=== PATIENT | female | born 1950 | race Caucasian/White ===

== ENCOUNTER 2018-04-15 15:10 | Emergency (ER) | payer MEDICARE, OTHER, SELFPAY ==
[2018-04-15 15:12] VITALS: BP 107/62; PULSE 77; RESP 16; TEMP 36.6; O2SAT 95; BMI 33.2
--- NOTE | 2018-04-15 15:24 | EKG12_ITS ---
Test Reason : Blood Pressure : / mmHG Vent. Rate : 079 BPM Atrial Rate : 079 BPM P-R Int : 152 ms QRS Dur : 080 ms QT Int : 414 ms P-R-T Axes : 025 011 036 degrees QTc Int : 474 ms Normal sinus rhythm Low voltage QRS Cannot rule out Anterior infarct , age undetermined Abnormal ECG Confirmed by STEPHANIE VAN, NIA ([id number]), editor in chief BELA KEANE ([id number] on 04/16/2018 11:57:00 AM Referred By: HOANG Confirmed By:NIA BROWN MD
[2018-04-15 15:27] VITALS: O2SAT 96
[2018-04-15] MEDS: 0.9% Normal Saline 1,000 ML 150 ML IV (15:33)
--- NOTE | 2018-04-15 15:36 | ED.DCSUM_ITS ---
- ER Visit Summary Date of Service: 04/15/18 Chief Complaint: [] Chest pain history of same related to esophageal reflux History of Present Illness: The patient is a 68 F [] patient was at her doctor's office for an unrelated visit skin infection, when she began having chest pressure was quite intense typical of her usual esophageal spasm reflux pain, she has had this for quite some time she had an extensive prior evaluation with EGD's manometry studies cardiac echo stress test etc. she has no history of CAD [place] PE rather this is always related to reflux esophageal spasm she has not been sick in any way no fever no cough no exertional symptoms review of systems all negative Physical Examination: [] 110/60-96% General, no distress resting comfortably HEENT is generally unremarkable The neck is supple no adenopathy Cardiovascular, regular rate and rhythm Lungs, clear bilateral Abdomen, soft nontender Extremities, no clubbing cyanosis or edema Neurologic, awake alert answering questions appropriately moving all 4 extremities EKG shows a sinus rhythm nothing acute she is resting comfortably and pain-free 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 says she is very familiar with her health conditions at this time she is agreeable to undergoing a cardiac protocol and will reevaluate but she assures me this is related to her esophageal spasm Test Results: [] Emergency Department Course and Treatment: [] The patient's EKG shows a sinus rhythm all lab tests are generally unremarkable for her as is chest x-ray, see those reports, reevaluation, she is resting comfortably in the bed she has no recurrence of symptoms 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 dictation software. It may contain incorrect words, spelling, and punctuation that were not noted in review of the chart prior to signing ED Disposition - Plan for ED Patient: Chief Complaint: Chest Pain Referrals: Andrew El MD [Primary Care Provider] -
[2018-04-15 15:37] LABS: Absolute Lymphocyte Count 1.31 X10^3/ul (0.83-4.51); Absolute Neutrophil Count 3.2 X10^3/uL (2.0-7.7); Basophil# 0.02 X10^3/uL; Basophil% 0.4 % (0-1); Eosinophils% 3.7 % (0-5); Hematocrit 39.6 % (37-47); Hemoglobin 12.5 g/dl (12.0-15.0); Lymphocyte # 1.31 X10^3/ul (4.0); Mean Corp Hgb Conc 31.6 g/gl (32-36); Mean Corpuscular Hgb 29.2 pg (27.0-32.0); Mean Corpuscular Volume 92.5 fL (81-99); Mean Platelet Vol. 9.5 fl (6.2-12.0); Monocyte# 0.74 X10^3/uL; Monocyte% 13.6 % (0-10); Neutrophil # 3.18 X10^3/uL (2.7-7.7); Neutrophil % 58.3 % (47-70); Platelet Count 287 K/mm3 (150-450); RBC Distribution Width CV 18.9 % (11.6-14.6); RBC Distribution Width SD 63.4 fl (35.1-43.9); Red Blood Count 4.28 M/mm3 (4.2-5.4); White Blood Count 5.5 K/mm3 (4.4-11.0)
[2018-04-15 15:38] LABS: POSITIVE COUNT NO; POSITIVE DIFFERENTIAL NO; POSITIVE MORPHOLOGY NO
--- NOTE | 2018-04-15 15:39 | RAD_ITS ---
STUDY: X-RAY CHEST REASON FOR EXAM: Female, 68 years old. Chest pain. TECHNIQUE: Single AP portable view of the chest. COMPARISON: None. FINDINGS: The lungs are clear and expanded. There is no demonstrated pleural abnormality. Normal size heart. Normal mediastinum and vira. Normal visualized pulmonary arteries. Normal visualized aortic arch and descending thoracic aorta. Normal visualized thoracic spine. Probable previous resection of the tip of the right clavicle. There is no demonstrated abnormality of the visualized soft tissue structures of the upper abdomen. RAD/Chest 1 View (Portable) IMPRESSION: No acute chest disease. Electronically Signed: Kvng Castro MD at 16:12 EST , Service support ,
[2018-04-15 16:03] LABS: Anion Gap 7 (5-15); BUN 24 mg/dL (7-18); BUN/Creat Ratio 35.1 RATIO (10-20); Calcium,Total 8.2 mg/dL (8.5-10.1); Chloride 108 mmol/L (98-107); Creatinine, Serum 0.68 mg/dL (0.55-1.02); EST Glomerular Filtration Rate 91 mL/min (>60); Est Glom Filt Rate - Afr Amer 110 mL/min (>60); Estimated Creatinine Clearance 49.12 ml/min; Glucose 130 mg/dL (74-106); Potassium 3.2 mmol/L (3.5-5.1); Sodium Level 142 mmol/L (136-145)
[2018-04-15 16:06] LABS: BNP,B-Type NATRIURETIC PEPTIDE 19.1 pg/mL (0-100)
--- NOTE | 2018-04-15 16:17 | ED.DEP ---
ED Disposition - Plan for ED Patient: Chief Complaint: Chest Pain Instructions: ED Chest Pain Atypical Unkn Cause Referrals: Andrew El MD [Primary Care Provider] -
--- NOTE | 2018-04-15 16:18 | ED.DEP ---
ED Disposition - Plan for ED Patient: Chief Complaint: Chest Pain Instructions: ED Chest Pain Atypical Unkn Cause Referrals: Andrew El MD [Primary Care Provider] -
[2018-04-15 16:19] VITALS: BP 100/66; PULSE 74; RESP 16; O2SAT 95
--- NOTE | 2018-04-15 16:47 | ED.DEP ---
ED Disposition - Plan for ED Patient: Chief Complaint: Chest Pain Instructions: ED Chest Pain Atypical Unkn Cause Prescriptions: Nitroglycerin 0.4 mg SL PRN PRN #30 tab.subl PRN Reason: Cardiac/Chest Pain Referrals: Andrew El MD [Primary Care Provider] -
[2018-04-15 16:52] VITALS: BP 111/57; PULSE 77; RESP 16; O2SAT 97
--- OUTSIDE RECORDS SUMMARY | 2018-06-01 13:35 | XMS RPT_ITS ---
:1950 Author Organization OHIP Care Team Providers Name Role Phone THIAGO PIPER Admitting Unavailable THIAGO PIPER Attending Unavailable THIAGO PIPER Admitting Unavailable THIAGO PIPER Attending Unavailable ASHLEY SIMPSON (LAND CHECKER) Referring Unavailable GANCHECO, SHANNAN Referring Unavailable KENIA LAKE (LAND CHECKER) Attending Unavailable THIAGO PIPER Attending Unavailable DENISE NAM () Attending Unavailable DENISE NAM () Referring Unavailable DEE VEGA (PA-C) Attending Unavailable RADHA ELIAS (PT) Attending Unavailable DEE VEGA (PA-C) Referring Unavailable FRANCESCO SMITH Attending Unavailable RADHA ELIAS (PT) Attending Unavailable DEE VEGA (PA-C) Referring Unavailable FRANCESCO SMITH S Attending Unavailable ASHLEY SIMPSON (LAND CHECKER) Attending Unavailable GANTA, SHANNAN Referring Unavailable BOWEN ANDRE Referring Unavailable BOWEN ANDRE Attending Unavailable BOWEN ANDRE Referring Unavailable NAFISA RAPP (LAND CHECKER) Attending Unavailable BOWEN ANDRE Referring Unavailable DOMINGUEZ SORIANO Attending Unavailable NAFISA RAPP (LAND CHECKER) Referring Unavailable ASHLEY SIMPSON (LAND CHECKER) Attending Unavailable NAFISA RAPP (LAND CHECKER) Referring Unavailable PILLO GRANGER Referring Unavailable PILLO GRANGER Attending Unavailable GANTA, SHANNAN Attending Unavailable GANTA, SHANNAN Referring Unavailable ASHLEY SIMPSON (LAND CHECKER) Attending Unavailable ANDREW BLANCO Attending Unavailable RUSS VELÁZQUEZ Referring Unavailable Ja KAUFMAN (PA-C) Attending Unavailable Ja KAUFMAN (PAKristelC) Attending Unavailable ANDREW BLANCO Referring Unavailable Eden Gant Attending Unavailable Andrew Blanco Primary Care Unavailable PROBLEMS PROBLEMS DATE TYPE CONDITION / CODE ATTENDING STATUS SOURCE 03/29/2018 Active Encounter for NA Active [place] screening mammogram [facility] Main for malignant [place] neoplasm of breast / Repository Z12.31(ICD-10) 02/18/2018 Active Radiculopathy, lumbar PIPER, THIAGO C Active [place] region / Clinic Other M54.16(ICD-10) [place] Repository 11/27/2017 Active Other fdc [facility] (current) drug Clinic Main therapy / [place] Z79.899(ICD-10) Repository 11/27/2017 Active Raynaud's syndrome NA [facility] without gangrene / Clinic Main I73.00(ICD-10) [place] Repository 11/09/2017 Active Pain in right hand / NA Active [place] M79.641(ICD-10) Clinic Main [place] Repository 11/09/2017 Active Pain in left hand / Active [place] M79.642(ICD-10) Clinic [facility] [place] Repository 10/27/2017 Active Heartburn / DOMINGUEZ SORIANO [facility] R12(ICD-10) [facility] Main [place] Repository 10/27/2017 Active Personal history of DOMINGUEZ SORIANO [facility] other diseases of the [facility] Main digestive system / [place] Z87.19(ICD-10) Repository 10/27/2017 Active Epigastric pain / DOMINGUEZ SORIANO [facility] R10.13(ICD-10) [facility] Main [place] Repository 10/27/2017 Active Nausea / DOMINGUEZ SORIANO [facility] R11.0(ICD-10) [facility] Main [place] Repository 10/27/2017 Active Other chest pain / DOMINGUEZ SORIANO [facility] R07.89(ICD-10) Clinic Main [place] Repository 10/27/2017 Active Dysphagia, DOMINGUEZ SORIANO [facility] unspecified / L Clinic Main R13.10(ICD-10) [place] Repository 10/27/2017 Active Iron deficiency / DOMINGUEZ SORIANO [facility] E61.1(ICD-10) [facility] Main [place] Repository 04/09/2012 Active Hereditary Active [place] hemochromatosis / Clinic Main E83.110(ICD-10) [place] Repository 10/05/2017 Active Type 2 diabetes [facility] mellitus without Clinic Main complications / [place] E11.9(ICD-10) Repository 08/31/2017 Active Unknown / FRANCESCO SMITH Active [place] UNK(Unknown) Clinic Main [place] Repository 05/28/2017 Active Cramp and spasm / NA Active [place] R25.2(ICD-10) Clinic Main [place] Repository 04/01/2017 Active Spinal stenosis, NA Active [place] lumbar region without Clinic Main neurogenic [place] claudication / Repository M48.061(ICD-10) 05/25/2015 Active Other intervertebral NA Active [place] disc degeneration, [facility] Main lumbar region / [place] M51.36(ICD-10) Repository 06/21/2014 Active Other cervical disc NA Active [place] degeneration, Clinic Main unspecified cervical [place] region / Repository M50.30(ICD-10) 05/28/2017 Active Other spondylosis NA Active [place] with myelopathy, Clinic Main cervical region / [place] M47.12(ICD-10) Repository PROCEDURES PROCEDURES No Procedure Records FoundRESULTS RESULTS PROGRESS Observed: 05/13/2018 Status: COMPLETED Source: [place] 1:24 PM [facility] REPOSITORY HNO ID: [id number] Author: Ja Zaidi (Tristian) Mandeep Service: (none) Author Type: Physician Dye Maker Type: Progress Notes Filed: 05/13/2018 2:44 PM Note Text: 68 year old female with c/o 1. Here for follow from ED visit from office last visit. EKG non-acute. Troponin negative. No chest pain or esophageal spasm. No hx reflux. Has hx of esophageal slowing on first EGD. Swallow study was a little abnormal. Denies heart burn, acid reflux. Has Nitro Kimberly fresh rx. at home. Did not have admit or follow up scheduled. Patient does not feel cardiac work up is necessary. 2. DM2: no medication Medical Issues / Complications: hypertension and hyperlipidemia Checking blood sugars at home? Yes. Watching diet? Physical Activity: Modest Hypoglycemic spells? No Any visual disturbance? No Chest pain? No New numbness, tingling or loss of sensation? No Any recent foot problems, sores or rashes? No Any recent or sudden weight loss? No Any recent illness? No Renal protective agent? Yes ASA daily? Yes Statin therapy? Yes Triglyceride therapy? No Last eye exam: 11/19/17. Last foot exam: due. HBA1C: Hemoglobin A1C (%) Date Value 10/08/2017 6.0 04/09/2017 6.2 ) CMP: Glucose 100 10/08/2017 BUN 20 10/08/2017 Creatinine 0.69 10/08/2017 Sodium 140 10/08/2017 Potassium 3.8 10/08/2017 Chloride 101 10/08/2017 CO2 29 10/08/2017 Protein, Total 7.0 10/08/2017 Albumin 4.2 10/08/2017 Calcium 9.2 10/08/2017 Alkaline Phosphatase 77 10/08/2017 Bilirubin, Total 0.2 10/08/2017 AST 24 10/08/2017 ALT 15 10/08/2017 Last 2 Encounter Wt Readings: Date: Wt: 05/13/2018 88.9 kg (196 lb) 04/15/2018 89.1 kg (196 lb 6.4 oz) 3. Hyperlipidemia: Taking medication consistently Yes Observing low cholesterol high fiber diet No Muscle aches Yes Stomach complaints/ diarrhea Yes Last 2 Lipids: Component Latest Ref Rng AND Units 02/19/2015 10/13/2016 04/09/2017 Triglyceride 30 - 149 mg/dL 60 50 45 Cholesterol, Total 100 - 199 mg/dL 210 (H) 215 (H) 222 (H) HDL Cholesterol >55 mg/dL 73 79 90 VLDL Cholesterol 6 - 40 mg/dL 12 10 9 LDL Cholesterol 60 - 129 mg/dL 125 126 123 Fasting Time hrs Unknown 12 14 TC:HDL Ratio 1.00 - 5.00 2.88 2.72 2.47 LDL:HDL Ratio 0.50 - 3.55 1.71 1.59 1.37 Non HDL Cholesterol 90 - 159 mg/dL 137 136 132 4. HTN: Current meds: HCTZ, LAsix Patient is compliant with meds Yes Monitors bp at home: No. If yes, readings: Denies side effects: Yes. Chest pain: No. Dyspnea: No. Edema: No. Palpitations: No. Syncope: No. Headache: No. Dizziness: No. Last 3 Encounter BP Readings: Date: BP: 05/13/2018 144/78 04/15/2018 128/82 02/23/2018 128/76 Last 2 Encounter Wt Readings: Date: Wt: 05/13/2018 88.9 kg (196 lb) 04/15/2018 89.1 kg (196 lb 6.4 oz) Vitals 02/18/2018 02/23/2018 02/23/2018 04/15/2018 05/13/2018 SITTING SYSTOLIC 133 128 128 144 SITTING DIASTOLIC 67 76 82 78 5. Hemochromatosis: stable. Follows with Dr. Andre. Last visit in October. Component Latest Ref Rng AND Units 04/09/2017 10/08/2017 WBC 3.70 - 11.00 k/uL 4.94 RBC 3.90 - 5.20 m/uL 4.87 Hemoglobin 11.5 - 15.5 g/dL 12.0 Hematocrit 36.0 - 46.0 % 39.3 MCV 80.0 - 100.0 fL 80.7 MCH 26.0 - 34.0 pG 24.6 (L) MCHC 30.5 - 36.0 g/dL 30.5 RDW-CV 11.5 - 15.0 % 18.6 (H) Platelet Count 150 - 400 k/uL 451 (H) MPV 9.0 - 12.7 fL 9.9 Neut% % 44.3 Abs Neut (ANC) 1.45 - 7.50 k/uL 2.17 Lymph% % 34.8 Abs Lymph 1.00 - 4.00 k/uL 1.72 Park% % 14.8 Abs Park <0.87 k/uL 0.73 Eosin% % 4.9 Abs Eosin <0.46 k/uL 0.24 Baso% % 1.2 Abs Baso <0.11 k/uL 0.06 Nucleated Reds 0 /100 WBC 0.0 Absolute nRBC <0.01 k/uL <0.01 Diff Type Auto Diff Iron 41 - 186 ug/dL 23 (L) 44 TIBC 232 - 386 ug/dL 472 (H) 404 (H) Transferrin Saturation 15 - 57 % 5 (L) 11 (L) Ferritin 14.7 - 205.1 ng/mL 14.4 (L) 17.0 HISTORIES FAMILY HISTORY Problem Relation Age of Onset - Cancer Mother 64 ovarian - Cancer Father 76 Mantle Cell Lymphoma - Cancer Maternal Grandmother uterine dx 60s - COPD Maternal Grandfather - Heart Maternal Grandfather CHF - Heart Paternal Grandmother CVA - Blood Disease Sister hemochromotosis - Cancer Paternal Aunt lung - Cancer Paternal Uncle brain tumor, myasthenia gravis PAST MEDICAL HISTORY Diagnosis Date - Arthritis - Blood dyscrasia - Dermatitis - Frequent UTI - Hemochromatosis - Hypertension - Lumbar pain - Shingles 1999 - Type II or unspecified type diabetes mellitus without mention of complication, not stated as uncontrolled 04/10/2014 PAST SURGICAL HISTORY Procedure Laterality Date - ARTHRODESIS [facility] JNT THUMB W/WO FIX 1996 bilateral - CERVICAL BIOPSY 05/25/12 Dr. Jordan - COLONOSCOP W/ OR W/O BRSH SPEC 05/16/2015 Colonoscopy - EGD W/O OR W/BRUSH/WASH 05/16/2015 EGD - ENDOMETRIAL BIOPSY 05/07/12 Dr. Jordan - HYSTEROSCOPY 05/25/12 Dr. Jordan - KNEE SCOPE,MENISECTOMY,MED OR LAT 10/07/2013 Left knee arthroscopic medial and lateral meniscectomies - partial - PAST SURGICAL HISTORY OF 1981 septoplasy - PAST SURGICAL HISTORY OF 04/16 bilateral lumbar epidural - PAST SURGICAL HISTORY OF 06/11/2015 lumbar epidural - left - REDUCTION OF LARGE BREAST 1999 bilateral - REMOVAL OF TONSILS,<12 Y/O 1979 Tonsillectomy - ROTATOR CUFF REPAIR 1984 right acromioplasty Social History Marital status: Single Spouse name: Years of education: Number of children: 0 Occupational History Occupation Employer Comment retired Social History Main Topics Smoking status: Never Smoker Smokeless tobacco: Never Used Alcohol use: Yes 0.0 oz/week Comment: 5 drinks per week Drug use: No Sexual activity: Not Currently 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 No children. ACTIVE PROBLEM LIST Essential Hypertension Acne Pain Disorder Menopausal Vaginal Dryness Itchy Eyes Hemochromatosis Body Odor Chronic Dermatitis of Hands Frequent Uti Abdominal Pain Hereditary Hemochromatosis (Hcc) Liver Dysfunction Lumbar Stenosis Lumbar Radiculopathy Chronic Pain Negron's Cyst Tear, Knee, Lateral Meniscus Complex Tear of Medial Meniscus of Left Knee As Current Injury Pain in Joint, Lower Leg Tear of Medial Cartilage Or Meniscus of Knee, Current Diabetes Mellitus Type 2, Controlled, Without Complications (Hcc) Hyperlipidemia Thoracic Back Pain Ddd (Degenerative Disc Disease), Cervical Cervical Spondylosis Chronic Instability of Metacarpophalangeal Joint of Thumb Bilateral Low Back Pain Without Sciatica Thumb Pain Ddd (Degenerative Disc Disease), Lumbar Trochanteric Bursitis of Left Hip Piriformis Syndrome of Left Side Trochanteric Tendinitis of Left Hip Vitiligo Alcohol Abuse, in Remission Spinal Stenosis of Lumbar Region Without Neurogenic Claudication Chronic Rhinitis Osteoarthritis of Cervical Spine With Myelopathy Chronic Superficial Gastritis Without Bleeding Current Outpatient Prescriptions: lancets (FREESTYLE LANCETS) 28 gauge misc Use 3 times daily Disp: 100 Each Rfl: 3 blood sugar diagnostic (FREESTYLE LITE STRIPS) test strip Use as instructed, 3 times daily to check blood sugars, E11.9 Disp: 300 Strip Rfl: 3 furosemide (LASIX) 40 mg tablet Take 0.5 tablets by mouth once daily. Disp: 45 tablet Rfl: 1 hydroCHLOROthiazide (HYDRODIURIL, ESIDRIX) 25 mg tablet Take 1 tablet by mouth once daily. Disp: 90 tablet Rfl: 0 mupirocin (BACTROBAN) 2 % ointment Apply 1 application to affected area three times daily. Location: left hand Disp: 15 g Rfl: 0 nitroglycerin (NITROLINGUAL) 400 mcg/spray spray Dissolve 1 Kimberly under the tongue every 5 minutes as needed. Disp: 1 Bottle Rfl: 2 potassium chloride ER (KLOR-CON M20) 20 mEq tablet Take 9 tablets by mouth once daily. Total of 180mEq daily. Disp: 810 tablet Rfl: 11 tretinoin (RETIN-A) 0.1 % cream Apply 1 Tube to affected area daily at bedtime. Disp: 45 g Rfl: 2 lancets (FREESTYLE LANCETS) 28 gauge misc Use once daily Disp: 300 Each Rfl: 1 meloxicam (MOBIC) 15 mg tablet Take 1 tablet by mouth once daily. Disp: 90 tablet Rfl: 2 traMADol (ULTRAM) 50 mg tablet Take 2 tablets by mouth as needed for up to 30 days. Disp: 60 tablet Rfl: 2 cyclobenzaprine (FLEXERIL) 10 mg tablet Take 1 tablet by mouth twice daily as needed. Disp: 60 tablet Rfl: 1 aspirin, enteric coated (ASPIRIN, ENTERIC COATED) 81 mg EC tablet Take 81 mg by mouth once daily. Disp: Rfl: mupirocin (BACTROBAN) 2 % ointment Apply 1 application to affected area twice daily. Apply twice a day. Disp: 22 g Rfl: 0 [facility] Nasal Ointment Use 1 application in each nostril twice daily as needed. [facility]CF nasal ointment Disp: 1 Tube Rfl: prn Blood-Glucose Meter (FREESTYLE LITE METER) monitoring kit Freestyle LITE Meter Kit -Dx 250.00, no insulin Disp: 1 Each Rfl: 0 olopatadine (PATANOL) 0.1 % ophthalmic solution Use 1 Drop in both eyes twice daily. As needed. Disp: 1 Bottle Rfl: 1 estradiol (ESTRACE) 0.01 % (0.1 mg/gram) vaginal cream Use 1 g vaginally twice a week. Disp: 1 Tube Rfl: 0 Ascorbic Acid (VITAMIN C) 250 mg chew Take 4 tablets by mouth once daily. Disp: 100 tablet Rfl: 0 MULTIVIT ANDMINERALS/FERROUS FUM (MULTI VITAMIN ORAL) Take by mouth once daily. Disp: Rfl: No current facility-administered medications for this visit. BP CONTROLLED (<130/80) due on 1969 DIABETIC FOOT EXAM due on 02/27/2016 LDL CHOLESTEROL due on 04/09/2018 HBA1C due on 04/09/2018 EXAM: BP 144/78 Pulse 88 Resp 20 Wt 88.9 kg (196 lb) BMI 32.62 kg/m? Pleasant adult woman in no acute distress. Alert and oriented all spheres. Normal affect and cognition. Speech normal. No deficits to learning or comprehension. Skin warm, dry, pink to lips and nailbeds. Normal turgor. Respirations regular and unlabored. HEENT WNL. TM's clear. Nose and oropharynx free from injection or lesion. No cervical lymph nodes. Thyroid non-tender, no masses Chest CTA. HRRR without murmur or gallop. Extrem: no clubbing, cyanosis, edema. Extremities are warm and pink with prompt capillary refill. ASSESSMENT/PLAN: 1. Essential hypertension - ICD9: 401.9, ICD10: I10 (primary diagnosis) - good control: Slightly higher today than last several. Recheck next visit. - Continue current medication(s) - Recommended regular aerobic exercise. - Recommend home blood pressure monitoring, to bring results in on next visit - Goal of BP <130/80 2. Controlled type 2 diabetes mellitus without complication, unspecified fdc insulin use status (HCC) - ICD9: 250.00, ICD10: E11.9 Controlled. - Check HgA1C and fasting lipid panel - LANCETS 28 GAUGE 3. Hyperlipidemia, mixed - ICD9: 272.2, ICD10: E78.2 - good control - Continue current medication. 4. Esophageal spasm - ICD9: 530.5, ICD10: K22.4 Resolved. Has rx for NTG. 5. Hereditary hemochromatosis (HCC) - ICD9: 275.01, ICD10: E83.110 Stable: follow in spring. F/u 6 months Ja Kaufman PA-C CNOV Observed: 05/13/2018 Status: COMPLETED Source: [place] 12:20 PM [facility] REPOSITORY Office Visit (FAMPWS) NORBERTOLEILA ([id number]) 1950 F Date Time Provider Department 05/13/18 12:20 PM [facility] During your visit today, we recorded the following information about you: Pulse Respiration Blood pressure Weight 88/minute 20/minute 144/78 88.9 kg Radha Tijerinaandres Reynolds 05/13/2018 1:21 PM Signed Patient would like to review EKG report. Ja Kaufman PA-C 05/13/2018 2:44 PM Signed 68 year old female with c/o 1. Here for follow from ED visit from office last visit. EKG non-acute. Troponin negative. No chest pain or esophageal spasm. No hx reflux. Has hx of esophageal slowing on first EGD. Swallow study was a little abnormal. Denies heart burn, acid reflux. Has Nitro Kimberly fresh rx. at home. Did not have admit or follow up scheduled. Patient does not feel cardiac work up is necessary. 2. DM2: no medication Medical Issues / Complications: hypertension and hyperlipidemia Checking blood sugars at home? Yes. Watching diet? Physical Activity: Modest Hypoglycemic spells? No Any visual disturbance? No Chest pain? No New numbness, tingling or loss of sensation? No Any recent foot problems, sores or rashes? No Any recent or sudden weight loss? No Any recent illness? No Renal protective agent? Yes ASA daily? Yes Statin therapy? Yes Triglyceride therapy? No Last eye exam: 11/19/17. Last foot exam: due. HBA1C: Hemoglobin A1C (%) Date Value 10/08/2017 6.0 04/09/2017 6.2 ) CMP: Glucose 100 10/08/2017 BUN 20 10/08/2017 Creatinine 0.69 10/08/2017 Sodium 140 10/08/2017 Potassium 3.8 10/08/2017 Chloride 101 10/08/2017 CO2 29 10/08/2017 Protein, Total 7.0 10/08/2017 Albumin 4.2 10/08/2017 Calcium 9.2 10/08/2017 Alkaline Phosphatase 77 10/08/2017 Bilirubin, Total 0.2 10/08/2017 AST 24 10/08/2017 ALT 15 10/08/2017 Last 2 Encounter Wt Readings: Date: Wt: 05/13/2018 88.9 kg (196 lb) 04/15/2018 89.1 kg (196 lb 6.4 oz) 3. Hyperlipidemia: Taking medication consistently Yes Observing low cholesterol high fiber diet No Muscle aches Yes Stomach complaints/ diarrhea Yes Last 2 Lipids: Component Latest Ref Rng AND Units 02/19/2015 10/13/2016 04/09/2017 Triglyceride 30 - 149 mg/dL 60 50 45 Cholesterol, Total 100 - 199 mg/dL 210 (H) 215 (H) 222 (H) HDL Cholesterol >55 mg/dL 73 79 90 VLDL Cholesterol 6 - 40 mg/dL 12 10 9 LDL Cholesterol 60 - 129 mg/dL 125 126 123 Fasting Time hrs Unknown 12 14 TC:HDL Ratio 1.00 - 5.00 2.88 2.72 2.47 LDL:HDL Ratio 0.50 - 3.55 1.71 1.59 1.37 Non HDL Cholesterol 90 - 159 mg/dL 137 136 132 4. HTN: Current meds: HCTZ, LAsix Patient is compliant with meds Yes Monitors bp at home: No. If yes, readings: Denies side effects: Yes. Chest pain: No. Dyspnea: No. Edema: No. Palpitations: No. Syncope: No. Headache: No. Dizziness: No. Last 3 Encounter BP Readings: Date: BP: 05/13/2018 144/78 04/15/2018 128/82 02/23/2018 128/76 Last 2 Encounter Wt Readings: Date: Wt: 05/13/2018 88.9 kg (196 lb) 04/15/2018 89.1 kg (196 lb 6.4 oz) Vitals 02/18/2018 02/23/2018 02/23/2018 04/15/2018 05/13/2018 SITTING SYSTOLIC 133 128 128 144 SITTING DIASTOLIC 67 76 82 78 5. Hemochromatosis: stable. Follows with Dr. Andre. Last visit in October. Component Latest Ref Rng AND Units 04/09/2017 10/08/2017 WBC 3.70 - 11.00 k/uL 4.94 RBC 3.90 - 5.20 m/uL 4.87 Hemoglobin 11.5 - 15.5 g/dL 12.0 Hematocrit 36.0 - 46.0 % 39.3 MCV 80.0 - 100.0 fL 80.7 MCH 26.0 - 34.0 pG 24.6 (L) MCHC 30.5 - 36.0 g/dL 30.5 RDW-CV 11.5 - 15.0 % 18.6 (H) Platelet Count 150 - 400 k/uL 451 (H) MPV 9.0 - 12.7 fL 9.9 Neut% % 44.3 Abs Neut (ANC) 1.45 - 7.50 k/uL 2.17 Lymph% % 34.8 Abs Lymph 1.00 - 4.00 k/uL 1.72 Park% % 14.8 Abs Park <0.87 k/uL 0.73 Eosin% % 4.9 Abs Eosin <0.46 k/uL 0.24 Baso% % 1.2 Abs Baso <0.11 k/uL 0.06 Nucleated Reds 0 /100 WBC 0.0 Absolute nRBC <0.01 k/uL <0.01 Diff Type Auto Diff Iron 41 - 186 ug/dL 23 (L) 44 TIBC 232 - 386 ug/dL 472 (H) 404 (H) Transferrin Saturation 15 - 57 % 5 (L) 11 (L) Ferritin 14.7 - 205.1 ng/mL 14.4 (L) 17.0 HISTORIES FAMILY HISTORY Problem Relation Age of Onset - Cancer Mother 64 ovarian - Cancer Father 76 Mantle Cell Lymphoma - Cancer Maternal Grandmother uterine dx 60s - COPD Maternal Grandfather - Heart Maternal Grandfather CHF - Heart Paternal Grandmother CVA - Blood Disease Sister hemochromotosis - Cancer Paternal Aunt lung - Cancer Paternal Uncle brain tumor, myasthenia gravis PAST MEDICAL HISTORY Diagnosis Date - Arthritis - Blood dyscrasia - Dermatitis - Frequent UTI - Hemochromatosis - Hypertension - Lumbar pain - Shingles 1999 - Type II or unspecified type diabetes mellitus without mention of complication, not stated as uncontrolled 04/10/2014 PAST SURGICAL HISTORY Procedure Laterality Date - ARTHRODESIS [facility] JNT THUMB W/WO FIX 1996 bilateral - CERVICAL BIOPSY 05/25/12 Dr. Jordan - COLONOSCOP W/ OR W/O BRSH SPEC 05/16/2015 Colonoscopy - EGD W/O OR W/BRUSH/WASH 05/16/2015 EGD - ENDOMETRIAL BIOPSY 05/07/12 Dr. Jordan - HYSTEROSCOPY 05/25/12 Dr. Jordan - KNEE SCOPE,MENISECTOMY,MED OR LAT 10/07/2013 Left knee arthroscopic medial and lateral meniscectomies - partial - PAST SURGICAL HISTORY OF 1981 septoplasy - PAST SURGICAL HISTORY OF 04/16 bilateral lumbar epidural - PAST SURGICAL HISTORY OF 06/11/2015 lumbar epidural - left - REDUCTION OF LARGE BREAST 1999 bilateral - REMOVAL OF TONSILS,<12 Y/O 1978 Tonsillectomy - ROTATOR CUFF REPAIR 1984 right acromioplasty Social History Marital status: Single Spouse name: Years of education: Number of children: 0 Occupational History Occupation Employer Comment retired Social History Main Topics Smoking status: Never Smoker Smokeless tobacco: Never Used Alcohol use: Yes 0.0 oz/week Comment: 5 drinks per week Drug use: No Sexual activity: Not Currently 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 No children. ACTIVE PROBLEM LIST Essential Hypertension Acne Pain Disorder Menopausal Vaginal Dryness Itchy Eyes Hemochromatosis Body Odor Chronic Dermatitis of Hands Frequent Uti Abdominal Pain Hereditary Hemochromatosis (Hcc) Liver Dysfunction Lumbar Stenosis Lumbar Radiculopathy Chronic Pain Negron's Cyst Tear, Knee, Lateral Meniscus Complex Tear of Medial Meniscus of Left Knee As Current Injury Pain in Joint, Lower Leg Tear of Medial Cartilage Or Meniscus of Knee, Current Diabetes Mellitus Type 2, Controlled, Without Complications (Hcc) Hyperlipidemia Thoracic Back Pain Ddd (Degenerative Disc Disease), Cervical Cervical Spondylosis Chronic Instability of Metacarpophalangeal Joint of Thumb Bilateral Low Back Pain Without Sciatica Thumb Pain Ddd (Degenerative Disc Disease), Lumbar Trochanteric Bursitis of Left Hip Piriformis Syndrome of Left Side Trochanteric Tendinitis of Left Hip Vitiligo Alcohol Abuse, in Remission Spinal Stenosis of Lumbar Region Without Neurogenic Claudication Chronic Rhinitis Osteoarthritis of Cervical Spine With Myelopathy Chronic Superficial Gastritis Without Bleeding Current Outpatient Prescriptions: lancets (FREESTYLE LANCETS) 28 gauge misc Use 3 times daily Disp: 100 Each Rfl: 3 blood sugar diagnostic (FREESTYLE LITE STRIPS) test strip Use as instructed, 3 times daily to check blood sugars, E11.9 Disp: 300 Strip Rfl: 3 furosemide (LASIX) 40 mg tablet Take 0.5 tablets by mouth once daily. Disp: 45 tablet Rfl: 1 hydroCHLOROthiazide (HYDRODIURIL, ESIDRIX) 25 mg tablet Take 1 tablet by mouth once daily. Disp: 90 tablet Rfl: 0 mupirocin (BACTROBAN) 2 % ointment Apply 1 application to affected area three times daily. Location: left hand Disp: 15 g Rfl: 0 nitroglycerin (NITROLINGUAL) 400 mcg/spray spray Dissolve 1 Kimberly under the tongue every 5 minutes as needed. Disp: 1 Bottle Rfl: 2 potassium chloride ER (KLOR-CON M20) 20 mEq tablet Take 9 tablets by mouth once daily. Total of 180mEq daily. Disp: 810 tablet Rfl: 11 tretinoin (RETIN-A) 0.1 % cream Apply 1 Tube to affected area daily at bedtime. Disp: 45 g Rfl: 2 lancets (FREESTYLE LANCETS) 28 gauge misc Use once daily Disp: 300 Each Rfl: 1 meloxicam (MOBIC) 15 mg tablet Take 1 tablet by mouth once daily. Disp: 90 tablet Rfl: 2 traMADol (ULTRAM) 50 mg tablet Take 2 tablets by mouth as needed for up to 30 days. Disp: 60 tablet Rfl: 2 cyclobenzaprine (FLEXERIL) 10 mg tablet Take 1 tablet by mouth twice daily as needed. Disp: 60 tablet Rfl: 1 aspirin, enteric coated (ASPIRIN, ENTERIC COATED) 81 mg EC tablet Take 81 mg by mouth once daily. Disp: Rfl: mupirocin (BACTROBAN) 2 % ointment Apply 1 application to affected area twice daily. Apply twice a day. Disp: 22 g Rfl: 0 [facility]CF Nasal Ointment Use 1 application in each nostril twice daily as needed. [facility] nasal ointment Disp: 1 Tube Rfl: prn Blood-Glucose Meter (FREESTYLE LITE METER) monitoring kit Freestyle LITE Meter Kit -Dx 250.00, no insulin Disp: 1 Each Rfl: 0 olopatadine (PATANOL) 0.1 % ophthalmic solution Use 1 Drop in both eyes twice daily. As needed. Disp: 1 Bottle Rfl: 1 estradiol (ESTRACE) 0.01 % (0.1 mg/gram) vaginal cream Use 1 g vaginally twice a week. Disp: 1 Tube Rfl: 0 Ascorbic Acid (VITAMIN C) 250 mg chew Take 4 tablets by mouth once daily. Disp: 100 tablet Rfl: 0 MULTIVIT ANDMINERALS/FERROUS FUM (MULTI VITAMIN ORAL) Take by mouth once daily. Disp: Rfl: No current facility-administered medications for this visit. BP CONTROLLED (<130/80) due on 1969 DIABETIC FOOT EXAM due on 02/27/2016 LDL CHOLESTEROL due on 04/09/2018 HBA1C due on 04/09/2018 EXAM: BP 144/78 Pulse 88 Resp 20 Wt 88.9 kg (196 lb) BMI 32.62 kg/m? Pleasant adult woman in no acute distress. Alert and oriented all spheres. Normal affect and cognition. Speech normal. No deficits to learning or comprehension. Skin warm, dry, pink to lips and nailbeds. Normal turgor. Respirations regular and unlabored. HEENT WNL. TM's clear. Nose and oropharynx free from injection or lesion. No cervical lymph nodes. Thyroid non-tender, no masses Chest CTA. HRRR without murmur or gallop. Extrem: no clubbing, cyanosis, edema. Extremities are warm and pink with prompt capillary refill. ASSESSMENT/PLAN: 1. Essential hypertension - ICD9: 401.9, ICD10: I10 (primary diagnosis) - good control: Slightly higher today than last several. Recheck next visit. - Continue current medication(s) - Recommended regular aerobic exercise. - Recommend home blood pressure monitoring, to bring results in on next visit - Goal of BP <130/80 2. Controlled type 2 diabetes mellitus without complication, unspecified intermediate manager insulin use status (HCC) - ICD9: 250.00, ICD10: E11.9 Controlled. - Check HgA1C and fasting lipid panel - LANCETS 28 GAUGE 3. Hyperlipidemia, mixed - ICD9: 272.2, ICD10: E78.2 - good control - Continue current medication. 4. Esophageal spasm - ICD9: 530.5, ICD10: K22.4 Resolved. Has rx for NTG. 5. Hereditary hemochromatosis (HCC) - ICD9: 275.01, ICD10: E83.110 Stable: follow in spring. F/u 6 months M Dejuan Kaufman PA-C Referring Provider: ANDREW BLANCO [[id number]] Allergies As of Date: 05/13/2018 Noted Allergy Reaction CEPHALOSPORINS 03/09/2012 10 - Anaphylaxis THIMEROSAL 03/09/2012 7 - Swelling Comments: Difficulty breathing VANCOMYCIN 03/09/2012 10 - Anaphylaxis Comments: flushed LEVAQUIN (LEVOFLOXACIN) 03/14/2013 2 - Rash 14 - Other: See Comments Comments: Muscle/joint pain SPIRONOLACTONE (BULK) 02/20/2015 2 - Rash Comments: Pt states happened years ago when trying this always forgets. SULFA (SULFONAMIDE ANTIBIOTICS) 04/09/2012 4 - Hives 9 - Itching TAPE (ADHESIVE TAPE (ROSINS)) 06/08/2012 2 - Rash 9 - Itching Comments: degloving ZOCOR (SIMVASTATIN) 05/15/2014 14 - Other: See Comments Comments: Muscle/limb pain Date Reviewed: 05/13/2018 Reviewed by: Radha Chiu Ma - Fully Assessed Reason for Visit: Recheck [92] Cmt: Chest pain Primary Visit Diagnosis:Essential hypertension [I10] Other Visit Diagnoses:Controlled type 2 diabetes mellitus without complication, unspecified fdc insulin use status (HCC) [E11.9] Hyperlipidemia, mixed [E78.2] Esophageal spasm [K22.4] Hereditary hemochromatosis (HCC) [E83.110] Order(s):lancets (FREESTYLE LANCETS) 28 gauge miscUse 3 times dailyDisp: 300 EachRfl: 3 Prescriptions as of 05/13/2018 Sig: BLOOD SUGAR DIAGNOSTIC STRIPS Use as instructed, 3 times da* FUROSEMIDE 40 MG TABLET Take 0.5 tablets by mouth onc* HYDROCHLOROTHIAZIDE 25 MG TAB* Take 1 tablet by mouth once d* MUPIROCIN 2 % TOPICAL OINTMENT Apply 1 application to affect* NITROGLYCERIN 400 MCG/SPRAY T* Dissolve 1 Kimberly under the to* POTASSIUM CHLORIDE ER 20 MEQ * Take 9 tablets by mouth once * TRETINOIN 0.1 % TOPICAL CREAM Apply 1 Tube to affected area* LANCETS 28 GAUGE Use once daily MELOXICAM 15 MG TABLET Take 1 tablet by mouth once d* TRAMADOL 50 MG TABLET Take 2 tablets by mouth as ne* CYCLOBENZAPRINE 10 MG TABLET Take 1 tablet by mouth twice * ASPIRIN 81 MG TABLET,DELAYED * Take 81 mg by mouth once dangelo* MUPIROCIN 2 % TOPICAL OINTMENT Apply 1 application to affect* COMPOUNDED PRESCRIPTION Use 1 application in each nos* BLOOD-GLUCOSE METER KIT Freestyle LITE Meter Kit -Dx * OLOPATADINE 0.1 % EYE DROPS Use 1 Drop in both eyes twice* ESTRADIOL 0.01% (0.1 MG/GRAM)* Use 1 g vaginally twice a wee* ASCORBIC ACID (VITAMIN C) 250* Take 4 tablets by mouth once * MULTI VITAMIN ORAL Take by mouth once daily. LANCETS 28 GAUGE Use 3 times daily Medication notes this encounter TRAMADOL 50 MG TABLET >> Radha Chiu Ma 05/13/2018 12:44 PM >> RADHA CHIU MA May 13, 2018 12:44 PM Taking 100 mg once a day Problem List As Of Date 05/13/2018 Noted Resolved Essential hypertension [I10] INVALID FOR* More... Acne [L70.9] INVALID FOR* Pain disorder [R52] INVALID FOR* Menopausal vaginal dryness [N95.1] INVALID FOR* Itchy eyes [R68.89] INVALID FOR* Anemia [D64.9] INVALID FOR*10/14/2012 Hemochromatosis [E83.119] INVALID FOR* Body odor [L74.8] INVALID FOR* Chronic dermatitis of hands [L30.9] INVALID FOR* Frequent UTI [N39.0] INVALID FOR* Abdominal pain [R10.9] INVALID FOR* Hereditary hemochromatosis [E83.110] INVALID FOR* More... Liver dysfunction [K76.89] INVALID FOR* Lumbar stenosis [M48.061] INVALID FOR* Lumbar radiculopathy [M54.16] INVALID FOR* Chronic pain [G89.29] INVALID FOR* Negron's cyst [M71.20] INVALID FOR* Tear, knee, lateral meniscus [S83.289A] INVALID FOR* Complex tear of medial meniscus of left knee as*INVALID FOR* Pain in joint, lower leg [M25.569] INVALID FOR* Tear of medial cartilage or meniscus of knee, c*INVALID FOR* Diabetes mellitus type 2, controlled, without c*INVALID FOR* More... Hyperlipidemia [E78.5] INVALID FOR* Thoracic back pain [M54.6] INVALID FOR* DDD (degenerative disc disease), cervical [M50.*INVALID FOR* Cervical spondylosis [M47.812] INVALID FOR* Acute combined systolic and diastolic congestiv*INVALID FOR*03/04/2015 Chronic instability of metacarpophalangeal join*INVALID FOR* Bilateral low back pain without sciatica [M54.5]INVALID FOR* Thumb pain [M79.646] INVALID FOR* DDD (degenerative disc disease), lumbar [M51.36]INVALID FOR* Trochanteric bursitis of left hip [M70.62] INVALID FOR* Piriformis syndrome of left side [G57.02] INVALID FOR* Trochanteric tendinitis of left hip [M70.62] INVALID FOR* Vitiligo [L80] INVALID FOR* More... 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 Chronic rhinitis [J31.0] INVALID FOR* Osteoarthritis of cervical spine with myelopath*INVALID FOR* Chronic superficial gastritis without bleeding *INVALID FOR* More... Visit Notes: >> Radha Chiu Ma [facility] May 13, 2018 12:43 PM Status: Signed Patient would like to review EKG report. Prescriptions ordered this encounter Disp Refills Start End LANCETS 28 GAUGE 300 * 3 05/13/2018 Sig: Use 3 times daily Medications Discontinued During This Encounter lancets (FREESTYLE LANCETS) 28 gauge* 100 * 3 05/07/2018 05/13/2018 Sig: Use 3 times daily Disc: Reason for discontinue is not on file. Disposition: Return in about 6 months (around 11/10/2018). Follow-up and Disposition History Recorded Encounter Status:Closed by Ja KAUFMAN PA-C on 05/13/18 12 LEAD ELECTROCARDIOGRAM Observed: 04/16/2018 Status: F Source: [place] 11:57 AM [facility] REPOSITORY [facility] Cardiovascular Services [address] [place] [address] 12 Lead EKG 04/15/18 1515 MR#: [id number] Acct: [id number] Name: Karina THORNTON Rep #: [id number] : 1950 68 From: Darek Anderson MD Attending Dr: Status: DEP ER Ordering Dr: Eden Gant MD Date: 04/15/18 Location: ED Sex: F C Admitted: Test Reason : Blood Pressure : / mmHG Vent. Rate : 079 BPM Atrial Rate : 079 BPM P-R Int : 152 ms QRS Dur : 080 ms QT Int : 414 ms P-R-T Axes : 025 011 036 degrees QTc Int : 474 ms Normal sinus rhythm Low voltage QRS Cannot rule out Anterior infarct , age undetermined Abnormal ECG Confirmed by DAREK ANDERSON MD ([id number]), science editor BELA KEANE ([id number]) on 04/16/2018 11:57:00 AM Referred By: HOANG Confirmed By:DAREK ANDERSON MD 04/16/18 1157 Date Darek Anderson MD CC: MD Elizabeth Gant; Andrew Blanco MD Signed EMERGENCY DEPARTMENT Observed: 04/15/2018 Status: F Source: [place] SUMMARY 11:19 PM [facility] REPOSITORY [facility] Medical Records Department [address] [place] [address] Emergency Department Summary 04/15/18 1534 MR#: [id number] Acct: [id number] Name: Karina THORNTON Rep #: [id number] : 1950 68 From: Eden Gant MD PCP: Andrew Blanco MD Status: DEP ER - ER Visit Summary Date of Service: 04/15/18 Chief Complaint: [] Chest pain history of same related to esophageal reflux History of Present Illness: The patient is a 68 F [] patient was at her doctor's office for an unrelated visit skin infection, when she began having chest pressure was quite intense typical of her usual esophageal spasm reflux pain, she has had this for quite some time she had an extensive prior evaluation with EGD's manometry studies cardiac echo stress test etc. she has no history of CAD IN PE rather this is always related to reflux esophageal spasm she has not been sick in any way no fever no cough no exertional symptoms review of systems all negative Physical Examination: [] 110/60-96% General, no distress resting comfortably HEENT is generally unremarkable The neck is supple no adenopathy Cardiovascular, regular rate and rhythm Lungs, clear bilateral Abdomen, soft nontender Extremities, no clubbing cyanosis or edema Neurologic, awake alert answering questions appropriately moving all 4 extremities EKG shows a sinus rhythm nothing acute she is resting comfortably and pain-free 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 says she is very familiar with her health conditions at this time she is agreeable to undergoing a cardiac protocol and will reevaluate but she assures me this is related to her esophageal spasm Test Results: [] Emergency Department Course and Treatment: [] The patient's EKG shows a sinus rhythm all lab tests are generally unremarkable for her as is chest x-ray, see those reports, reevaluation, she is resting comfortably in the bed she has no recurrence of symptoms the 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 It may contain incorrect words, spelling, and punctuation that were not noted in review of the chart prior to signing ED Disposition - Plan for ED Patient: Chief Complaint: Chest Pain Referrals: Andrew Blanco MD [Primary Care Provider] - What to do if you have Problems For any increased pain, shortness of breath, bleeding, nausea or vomiting, chest pain, or any unexpected problems, contact your Primary Care Provider. Call [facility] ([phone]) or report to the closest Emergency Room. Call 911 if necessary. 04/15/18 6817 <Electronically signed by Eden Gant MD> Date Eden Gant MD Cosigner Signature (If Indicated): Date CC: Andrew Blanco MD DISCHARGE INSTRUCTION Observed: 04/15/2018 Status: F Source: [place] 4:49 PM [facility] REPOSITORY [facility] Medical Records Department [address] [place] [address] Discharge Instruction 04/15/18 1647 MR#: [id number] Acct: [id number] Name: Karina THORNTON Rep #: [id number] : 1950 68 From: Eden Gant MD PCP: Andrew Blanco MD Status: REG ER ED Disposition - Plan for ED Patient: Chief Complaint: Chest Pain Instructions: ED Chest Pain Atypical Unkn Cause Prescriptions: Nitroglycerin 0.4 mg SL PRN PRN #30 tab.subl PRN Reason: Cardiac/Chest Pain Referrals: Andrew Blanco MD [Primary Care Provider] - What to do if you have Problems For any increased pain, shortness of breath, bleeding, nausea or vomiting, chest pain, or any unexpected problems, contact your Primary Care Provider. Call [facility] ([phone]) or report to the closest Emergency Room. Call 911 if necessary. 04/15/181648 <Electronically signed by Eden Gant MD> Date Eden Gant MD Cosigner Signature (If Indicated): Date CC: Andrew Blanco MD DISCHARGE INSTRUCTION Observed: 04/15/2018 Status: F Source: [place] 4:22 PM [facility] REPOSITORY [facility] Medical Records Department [address] [place] [address] Discharge Instruction 04/15/18 1618 MR#: [id number] Acct: [id number] Name: Karina THORNTON Rep #: [id number] : 1950 68 From: Eden Gant MD PCP: Andrew Blanco MD Status: REG ER ED Disposition - Plan for ED Patient: Chief Complaint: Chest Pain Instructions: ED Chest Pain Atypical Unkn Cause Referrals: Andrew Blanco MD [Primary Care Provider] - What to do if you have Problems For any increased pain, shortness of breath, bleeding, nausea or vomiting, chest pain, or any unexpected problems, contact your Primary Care Provider. Call [facility] ([phone]) or report to the closest Emergency Room. Call 911 if necessary. 04/15/18 1622 <Electronically signed by Eden Gant MD> Date Eden Gant MD Cosigner Signature (If Indicated): Date CC: Andrew Blanco MD DISCHARGE INSTRUCTION Observed: 04/15/2018 Status: F Source: [place] 4:18 PM [facility] REPOSITORY [facility] Medical Records Department [address] [place] [address] Discharge Instruction 04/15/181616 MR#: [id number] Acct: [id number] Name: Karina THORNTON Rep #: [id number] : 1950 68 From: Eden Gant MD PCP: Andrew Blanco MD Status: REG ER ED Disposition - Plan for ED Patient: Chief Complaint: Chest Pain Instructions: ED Chest Pain Atypical Unkn Cause Referrals: Andrew Blanco MD [Primary Care Provider] - What to do if you have Problems For any increased pain, shortness of breath, bleeding, nausea or vomiting, chest pain, or any unexpected problems, contact your Primary Care Provider. Call [facility] ([phone]) or report to the closest Emergency Room. Call 911 if necessary. 04/15/18 1618 <Electronically signed by Eden Gant MD> Date Eden [facility] Signature (If Indicated): Date CC: Andrew Blanco MD CHEST 1 VIEW Observed: 04/15/2018 Status: F Source: [place] (PORTABLE) 3:25 PM [facility] REPOSITORY [facility] Imaging Services [address] [place] [address] Chest 1 View (Portable) MR#: [id number] Acct: [id number] Name: Karina THORNTON Rep #: [id number] : 1950 F 68 From: Kvng Castro MD PCP: Andrew Blanco MD Status: REG ER Study: Chest 1 View (Portable) Date of Exam: 04/15/18 Exam# [id number] Ordering Dr: Eden Gant MD STUDY: X-RAY CHEST REASON FOR EXAM: Female, 68 years old. Chest pain. TECHNIQUE: Single AP portable view of the chest. COMPARISON: None. FINDINGS: The lungs are clear and expanded. There is no demonstrated pleural abnormality. Normal size heart. Normal mediastinum and vira. Normal visualized pulmonary arteries. Normal visualized aortic arch and descending thoracic aorta. Normal visualized thoracic spine. Probable previous resection of the tip of the right clavicle. There is no demonstrated abnormality of the visualized soft tissue structures of the upper abdomen. RAD/Chest 1 View (Portable) IMPRESSION: No acute chest disease. Electronically Signed: Kvng Castro MD at 16:12 EST , Service support , CC: MD Elizabeth Gant; Andrew Blanco MD Crop Puller: Signed CBC W/DIFF, AUTOMATED Collected: 04/15/2018 Status: F Source: [place] 3:20 PM [facility] REPOSITORY TYPE CODE TESTS RESULT OUT OF RANGE REFERENCE UNITS LAB L100.1000 4.4-11.0 K/mm3 Normal WBC 5.5 LAB L100.1200 4.2-5.4 M/mm3 Normal RBC 4.28 LAB L100.1300 12.0-15.0 g/dl Normal HGB 12.5 LAB L100.1400 37-47 % Normal HCT 39.6 LAB L100.1500 81-99 fL Normal MCV 92.5 LAB L100.1600 27.0-32.0 pg Normal MCH 29.2 LAB L100.1700 32-36 g/gl Low MCHC 31.6 LAB L100.1810 11.6-14.6 % High RDW CV 18.9 LAB L100.1820 35.1-43.9 fl High RDW SD 63.4 LAB L100.1900 150-450 K/mm3 Normal PLT 287 LAB L100.2000 6.2-12.0 fl Normal MPV 9.5 LAB L100.2100 47-70 % Normal NEUT% 58.3 LAB L100.2200 19-41 % Normal LY% 24.0 LAB L100.2300 0-10 % High MONO% 13.6 LAB L100.2400 0-5 % Normal EO% 3.7 LAB L100.2500 0-1 % Normal BASO% 0.4 LAB L100.2550 0.0-0.9 % Normal IM GRAN % 0.000 Result Comment: IG% - Immature Granulocytes (promyelocytes, myelocytes and metamyelocytes) > 1% indicates that a LEFT SHIFT is Present. LAB L100.2620 2.0-7.7 X10 3/uL Normal Absolute Neut 3.2 LAB L100.2720 0.83-4.51 X10 3/ul Normal Absolute Lymph 1.31 Performed By: #### L100.0100 #### [facility] [address] [place], [place], [id number] BASIC METABOLIC Collected: 04/15/2018 Status: F Source: [place] PROFILE (BMP) 3:20 PM [facility] REPOSITORY TYPE CODE TESTS RESULT OUT OF RANGE REFERENCE UNITS LAB L501.0100 74-106 mg/dL High GLU 130 Result Comment: Fasting Glucose result greater than or equal to 126 mg/dL suggests DIABETES MELLITUS per A.D.A. criteria. Please note revised GLUCOSE reference range effective 2017. LAB L501.1000 7-18 mg/dL High BUN 24 LAB L501.1100 0.55-1.02 mg/dL Normal CREAT,SERUM 0.68 Result Comment: The validity of the calculated GFR AND GFRAA in patients over 70 years has not been determined. Clinical correlation is essential. LAB L501.1110 >60 mL/min Normal EST GFR 91 Result Comment: Non- GFR Calc LAB L501.1115 >60 mL/min Normal EST GFR - AA 110 Result Comment: GFR Calc LAB L501.1255 ml/min Normal Estimated CRCL 49.12 LAB L501.1300 10-20 RATIO High BUN/CRE 35.1 LAB L501.2200 8.5-10 mg/dL Low .1 CA 8.2 LAB L501.5300 136-14 mmol/L Normal 5 NA 142 LAB L501.5600 3.5-5. mmol/L Low 1 K 3.2 LAB L501.5900 98-107 mmol/L High CL 108 LAB L501.6100 21.0-3 mmol/L Normal 2.0 CO2 27.0 LAB L501.6200 5-15 Normal GAP 7 Performed By: #### L500.2500, L501.4010 #### [facility] [address] [place], [address] TROPONIN-I Collected: 04/15/2018 Status: F Source: [place] 3:20 PM [facility] REPOSITORY TYPE CODE TESTS RESULT OUT OF RANGE REFERENCE UNITS LAB L501.4010 <0.045 ng/mL Normal < 0.015 TROPONIN-I Result Comment: TROPONIN-I EXPECTED VALUES <0.045 Negative 0.045 - 0.590 Consistent with Cardiac Damage > OR = 0.600 Critical Value Not every elevated troponin is indicative of IN. These values should be used with clinical judgement in examining the patient's clinical picture for diagnosis. To establish a diagnosis of IN versus myocardial injury, there must be a demonstrated rise and/or fall in the troponin values, in addition to ischemic symptoms, EKG changes, new regional wall motion abnormality, and/or angiographical evidence. PLEASE NOTE: REFERENCE RANGES EDITED 17 Performed By: #### L500.2500, L501.4010 #### [facility] [address] [place], [address] BNP,B-TYPE NATRIURETIC Collected: 04/15/2018 Status: F Source: [place] PEPTIDE 3:20 PM [facility] REPOSITORY TYPE CODE TESTS RESULT OUT OF RANGE REFERENCE UNITS LAB L503.6620 0-100 pg/mL Normal B-TYPE 19.1 PRITESH PEP Performed By: #### L503.6620 #### [facility] [address] [place], [address] PROGRESS Observed: 04/15/2018 Status: COMPLETED Source: [place] 2:41 PM [facility] [place] REPOSITORY HNO ID: [id number] Author: Ja Zaidi (Pa-C) Mandeep Service: (none) Author Type: Physician Dye Maker Type: Progress Notes Filed: 04/15/2018 4:28 PM Note Text: 68 year old female with c/o 1. Cat scratch left hand 3 days ago. Irritated and mildly swollen. Worried about cellulitis developing. 2. Sudden onset pamela horse in mid epigastric;lower chest. Has hx esophageal spasms. Says NTG effective in past. Has been worked up in past for cardiac with negative nuclear study and echo 2012. No hx angina. No hx IN. Became bright red, clutching chest, sweaty. Rates severe 9/10. No lightheadedness. Feels better standing. HISTORIES FAMILY HISTORY Problem Relation Age of Onset - Cancer Mother 64 ovarian - Cancer Father 76 Mantle Cell Lymphoma - Cancer Maternal Grandmother uterine dx 60s - COPD Maternal Grandfather - Heart Maternal Grandfather CHF - Heart Paternal Grandmother CVA - Blood Disease Sister hemochromotosis - Cancer Paternal Aunt lung - Cancer Paternal Uncle brain tumor, myasthenia gravis PAST MEDICAL HISTORY Diagnosis Date - Arthritis - Blood dyscrasia - Dermatitis - Frequent UTI - Hemochromatosis - Hypertension - Lumbar pain - Shingles 1999 - Type II or unspecified type diabetes mellitus without mention of complication, not stated as uncontrolled 04/10/2014 PAST SURGICAL HISTORY Procedure Laterality Date - ARTHRODESIS [facility] JNT THUMB W/WO FIX 1996 bilateral - CERVICAL BIOPSY 05/25/12 Dr. Jordan - COLONOSCOP W/ OR W/O BRSH SPEC 05/16/2015 Colonoscopy - EGD W/O OR W/BRUSH/WASH 05/16/2015 EGD - ENDOMETRIAL BIOPSY 05/07/12 Dr. Jordan - HYSTEROSCOPY 05/25/12 Dr. Jordan - KNEE SCOPE,MENISECTOMY,MED OR LAT 10/07/2013 Left knee arthroscopic medial and lateral meniscectomies - partial - PAST SURGICAL HISTORY OF 1981 septoplasy - PAST SURGICAL HISTORY OF 04/16 bilateral lumbar epidural - PAST SURGICAL HISTORY OF 06/11/2015 lumbar epidural - left - REDUCTION OF LARGE BREAST 2000 bilateral - REMOVAL OF TONSILS,<12 Y/O 1978 Tonsillectomy - ROTATOR CUFF REPAIR 1984 right acromioplasty Social History Marital status: Single Spouse name: Years of education: Number of children: 0 Occupational History Occupation Employer Comment retired Social History Main Topics Smoking status: Never Smoker Smokeless tobacco: Never Used Alcohol use: Yes 0.0 oz/week Comment: 5 drinks per week Drug use: No Sexual activity: Not Currently 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 No children. ACTIVE PROBLEM LIST Essential Hypertension Acne Pain Disorder Menopausal Vaginal Dryness Itchy Eyes Hemochromatosis Body Odor Chronic Dermatitis of Hands Frequent Uti Abdominal Pain Hereditary Hemochromatosis (Hcc) Liver Dysfunction Lumbar Stenosis Lumbar Radiculopathy Chronic Pain Negron's Cyst Tear, Knee, Lateral Meniscus Complex Tear of Medial Meniscus of Left Knee As Current Injury Pain in Joint, Lower Leg Tear of Medial Cartilage Or Meniscus of Knee, Current Diabetes Mellitus Type 2, Controlled, Without Complications (Hcc) Hyperlipidemia Thoracic Back Pain Ddd (Degenerative Disc Disease), Cervical Cervical Spondylosis Chronic Instability of Metacarpophalangeal Joint of Thumb Bilateral Low Back Pain Without Sciatica Thumb Pain Ddd (Degenerative Disc Disease), Lumbar Trochanteric Bursitis of Left Hip Piriformis Syndrome of Left Side Trochanteric Tendinitis of Left Hip Vitiligo Alcohol Abuse, in Remission Spinal Stenosis of Lumbar Region Without Neurogenic Claudication Chronic Rhinitis Osteoarthritis of Cervical Spine With Myelopathy Chronic Superficial Gastritis Without Bleeding Current Outpatient Prescriptions: Ascorbic Acid (VITAMIN C) 250 mg chew Take 4 tablets by mouth once daily. Disp: 100 tablet Rfl: 0 aspirin, enteric coated (ASPIRIN, ENTERIC COATED) 81 mg EC tablet Take 81 mg by mouth once daily. Disp: Rfl: blood sugar diagnostic (FREESTYLE LITE STRIPS) test strip Use as instructed, 3 times daily to check blood sugars, E11.9 Disp: 300 Strip Rfl: 3 Blood-Glucose Meter (FREESTYLE LITE METER) monitoring kit Freestyle LITE Meter Kit -Dx 250.00, no insulin Disp: 1 Each Rfl: 0 CCF Nasal Ointment Use 1 application in each nostril twice daily as needed. [facility] nasal ointment Disp: 1 Tube Rfl: prn estradiol (ESTRACE) 0.01 % (0.1 mg/gram) vaginal cream Use 1 g vaginally twice a week. Disp: 1 Tube Rfl: 0 furosemide (LASIX) 40 mg tablet Take 0.5 tablets by mouth once daily. Disp: 45 tablet Rfl: 1 hydroCHLOROthiazide (HYDRODIURIL, ESIDRIX) 25 mg tablet Take 1 tablet by mouth once daily. Disp: 90 tablet Rfl: 0 lancets (FREESTYLE LANCETS) 28 gauge misc Use 3 times daily Disp: 100 Each Rfl: 3 lancets (FREESTYLE LANCETS) 28 gauge misc Use once daily Disp: 300 Each Rfl: 1 meloxicam (MOBIC) 15 mg tablet Take 1 tablet by mouth once daily. Disp: 90 tablet Rfl: 2 MULTIVIT ANDMINERALS/FERROUS FUM (MULTI VITAMIN ORAL) Take by mouth once daily. Disp: Rfl: mupirocin (BACTROBAN) 2 % ointment Apply 1 application to affected area twice daily. Apply twice a day. Disp: 22 g Rfl: 0 olopatadine (PATANOL) 0.1 % ophthalmic solution Use 1 Drop in both eyes twice daily. As needed. Disp: 1 Bottle Rfl: 1 potassium chloride ER (KLOR-CON M20) 20 mEq tablet Take 9 tablets by mouth once daily. Total of 180mEq daily. Disp: 810 tablet Rfl: 11 tretinoin (RETIN-A) 0.1 % cream Apply 1 Tube to affected area daily at bedtime. Disp: 45 g Rfl: 2 cyclobenzaprine (FLEXERIL) 10 mg tablet Take 1 tablet by mouth twice daily as needed. Disp: 60 tablet Rfl: 1 mupirocin (BACTROBAN) 2 % ointment Apply 1 application to affected area three times daily. Location: left hand Disp: 15 g Rfl: 0 traMADol (ULTRAM) 50 mg tablet Take 2 tablets by mouth as needed for up to 30 days. Disp: 60 tablet Rfl: 2 Current Facility-Administered Medications: nitroglycerin sublingual 0.4 mg tab(s) (NITROQUICK) 0.4 mg SUBLINGUAL ONCE Ja Kaufman DIABETIC FOOT EXAM due on 02/27/2016 HBA1C due on 04/09/2018 LDL CHOLESTEROL due on 04/09/2018 EXAM: BP 128/82 Pulse 105 Resp 16 Wt 89.1 kg (196 lb 6.4 oz) BMI 32.68 kg/m? Pleasant older adult woman in significant pain distress. Alert and oriented all spheres. Normal affect and cognition. Speech normal. No deficits to learning or comprehension. Skin warm, dry, pink to lips and nailbeds. Normal turgor. Respirations regular and unlabored. Chest CTA. HRRR without murmur or gallop. chest wall non-tender. Extrem: no clubbing, cyanosis, edema. Extremities are warm and pink with prompt capillary refill. Radial pulses 2/4+ NTG x 2 was given with stable VS and pain relief 01/11 to 3- 4/10. Last BP 120/78 after second NTG Squad arrived about 245p and report given. ASSESSMENT/PLAN: 1. Chest pain, unspecified type - ICD9: 786.50, ICD10: R07.9 (primary diagnosis) Squad transfer to [facility] ED for cardiac evaluation - ECG COMPLETE W INTERPRETATION - NITROGLYCERIN 0.4 MG SUBLINGUAL TABLET given x 2 2. Cat scratch of hand, left, initial encounter - ICD9: 914.0, E906.8, ICD10: S60.512A, W55.03XA moist soapy water soaks twice a day - MUPIROCIN 2 % TOPICAL OINTMENT - recheck in 5 days if not improving. Chart note faxed to ED. Ja Kaufman PA-C ECG COMPLETE W Observed: 04/15/2018 Status: F Source: [place] INTERPRETATION 2:24 PM [facility] REPOS[facility]ORY NAME : LEILA THORNTON PID : [id number] : 1950 Gender : Female Race : ORD : [id number] Procedure Date : Apr 15 2018 14:24:23 Edit Date : May 03 2018 16:49:22 Diagnosis:NORMAL SINUS RHYTHM LOW VOLTAGE QRS, CONSIDER PULMONARY DISEASE, PERICARDIAL EFFUSION, OR NORMAL VARIANT INFERIOR MYOCARDIAL INFARCTION , AGE UNDETERMINED ABNORMAL ECG Confirmed by DENISE PEREZ D.O. ([id number]) on 05/03/2018 4:49:13 PM Ventricular Rate : 90 BPM Atrial Rate : 90 BPM P-R Interval : 152 ms QRS Duration : 78 ms Q-T Interval : 390 ms QTC Calculation(Bezet) : 477 ms P [place] : 40 degrees R [place] : 9 degrees T [place] : 41 degrees Test Reason : Location : 185 : [facility] Overread By : DENISE PEREZ D.O. Edited By : DENISE PEREZ D.O. Referred By : Ja KAUFMAN Acquired by : ARUN MTZ MA Observed: 04/15/2018 Status: COMPLETED Source: [place] 2:20 PM [facility] REPOSITORY Office Visit (FAMPWS) NORBERTOLEILA M ([id number]) 1950 F Date Time Provider Department 04/15/18 2:20 PM Ja KAUFMAN [facility] During your visit today, we recorded the following information about you: Pulse Respiration Blood pressure Weight 105/minute 16/minute 128/82 89.1 kg Jessica Camacho Ma 04/15/2018 2:32 PM Signed Patient reports that she was scratched by her barn cat about 36 hours ago on her L thumb. Some redness visible at site. Patient reports that cat is up to date on vaccinations; but is indeed a barn cat. Jessica Kaufman PA-C 04/15/2018 4:28 PM Signed 68 year old female with c/o 1. Cat scratch left hand 3 days ago. Irritated and mildly swollen. Worried about cellulitis developing. 2. Sudden onset pamela horse in mid epigastric;lower chest. Has hx esophageal spasms. Says NTG effective in past. Has been worked up in past for cardiac with negative nuclear study and echo 2012. No hx angina. No hx IN. Became bright red, clutching chest, sweaty. Rates severe /10. No lightheadedness. Feels better standing. HISTORIES FAMILY HISTORY Problem Relation Age of Onset - Cancer Mother 64 ovarian - Cancer Father 76 Mantle Cell Lymphoma - Cancer Maternal Grandmother uterine dx 60s - COPD Maternal Grandfather - Heart Maternal Grandfather CHF - Heart Paternal Grandmother CVA - Blood Disease Sister hemochromotosis - Cancer Paternal Aunt lung - Cancer Paternal Uncle brain tumor, myasthenia gravis PAST MEDICAL HISTORY Diagnosis Date - Arthritis - Blood dyscrasia - Dermatitis - Frequent UTI - Hemochromatosis - Hypertension - Lumbar pain - Shingles 1999 - Type II or unspecified type diabetes mellitus without mention of complication, not stated as uncontrolled 04/10/2014 PAST SURGICAL HISTORY Procedure Laterality Date - ARTHRODESIS [facility] JNT THUMB W/WO FIX 1996 bilateral - CERVICAL BIOPSY 05/25/12 Dr. Jordan - COLONOSCOP W/ OR W/O BRSH SPEC 05/16/2015 Colonoscopy - EGD W/O OR W/BRUSH/WASH 05/16/2015 EGD - ENDOMETRIAL BIOPSY 05/07/12 Dr. Jordan - HYSTEROSCOPY 05/25/12 Dr. Jordan - KNEE SCOPE,MENISECTOMY,MED OR LAT 10/07/2013 Left knee arthroscopic medial and lateral meniscectomies - partial - PAST SURGICAL HISTORY OF 1981 septoplasy - PAST SURGICAL HISTORY OF 04/16 bilateral lumbar epidural - PAST SURGICAL HISTORY OF 06/11/2015 lumbar epidural - left - REDUCTION OF LARGE BREAST 1999 bilateral - REMOVAL OF TONSILS,<12 Y/O 1979 Tonsillectomy - ROTATOR CUFF REPAIR 1984 right acromioplasty Social History Marital status: Single Spouse name: Years of education: Number of children: 0 Occupational History Occupation Employer Comment retired Social History Main Topics Smoking status: Never Smoker Smokeless tobacco: Never Used Alcohol use: Yes 0.0 oz/week Comment: 5 drinks per week Drug use: No Sexual activity: Not Currently 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 No children. ACTIVE PROBLEM LIST Essential Hypertension Acne Pain Disorder Menopausal Vaginal Dryness Itchy Eyes Hemochromatosis Body Odor Chronic Dermatitis of Hands Frequent Uti Abdominal Pain Hereditary Hemochromatosis (Hcc) Liver Dysfunction Lumbar Stenosis Lumbar Radiculopathy Chronic Pain Negron's Cyst Tear, Knee, Lateral Meniscus Complex Tear of Medial Meniscus of Left Knee As Current Injury Pain in Joint, Lower Leg Tear of Medial Cartilage Or Meniscus of Knee, Current Diabetes Mellitus Type 2, Controlled, Without Complications (Hcc) Hyperlipidemia Thoracic Back Pain Ddd (Degenerative Disc Disease), Cervical Cervical Spondylosis Chronic Instability of Metacarpophalangeal Joint of Thumb Bilateral Low Back Pain Without Sciatica Thumb Pain Ddd (Degenerative Disc Disease), Lumbar Trochanteric Bursitis of Left Hip Piriformis Syndrome of Left Side Trochanteric Tendinitis of Left Hip Vitiligo Alcohol Abuse, in Remission Spinal Stenosis of Lumbar Region Without Neurogenic Claudication Chronic Rhinitis Osteoarthritis of Cervical Spine With Myelopathy Chronic Superficial Gastritis Without Bleeding Current Outpatient Prescriptions: Ascorbic Acid (VITAMIN C) 250 mg chew Take 4 tablets by mouth once daily. Disp: 100 tablet Rfl: 0 aspirin, enteric coated (ASPIRIN, ENTERIC COATED) 81 mg EC tablet Take 81 mg by mouth once daily. Disp: Rfl: blood sugar diagnostic (FREESTYLE LITE STRIPS) test strip Use as instructed, 3 times daily to check blood sugars, E11.9 Disp: 300 Strip Rfl: 3 Blood-Glucose Meter (FREESTYLE LITE METER) monitoring kit Freestyle LITE Meter Kit -Dx 250.00, no insulin Disp: 1 Each Rfl: 0 [facility] Nasal Ointment Use 1 application in each nostril twice daily as needed. [facility] nasal ointment Disp: 1 Tube Rfl: prn estradiol (ESTRACE) 0.01 % (0.1 mg/gram) vaginal cream Use 1 g vaginally twice a week. Disp: 1 Tube Rfl: 0 furosemide (LASIX) 40 mg tablet Take 0.5 tablets by mouth once daily. Disp: 45 tablet Rfl: 1 hydroCHLOROthiazide (HYDRODIURIL, ESIDRIX) 25 mg tablet Take 1 tablet by mouth once daily. Disp: 90 tablet Rfl: 0 lancets (FREESTYLE LANCETS) 28 gauge misc Use 3 times daily Disp: 100 Each Rfl: 3 lancets (FREESTYLE LANCETS) 28 gauge misc Use once daily Disp: 300 Each Rfl: 1 meloxicam (MOBIC) 15 mg tablet Take 1 tablet by mouth once daily. Disp: 90 tablet Rfl: 2 MULTIVIT ANDMINERALS/FERROUS FUM (MULTI VITAMIN ORAL) Take by mouth once daily. Disp: Rfl: mupirocin (BACTROBAN) 2 % ointment Apply 1 application to affected area twice daily. Apply twice a day. Disp: 22 g Rfl: 0 olopatadine (PATANOL) 0.1 % ophthalmic solution Use 1 Drop in both eyes twice daily. As needed. Disp: 1 Bottle Rfl: 1 potassium chloride ER (KLOR-CON M20) 20 mEq tablet Take 9 tablets by mouth once daily. Total of 180mEq daily. Disp: 810 tablet Rfl: 11 tretinoin (RETIN-A) 0.1 % cream Apply 1 Tube to affected area daily at bedtime. Disp: 45 g Rfl: 2 cyclobenzaprine (FLEXERIL) 10 mg tablet Take 1 tablet by mouth twice daily as needed. Disp: 60 tablet Rfl: 1 mupirocin (BACTROBAN) 2 % ointment Apply 1 application to affected area three times daily. Location: left hand Disp: 15 g Rfl: 0 traMADol (ULTRAM) 50 mg tablet Take 2 tablets by mouth as needed for up to 30 days. Disp: 60 tablet Rfl: 2 Current Facility-Administered Medications: nitroglycerin sublingual 0.4 mg tab(s) (NITROQUICK) 0.4 mg SUBLINGUAL ONCE M Dejuan (Maik-Lima) Mandeep DIABETIC FOOT EXAM due on 02/27/2016 HBA1C due on 04/09/2018 LDL CHOLESTEROL due on 04/09/2018 EXAM: BP 128/82 Pulse 105 Resp 16 Wt 89.1 kg (196 lb 6.4 oz) BMI 32.68 kg/m? Pleasant older adult woman in significant pain distress. Alert and oriented all spheres. Normal affect and cognition. Speech normal. No deficits to learning or comprehension. Skin warm, dry, pink to lips and nailbeds. Normal turgor. Respirations regular and unlabored. Chest CTA. HRRR without murmur or gallop. chest wall non-tender. Extrem: no clubbing, cyanosis, edema. Extremities are warm and pink with prompt capillary refill. Radial pulses 2/4+ NTG x 2 was given with stable VS and pain relief 01/11 to 3- 410. Last BP 120/78 after second NTG Squad arrived about 245p and report given. ASSESSMENT/PLAN: 1. Chest pain, unspecified type - ICD9: 786.50, ICD10: R07.9 (primary diagnosis) Squad transfer to [facility] ED for cardiac evaluation - ECG COMPLETE W INTERPRETATION - NITROGLYCERIN 0.4 MG SUBLINGUAL TABLET given x 2 2. Cat scratch of hand, left, initial encounter - ICD9: 914.0, E906.8, ICD10: S60.512A, W55.03XA moist soapy water soaks twice a day - MUPIROCIN 2 % TOPICAL OINTMENT - recheck in 5 days if not improving. Chart note faxed to ED. TRISTIAN Ragland Ma 04/15/2018 3:01 PM Signed [facility], [facility] Centers and Remote Sites Emergency Response Form. NOT TO BE USED AT [facility] [place] Complete this report when the Emergency Medical Response is activated (911 calls/EmergencyTransport to the ED) or when a Code Sheet is utilized in the care of a patient (i.e., ASC) Date of the Event: 04/15/18 (Must provide Value) Time of the Event:8 (Must provide Value) Was emergency response activated? (Local EMS/Emergency Department) YES (Must provide Value) Location of the Incident: [facility] ([facility]) (Must provide Value) Reason/Chief Complaint for Emergency Call (Check all that apply): Chest Pain/Pressure (Must provide Value) CPR Initiated-Chest Compressions and/or Rescue Breathing Provided: NO (Must provide value) Facility AED Used-Automatic External Defibrillator: NO (Must provide value) EMS AED Used-Automatic External Defibrillator: NO (Must provide value) Prior to EMS arrival, was any treatment administered? YES Describe treatment Nitroquick 0.4 mg 2 tablets; Oxygen 3mL Patient Disposition: Transferred to Hospital ED (Must provide value) Lecturer In Computer Science information: Name of Provider- Jessica Camacho Ma (Must provide value) Referring Provider: SELF [[id number]] Allergies As of Date: 04/15/2018 Noted Allergy Reaction CEPHALOSPORINS 03/09/2012 10 - Anaphylaxis THIMEROSAL 03/09/2012 7 - Swelling Comments: Difficulty breathing VANCOMYCIN 03/09/2012 10 - Anaphylaxis Comments: flushed LEVAQUIN (LEVOFLOXACIN) 03/14/2013 2 - Rash 14 - Other: See Comments Comments: Muscle/joint pain SPIRONOLACTONE (BULK) 02/20/2015 2 - Rash Comments: Pt states happened years ago when trying this always forgets. SULFA (SULFONAMIDE ANTIBIOTICS) 04/09/2012 4 - Hives 9 - Itching TAPE (ADHESIVE TAPE (ROSINS)) 06/08/2012 2 - Rash 9 - Itching Comments: degloving ZOCOR (SIMVASTATIN) 05/15/2014 14 - Other: See Comments Comments: Muscle/limb pain Date Reviewed: 04/15/2018 Reviewed by: Jessica Camacho Ma - Fully Assessed Reason for Visit: Puncture Wound [1986] Primary Visit Diagnosis:Chest pain, unspecified type [R07.9] Other Visit Diagnosis:Cat scratch of hand, left, initial encounter [S60.512A, W55.03XA] Order(s):ECG COMPLETE W INTERPRETATION [ECG01] Order #: [id number] FUTURE [] nitroglycerin sublingual 0.4 mg tab(s) (NITROQUICK)Disp: Rfl: mupirocin (BACTROBAN) 2 % ointmentApply 1 application to affected area three times daily. Location: left handDisp: 15 gRfl: 0 COMPLETE ECG [] Order #: [id number]. #:[id number]: 1 Prescriptions as of 04/15/2018 Sig: ASCORBIC ACID (VITAMIN C) 250* Take 4 tablets by mouth once * ASPIRIN 81 MG TABLET,DELAYED * Take 81 mg by mouth once dangelo* BLOOD SUGAR DIAGNOSTIC STRIPS Use as instructed, 3 times da* BLOOD-GLUCOSE METER KIT Freestyle LITE Meter Kit -Dx * COMPOUNDED PRESCRIPTION Use 1 application in each nos* ESTRADIOL 0.01% (0.1 MG/GRAM)* Use 1 g vaginally twice a wee* FUROSEMIDE 40 MG TABLET Take 0.5 tablets by mouth onc* HYDROCHLOROTHIAZIDE 25 MG TAB* Take 1 tablet by mouth once d* LANCETS 28 GAUGE Use 3 times daily LANCETS 28 GAUGE Use once daily MELOXICAM 15 MG TABLET Take 1 tablet by mouth once d* MULTI VITAMIN ORAL Take by mouth once daily. MUPIROCIN 2 % TOPICAL OINTMENT Apply 1 application to affect* OLOPATADINE 0.1 % EYE DROPS Use 1 Drop in both eyes twice* POTASSIUM CHLORIDE ER 20 MEQ * Take 9 tablets by mouth once * TRETINOIN 0.1 % TOPICAL CREAM Apply 1 Tube to affected area* CYCLOBENZAPRINE 10 MG TABLET Take 1 tablet by mouth twice * MUPIROCIN 2 % TOPICAL OINTMENT Apply 1 application to affect* TRAMADOL 50 MG TABLET Take 2 tablets by mouth as ne* Problem List As Of Date 04/15/2018 Noted Resolved Essential hypertension [I10] INVALID FOR* More... Acne [L70.9] INVALID FOR* Pain disorder [R52] INVALID FOR* Menopausal vaginal dryness [N95.1] INVALID FOR* Itchy eyes [R68.89] INVALID FOR* Anemia [D64.9] INVALID FOR*10/14/2012 Hemochromatosis [E83.119] INVALID FOR* Body odor [L74.8] INVALID FOR* Chronic dermatitis of hands [L30.9] INVALID FOR* Frequent UTI [N39.0] INVALID FOR* Abdominal pain [R10.9] INVALID FOR* Hereditary hemochromatosis [E83.110] INVALID FOR* More... Liver dysfunction [K76.89] INVALID FOR* Lumbar stenosis [M48.061] INVALID FOR* Lumbar radiculopathy [M54.16] INVALID FOR* Chronic pain [G89.29] INVALID FOR* Negron's cyst [M71.20] INVALID FOR* Tear, knee, lateral meniscus [S83.289A] INVALID FOR* Complex tear of medial meniscus of left knee as*INVALID FOR* Pain in joint, lower leg [M25.569] INVALID FOR* Tear of medial cartilage or meniscus of knee, c*INVALID FOR* Diabetes mellitus type 2, controlled, without c*INVALID FOR* More... Hyperlipidemia [E78.5] INVALID FOR* Thoracic back pain [M54.6] INVALID FOR* DDD (degenerative disc disease), cervical [M50.*INVALID FOR* Cervical spondylosis [M47.812] INVALID FOR* Acute combined systolic and diastolic congestiv*INVALID FOR*03/04/2015 Chronic instability of metacarpophalangeal join*INVALID FOR* Bilateral low back pain without sciatica [M54.5]INVALID FOR* Thumb pain [M79.646] INVALID FOR* DDD (degenerative disc disease), lumbar [M51.36]INVALID FOR* Trochanteric bursitis of left hip [M70.62] INVALID FOR* Piriformis syndrome of left side [G57.02] INVALID FOR* Trochanteric tendinitis of left hip [M70.62] INVALID FOR* Vitiligo [L80] INVALID FOR* More... 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 Chronic rhinitis [J31.0] INVALID FOR* Osteoarthritis of cervical spine with myelopath*INVALID FOR* Chronic superficial gastritis without bleeding *INVALID FOR* More... Visit Notes: >> Jessica Camacho Ma [facility] Apr 15, 2018 2:07 PM Status: Signed Patient reports that she was scratched by her barn cat about 36 hours ago on her L thumb. Some redness visible at site. Patient reports that cat is up to date on vaccinations; but is indeed a barn cat. Jessica Camacho Ma >> Jessica Camacho Ma [facility] Apr 15, 2018 2:51 PM Status: Signed [facility], [facility] and [facility] Sites Emergency Response Form. NOT TO BE USED AT [facility] Complete this report when the Emergency Medical Response is activated (911 calls/EmergencyTransport to the ED) or when a Code Sheet is utilized in the care of a patient (i.e., ASC) Date of the Event: 04/15/18 (Must provide Value) Time of the Event:1437 (Must provide Value) Was emergency response activated? (Local EMS/Emergency Department) YES (Must provide Value) Location of the Incident: [facility] ([facility]) (Must provide Value) Reason/Chief Complaint for Emergency Call (Check all that apply): Chest Pain/Pressure (Must provide Value) CPR Initiated-Chest Compressions and/or Rescue Breathing Provided: NO (Must provide value) Facility AED Used-Automatic External Defibrillator: NO (Must provide value) EMS AED Used-Automatic External Defibrillator: NO (Must provide value) Prior to EMS arrival, was any treatment administered? 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 Location: left hand Encounter Status:Closed by Ja KAUFMAN PA-C on 04/15/18 [facility] Observed: 03/29/2018 Status: COMPLETED Source: [place] 1:47 PM [facility] REPOSITORY HNO ID: [id number] Author: Mammography Coordinator Service: (none) Author Type: Physician Type: Letter Filed: 03/30/2018 11:32 PM Note Text: March 29, 2018 PID: [id number] Leila Thornton [address] [place] [address] Dear Ms. Thornton, We are pleased to inform you that the results of your recent breast imaging exam on 03/29/2018 are normal. Early detection of cancer is very important. We also understand recommendations regarding breast cancer screening are controversial. Please discuss with your primary care provider which strategy is best for you and whether a mammogram is right for you. Your imaging studies and report will be kept on file at [facility] as part of your permanent medical record and are available for your continuing care. Thank you for allowing us to help in meeting your health care needs. Sincerely, Dr. Callaway Interpreting Radiologist [facility] (Normal over 40) [facility] SCREENING Observed: 03/29/2018 Status: F Source: [place] 1:34 PM [facility] REPOSITORY * * *Final Report* * * DATE OF EXAM: Mar 29 2018 1:34PM [facility] 0581 - [facility] SCREENING / PROCEDURE REASON: Encounter for screening mammogram for malignant neoplasm of breast * * * * Physician Interpretation * * * * RESULT: #[id number] - [facility] SCREENING BILATERAL DIGITAL SCREENING MAMMOGRAM WITH CAD: 03/29/2018 HISTORY: Encounter For Screening Mammogram For Malignant Neoplasm Of Breast /Pain left breast /priors available for comparison. RESULT: TECHNIQUE: The study was acquired using full field digital technology and interpreted from soft copy. Current study was also evaluated with a Computer Aided Detection (CAD). Comparison is made to exams dated: 03/25/2017 mammogram, 03/24/2016 mammogram, 03/23/2015 mammogram - [facility], and 03/21/2014 mammogram - [facility]. There are scattered fibroglandular elements in both breasts. Bilateral prepectoral silicone implants are present. No significant masses, calcifications, or other findings are seen in either breast. There has been no significant interval change. IMPRESSION: There is no mammographic evidence of malignancy. A 1 year screening mammogram is recommended. Justa Callaway M.D., cp/kelvin:03/29/2018 13:47:21 Return To Service Inspector(s): RT Gretchen(R)(M), [facility] letter sent: Normal over 40 Mammogram BI-RADS: 2 Benign finding Multiple national specialty organizations have released breast cancer screening guidelines for women at average risk for developing breast cancer - guidelines that are based on both evidence and opinion, yet differ on when to start and how often to screen for breast cancer. With representation from Breast Imaging, Internal Medicine, Women's Health, Family Medicine, and Medical/Surgical Oncology, the [facility] has carefully reviewed the data and reached the following consensus: 1) All women should engage in shared decision-making with their providers to decide when to start and how often to screen; 2) All women should have the opportunity to start screening mammography at age 40; 3) For women ages 45-55, we recommend annual screening mammograms; 4) For women ages 55 and over, we support both the transition from an annual to a biennial interval if this aligns more with patient's values and preferences, or continuation with annual screening; 5) All women should discuss with their providers when to stop screening mammograms. Crop Puller: Kelvin Transcribe Date/Time: Mar 29 2018 1:34P Dictated by: JUSTA CALLAWAY MD This examination was interpreted and the report reviewed and electronically signed by: JUSTA CALLAWAY MD on Mar 29 2018 1:47PM EST [id number] Observed: 02/23/2018 Status: COMPLETED Source: [place] 3:32 PM [facility] REPOSITORY HNO ID: [id number] Author: Andrew Blanco Service: (none) Author Type: Physician Type: Progress Notes Filed: 02/23/2018 4:18 PM Note Text: Patient presents with: Arthritis: talk about establishing care Imm/Inj: Flu Vaccine HPI: Patient presents today for office visit for office visit to discuss arthritis. Had been seeing Dr. Veronica. She would like to consider arthritis. Sees hematology, ortho and pain management. Has a hba1c that is borderline. Gets phlebotomy regularly. Sugars have been stable. MEDICATIONS: Current Outpatient Prescriptions: furosemide (LASIX) 40 mg tablet Take 0.5 tablets by mouth once daily. traMADol (ULTRAM) 50 mg tablet Take 2 tablets by mouth as needed for up to 30 days. blood sugar diagnostic (FREESTYLE LITE STRIPS) test strip Use as instructed, 3 times daily to check blood sugars, E11.9 lancets (FREESTYLE LANCETS) 28 gauge misc Use once daily lancets (FREESTYLE LANCETS) 28 gauge misc Use 3 times daily hydroCHLOROthiazide (HYDRODIURIL, ESIDRIX) 25 mg tablet Take 1 tablet by mouth once daily. potassium chloride ER (KLOR-CON M20) 20 mEq tablet Take 9 tablets by mouth once daily. Total of 180mEq daily. cyclobenzaprine (FLEXERIL) 10 mg tablet Take 1 tablet by mouth twice daily as needed. aspirin, enteric coated (ASPIRIN, ENTERIC COATED) 81 mg EC tablet Take 81 mg by mouth once daily. mupirocin (BACTROBAN) 2 % ointment Apply 1 application to affected area twice daily. Apply twice a day. [facility] Nasal Ointment Use 1 application in each nostril twice daily as needed. [facility] nasal ointment meloxicam (MOBIC) 15 mg tablet Take 1 tablet by mouth once daily. Blood-Glucose Meter (FREESTYLE LITE METER) monitoring kit Freestyle LITE Meter Kit -Dx 250.00, no insulin olopatadine (PATANOL) 0.1 % ophthalmic solution Use 1 Drop in both eyes twice daily. As needed. tretinoin (RETIN-A) 0.1 % cream Apply 1 Tube to affected area daily at bedtime. estradiol (ESTRACE) 0.01 % (0.1 mg/gram) vaginal cream Use 1 g vaginally twice a week. Ascorbic Acid (VITAMIN C) 250 mg chew Take 4 tablets by mouth once daily. MULTIVIT ANDMINERALS/FERROUS FUM (MULTI VITAMIN ORAL) Take by mouth once daily. No current facility-administered medications for this visit. ALLERGIES: ALLERGIES Allergen Reactions - Cephalosporins Anaphylaxis - Thimerosal Swelling Difficulty breathing - Vancomycin Anaphylaxis flushed - Levaquin [Levofloxa* Rash, Other: See Comments Muscle/joint pain - Spironolactone (Bul* Rash Pt states happened years ago when trying this always forgets. - Sulfa (Sulfonamide * Hives, Itching - Tape [Adhesive Tape* Rash, Itching degloving - Zocor [Simvastatin] Other: See Comments Muscle/limb pain PAST MEDICAL HISTORY Diagnosis Date - Arthritis - Blood dyscrasia - Dermatitis - Frequent UTI - Hemochromatosis - Hypertension - Lumbar pain - Shingles 1999 - Type II or unspecified type diabetes mellitus without mention of complication, not stated as uncontrolled 04/10/2014 PAST SURGICAL HISTORY Procedure Laterality Date - ARTHRODESIS [facility] JNT THUMB W/WO FIX 1996 bilateral - CERVICAL BIOPSY 05/25/12 Dr. Jordan - COLONOSCOP W/ OR W/O BRSH SPEC 05/16/2015 Colonoscopy - EGD W/O OR W/BRUSH/WASH 05/16/2015 EGD - ENDOMETRIAL BIOPSY 05/07/12 Dr. Jordan - HYSTEROSCOPY 05/25/12 Dr. Jordan - KNEE SCOPE,MENISECTOMY,MED OR LAT 10/07/2013 Left knee arthroscopic medial and lateral meniscectomies - partial - PAST SURGICAL HISTORY OF 1981 septoplasy - PAST SURGICAL HISTORY OF 04/16 bilateral lumbar epidural - PAST SURGICAL HISTORY OF 06/11/2015 lumbar epidural - left - REDUCTION OF LARGE BREAST 1999 bilateral - REMOVAL OF TONSILS,<12 Y/O 1979 Tonsillectomy - ROTATOR CUFF REPAIR 1984 right acromioplasty FAMILY HISTORY Problem Relation Age of Onset - Cancer Mother 64 ovarian - Cancer Father 76 Mantle Cell Lymphoma - Cancer Maternal Grandmother uterine dx 60s - COPD Maternal Grandfather - Heart Maternal Grandfather CHF - Heart Paternal Grandmother CVA - Blood Disease Sister hemochromotosis - Cancer Paternal Aunt lung - Cancer Paternal Uncle brain tumor, myasthenia gravis Social History Marital status: Single Spouse name: Years of education: Number of children: 0 Occupational History Occupation Employer Comment retired Social History Main Topics Smoking status: Never Smoker Smokeless tobacco: Never Used Alcohol use: Yes 0.0 oz/week Comment: 5 drinks per week Drug use: No Sexual activity: Not Currently 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 No children. Reviewed current medications, allergies, past medical history, surgical history, family history and social history today. REVIEW OF SYSTEMS GENITOURINARY: no recent urinary symptoms. RESPIRATORY: Negative for cough, hemoptysis, wheezing, COPD, dyspnea or shortness of breath CARDIOVASCULAR: Negative for chest pain, leg swelling, hypertension, CHF or palpitations GI: Negative for blood in stools or black stools, change in bowel habit All other reviewed and negative other than HPI. HEALTH MAINTENANCE: Reviewed health maintenance issues today and recommended the following in detail. BP CONTROLLED (<130/80) due on 1969 INFLUENZA(1) due on 01/02/2018 MAMMOGRAM due on 03/25/2018- scheduled mammogram. VITALS: BP 128/76 (BP Site: Left Arm, BP Position: Sitting, BP Cuff Size: Regular Adult) Pulse 80 Resp 18 Wt 83.5 kg (184 lb) BMI 30.62 kg/m? Last 4 Encounter Wt Readings: Date: Wt: 02/23/2018 83.5 kg (184 lb) 01/19/2018 81.6 kg (180 lb) 01/18/2018 88 kg (194 lb) 11/23/2017 84.4 kg (186 lb) PHYSICAL EXAMINATION: General appearance: Well appearing, alert, in no acute distress, well-hydrated, well nourished. Skin: Skin color, texture, turgor normal, no suspicious rashes or lesions Head: Normocephalic, no masses, lesions, tenderness or abnormalities Lungs: Lungs clear to auscultation. No wheezing, rhonchi, rales Heart: RRR . Soft murmur, gallop, or rubs. No ectopy Abdomen: Normal abdominal exam, Abdomen soft, non-tender. Bowel sounds normal. No masses, organomegaly Extremities: No deformities, edema, skin discoloration, clubbing or cyanosis. Good capillary refill. Musculoskeletal: No joint swelling, deformity, or tenderness ASSESSMENT/PLAN: 1. Controlled type 2 diabetes mellitus without complication, unspecified whether intermediate manager insulin use (HCC) - ICD9: 250.00, ICD10: E11.9 (primary diagnosis) Controlled. - Continue current medications - COMP METABOLIC PANEL - LIPID PANEL BASIC - HGB A1C 2. Need for vaccination - ICD9: V05.9, ICD10: Z23 - INFLUENZA SEASONAL HIGH DOSE AGE 65+ 3. Liver dysfunction - ICD9: 573.9, ICD10: K76.89 - Call if any issues. 4. Hereditary hemochromatosis (HCC) - ICD9: 275.01, ICD10: E83.110 - follow labs. - CBC + DIFF 5. Essential hypertension - ICD9: 401.9, ICD10: I10 - good control - Continue current medication(s) - Goal of BP <130/80 Andrew lBanco MD Do labs in April and follow up after. PROGRESS Observed: 02/23/2018 Status: COMPLETED Source: [place] 3:14 PM [facility] REPOSITORY O ID: [id number] Author: Zhanna Callaway Service: (none) Author Type: (none) Type: Progress Notes Filed: 02/23/2018 4:18 PM Note Text: 68 year old female here for INACTIVATED INFLUENZA VACCINE. [id number] Season Patient is identified by name and date of : Yes [] CONTRAINDICATIONS color enhanced section Age less than 6 months? No Allergy to eggs, chicken, chicken feathers, or chicken dander? No Allergy to thimerosal (a preservative) or formaldehyde, gelatin? No History of severe reaction to any vaccine component or a previous dose of influenza vaccination? No History of Guillain-Dwight Syndrome within 6 weeks after a previous influenza vaccine? No Patient is not moderately or severely ill? No Current temperature greater or equal to 100.4F? No History of Bone Marrow Transplant prior 6 months or solid organ transplant in the past 3 months ? No History of fainting after a prior injection or medical procedure? No- ? If patient has fainted in the past, the CDC recommends sitting or lying down for 15 minutes after the vaccination. [] VERIFICATION color enhanced section Was the answer Yes for any of the above contraindications? No contraindications present. Acceptable to proceed with vaccine. Patient/guardian agrees the above answers are true to the best of their knowledge? Yes Flu vaccine information sheet given? Yes See immunization activity in [facility] for details of immunizations adminstered today. Patient age: [age] year old For The 7995-7204 Flu Season 6-35 months old: Fluzone 0.25 ml - IM (Preservative Free) 3 years of age: Fluzone 0.5 ml - IM (Preservative Free) 3 years and older: Fluzone 0.5 ml- IM-(with Preservatives) 65+ years old: 2-49 years old Fluzone High-Dose 0.5 ml - IM (Preservative Free) FLUMIST- intranasal REMEMBER: If patient is less than 9 years of age and this is the first vaccine of Influenza to be received in any flu season, they should receive a second dose in one months time. CNOV Observed: 02/23/2018 Status: COMPLETED Source: [place] 3:00 PM [facility] REPOSITORY [facility] LEILA THORNTON ([id number]) 1950 F Date Time Provider Department 02/23/18 3:00 PM ANDREW BLANCO [facility] During your visit today, we recorded the following information about you: Pulse Respiration Blood pressure Weight 80/minute 18/minute 128/76 83.5 kg Zhanna Callaway 02/23/2018 4:18 PM Signed 68 year old female here for INACTIVATED INFLUENZA VACCINE. Season Patient is identified by name and date of : Yes [] CONTRAINDICATIONS color enhanced section Age less than 6 months? No Allergy to eggs, chicken, chicken feathers, or chicken dander? No Allergy to thimerosal (a preservative) or formaldehyde, gelatin? No History of severe reaction to any vaccine component or a previous dose of influenza vaccination? No History of Guillain-Dwight Syndrome within 6 weeks after a previous influenza vaccine? No Patient is not moderately or severely ill? No Current temperature greater or equal to 100.4F? No History of Bone Marrow Transplant prior 6 months or solid organ transplant in the past 3 months ? No History of fainting after a prior injection or medical procedure? No- ? If patient has fainted in the past, the CDC recommends sitting or lying down for 15 minutes after the vaccination. [] VERIFICATION color enhanced section Was the answer Yes for any of the above contraindications? No contraindications present. Acceptable to proceed with vaccine. Patient/guardian agrees the above answers are true to the best of their knowledge? Yes Flu vaccine information sheet given? Yes See immunization activity in [facility] for details of immunizations adminstered today. Patient age: [age] year old For The 2980-0919 Flu Season 6-35 months old: Fluzone 0.25 ml - IM (Preservative Free) 3 years of age: Fluzone 0.5 ml - IM (Preservative Free) 3 years and older: Fluzone 0.5 ml- IM-(with Preservatives) 65+ years old: 2-49 years old Fluzone High-Dose 0.5 ml - IM (Preservative Free) FLUMIST- intranasal REMEMBER: If patient is less than 9 years of age and this is the first vaccine of Influenza to be received in any flu season, they should receive a second dose in one months time. Andrew Blanco MD 02/23/2018 4:18 PM Signed Patient presents with: Arthritis: talk about establishing care Imm/Inj: Flu Vaccine HPI: Patient presents today for office visit for office visit to discuss arthritis. Had been seeing Dr. Veronica. She would like to consider arthritis. Sees hematology, ortho and pain management. Has a hba1c that is borderline. Gets phlebotomy regularly. Sugars have been stable. MEDICATIONS: Current Outpatient Prescriptions: furosemide (LASIX) 40 mg tablet Take 0.5 tablets by mouth once daily. traMADol (ULTRAM) 50 mg tablet Take 2 tablets by mouth as needed for up to 30 days. blood sugar diagnostic (FREESTYLE LITE STRIPS) test strip Use as instructed, 3 times daily to check blood sugars, E11.9 lancets (FREESTYLE LANCETS) 28 gauge misc Use once daily lancets (FREESTYLE LANCETS) 28 gauge misc Use 3 times daily hydroCHLOROthiazide (HYDRODIURIL, ESIDRIX) 25 mg tablet Take 1 tablet by mouth once daily. potassium chloride ER (KLOR-CON M20) 20 mEq tablet Take 9 tablets by mouth once daily. Total of 180mEq daily. cyclobenzaprine (FLEXERIL) 10 mg tablet Take 1 tablet by mouth twice daily as needed. aspirin, enteric coated (ASPIRIN, ENTERIC COATED) 81 mg EC tablet Take 81 mg by mouth once daily. mupirocin (BACTROBAN) 2 % ointment Apply 1 application to affected area twice daily. Apply twice a day. [facility] Nasal Ointment Use 1 application in each nostril twice daily as needed. [facility] nasal ointment meloxicam (MOBIC) 15 mg tablet Take 1 tablet by mouth once daily. Blood-Glucose Meter (FREESTYLE LITE METER) monitoring kit Freestyle LITE Meter Kit -Dx 250.00, no insulin olopatadine (PATANOL) 0.1 % ophthalmic solution Use 1 Drop in both eyes twice daily. As needed. tretinoin (RETIN-A) 0.1 % cream Apply 1 Tube to affected area daily at bedtime. estradiol (ESTRACE) 0.01 % (0.1 mg/gram) vaginal cream Use 1 g vaginally twice a week. Ascorbic Acid (VITAMIN C) 250 mg chew Take 4 tablets by mouth once daily. MULTIVIT ANDMINERALS/FERROUS FUM (MULTI VITAMIN ORAL) Take by mouth once daily. No current facility-administered medications for this visit. ALLERGIES: ALLERGIES Allergen Reactions - Cephalosporins Anaphylaxis - Thimerosal Swelling Difficulty breathing - Vancomycin Anaphylaxis flushed - Levaquin [Levofloxa* Rash, Other: See Comments Muscle/joint pain - Spironolactone (Bul* Rash Pt states happened years ago when trying this always forgets. - Sulfa (Sulfonamide * Hives, Itching - Tape [Adhesive Tape* Rash, Itching degloving - Zocor [Simvastatin] Other: See Comments Muscle/limb pain PAST MEDICAL HISTORY Diagnosis Date - Arthritis - Blood dyscrasia - Dermatitis - Frequent UTI - Hemochromatosis - Hypertension - Lumbar pain - Shingles 1999 - Type II or unspecified type diabetes mellitus without mention of complication, not stated as uncontrolled 04/10/2014 PAST SURGICAL HISTORY Procedure Laterality Date - ARTHRODESIS [facility] JNT THUMB W/WO FIX 1996 bilateral - CERVICAL BIOPSY 05/25/12 Dr. Jordan - COLONOSCOP W/ OR W/O BRSH SPEC 05/16/2015 Colonoscopy - EGD W/O OR W/BRUSH/WASH 05/16/2015 EGD - ENDOMETRIAL BIOPSY 05/07/12 Dr. Jordan - HYSTEROSCOPY 05/25/12 Dr. Jordan - KNEE SCOPE,MENISECTOMY,MED OR LAT 10/07/2013 Left knee arthroscopic medial and lateral meniscectomies - partial - PAST SURGICAL HISTORY OF 1981 septoplasy - PAST SURGICAL HISTORY OF 04/16 bilateral lumbar epidural - PAST SURGICAL HISTORY OF 06/11/2015 lumbar epidural - left - REDUCTION OF LARGE BREAST 1999 bilateral - REMOVAL OF TONSILS,<12 Y/O 1979 Tonsillectomy - ROTATOR CUFF REPAIR 1984 right acromioplasty FAMILY HISTORY Problem Relation Age of Onset - Cancer Mother 64 ovarian - Cancer Father 76 Mantle Cell Lymphoma - Cancer Maternal Grandmother uterine dx 60s - COPD Maternal Grandfather - Heart Maternal Grandfather CHF - Heart Paternal Grandmother CVA - Blood Disease Sister hemochromotosis - Cancer Paternal Aunt lung - Cancer Paternal Uncle brain tumor, myasthenia gravis Social History Marital status: Single Spouse name: Years of education: Number of children: 0 Occupational History Occupation Employer Comment retired Social History Main Topics Smoking status: Never Smoker Smokeless tobacco: Never Used Alcohol use: Yes 0.0 oz/week Comment: 5 drinks per week Drug use: No Sexual activity: Not Currently 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 No children. Reviewed current medications, allergies, past medical history, surgical history, family history and social history today. REVIEW OF SYSTEMS GENITOURINARY: no recent urinary symptoms. RESPIRATORY: Negative for cough, hemoptysis, wheezing, COPD, dyspnea or shortness of breath CARDIOVASCULAR: Negative for chest pain, leg swelling, hypertension, CHF or palpitations GI: Negative for blood in stools or black stools, change in bowel habit All other reviewed and negative other than HPI. HEALTH MAINTENANCE: Reviewed health maintenance issues today and recommended the following in detail. BP CONTROLLED (<130/80) due on 1969 INFLUENZA(1) due on 01/02/2018 MAMMOGRAM due on 03/25/2018- scheduled mammogram. VITALS: BP 128/76 (BP Site: Left Arm, BP Position: Sitting, BP Cuff Size: Regular Adult) Pulse 80 Resp 18 Wt 83.5 kg (184 lb) BMI 30.62 kg/m? Last 4 Encounter Wt Readings: Date: Wt: 02/23/2018 83.5 kg (184 lb) 01/19/2018 81.6 kg (180 lb) 01/18/2018 88 kg (194 lb) 11/23/2017 84.4 kg (186 lb) PHYSICAL EXAMINATION: General appearance: Well appearing, alert, in no acute distress, well-hydrated, well nourished. Skin: Skin color, texture, turgor normal, no suspicious rashes or lesions Head: Normocephalic, no masses, lesions, tenderness or abnormalities Lungs: Lungs clear to auscultation. No wheezing, rhonchi, rales Heart: RRR . Soft murmur, gallop, or rubs. No ectopy Abdomen: Normal abdominal exam, Abdomen soft, non-tender. Bowel sounds normal. No masses, organomegaly Extremities: No deformities, edema, skin discoloration, clubbing or cyanosis. Good capillary refill. Musculoskeletal: No joint swelling, deformity, or tenderness ASSESSMENT/PLAN: 1. Controlled type 2 diabetes mellitus without complication, unspecified whether fdc insulin use (HCC) - ICD9: 250.00, ICD10: E11.9 (primary diagnosis) Controlled. - Continue current medications - COMP METABOLIC PANEL - LIPID PANEL BASIC - HGB A1C 2. Need for vaccination - ICD9: V05.9, ICD10: Z23 - INFLUENZA SEASONAL HIGH DOSE AGE 65+ 3. Liver dysfunction - ICD9: 573.9, ICD10: K76.89 - Call if any issues. 4. Hereditary hemochromatosis (HCC) - ICD9: 275.01, ICD10: E83.110 - follow labs. - CBC + DIFF 5. Essential hypertension - ICD9: 401.9, ICD10: I10 - good control - Continue current medication(s) - Goal of BP <130/80 Andrew Blanco MD Do labs in April and follow up after. Referring Provider: SELF [[id number]] Allergies As of Date: 02/23/2018 Noted Allergy Reaction CEPHALOSPORINS 03/09/2012 10 - Anaphylaxis THIMEROSAL 03/09/2012 7 - Swelling Comments: Difficulty breathing VANCOMYCIN 03/09/2012 10 - Anaphylaxis Comments: flushed LEVAQUIN (LEVOFLOXACIN) 03/14/2013 2 - Rash 14 - Other: See Comments Comments: Muscle/joint pain SPIRONOLACTONE (BULK) 02/20/2015 2 - Rash Comments: Pt states happened years ago when trying this always forgets. SULFA (SULFONAMIDE ANTIBIOTICS) 04/09/2012 4 - Hives 9 - Itching TAPE (ADHESIVE TAPE (ROSINS)) 06/08/2012 2 - Rash 9 - Itching Comments: degloving ZOCOR (SIMVASTATIN) 05/15/2014 14 - Other: See Comments Comments: Muscle/limb pain Date Reviewed: 02/23/2018 Reviewed by: Zhanna Callaway - Fully Assessed Reason for Visit: Arthritis [10] Cmt: talk about establishing care Imm/Inj [58] Cmt: Flu Vaccine Reason For Visit History Recorded Primary Visit Diagnosis:Controlled type 2 diabetes mellitus without complication, unspecified whether intermediate manager insulin use (HCC) [E11.9] Other Visit Diagnoses:Need for vaccination [Z23] Liver dysfunction [K76.89] Hereditary hemochromatosis (HCC) [E83.110] Essential hypertension [I10] Order(s):INFLUENZA SEASONAL HIGH DOSE AGE 65+ [28493NTH] Order #: [id number] CBC + DIFF [SQCBCDIF] Order #: [id number] FUTURE COMP METABOLIC PANEL [SQCMP] Order #: [id number] FUTURE LIPID PANEL BASIC [SQLIPB] Order #: [id number] FUTURE HGB A1C [PVKEI9W] Order #: [id number] FUTURE Prescriptions as of 02/23/2018 Sig: FUROSEMIDE 40 MG TABLET Take 0.5 tablets by mouth onc* TRAMADOL 50 MG TABLET Take 2 tablets by mouth as ne* BLOOD SUGAR DIAGNOSTIC STRIPS Use as instructed, 3 times da* LANCETS 28 GAUGE Use once daily LANCETS 28 GAUGE Use 3 times daily HYDROCHLOROTHIAZIDE 25 MG TAB* Take 1 tablet by mouth once d* POTASSIUM CHLORIDE ER 20 MEQ * Take 9 tablets by mouth once * CYCLOBENZAPRINE 10 MG TABLET Take 1 tablet by mouth twice * ASPIRIN 81 MG TABLET,DELAYED * Take 81 mg by mouth once dangelo* MUPIROCIN 2 % TOPICAL OINTMENT Apply 1 application to affect* COMPOUNDED PRESCRIPTION Use 1 application in each nos* MELOXICAM 15 MG TABLET Take 1 tablet by mouth once d* BLOOD-GLUCOSE METER KIT Freestyle LITE Meter Kit -Dx * OLOPATADINE 0.1 % EYE DROPS Use 1 Drop in both eyes twice* TRETINOIN 0.1 % TOPICAL CREAM Apply 1 Tube to affected area* ESTRADIOL 0.01% (0.1 MG/GRAM)* Use 1 g vaginally twice a wee* ASCORBIC ACID (VITAMIN C) 250* Take 4 tablets by mouth once * MULTI VITAMIN ORAL Take by mouth once daily. Problem List As Of Date 02/23/2018 Noted Resolved Essential hypertension [I10] INVALID FOR* More... Acne [L70.9] INVALID FOR* Pain disorder [R52] INVALID FOR* Menopausal vaginal dryness [N95.1] INVALID FOR* Itchy eyes [R68.89] INVALID FOR* Anemia [D64.9] INVALID FOR*10/14/2012 Hemochromatosis [E83.119] INVALID FOR* Body odor [L74.8] INVALID FOR* Chronic dermatitis of hands [L30.9] INVALID FOR* Frequent UTI [N39.0] INVALID FOR* Abdominal pain [R10.9] INVALID FOR* Hereditary hemochromatosis [E83.110] INVALID FOR* More... Liver dysfunction [K76.89] INVALID FOR* Lumbar stenosis [M48.061] INVALID FOR* Lumbar radiculopathy [M54.16] INVALID FOR* Chronic pain [G89.29] INVALID FOR* Negron's cyst [M71.20] INVALID FOR* Tear, knee, lateral meniscus [S83.289A] INVALID FOR* Complex tear of medial meniscus of left knee as*INVALID FOR* Pain in joint, lower leg [M25.569] INVALID FOR* Tear of medial cartilage or meniscus of knee, c*INVALID FOR* Diabetes mellitus type 2, controlled, without c*INVALID FOR* More... Hyperlipidemia [E78.5] INVALID FOR* Thoracic back pain [M54.6] INVALID FOR* DDD (degenerative disc disease), cervical [M50.*INVALID FOR* Cervical spondylosis [M47.812] INVALID FOR* Acute combined systolic and diastolic congestiv*INVALID FOR*03/04/2015 Chronic instability of metacarpophalangeal join*INVALID FOR* Bilateral low back pain without sciatica [M54.5]INVALID FOR* Thumb pain [M79.646] INVALID FOR* DDD (degenerative disc disease), lumbar [M51.36]INVALID FOR* Trochanteric bursitis of left hip [M70.62] INVALID FOR* Piriformis syndrome of left side [G57.02] INVALID FOR* Trochanteric tendinitis of left hip [M70.62] INVALID FOR* Vitiligo [L80] INVALID FOR* More... 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 Chronic rhinitis [J31.0] INVALID FOR* Osteoarthritis of cervical spine with myelopath*INVALID FOR* Chronic superficial gastritis without bleeding *INVALID FOR* More... Follow-up and Disposition History Recorded Encounter Status:Closed by ANDREW BLANCO MD on 02/23/18 PT ED Observed: 02/18/2018 Status: COMPLETED Source: [place] 9:08 AM [facility] CAMP[facility] REPOSITORY [facility] ID: [id number] Author: Kendy Randhawa) PHILIPPE Stallings Service: (none) Author Type: Registered Nurse Type: Patient Education Filed: 02/18/2018 9:09 AM Note Text: POST OP LEARNING RESPONSE INSTRUCTION PROVIDED TO: Patient METHOD OF INSTRUCTION: Teach Back done Individual instruction Written instruction - handouts Verbal instruction PATIENT / FAMILY RESPONSE: Verbalizes understanding of: POST-OPERATIVE INSTRUCTIONS-Correct actions to take to reduce postoperative complications SYMPTOM MANAGEMENT-Correct actions to take to manage symptoms associated with his/her disease/illness FOLLOW-UP PLAN: Patient instructed to call with any further issues Contact information given. SUPPLEMENTAL MATERIAL: None REFERRAL (RECOMMENDATION): None Electronically Signed By: Kendy Stallings RN In Department: [facility] SURGERY NURSING PROG Observed: 02/18/2018 Status: COMPLETED Source: [place] 9:05 AM [facility] OTHER CAMPUS REPOSITORY [facility] ID: [id number] Author: Kendy AroraRn) PHILIPPE Stallings Service: (none) Author Type: Registered Nurse Type: Nursing Progress Note Filed: 02/18/2018 9:06 AM Note Text: Nursing Progress Note Patient Name: Leila Thornton Patient Location: [place] Surgery/[place] Surgery @0845 Pt states ride not here. Ride called and will text pt when she is here. This note was completed by: Kendy Stallings RN PT ED Observed: 02/18/2018 Status: COMPLETED Source: [place] 8:45 AM [facility] REPOSITORY [facility] ID: [id number] Author: Grazyna AroraRn) PHILIPPE Camilo Service: Nursing Author Type: Registered Nurse Type: Patient Education Filed: 02/18/2018 8:46 AM Note Text: POST OP LEARNING RESPONSE INSTRUCTION PROVIDED TO: Patient METHOD OF INSTRUCTION: Written instruction - handouts Verbal instruction PATIENT / FAMILY RESPONSE: Verbalizes understanding of: INFECTION MANAGEMENT-Signs and symptoms of an infection and importance of contacting the physician PAIN MANAGEMENT-Effective strategies to manage pain in addition to pain medication PHYSICAL RESTRICTIONS-Physical restrictions and recommendations after discharge from the hospital POST-OPERATIVE INSTRUCTIONS-Correct actions to take to reduce postoperative complications PATIENT SAFETY PRINCIPLES SYMPTOM MANAGEMENT-Correct actions to take to manage symptoms associated with his/her disease/illness WORSENING CONDITION-Signs and symptoms of a worsening condition that warrant a call to the physician WOUND CARE-Correct procedure to perform wound care FOLLOW-UP PLAN: Patient instructed to call with any further issues Contact information given. SUPPLEMENTAL MATERIAL: None REFERRAL (RECOMMENDATION): None Electronically Signed By: Grazyna Camilo RN In Department: [facility] SURGERY OPERATIVE NO Observed: 02/18/2018 Status: COMPLETED Source: [place] 8:37 AM [facility] REPOSITORY HNO ID: [id number] Author: Thiago Piper Service: Pain Management Author Type: Physician Type: Operative Report Filed: 02/18/2018 8:37 AM Note Text: PATIENT NAME: Leila Thornton SERVICE DATE: 02/18/2018 PREOPERATIVE DIAGNOSIS(ES) Lumbar radiculopathy Lumbar disc displacement Lumbar DDD POSTOPERATIVE DIAGNOSIS(ES): Same OPERATION: Left L5-S1 lumbar transforaminal epidural steroid injection under fluoroscopy. ?? ANESTHESIA: versed 3mg, fentanyl 50mcg?IV ?? INDICATIONS: The patient presents for lumbar transforaminal epidural steroid injection. Since the last visit, the patient denies any new pain complaints and denies any focal neurological deficits. As discussed and outlined in the office and confirmed today, the plan is to proceed with lumbar transforaminal epidural steroid injection. The risks and benefits of the procedure were discussed. Specifically, the risks of bleeding, infection, inadvertent dural puncture, spinal heaches, vasovagal reaction, epidural hematoma, partial or permanent nerve injury were covered. The potential side effects of medications used in procedures including increase in lumbar pain, headaches, facial redness or warmth (flushing), anxiety or mood swings, sleeplessness, fever, high blood sugar, brief reduction in immunity were discussed. The patient expressed understanding of potential risks and wishes to proceed with the procedure. ?? OPERATIVE PROCEDURE: The patient was brought to the operating room. The patient was placed in the prone position with routine monitors placed. The lower back was prepped in sterile fashion. Upon AP projection under fluoroscopy, L5-S1 level was identified. The fluoroscopy was rotated in oblique projection to identify the neuroforamen. Entry point was marked and anesthetized with 0.25% Marcaine. This was followed by insertion of a 5 inch spinal needle, which was inserted and advanced towards the 12 o' clock of the L5-[id number]. Once the Needle tip contacted the inferior lateral aspect of the pedicle, aspiration was performed which was negative for blood or CSF. This was followed by injection of Omnipaque 300, which revealed a spread through the neuroforamen into the anterior epidural space. There was no evidence of intravascular or intrathecal flow. This was then followed by a total injection of 3 mL of 0.25% Marcaine with 40 mg of Depomedrol. The patient tolerated the procedure well. The needle was removed intact. Dry dressing was placed over the injection site. The patient was taken to the recovery room in stable condition. EBL: nil Start time: 8:27 AM End time: 8:33 AM I was present the entire time and personally performed the procedure. SIGNATURE: Thiago Piper MD DATE: February 18, 2018 TIME: 8:37 AM XR FLUOROSCOPY Observed: 02/18/2018 Status: F Source: [place] 8:37 AM [facility] REPOSITORY * * *Final Report* * * DATE OF EXAM: Feb 18 2018 8:37AM MDR [id number] - XR FLUOROSCOPY / PROCEDURE REASON: pain * * * * Physician Interpretation * * * * Lumbar spine History: lumbo-sacral neuritis Findings: 2 fluoroscopic views submitted. 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: [facility] Transcribe Date/Time: Feb 18 2018 11:10A Dictated by : GERI ALSTON MD This examination was interpreted and the report reviewed and electronically signed by: GERI ALSTON MD on Feb 18 2018 11:11AM EST [id number] HISTORY PHYSICAL Observed: 02/18/2018 Status: COMPLETED Source: [place] 8:21 AM [facility] REPOSITORY HNO ID: [id number] Author: Thiago Piper Service: Pain Management Author Type: Physician Type: HANDP Filed: 02/18/2018 8:21 AM Note Text: HISTORY AND PHYSICAL EXAMINATION PATIENT NAME: Leila Thornton DATE of SERVICE: 02/18/2018 Leila Thornton is here for the pain mangement procedure. The patient presents with persistent pain complaints. Leila Thornton denies any interval changes or new pain complaints or focal neurologic deficits. PAST MEDICAL HISTORY Diagnosis Date - Arthritis - Blood dyscrasia - Dermatitis - Frequent UTI - Hemochromatosis - Hypertension - Lumbar pain - Shingles 1999 - Type II or unspecified type diabetes mellitus without mention of complication, not stated as uncontrolled 04/10/2014 PAST SURGICAL HISTORY Procedure Laterality Date - ARTHRODESIS [facility] JNT THUMB W/WO FIX 1996 bilateral - CERVICAL BIOPSY 05/25/12 Dr. Jordan - COLONOSCOP W/ OR W/O [facility] SPEC 05/16/2015 Colonoscopy - EGD W/O OR W/BRUSH/WASH 05/16/2015 EGD - ENDOMETRIAL BIOPSY 05/07/12 Dr. Jordan - HYSTEROSCOPY 05/25/12 Dr. Jordan - KNEE SCOPE,MENISECTOMY,MED OR LAT 10/07/2013 Left knee arthroscopic medial and lateral meniscectomies - partial - PAST SURGICAL HISTORY OF 1981 septoplasy - PAST SURGICAL HISTORY OF 04/16 bilateral lumbar epidural - PAST SURGICAL HISTORY OF 06/11/2015 lumbar epidural - left - REDUCTION OF LARGE BREAST 2000 bilateral - REMOVAL OF TONSILS,<12 Y/O 1978 Tonsillectomy - ROTATOR CUFF REPAIR 1984 right acromioplasty Social History Marital status: Single Spouse name: Years of education: Number of children: 0 Occupational History Occupation Employer Comment retired Social History Main Topics Smoking status: Never Smoker Smokeless tobacco: Never Used Alcohol use: Yes 0.0 oz/week Comment: 5 drinks per week Drug use: No Sexual activity: Not Currently 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 No children. FAMILY HISTORY Problem Relation Age of Onset - Cancer Mother 64 ovarian - Cancer Father 76 Mantle Cell Lymphoma - Cancer Maternal Grandmother uterine dx 60s - COPD Maternal Grandfather - Heart Maternal Grandfather CHF - Heart Paternal Grandmother CVA - Blood Disease Sister hemochromotosis - Cancer Paternal Aunt lung - Cancer Paternal Uncle brain tumor, myasthenia gravis ALLERGIES Allergen Reactions - Cephalosporins Anaphylaxis - Thimerosal Swelling Difficulty breathing - Vancomycin Anaphylaxis flushed - Levaquin [Levofloxa* Rash, Other: See Comments Muscle/joint pain - Spironolactone (Bul* Rash Pt states happened years ago when trying this always forgets. - Sulfa (Sulfonamide * Hives, Itching - Tape [Adhesive Tape* Rash, Itching degloving - Zocor [Simvastatin] Other: See Comments Muscle/limb pain Current Facility-Administered Medications: NaCl 0.9% iv infusion 30 mL/hr INTRAVENOUS CONTINUOUS Physical Exam: Performed in conjunction with observation. The patient is alert and oriented x3. The patient is in no acute distress. Neck: Supple. The range of motion is intact. Lungs: clear CVR: RRR. Extremities: no reported edema or erythema. Examination indicates no changes Impression: Lumbar radiculopathy Lumbar stenosis Plan: The informed consent has been obtained. The plan is to proceed with the procedure as planned. SIGNATURE: Thiago Piper MD DATE: February 18, 2018 TIME: 8:21 AM PT ED Observed: 02/18/2018 Status: COMPLETED Source: [place] 7:10 AM [facility] REPOSITORY HNO ID: [id number] Author: Josy (Rn) Broderick RN Service: Nursing Author Type: Registered Nurse Type: Patient Education Filed: 02/18/2018 7:11 AM Note Text: PRE OP LEARNING ASSESSMENT PROCEDURE/SURGERY: PAIN MANAGEMENT: Transforaminal NETTA READINESS TO LEARN COGNITIVE ABILITY: Alert and oriented MOTIVATION TO LEARN: Eager Interested FAMILY SUPPORT: High - Very involved in pt care PATIENT LEARNS BEST BY: Individual Instruction Verbal Instruction Multiple Methods FACTORS AFFECTING LEARNING: None PHYSICAL LIMITATIONS AFFECTING LEARNING: None Electronically Signed By: Josy Villafana RN In Department: [facility] SURGERY PROGRESS Observed: 02/11/2018 Status: COMPLETED Source: [place] 9:40 AM [facility] REPOSITORY HNO ID: [id number] Author: Samanta Waller Cma Service: (none) Author Type: (none) Type: Progress Notes Filed: 02/11/2018 9:41 AM Note Text: [facility] LOCKSMITH APPRENTICE QUICKNOTE Provider Action/FYI: Patient identified by name and . During teamlet we noticed patient had an upcoming appointment with Dr. blanco on 02/23/18. I called patient to see if she wanted to see Keon Xavier or Dr. Veronica and she states she would like to keep the appointment 02/[address] Blanco. Samanta Waller [facility] CNPTOUTREACH Observed: 02/11/2018 Status: COMPLETED Source: [place] 12:00 AM [facility] REPOSITORY Patient Outreach (INTMWS) LEILA THORNTON ([id number]) 1950 F Date Time Provider Department 02/11/18 [facility] INTMWS During your visit today, we recorded the following information about you: Samanta Waller Research And Development Researcher 02/11/2018 9:41 AM Signed [facility] LOCKSMITH APPRENTICE QUICKNOTE Provider Action/FYI: Patient identified by name and . During teamlet we noticed patient had an upcoming appointment with Dr. blanco on 02/23/18. I called patient to see if she wanted to see Keon Xavier or Dr. Veronica and she states she would like to keep the appointment 02/[address] Blanco. Samanta Waller [facility] Allergies As of Date: 02/11/2018 Noted Allergy Reaction CEPHALOSPORINS 03/09/2012 10 - Anaphylaxis THIMEROSAL 03/09/2012 7 - Swelling Comments: Difficulty breathing VANCOMYCIN 03/09/2012 10 - Anaphylaxis Comments: flushed LEVAQUIN (LEVOFLOXACIN) 03/14/2013 2 - Rash 14 - Other: See Comments Comments: Muscle/joint pain SPIRONOLACTONE (BULK) 02/20/2015 2 - Rash Comments: Pt states happened years ago when trying this always forgets. SULFA (SULFONAMIDE ANTIBIOTICS) 04/09/2012 4 - Hives 9 - Itching TAPE (ADHESIVE TAPE (ROSINS)) 06/08/2012 2 - Rash 9 - Itching Comments: degloving ZOCOR (SIMVASTATIN) 05/15/2014 14 - Other: See Comments Comments: Muscle/limb pain Date Reviewed: 01/18/2018 Reviewed by: Martha Jensen Ma - Fully Assessed Reason for Visit: PHMA/Care Gap Outreach [[id number]] Prescriptions as of 02/11/2018 Sig: FUROSEMIDE 40 MG TABLET Take 0.5 tablets by mouth onc* POTASSIUM CHLORIDE ER 20 MEQ * Take 9 tablets by mouth once * HYDROCHLOROTHIAZIDE 25 MG TAB* Take 1 tablet by mouth once d* TRAMADOL 50 MG TABLET Take 2 tablets by mouth as ne* BLOOD SUGAR DIAGNOSTIC STRIPS Use as instructed, 3 times da* LANCETS 28 GAUGE Use once daily LANCETS 28 GAUGE Use 3 times daily HYDROCHLOROTHIAZIDE 25 MG TAB* Take 1 tablet by mouth once d* FUROSEMIDE 40 MG TABLET Take 0.5 tablets by mouth onc* POTASSIUM CHLORIDE ER 20 MEQ * Take 9 tablets by mouth once * CYCLOBENZAPRINE 10 MG TABLET Take 1 tablet by mouth twice * OMEPRAZOLE 20 MG CAPSULE,ZACHARY* Take 1 capsule by mouth twice* Patient not taking: Reported on 01/18/2018 ASPIRIN 81 MG TABLET,DELAYED * Take 81 mg by mouth once dangelo* MUPIROCIN 2 % TOPICAL OINTMENT Apply 1 application to affect* COMPOUNDED PRESCRIPTION Use 1 application in each nos* MELOXICAM 15 MG TABLET Take 1 tablet by mouth once d* BLOOD-GLUCOSE METER KIT Freestyle LITE Meter Kit -Dx * OLOPATADINE 0.1 % EYE DROPS Use 1 Drop in both eyes twice* TRETINOIN 0.1 % TOPICAL CREAM Apply 1 Tube to affected area* ESTRADIOL 0.01% (0.1 MG/GRAM)* Use 1 g vaginally twice a wee* ASCORBIC ACID (VITAMIN C) 250* Take 4 tablets by mouth once * MULTI VITAMIN ORAL Take by mouth once daily. Problem List As Of Date 02/11/2018 Noted Resolved Essential hypertension [I10] INVALID FOR* More... Acne [L70.9] INVALID FOR* Pain disorder [R52] INVALID FOR* Menopausal vaginal dryness [N95.1] INVALID FOR* Itchy eyes [R68.89] INVALID FOR* Anemia [D64.9] INVALID FOR*10/14/2012 Hemochromatosis [E83.119] INVALID FOR* Body odor [L74.8] INVALID FOR* Chronic dermatitis of hands [L30.9] INVALID FOR* Frequent UTI [N39.0] INVALID FOR* Abdominal pain [R10.9] INVALID FOR* Hereditary hemochromatosis [E83.110] INVALID FOR* More... Liver dysfunction [K76.89] INVALID FOR* Lumbar stenosis [M48.061] INVALID FOR* Lumbar radiculopathy [M54.16] INVALID FOR* Chronic pain [G89.29] INVALID FOR* Negron's cyst [M71.20] INVALID FOR* Tear, knee, lateral meniscus [S83.289A] INVALID FOR* Complex tear of medial meniscus of left knee as*INVALID FOR* Pain in joint, lower leg [M25.569] INVALID FOR* Tear of medial cartilage or meniscus of knee, c*INVALID FOR* Diabetes mellitus type 2, controlled, without c*INVALID FOR* More... Hyperlipidemia [E78.5] INVALID FOR* Thoracic back pain [M54.6] INVALID FOR* DDD (degenerative disc disease), cervical [M50.*INVALID FOR* Cervical spondylosis [M47.812] INVALID FOR* Acute combined systolic and diastolic congestiv*INVALID FOR*03/04/2015 Chronic instability of metacarpophalangeal join*INVALID FOR* Bilateral low back pain without sciatica [M54.5]INVALID FOR* Thumb pain [M79.646] INVALID FOR* DDD (degenerative disc disease), lumbar [M51.36]INVALID FOR* Trochanteric bursitis of left hip [M70.62] INVALID FOR* Piriformis syndrome of left side [G57.02] INVALID FOR* Trochanteric tendinitis of left hip [M70.62] INVALID FOR* Vitiligo [L80] INVALID FOR* More... 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 Chronic rhinitis [J31.0] INVALID FOR* Osteoarthritis of cervical spine with myelopath*INVALID FOR* Chronic superficial gastritis without bleeding *INVALID FOR* More... Encounter Status:Closed by SAMANTA WALLER CMA on 02/11/18 HOSP Observed: 01/19/2018 Status: COMPLETED Source: [place] 12:00 AM [facility] REPOSITORY Patient:Leila Thornton MRN: <[id number]> Height:5' 5(1.651 m) Weight:180 lb (81.647 kg) Outpatient Medications as of 02/18/18: furosemide (LASIX) 40 mg tablet traMADol (ULTRAM) 50 mg tablet blood sugar diagnostic (FREESTYLE LITE STRIPS) test strip lancets (FREESTYLE LANCETS) 28 gauge misc lancets (FREESTYLE LANCETS) 28 gauge misc hydroCHLOROthiazide (HYDRODIURIL, ESIDRIX) 25 mg tablet potassium chloride ER (KLOR-CON M20) 20 mEq tablet cyclobenzaprine (FLEXERIL) 10 mg tablet aspirin, enteric coated (ASPIRIN, ENTERIC COATED) 81 mg EC tablet mupirocin (BACTROBAN) 2 % ointment CCF Nasal Ointment meloxicam (MOBIC) 15 mg tablet Blood-Glucose Meter (FREESTYLE LITE METER) monitoring kit olopatadine (PATANOL) 0.1 % ophthalmic solution tretinoin (RETIN-A) 0.1 % cream estradiol (ESTRACE) 0.01 % (0.1 mg/gram) vaginal cream Ascorbic Acid (VITAMIN C) 250 mg chew MULTIVIT ANDMINERALS/FERROUS FUM (MULTI VITAMIN ORAL) Admission/Clinic Administered Medications as of 02/18/18: NaCl 0.9% iv infusion Problem List: Essential hypertension [I10] Acne [L70.9] Pain disorder [R52] Menopausal vaginal dryness [N95.1] Itchy eyes [R68.89] Hemochromatosis [E83.119] Body odor [L74.8] Chronic dermatitis of hands [L30.9] Frequent UTI [N39.0] Abdominal pain [R10.9] Hereditary hemochromatosis (HCC) [E83.110] Liver dysfunction [K76.89] Lumbar stenosis [M48.061] Lumbar radiculopathy [M54.16] Chronic pain [G89.29] Negron's cyst [M71.20] Tear, knee, lateral meniscus [S83.289A] Complex tear of medial meniscus of left knee as current injury [S83.232A] Pain in joint, lower leg [M25.569] Tear of medial cartilage or meniscus of knee, current [[id number]] Diabetes mellitus type 2, controlled, without complications (HCC) [E11.9] Hyperlipidemia [E78.5] Thoracic back pain [M54.6] DDD (degenerative disc disease), cervical [M50.30] Cervical spondylosis [M47.812] Chronic instability of metacarpophalangeal joint of thumb [M25.349] Bilateral low back pain without sciatica [M54.5] Thumb pain [M79.646] DDD (degenerative disc disease), lumbar [M51.36] Trochanteric bursitis of left hip [M70.62] Piriformis syndrome of left side [G57.02] Trochanteric tendinitis of left hip [M70.62] Vitiligo [L80] Alcohol abuse, in remission [F10.11] Spinal stenosis of lumbar region without neurogenic claudication [M48.061] Chronic rhinitis [J31.0] Osteoarthritis of cervical spine with myelopathy [M47.12] Chronic superficial gastritis without bleeding [K29.30] Allergies: Cephalosporins Thimerosal Vancomycin Levaquin [Levofloxacin] Spironolactone (Bulk) Sulfa (Sulfonamide Antibiotics) Tape [Adhesive Tape (Rosins)] Zocor [Simvastatin] Date Verified: 02/18/18 Lab Values No results within the last 30 days for the following basenames: K,HCT Progress Notes ([facility]): Samanta Waller Research And Development Researcher 02/11/2018 9:41 AM Signed [facility] LOCKSMITH APPRENTICE QUICKNOTE Provider Action/FYI: Patient identified by name and . During teamlet we noticed patient had an upcoming appointment with Dr. blanco on 02/23/18. I called patient to see if she wanted to see Keon Xavier or Dr. Veronica and she states she would like to keep the appointment 02/[address] Blanco. Samanta Waqar [facility] Progress Notes ([facility]): Kasey Stanford Psr 02/10/2018 9:59 AM Signed Patient is calling to let Dr. Veronica the reason for the early refill request. The medications were accidentally dropped in the toilet. Sobeida Horvath RN 02/10/2018 12:22 PM Signed Patient has been identified by name and date of : Yes Patient phones for refill(s): Pending Prescriptions Disp Refills FUROSEMIDE 40 MG TABLET 45 tablet 1 Sig: Take 0.5 tablets by mouth once daily. [place]: No POTASSIUM CHLORIDE ER 20 MEQ TABLET,EXTENDED RELEASE(PART/CRYST) 810 tablet 11 Sig: Take 9 tablets by mouth once daily. Total of 180mEq daily. [place]: No HYDROCHLOROTHIAZIDE 25 MG TABLET 90 tablet 1 Sig: Take 1 tablet by mouth once daily. [place]: No Date of last office visit in primary care: 11/23/17, future appt. 05/28/18 Last 2 Encounter Wt Readings: Date: Wt: 01/18/2018 88 kg (194 lb) 11/23/2017 84.4 kg (186 lb) Previous labs/tests for medication: Blood Pressure: BUN (mg/dL) Date Value 10/08/2017 20 Sodium (mmol/L) Date Value 10/08/2017 140 Last 1 Encounter BP Readings: Date: BP: 11/23/2017 150/70 Please advise. Thank you. Sobeida Horvath RN PROGRESS Observed: 01/18/2018 Status: COMPLETED Source: [place] 3:14 PM [facility] REPOSITORY HNO ID: [id number] Author: Ashley Peres (Jeannie Simpson Service: (none) Author Type: Nurse Practitioner Type: Progress Notes Filed: 01/19/2018 9:20 AM Note Text: SUBJECTIVE: Leila Thonrton presents to [facility] Pain Management Department for a followup appointment for low back pain. Since the last visit, Leila Thornton states the pain has been consistant. Current pain intensity is 5 on a scale of 0-10. Pain located in Back area and radiates down the posterior leg and down the anterior leg. Pain described as aching and sharp The patient Reports leg pain and leg weakness. Symptoms interfere with physical activity. Pain is exacerbated by lifting, stairs. Pain is mitigated by sitting, medications and injections. The patient is overall improved with the injections by 80%. REVIEW OF SYSTEMS: Constitutional: (-) Fever (-) Night Sweats (-) Weight Gain (-) Weight Loss (+) Fatigue Cardiovascular: (-) Chest Pain (-) Palpitations (-) Lightheadedness (+) Swelling of Ankles (-) Hx Heart Surgery Respiratory: (-) Shortness of Breath (+) Cough (+) Wheezing (-) Snoring Gastrointestinal: (-) Incontinence (-) Abdominal Pain (-) Diarrhea (-) Constipation (-) Nausea/Vomiting (+) Heart Burn Endocrine: (-) Thyroid Disorder (+) Diabetes Hematologic: (-) Prolonged Bleeding (+) Easy Bruising Genitourinary: (-) Incontinence (-) Frequency (-) Urinary Urgency Skin: (-) Rashes (+) Itching (-) Other Lesions Neurologic: (-) Headache (-) Double Vision (-) Confusion (-) Paralysis Psychiatric: (+) Depression (+) Anxiety (-) Delusions (-) Hallucinations (+) Personal History of Alcohol or Substance Abuse (-) Family History of Alcohol or Substance Abuse OBJECTIVE: Pulse 90 Ht 5' 5 (1.65m) Wt 194 lb (88.0kg) SpO2 95% BMI 32.28 kg/(m2). PHYSICAL EXAMINATION: General appearance: Well appearing, in no acute distress, alert Skin: Skin color, texture, turgor normal, no rashes or lesions Neck: Tenderness to palpation over the right cervical paraspinous muscles. No pain with neck flexion, extension, or lateral flexion Cardiovascular: Regular rate Lungs: Normal respiratory rate and rhythm Abdomen: Abdomen soft and non-tender. Back: Intact range of motion with pain reproduction. Spine: Reports Tenderness on palpation: Lumbar/Pelvic, left sided Extremities: No deformities, edema, or skin discoloration. Good capillary refill. Musculoskeletal: Bilateral upper and lower extremity strength is normal and symmetric. No atrophy or tone abnormalities are noted. Neuro: No loss of sensation is noted. Station and Gait: antalgic gait Motor: Exhibits full strength in all four extremities. Trigger points: right trapezius ASSESSMENT: Assessment : Patient reports neck pain that has numbness and tingling that radiates down the right upper extremity Patient reports left-sided lower back pain that radiates down the left lower extremity both lateral and posterior to the level of the knee She had a left L5-S1 transforaminal injection on ? and reports 80% improvement She takes tramadol and Flexeril to help manage her chronic pain Encounter Diagnosis ICD-10-CM 1. DDD (degenerative disc disease), cervical M50.30 traMADol (ULTRAM) 50 mg tablet 2. Osteoarthritis of cervical spine with myelopathy M47.12 traMADol (ULTRAM) 50 mg tablet 3. DDD (degenerative disc disease), lumbar M51.36 traMADol (ULTRAM) 50 mg tablet 4. Spinal stenosis of lumbar region without neurogenic claudication M48.061 traMADol (ULTRAM) 50 mg tablet 5. Lumbar radiculopathy M54.16 traMADol (ULTRAM) 50 mg tablet PDMP website checked and validated. All prescriptions have been APPROPRIATELY filled. No suspicious activity was identified. 01/18/2018 by Martha Jensen Ma Narcotic Agreement reviewed and signed?: N/A on January 18, 2018 The pain panel was N/A PLAN: 1) Refill tramadol 50 mg twice a day. Fill date is 02/06 2) continue with Flexeril 10 mg as needed. No refills needed today 3) ordered repeat left L5-S1 transforaminal injection 4) continue to stay active as pain is tolerated 5) RTC 3 months This note was partially generated using [employer] recognition system. The above plan and management options were discussed at length with patient. Patient is in agreement with the above and verbalized understanding. Ashley Simpson APRN, LAND CHECKER January 18, 2018 CNOV Observed: 01/18/2018 Status: COMPLETED Source: [place] 164[address]:00 PM [facility] REPOSITORY Office Visit (PNMDNA) LEILA THORNTON ([id number]) 1950 F Date Time Provider Department 01/18/18 3:00 PM ASHLEY SIMPSON (LAND CHECKER) PNMDNA During your visit today, we recorded the following information about you: Pulse Weight Height 90/minute 88 kg 1.651 m Ashley Simpson APRN.CNP 01/19/2018 9:20 AM Signed SUBJECTIVE: Leila Thornton presents to [facility] Pain Management Department for a followup appointment for low back pain. Since the last visit, Leila Thornton states the pain has been consistant. Current pain intensity is 5 on a scale of 0-10. Pain located in Back area and radiates down the posterior leg and down the anterior leg. Pain described as aching and sharp The patient Reports leg pain and leg weakness. Symptoms interfere with physical activity. Pain is exacerbated by lifting, stairs. Pain is mitigated by sitting, medications and injections. The patient is overall improved with the injections by 80%. REVIEW OF SYSTEMS: Constitutional: (-) Fever (-) Night Sweats (-) Weight Gain (-) Weight Loss (+) Fatigue Cardiovascular: (-) Chest Pain (-) Palpitations (-) Lightheadedness (+) Swelling of Ankles (-) Hx Heart Surgery Respiratory: (-) Shortness of Breath (+) Cough (+) Wheezing (-) Snoring Gastrointestinal: (-) Incontinence (-) Abdominal Pain (-) Diarrhea (-) Constipation (-) Nausea/Vomiting (+) Heart Burn Endocrine: (-) Thyroid Disorder (+) Diabetes Hematologic: (-) Prolonged Bleeding (+) Easy Bruising Genitourinary: (-) Incontinence (-) Frequency (-) Urinary Urgency Skin: (-) Rashes (+) Itching (-) Other Lesions Neurologic: (-) Headache (-) Double Vision (-) Confusion (-) Paralysis Psychiatric: (+) Depression (+) Anxiety (-) Delusions (-) Hallucinations (+) Personal History of Alcohol or Substance Abuse (-) Family History of Alcohol or Substance Abuse OBJECTIVE: Pulse 90 Ht 5' 5 (1.65m) Wt 194 lb (88.0kg) SpO2 95% BMI 32.28 kg/(m2). PHYSICAL EXAMINATION: General appearance: Well appearing, in no acute distress, alert Skin: Skin color, texture, turgor normal, no rashes or lesions Neck: Tenderness to palpation over the right cervical paraspinous muscles. No pain with neck flexion, extension, or lateral flexion Cardiovascular: Regular rate Lungs: Normal respiratory rate and rhythm Abdomen: Abdomen soft and non-tender. Back: Intact range of motion with pain reproduction. Spine: Reports Tenderness on palpation: Lumbar/Pelvic, left sided Extremities: No deformities, edema, or skin discoloration. Good capillary refill. Musculoskeletal: Bilateral upper and lower extremity strength is normal and symmetric. No atrophy or tone abnormalities are noted. Neuro: No loss of sensation is noted. Station and Gait: antalgic gait Motor: Exhibits full strength in all four extremities. Trigger points: right trapezius ASSESSMENT: Assessment : Patient reports neck pain that has numbness and tingling that radiates down the right upper extremity Patient reports left-sided lower back pain that radiates down the left lower extremity both lateral and posterior to the level of the knee She had a left L5-S1 transforaminal injection on 3??18 and reports 80% improvement She takes tramadol and Flexeril to help manage her chronic pain Encounter Diagnosis ICD-10-CM 1. DDD (degenerative disc disease), cervical M50.30 traMADol (ULTRAM) 50 mg tablet 2. Osteoarthritis of cervical spine with myelopathy M47.12 traMADol (ULTRAM) 50 mg tablet 3. DDD (degenerative disc disease), lumbar M51.36 traMADol (ULTRAM) 50 mg tablet 4. Spinal stenosis of lumbar region without neurogenic claudication M48.061 traMADol (ULTRAM) 50 mg tablet 5. Lumbar radiculopathy M54.16 traMADol (ULTRAM) 50 mg tablet PDMP website checked and validated. All prescriptions have been APPROPRIATELY filled. No suspicious activity was identified. 01/18/2018 by Martha Jensen Ma Narcotic Agreement reviewed and signed?: N/A on January 18, 2018 The pain panel was N/A PLAN: 1) Refill tramadol 50 mg twice a day. Fill date is 02/06 2) continue with Flexeril 10 mg as needed. No refills needed today 3) ordered repeat left L5-S1 transforaminal injection 4) continue to stay active as pain is tolerated 5) RTC 3 months This note was partially generated using mySBX voice recognition system. The above plan and management options were discussed at length with patient. Patient is in agreement with the above and verbalized understanding. Ashley Simpson, ENGRAVING OPERATOR, LAND CHECKER January 18, 2018 Referring Provider: SELF [[id number]] Allergies As of Date: 01/18/2018 Noted Allergy Reaction CEPHALOSPORINS 03/09/2012 10 - Anaphylaxis THIMEROSAL 03/09/2012 7 - Swelling Comments: Difficulty breathing VANCOMYCIN 03/09/2012 10 - Anaphylaxis Comments: flushed LEVAQUIN (LEVOFLOXACIN) 03/14/2013 2 - Rash 14 - Other: See Comments Comments: Muscle/joint pain SPIRONOLACTONE (BULK) 02/20/2015 2 - Rash Comments: Pt states happened years ago when trying this always forgets. SULFA (SULFONAMIDE ANTIBIOTICS) 04/09/2012 4 - Hives 9 - Itching TAPE (ADHESIVE TAPE (ROSINS)) 06/08/2012 2 - Rash 9 - Itching Comments: degloving ZOCOR (SIMVASTATIN) 05/15/2014 14 - Other: See Comments Comments: Muscle/limb pain Date Reviewed: 01/18/2018 Reviewed by: Martha Jensen Ma - Fully Assessed Reason for Visit: Follow Up [171] Primary Visit Diagnosis:DDD (degenerative disc disease), cervical [M50.30] Other Visit Diagnoses:Osteoarthritis of cervical spine with myelopathy [M47.12] DDD (degenerative disc disease), lumbar [M51.36] Spinal stenosis of lumbar region without neurogenic claudication [M48.061] Lumbar radiculopathy [M54.16] Order(s):[START ON 02/06/2018] traMADol (ULTRAM) 50 mg tabletTake 2 tablets by mouth as needed for up to 30 days.Disp: 60 tabletRfl: 2 INJ TRANSFORAMINAL EPID ANES/STER LS SINGL [[id number]] Order #: [id number] Prescriptions as of 01/18/2018 Sig: BLOOD SUGAR DIAGNOSTIC STRIPS Use as instructed, 3 times da* LANCETS 28 GAUGE Use once daily FUROSEMIDE 40 MG TABLET Take 0.5 tablets by mouth onc* POTASSIUM CHLORIDE ER 20 MEQ * Take 9 tablets by mouth once * HYDROCHLOROTHIAZIDE 25 MG TAB* Take 1 tablet by mouth once d* LANCETS 28 GAUGE Use 3 times daily HYDROCHLOROTHIAZIDE 25 MG TAB* Take 1 tablet by mouth once d* FUROSEMIDE 40 MG TABLET Take 0.5 tablets by mouth onc* POTASSIUM CHLORIDE ER 20 MEQ * Take 9 tablets by mouth once * CYCLOBENZAPRINE 10 MG TABLET Take 1 tablet by mouth twice * ASPIRIN 81 MG TABLET,DELAYED * Take 81 mg by mouth once dangelo* MUPIROCIN 2 % TOPICAL OINTMENT Apply 1 application to affect* COMPOUNDED PRESCRIPTION Use 1 application in each nos* MELOXICAM 15 MG TABLET Take 1 tablet by mouth once d* BLOOD-GLUCOSE METER KIT Freestyle LITE Meter Kit -Dx * OLOPATADINE 0.1 % EYE DROPS Use 1 Drop in both eyes twice* TRETINOIN 0.1 % TOPICAL CREAM Apply 1 Tube to affected area* ESTRADIOL 0.01% (0.1 MG/GRAM)* Use 1 g vaginally twice a wee* ASCORBIC ACID (VITAMIN C) 250* Take 4 tablets by mouth once * MULTI VITAMIN ORAL Take by mouth once daily. TRAMADOL 50 MG TABLET Take 2 tablets by mouth as ne* OMEPRAZOLE 20 MG CAPSULE,ZACHARY* Take 1 capsule by mouth twice* Patient not taking: Reported on 01/18/2018 Problem List As Of Date 01/18/2018 Noted Resolved Essential hypertension [I10] INVALID FOR* More... Acne [L70.9] INVALID FOR* Pain disorder [R52] INVALID FOR* Menopausal vaginal dryness [N95.1] INVALID FOR* Itchy eyes [H57.8] INVALID FOR* Anemia [D64.9] INVALID FOR*10/14/2012 Hemochromatosis [E83.119] INVALID FOR* Body odor [L74.8] INVALID FOR* Chronic dermatitis of hands [L30.9] INVALID FOR* Frequent UTI [N39.0] INVALID FOR* Abdominal pain [R10.9] INVALID FOR* Hereditary hemochromatosis [E83.110] INVALID FOR* More... Liver dysfunction [K76.89] INVALID FOR* Lumbar stenosis [M48.061] INVALID FOR* Lumbar radiculopathy [M54.16] INVALID FOR* Chronic pain [G89.29] INVALID FOR* Negron's cyst [M71.20] INVALID FOR* Tear, knee, lateral meniscus [S83.289A] INVALID FOR* Complex tear of medial meniscus of left knee as*INVALID FOR* Pain in joint, lower leg [M25.569] INVALID FOR* Tear of medial cartilage or meniscus of knee, c*INVALID FOR* Diabetes mellitus type 2, controlled, without c*INVALID FOR* More... Hyperlipidemia [E78.5] INVALID FOR* Thoracic back pain [M54.6] INVALID FOR* DDD (degenerative disc disease), cervical [M50.*INVALID FOR* Cervical spondylosis [M47.812] INVALID FOR* Acute combined systolic and diastolic congestiv*INVALID FOR*03/04/2015 Chronic instability of metacarpophalangeal join*INVALID FOR* Bilateral low back pain without sciatica [M54.5]INVALID FOR* Thumb pain [M79.646] INVALID FOR* DDD (degenerative disc disease), lumbar [M51.36]INVALID FOR* Trochanteric bursitis of left hip [M70.62] INVALID FOR* Piriformis syndrome of left side [G57.02] INVALID FOR* Trochanteric tendinitis of left hip [M70.62] INVALID FOR* Vitiligo [L80] INVALID FOR* More... 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 Chronic rhinitis [J31.0] INVALID FOR* Osteoarthritis of cervical spine with myelopath*INVALID FOR* Chronic superficial gastritis without bleeding *INVALID FOR* More... Prescriptions ordered this encounter Disp Refills Start End TRAMADOL 50 MG TABLET 60 t* 2 02/06/2018 03/08/2018 Class: Print RX Route: ORAL Sig: Take 2 tablets by mouth as needed for up to 30 days. Medications Discontinued During This Encounter traMADol (ULTRAM) 50 mg tablet 60 t* 2 10/01/2017 01/18/2018 Class: Call Rx Route: ORAL Sig: Take 2 tablets by mouth as needed for up to 30 days. Disc: Reason for discontinue is not on file. Encounter Status:Closed by ASHLEY SIMPSON on 01/19/18 ALBUMIN/CREAT RATIO Collected: 11/27/2017 Status: F Source: [place] 3:10 [facility] REPOSITORY TYPE CODE TESTS RESULT OUT OF REFERENCE UNITS RANGE LAB UCRR 20-300 mg/dL 171.3 Creatinine,Ur ine,Ran LAB UALBR 0.0-23.0 mg/L <12.0 Albumin Urine Random LAB UALBCR 0-30 mg/g Not Albumin/Creat calculated Ratio Performed By: #### UACR #### [facility] [address] [place], [place] [address] PM-SCL ANTIBODY Collected: 11/27/2017 Status: F Source: [place] 3:10 [facility] REPOSITORY TYPE CODE TESTS RESULT OUT OF REFERENCE UNITS RANGE LAB PM1ANB Negative PM-Scl Negative Antibody Result Comment: (NOTE) INTERPRETIVE INFORMATION: PM/Scl-100 Antibody, IgG by Immunoblot The presence of PM/Scl-100 IgG antibody along with a positive DAVID IFA nucleolar pattern is associated with connective tissue diseases such as polymyositis (PM), dermatomyositis (DM), systemic sclerosis (SSc), and polymyositis/systemic sclerosis overlap syndrome. The clinical relevance of PM/Scl-100 IgG antibody with a negative DAVID IFA nucleolar pattern is unknown. PM/Scl-100 is the main target epitope of the PM/Scl complex, although antibodies to other targets not detected by this assay may occur. Test developed and characteristics determined by [facility]. See Compliance Statement D: [employer]/ Performed by [facility], [address] [place] [id number] [email or web address], Mak Romo MD, Lab. Director Performed By: #### PM1AB #### [facility] [address] [place] [id number] [phone] #### [facility] #### [facility] [address] [place], [place] [address] DAVID BY IFA Collected: 11/27/2017 Status: F Source: [place] 3:10 [facility] REPOSITORY TYPE CODE TESTS RESULT OUT OF REFERENCE UNITS RANGE LAB ANASC Negative DAVID Negative Result Comment: Normal range : negative at <1:80 serum dilution. Approximately 6% of patients with connective tissue diseases with low positive EIA values are negative by IFA. Recommend follow-up with specific antinuclear antibodies if clinically indicated. LAB KAN Negative Negative DAVID Titer Result Comment: Normal range : negative at <1:80 serum dilution. LAB ANAP DAVID Not applicable Pattern for negative result. Performed By: #### PM1AB #### [facility] [address] [place] [address] [phone] #### [facility], [facility] #### [facility] [address] [place], [place] [address] CENTROMERE ANTIBODY Collected: 11/27/2017 Status: F Source: [place] 3:10 PM [facility] REPOSITORY TYPE CODE TESTS RESULT OUT OF REFERENCE UNITS RANGE LAB CENTRO Negative Centromere Negative Antibody Performed By: #### PM1AB #### [facility] [address] [place] [address] [phone] #### [facility], [facility] #### [facility] [address] [place] [address] PROGRESS Observed: 11/23/2017 Status: COMPLETED Source: [place] 1:46 PM [facility] REPOSITORY HNO ID: [id number] Author: Shannan Veronica Service: (none) Author Type: Physician Type: Progress Notes Filed: 12/07/2017 9:33 AM Note Text: Welcome To Medicare Visit Medical B eligibility date age 67 Date of last exam none in the past year PAST MEDICAL HISTORY Diagnosis Date - Arthritis - Blood dyscrasia - Dermatitis - Frequent UTI - Hemochromatosis - Hypertension - Lumbar pain - Shingles 1999 - Type II or unspecified type diabetes mellitus without mention of complication, not stated as uncontrolled 04/10/2014 PAST SURGICAL HISTORY Procedure Laterality Date - ARTHRODESIS [facility]MC JNT THUMB W/WO FIX 1996 bilateral - CERVICAL BIOPSY 05/25/12 Dr. Jordan - COLONOSCOP W/ OR W/O BRSH SPEC 05/16/2015 Colonoscopy - EGD W/O OR W/BRUSH/WASH 05/16/2015 EGD - ENDOMETRIAL BIOPSY 05/07/12 Dr. Jordan - HYSTEROSCOPY 05/25/12 Dr. Jordan - KNEE SCOPE,MENISECTOMY,MED OR LAT 10/07/2013 Left knee arthroscopic medial and lateral meniscectomies - partial - PAST SURGICAL HISTORY OF 1981 septoplasy - PAST SURGICAL HISTORY OF 04/16 bilateral lumbar epidural - PAST SURGICAL HISTORY OF 06/11/2015 lumbar epidural - left - REDUCTION OF LARGE BREAST 1999 bilateral - REMOVAL OF TONSILS,<12 Y/O 1978 Tonsillectomy - ROTATOR CUFF REPAIR 1983 right acromioplasty Cephalosporins; Thimerosal; Vancomycin; Levaquin [Levofloxacin]; Spironolactone (Bulk); Sulfa (Sulfonamide Antibiotics); Tape [Adhesive Tape (Rosins)]; Zocor [Simvastatin] Medications reviewed: Yes FAMILY HISTORY Problem Relation Age of Onset - Cancer Mother 64 ovarian - Cancer Father 76 Mantle Cell Lymphoma - Cancer Maternal Grandmother uterine dx 60s - COPD Maternal Grandfather - Heart Maternal Grandfather CHF - Heart Paternal Grandmother CVA - Blood Disease Sister hemochromotosis - Cancer Paternal Aunt lung - Cancer Paternal Uncle brain tumor, myasthenia gravis SOCIAL HISTORY: Social History Marital status: Single Spouse name: Years of education: Number of children: 0 Occupational History Occupation Employer Comment retired Social History Main Topics Smoking status: Never Smoker Smokeless tobacco: Never Used Alcohol use: Yes 0.0 oz/week Comment: 5 drinks per week Drug use: No Sexual activity: Not Currently 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 Leila denies regular aerobic exercise. She watches her diet for sodium, low fat and low cholesterol most of the time. List of current specialists seen: Yadiel cross- egd- hemonchology- hemachromatosis- cole Larson. Eye- Uyen cofroilan - [facility] ENT- [place]- francesco smith Spine - denise nam Pain- Esteban brown Label Rewinder- russ [facility] lai Han End of Live Planning discussed including patients advanced directive wishes: Yes I am willing to follow Leila's advanced directives. Depression screen She in the past two weeks denies having felt down, depressed, hopeless or with little interest or pleasure in doing things. Functional Ability/Safety Screen 1. Was the patient's timed Up and Go test unsteady or longer than 30 seconds? No 2. Does the patient need help with the phone, transportation, shopping,preparing meals, housework, laundry, medications or managing money? No 3. Does your home have rugs in the hallway, lack of grab bars in the bathroom, lack of handrails on the stairs or have poor lighting? No Hearing Evaluation: normal PHYSICAL EXAM BP 150/70 (BP Site: Left Arm, BP Position: Sitting, BP Cuff Size: Large Adult) Pulse 101 Resp 12 Ht 162.6 cm (5' 4) Wt 84.4 kg (186 lb) SpO2 97% BMI 31.93 kg/m? Alert and oriented X 3: YES Body mass index is 31.93 kg/m?. ASSESSMENT/PLAN: 67 year old female The following prevention plan was discussed during the office visit and provided to the patient: - Glaucoma screening - Lipid panel SHANNAN VERONICA MD Reason for Visit Patient presents with: Established Patient: annual visit Leila Thornton is a 67 year old female who presents here today for Above Complaints.. Health Maintenance ANNUAL PCP TEAM CHRONIC DISEASE VISIT BLOOD PRESSURE CONTROLLED URINE ALBUMIN:CREATININE RATIO DIABETIC FOOT EXAM DILATED RETINAL EXAM HPI Diabetes mellitus type 2, controlled, without complications (HCC) Her Diabetes Mellitus is controlled with diet Checks her sugars almost once a day and she would like to have refills of them Hereditary hemochromatosis We need to watch her ferritin levels, currently they are good Essential hypertension BP is well controlled on current regimen of medicines- HCTZ 25, lasix 20 mgs- which is tolerated well. No significant side effects Has gastritis -, on prilosec She is doing well Had foot drop after surgery. PAST MEDICAL HISTORY Diagnosis Date - Arthritis - Blood dyscrasia - Dermatitis - Frequent UTI - Hemochromatosis - Hypertension - Lumbar pain - Shingles 1999 - Type II or unspecified type diabetes mellitus without mention of complication, not stated as uncontrolled 04/10/2014 PAST SURGICAL HISTORY Procedure Laterality Date - ARTHRODESIS CMC JNT THUMB W/WO FIX 1996 bilateral - CERVICAL BIOPSY 05/25/12 Dr. Jordan - COLONOSCOP W/ OR W/O BRSH SPEC 05/16/2015 Colonoscopy - EGD W/O OR W/BRUSH/WASH 05/16/2015 EGD - ENDOMETRIAL BIOPSY 05/07/12 Dr. Jordan - HYSTEROSCOPY 05/25/12 Dr. Jordan - KNEE SCOPE,MENISECTOMY,MED OR LAT 10/07/2013 Left knee arthroscopic medial and lateral meniscectomies - partial - PAST SURGICAL HISTORY OF 1981 septoplasy - PAST SURGICAL HISTORY OF 04/16 bilateral lumbar epidural - PAST SURGICAL HISTORY OF 06/11/2015 lumbar epidural - left - REDUCTION OF LARGE BREAST 2000 bilateral - REMOVAL OF TONSILS,<12 Y/O 1978 Tonsillectomy - ROTATOR CUFF REPAIR 1983 right acromioplasty FAMILY HISTORY Problem Relation Age of Onset - Cancer Mother 64 ovarian - Cancer Father 76 Mantle Cell Lymphoma - Cancer Maternal Grandmother uterine dx 60s - COPD Maternal Grandfather - Heart Maternal Grandfather CHF - Heart Paternal Grandmother CVA - Blood Disease Sister hemochromotosis - Cancer Paternal Aunt lung - Cancer Paternal Uncle brain tumor, myasthenia gravis Social History Substance Use Topics - Smoking status: Never Smoker - Smokeless tobacco: Never Used - Alcohol use 0.0 oz/week Comment: 5 drinks per week Past medical history, appointments, medications, allergies reviewed. Pertinent Lab/Diagnostic Studies are reviewed and discussed today Current Outpatient Prescriptions: - lancets (FREESTYLE LANCETS) 28 gauge misc - furosemide (LASIX) 40 mg tablet - potassium chloride ER (KLOR-CON M20) 20 mEq tablet - hydroCHLOROthiazide (HYDRODIURIL, ESIDRIX) 25 mg tablet - blood sugar diagnostic (FREESTYLE LITE STRIPS) test strip - lancets (FREESTYLE LANCETS) 28 gauge misc - cyclobenzaprine (FLEXERIL) 10 mg tablet - omeprazole (PRILOSEC) 20 mg capsule - aspirin, enteric coated (ASPIRIN, ENTERIC COATED) 81 mg EC tablet - traMADol (ULTRAM) 50 mg tablet - mupirocin (BACTROBAN) 2 % ointment - CCF Nasal Ointment - meloxicam (MOBIC) 15 mg tablet - Blood-Glucose Meter (FREESTYLE LITE METER) monitoring kit - olopatadine (PATANOL) 0.1 % ophthalmic solution - tretinoin (RETIN-A) 0.1 % cream - estradiol (ESTRACE) 0.01 % (0.1 mg/gram) vaginal cream - Ascorbic Acid (VITAMIN C) 250 mg chew - MULTIVIT ANDMINERALS/FERROUS FUM (MULTI VITAMIN ORAL) Review of Systems CONSTITUTIONAL: No fevers, chills night sweats, unintended weight loss CARDIOVASCULAR: No chest pain, dyspnea, palpitations, orthopnea, PND, ankle edema. PULM: No dyspnea, unexplained cough. GI: No dysphagia/odynophagia, problematic reflux, constipation, diarrhea, changes in stool habits, hematochezia, melena. : No new urinary complaints, including dysuria, gross hematuria or pyuria. NEURO: No new balance problems, peripheral weakness/paresthesias or numbness of concern. Physical Exam BP 150/70 (BP Site: Left Arm, BP Position: Sitting, BP Cuff Size: Large Adult) Pulse 101 Resp 12 Ht 162.6 cm (5' 4) Wt 84.4 kg (186 lb) SpO2 97% BMI 31.93 kg/m? General appearance: Well appearing, alert, in no acute distress, well nourished. Skin: Skin color, texture, turgor normal, no suspicious rashes or lesions Head: Normocephalic, no masses, lesions, tenderness or abnormalities Eyes: Anicteric sclera. Pupils are equally round and reactive to light. Extraocular movements are intact. Lungs: Lungs clear to auscultation. No wheezing, rhonchi, rales Heart: RRR without murmur, gallop, or rubs. Extremities: No deformities, edema, skin discoloration, clubbing or cyanosis. Good capillary refill. ASSESSMENT/PLAN: 1. Medicare annual wellness visit, initial - ICD9: V70.0, ICD10: Z00.00 (primary diagnosis) - Encouraged monthly Breast Self Exam - Follow up for annual exam in one year. 2. Controlled type 2 diabetes mellitus without complication, unspecified fdc insulin use status (HCC) - ICD9: 250.00, ICD10: E11.9 Controlled. - Continue current medications - LANCETS 28 GAUGE - BLOOD SUGAR DIAGNOSTIC STRIPS - LANCETS 28 GAUGE 3. Controlled type 2 diabetes mellitus without complication, unspecified whether intermediate manager insulin use (HCC) - ICD9: 250.00, ICD10: E11.9 Controlled. - Continue current medications 4. Hypokalemia - ICD9: 276.8, ICD10: E87.6 - POTASSIUM CHLORIDE ER 20 MEQ TABLET,EXTENDED RELEASE(PART/CRYST) - POTASSIUM CHLORIDE ER 20 MEQ TABLET,EXTENDED RELEASE(PART/CRYST) 5. Hereditary hemochromatosis (HCC) - ICD9: 275.01, ICD10: E83.110 Her ferritin levels are normal 6. Essential hypertension - ICD9: 401.9, ICD10: I10 - good control - Recommended regular aerobic exercise. - Recommend home blood pressure monitoring, to bring results in on next visit - Goal of BP <130/80 - HYDROCHLOROTHIAZIDE 25 MG TABLET - FUROSEMIDE 40 MG TABLET - FUROSEMIDE 40 MG TABLET - HYDROCHLOROTHIAZIDE 25 MG TABLET 7. Chronic superficial gastritis without bleeding - ICD9: 535.10, ICD10: K29.30 Checked for labs for CREST syndrome but it is negative SHANNAN VERONICA MD CNOV Observed: 11/23/2017 Status: COMPLETED Source: [place] 1:20 PM [facility] REPOSITORY Office Visit (INTMWS) LEILA THORNTON ([id number]) 1950 F Date Time Provider Department 11/23/17 1:20 PM SHANNAN VERONICA INTMWS During your visit today, we recorded the following information about you: Pulse Respiration Blood pressure Weight 101/minute 12/minute 150/70 84.4 kg Height 1.626 m SHANNAN VERONICA MD 12/07/2017 9:33 AM Signed Welcome To Medicare Visit Medical B eligibility date age 67 Date of last exam none in the past year PAST MEDICAL HISTORY Diagnosis Date - Arthritis - Blood dyscrasia - Dermatitis - Frequent UTI - Hemochromatosis - Hypertension - Lumbar pain - Shingles 1999 - Type II or unspecified type diabetes mellitus without mention of complication, not stated as uncontrolled 04/10/2014 PAST SURGICAL HISTORY Procedure Laterality Date - ARTHRODESIS CMC JNT THUMB W/WO FIX 1996 bilateral - CERVICAL BIOPSY 05/25/12 Dr. Jordan - COLONOSCOP W/ OR W/O BRSH SPEC 05/16/2015 Colonoscopy - EGD W/O OR W/BRUSH/WASH 05/16/2015 EGD - ENDOMETRIAL BIOPSY 05/07/12 Dr. Jordan - HYSTEROSCOPY 05/25/12 Dr. Jordan - KNEE SCOPE,MENISECTOMY,MED OR LAT 10/07/2013 Left knee arthroscopic medial and lateral meniscectomies - partial - PAST SURGICAL HISTORY OF 1981 septoplasy - PAST SURGICAL HISTORY OF 04/16 bilateral lumbar epidural - PAST SURGICAL HISTORY OF 06/11/2015 lumbar epidural - left - REDUCTION OF LARGE BREAST 2000 bilateral - REMOVAL OF TONSILS,<12 Y/O 1978 Tonsillectomy - ROTATOR CUFF REPAIR 1983 right acromioplasty Cephalosporins; Thimerosal; Vancomycin; Levaquin [Levofloxacin]; Spironolactone (Bulk); Sulfa (Sulfonamide Antibiotics); Tape [Adhesive Tape (Rosins)]; Zocor [Simvastatin] Medications reviewed: Yes FAMILY HISTORY Problem Relation Age of Onset - Cancer Mother 64 ovarian - Cancer Father 76 Mantle Cell Lymphoma - Cancer Maternal Grandmother uterine dx 60s - COPD Maternal Grandfather - Heart Maternal Grandfather CHF - Heart Paternal Grandmother CVA - Blood Disease Sister hemochromotosis - Cancer Paternal Aunt lung - Cancer Paternal Uncle brain tumor, myasthenia gravis SOCIAL HISTORY: Social History Marital status: Single Spouse name: Years of education: Number of children: 0 Occupational History Occupation Employer Comment retired Social History Main Topics Smoking status: Never Smoker Smokeless tobacco: Never Used Alcohol use: Yes 0.0 oz/week Comment: 5 drinks per week Drug use: No Sexual activity: Not Currently 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 Leila denies regular aerobic exercise. She watches her diet for sodium, low fat and low cholesterol most of the time. List of current specialists seen: Yadiel cross- egd- hemonchology- hemachromatosis- cole Larson. Eye- Uyen lau - [facility] ENT- [place]- francesco smith Spine - denise nam Pain- Esteban brown Label Rewinder- russ Ortho lai Han End of Live Planning discussed including patients advanced directive wishes: Yes I am willing to follow Leila's advanced directives. Depression screen She in the past two weeks denies having felt down, depressed, hopeless or with little interest or pleasure in doing things. Functional Ability/Safety Screen 1. Was the patient's timed Up and Go test unsteady or longer than 30 seconds? No 2. Does the patient need help with the phone, transportation, shopping,preparing meals, housework, laundry, medications or managing money? No 3. Does your home have rugs in the hallway, lack of grab bars in the bathroom, lack of handrails on the stairs or have poor lighting? No Hearing Evaluation: normal PHYSICAL EXAM BP 150/70 (BP Site: Left Arm, BP Position: Sitting, BP Cuff Size: Large Adult) Pulse 101 Resp 12 Ht 162.6 cm (5' 4) Wt 84.4 kg (186 lb) SpO2 97% BMI 31.93 kg/m? Alert and oriented X 3: YES Body mass index is 31.93 kg/m?. ASSESSMENT/PLAN: 67 year old female The following prevention plan was discussed during the office visit and provided to the patient: - Glaucoma screening - Lipid panel SHANNAN VERONICA MD Reason for Visit Patient presents with: Established Patient: annual visit Leila Thornton is a 67 year old female who presents here today for Above Complaints.. Health Maintenance ANNUAL PCP TEAM CHRONIC DISEASE VISIT BLOOD PRESSURE CONTROLLED URINE ALBUMIN:CREATININE RATIO DIABETIC FOOT EXAM DILATED RETINAL EXAM HPI Diabetes mellitus type 2, controlled, without complications (HCC) Her Diabetes Mellitus is controlled with diet Checks her sugars almost once a day and she would like to have refills of them Hereditary hemochromatosis We need to watch her ferritin levels, currently they are good Essential hypertension BP is well controlled on current regimen of medicines- HCTZ 25, lasix 20 mgs- which is tolerated well. No significant side effects Has gastritis -, on prilosec She is doing well Had foot drop after surgery. PAST MEDICAL HISTORY Diagnosis Date - Arthritis - Blood dyscrasia - Dermatitis - Frequent UTI - Hemochromatosis - Hypertension - Lumbar pain - Shingles 1999 - Type II or unspecified type diabetes mellitus without mention of complication, not stated as uncontrolled 04/10/2014 PAST SURGICAL HISTORY Procedure Laterality Date - ARTHRODESIS [facility] JNT THUMB W/WO FIX 1996 bilateral - CERVICAL BIOPSY 05/25/12 Dr. Jordan - COLONOSCOP W/ OR W/O BRSH SPEC 05/16/2015 Colonoscopy - EGD W/O OR W/BRUSH/WASH 05/16/2015 EGD - ENDOMETRIAL BIOPSY 05/07/12 Dr. Jordan - HYSTEROSCOPY 05/25/12 Dr. Jordan - KNEE SCOPE,MENISECTOMY,MED OR LAT 10/07/2013 Left knee arthroscopic medial and lateral meniscectomies - partial - PAST SURGICAL HISTORY OF 1981 septoplasy - PAST SURGICAL HISTORY OF 04/16 bilateral lumbar epidural - PAST SURGICAL HISTORY OF 06/11/2015 lumbar epidural - left - REDUCTION OF LARGE BREAST 2000 bilateral - REMOVAL OF TONSILS,<12 Y/O 1978 Tonsillectomy - ROTATOR CUFF REPAIR 1983 right acromioplasty FAMILY HISTORY Problem Relation Age of Onset - Cancer Mother 64 ovarian - Cancer Father 76 Mantle Cell Lymphoma - Cancer Maternal Grandmother uterine dx 60s - COPD Maternal Grandfather - Heart Maternal Grandfather CHF - Heart Paternal Grandmother CVA - Blood Disease Sister hemochromotosis - Cancer Paternal Aunt lung - Cancer Paternal Uncle brain tumor, myasthenia gravis Social History Substance Use Topics - Smoking status: Never Smoker - Smokeless tobacco: Never Used - Alcohol use 0.0 oz/week Comment: 5 drinks per week Past medical history, appointments, medications, allergies reviewed. Pertinent Lab/Diagnostic Studies are reviewed and discussed today Current Outpatient Prescriptions: - lancets (FREESTYLE LANCETS) 28 gauge misc - furosemide (LASIX) 40 mg tablet - potassium chloride ER (KLOR-CON M20) 20 mEq tablet - hydroCHLOROthiazide (HYDRODIURIL, ESIDRIX) 25 mg tablet - blood sugar diagnostic (FREESTYLE LITE STRIPS) test strip - lancets (FREESTYLE LANCETS) 28 gauge misc - cyclobenzaprine (FLEXERIL) 10 mg tablet - omeprazole (PRILOSEC) 20 mg capsule - aspirin, enteric coated (ASPIRIN, ENTERIC COATED) 81 mg EC tablet - traMADol (ULTRAM) 50 mg tablet - mupirocin (BACTROBAN) 2 % ointment - [facility] Nasal Ointment - meloxicam (MOBIC) 15 mg tablet - Blood-Glucose Meter (FREESTYLE LITE METER) monitoring kit - olopatadine (PATANOL) 0.1 % ophthalmic solution - tretinoin (RETIN-A) 0.1 % cream - estradiol (ESTRACE) 0.01 % (0.1 mg/gram) vaginal cream - Ascorbic Acid (VITAMIN C) 250 mg chew - MULTIVIT ANDMINERALS/FERROUS FUM (MULTI VITAMIN ORAL) Review of Systems CONSTITUTIONAL: No fevers, chills night sweats, unintended weight loss CARDIOVASCULAR: No chest pain, dyspnea, palpitations, orthopnea, PND, ankle edema. PULM: No dyspnea, unexplained cough. GI: No dysphagia/odynophagia, problematic reflux, constipation, diarrhea, changes in stool habits, hematochezia, melena. : No new urinary complaints, including dysuria, gross hematuria or pyuria. NEURO: No new balance problems, peripheral weakness/paresthesias or numbness of concern. Physical Exam BP 150/70 (BP Site: Left Arm, BP Position: Sitting, BP Cuff Size: Large Adult) Pulse 101 Resp 12 Ht 162.6 cm (5' 4) Wt 84.4 kg (186 lb) SpO2 97% BMI 31.93 kg/m? General appearance: Well appearing, alert, in no acute distress, well nourished. Skin: Skin color, texture, turgor normal, no suspicious rashes or lesions Head: Normocephalic, no masses, lesions, tenderness or abnormalities Eyes: Anicteric sclera. Pupils are equally round and reactive to light. Extraocular movements are intact. Lungs: Lungs clear to auscultation. No wheezing, rhonchi, rales Heart: RRR without murmur, gallop, or rubs. Extremities: No deformities, edema, skin discoloration, clubbing or cyanosis. Good capillary refill. ASSESSMENT/PLAN: 1. Medicare annual wellness visit, initial - ICD9: V70.0, ICD10: Z00.00 (primary diagnosis) - Encouraged monthly Breast Self Exam - Follow up for annual exam in one year. 2. Controlled type 2 diabetes mellitus without complication, unspecified fdc insulin use status (HCC) - ICD9: 250.00, ICD10: E11.9 Controlled. - Continue current medications - LANCETS 28 GAUGE - BLOOD SUGAR DIAGNOSTIC STRIPS - LANCETS 28 GAUGE 3. Controlled type 2 diabetes mellitus without complication, unspecified whether fdc insulin use (HCC) - ICD9: 250.00, ICD10: E11.9 Controlled. - Continue current medications 4. Hypokalemia - ICD9: 276.8, ICD10: E87.6 - POTASSIUM CHLORIDE ER 20 MEQ TABLET,EXTENDED RELEASE(PART/CRYST) - POTASSIUM CHLORIDE ER 20 MEQ TABLET,EXTENDED RELEASE(PART/CRYST) 5. Hereditary hemochromatosis (HCC) - ICD9: 275.01, ICD10: E83.110 Her ferritin levels are normal 6. Essential hypertension - ICD9: 401.9, ICD10: I10 - good control - Recommended regular aerobic exercise. - Recommend home blood pressure monitoring, to bring results in on next visit - Goal of BP <130/80 - HYDROCHLOROTHIAZIDE 25 MG TABLET - FUROSEMIDE 40 MG TABLET - FUROSEMIDE 40 MG TABLET - HYDROCHLOROTHIAZIDE 25 MG TABLET 7. Chronic superficial gastritis without bleeding - ICD9: 535.10, ICD10: K29.30 Checked for labs for CREST syndrome but it is negative MD SHANNAN GARCIA MD 11/23/2017 1:57 PM Written Her Diabetes Mellitus is controlled with diet Checks her sugars almost once a day and she would like to have refills of them SHANNAN VERONICA MD 11/23/2017 2:01 PM Written We need to watch her ferritin levels, currently they are good SHANNAN VERONICA MD 11/23/2017 2:14 PM Written BP is well controlled on current regimen of medicines- HCTZ 25, lasix 20 mgs- which is tolerated well. No significant side effects Referring Provider: SELF [200] Allergies As of Date: 11/23/2017 Noted Allergy Reaction CEPHALOSPORINS 03/09/2012 10 - Anaphylaxis THIMEROSAL 03/09/2012 7 - Swelling Comments: Difficulty breathing VANCOMYCIN 03/09/2012 10 - Anaphylaxis Comments: flushed LEVAQUIN (LEVOFLOXACIN) 03/14/2013 2 - Rash 14 - Other: See Comments Comments: Muscle/joint pain SPIRONOLACTONE (BULK) 02/20/2015 2 - Rash Comments: Pt states happened years ago when trying this always forgets. SULFA (SULFONAMIDE ANTIBIOTICS) 04/09/2012 4 - Hives 9 - Itching TAPE (ADHESIVE TAPE (ROSINS)) 06/08/2012 2 - Rash 9 - Itching Comments: degloving ZOCOR (SIMVASTATIN) 05/15/2014 14 - Other: See Comments Comments: Muscle/limb pain Date Reviewed: 11/23/2017 Reviewed by: Ileana Rivas LPN - Fully Assessed Reason for Visit: Established Patient [175] Cmt: annual visit Primary Visit Diagnosis:Medicare annual wellness visit, initial [Z00.00] Other Visit Diagnoses:Controlled type 2 diabetes mellitus without complication, unspecified fdc insulin use status (HCC) [E11.9] Controlled type 2 diabetes mellitus without complication, unspecified whether fdc insulin use (HCC) [E11.9] Hypokalemia [E87.6] Hereditary hemochromatosis (HCC) [E83.110] Essential hypertension [I10] Chronic superficial gastritis without bleeding [K29.30] Order(s):lancets (FREESTYLE LANCETS) 28 gauge miscUse once dailyDisp: 100 EachRfl: 0 furosemide (LASIX) 40 mg tabletTake 0.5 tablets by mouth once daily. Appointment needed for future refillsDisp: 45 tabletRfl: 0 potassium chloride ER (KLOR-CON M20) 20 mEq tabletTake 9 tablets by mouth once daily. Total of 180mEq daily.Disp: 810 tabletRfl: 11 hydroCHLOROthiazide (HYDRODIURIL, ESIDRIX) 25 mg tabletTake 1 tablet by mouth once daily.Disp: 90 tabletRfl: 0 lancets (FREESTYLE LANCETS) 28 gauge miscUse 3 times dailyDisp: 100 EachRfl: 3 hydroCHLOROthiazide (HYDRODIURIL, ESIDRIX) 25 mg tabletTake 1 tablet by mouth once daily.Disp: 90 tabletRfl: 0 furosemide (LASIX) 40 mg tabletTake 0.5 tablets by mouth once daily. Appointment needed for future refillsDisp: 45 tabletRfl: 0 potassium chloride ER (KLOR-CON M20) 20 mEq tabletTake 9 tablets by mouth once daily. Total of 180mEq daily.Disp: 810 tabletRfl: 11 blood sugar diagnostic (FREESTYLE LITE STRIPS) test stripUse as instructed, 3 times daily to check blood sugarsDisp: 100 StripRfl: 0 Prescriptions as of 11/23/2017 Sig: LANCETS 28 GAUGE Use once daily FUROSEMIDE 40 MG TABLET Take 0.5 tablets by mouth onc* POTASSIUM CHLORIDE ER 20 MEQ * Take 9 tablets by mouth once * HYDROCHLOROTHIAZIDE 25 MG TAB* Take 1 tablet by mouth once d* LANCETS 28 GAUGE Use 3 times daily HYDROCHLOROTHIAZIDE 25 MG TAB* Take 1 tablet by mouth once d* FUROSEMIDE 40 MG TABLET Take 0.5 tablets by mouth onc* POTASSIUM CHLORIDE ER 20 MEQ * Take 9 tablets by mouth once * BLOOD SUGAR DIAGNOSTIC STRIPS Use as instructed, 3 times da* CYCLOBENZAPRINE 10 MG TABLET Take 1 tablet by mouth twice * Patient not taking: Reported on 11/12/2017 OMEPRAZOLE 20 MG CAPSULE,ZACHARY* Take 1 capsule by mouth twice* Patient not taking: Reported on 11/12/2017 ASPIRIN 81 MG TABLET,DELAYED * Take 81 mg by mouth once dangelo* TRAMADOL 50 MG TABLET Take 2 tablets by mouth as ne* MUPIROCIN 2 % TOPICAL OINTMENT Apply 1 application to affect* Patient not taking: Reported on 09/03/2017 COMPOUNDED PRESCRIPTION Use 1 application in each nos* MELOXICAM 15 MG TABLET Take 1 tablet by mouth once d* BLOOD-GLUCOSE METER KIT Freestyle LITE Meter Kit -Dx * OLOPATADINE 0.1 % EYE DROPS Use 1 Drop in both eyes twice* TRETINOIN 0.1 % TOPICAL CREAM Apply 1 Tube to affected area* ESTRADIOL 0.01% (0.1 MG/GRAM)* Use 1 g vaginally twice a wee* ASCORBIC ACID (VITAMIN C) 250* Take 4 tablets by mouth once * MULTI VITAMIN ORAL Take by mouth once daily. Problem List As Of Date 11/23/2017 Noted Resolved Essential hypertension [I10] INVALID FOR* More... Acne [L70.9] INVALID FOR* Pain disorder [R52] INVALID FOR* Menopausal vaginal dryness [N95.1] INVALID FOR* Itchy eyes [H57.8] INVALID FOR* Anemia [D64.9] INVALID FOR*10/14/2012 Hemochromatosis [E83.119] INVALID FOR* Body odor [L74.8] INVALID FOR* Chronic dermatitis of hands [L30.9] INVALID FOR* Frequent UTI [N39.0] INVALID FOR* Abdominal pain [R10.9] INVALID FOR* Hereditary hemochromatosis [E83.110] INVALID FOR* More... Liver dysfunction [K76.89] INVALID FOR* Lumbar stenosis [M48.061] INVALID FOR* Lumbar radiculopathy [M54.16] INVALID FOR* Chronic pain [G89.29] INVALID FOR* Negron's cyst [M71.20] INVALID FOR* Tear, knee, lateral meniscus [S83.289A] INVALID FOR* Complex tear of medial meniscus of left knee as*INVALID FOR* Pain in joint, lower leg [M25.569] INVALID FOR* Tear of medial cartilage or meniscus of knee, c*INVALID FOR* Diabetes mellitus type 2, controlled, without c*INVALID FOR* More... Hyperlipidemia [E78.5] INVALID FOR* Thoracic back pain [M54.6] INVALID FOR* DDD (degenerative disc disease), cervical [M50.*INVALID FOR* Cervical spondylosis [M47.812] INVALID FOR* Acute combined systolic and diastolic congestiv*INVALID FOR*03/04/2015 Chronic instability of metacarpophalangeal join*INVALID FOR* Bilateral low back pain without sciatica [M54.5]INVALID FOR* Thumb pain [M79.646] INVALID FOR* DDD (degenerative disc disease), lumbar [M51.36]INVALID FOR* Trochanteric bursitis of left hip [M70.62] INVALID FOR* Piriformis syndrome of left side [G57.02] INVALID FOR* Trochanteric tendinitis of left hip [M70.62] INVALID FOR* Vitiligo [L80] INVALID FOR* More... 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 Chronic rhinitis [J31.0] INVALID FOR* Osteoarthritis of cervical spine with myelopath*INVALID FOR* Chronic superficial gastritis without bleeding *INVALID FOR* More... Prescriptions ordered this encounter Disp Refills Start End HYDROCHLOROTHIAZIDE 25 MG TABLET 90 t* 0 11/23/2017 11/23/2017 Route: ORAL Sig: Take 1 tablet by mouth once daily. LANCETS 28 GAUGE 100 * 0 11/23/2017 Sig: Use once daily FUROSEMIDE 40 MG TABLET 45 t* 0 11/23/2017 11/23/2017 Route: ORAL Sig: Take 0.5 tablets by mouth once daily. Appointment needed for future refills POTASSIUM CHLORIDE ER 20 MEQ TABLET,* 810 * 11 11/23/2017 11/23/2017 Route: ORAL Sig: Take 9 tablets by mouth once daily. Total of 180mEq daily. FUROSEMIDE 40 MG TABLET 45 t* 0 11/23/2017 Route: ORAL Sig: Take 0.5 tablets by mouth once daily. Appointment needed for future refills POTASSIUM CHLORIDE ER 20 MEQ TABLET,* 810 * 11 11/23/2017 Route: ORAL Sig: Take 9 tablets by mouth once daily. Total of 180mEq daily. HYDROCHLOROTHIAZIDE 25 MG TABLET 90 t* 0 11/23/2017 Route: ORAL Sig: Take 1 tablet by mouth once daily. BLOOD SUGAR DIAGNOSTIC STRIPS 100 * 0 11/23/2017 11/23/2017 Sig: Use as instructed, 3 times daily to check blood sugars LANCETS 28 GAUGE 100 * 3 11/23/2017 11/23/2017 Sig: Use 3 times daily LANCETS 28 GAUGE 100 * 3 11/23/2017 Sig: Use 3 times daily HYDROCHLOROTHIAZIDE 25 MG TABLET 90 t* 0 11/23/2017 Route: ORAL Sig: Take 1 tablet by mouth once daily. FUROSEMIDE 40 MG TABLET 45 t* 0 11/23/2017 Route: ORAL Sig: Take 0.5 tablets by mouth once daily. Appointment needed for future refills POTASSIUM CHLORIDE ER 20 MEQ TABLET,* 810 * 11 11/23/2017 Route: ORAL Sig: Take 9 tablets by mouth once daily. Total of 180mEq daily. BLOOD SUGAR DIAGNOSTIC STRIPS 100 * 0 11/23/2017 Sig: Use as instructed, 3 times daily to check blood sugars Medications Discontinued During This Encounter hydroCHLOROthiazide (HYDRODIURIL, ES* 30 t* 0 11/02/2017 11/23/2017 Cmt: Please consider 90 day supplies to promote better adherence Route: ORAL Sig: TAKE 1 TABLET BY MOUTH ONCE DAILY Disc: Reason for discontinue is not on file. FREESTYLE LANCETS 28 gauge misc 50 E* 0 09/29/2017 11/23/2017 Sig: USE TO TEST BLOOD SUGAR THREE TIMES A DAY Disc: Reason for discontinue is not on file. furosemide (LASIX) 40 mg tablet 45 t* 0 09/04/2017 11/23/2017 Route: ORAL Sig: Take 0.5 tablets by mouth once daily. Appointment needed for future refills Disc: Reason for discontinue is not on file. potassium chloride ER (KLOR-CON M20)* 810 * 11 12/26/2016 11/23/2017 Route: ORAL Sig: Take 9 tablets by mouth once daily. Total of 180mEq daily. Disc: Reason for discontinue is not on file. furosemide (LASIX) 40 mg tablet 45 t* 0 11/23/2017 11/23/2017 Route: ORAL Sig: Take 0.5 tablets by mouth once daily. Appointment needed for future refills Disc: Reason for discontinue is not on file. potassium chloride ER (KLOR-CON M20)* 810 * 11 11/23/2017 11/23/2017 Route: ORAL Sig: Take 9 tablets by mouth once daily. Total of 180mEq daily. Disc: Reason for discontinue is not on file. hydroCHLOROthiazide (HYDRODIURIL, ES* 90 t* 0 11/23/2017 11/23/2017 Route: ORAL Sig: Take 1 tablet by mouth once daily. Disc: Reason for discontinue is not on file. FREESTYLE LITE STRIPS test strip 100 * 0 09/29/2017 11/23/2017 Sig: USE TO CHECK GLUCOSE THREE TIMES DAILY Disc: Reason for discontinue is not on file. lancets (FREESTYLE LANCETS) 28 gauge* 100 * 3 11/23/2017 11/23/2017 Sig: Use 3 times daily Disc: Reason for discontinue is not on file. blood sugar diagnostic (FREESTYLE LI* 100 * 0 11/23/2017 11/23/2017 Sig: Use as instructed, 3 times daily to check blood sugars Disc: Reason for discontinue is not on file. Encounter Status:Closed by SHANNAN VERONICA MD on 12/07/17 PROGRESS Observed: 11/12/2017 Status: COMPLETED Source: [place] 10:14 AM [facility] REPOSITORY O ID: [id number] Author: Pillo Granger Service: (none) Author Type: Physician Type: Progress Notes Filed: 12/02/2017 5:16 PM Note Text: Pillo Granger MD Department of Orthopaedics Orthopaedics [address] [facility] [address] Dept: [phone] Dept November 12, 2017 CHIEF COMPLAINT: Established Patient (bilateral hand pain, last seen 04-08-16 removal of hardware left thumb, xray) Ms. Leila Thornton is a 67 year old female presents with some ongoing intermittent discomfort in the hands. She just wanted to make sure things were coming along its the have been giving her more troubles and achiness over the past year or so. 2 out of 10 pain in both hands and thumbs. ASSESSMENT: M79.641 Right hand pain (primary encounter diagnosis) PLAN: The majority of her symptoms are simply related to some osteoarthritis in the hands. She was worried about some of the ulnar deviation of the digits which I advised at this time there is no further need to pursue. The surgical sites appear to be doing rather well still. OBJECTIVE: Ms. Leila Thornton is a pleasant 67 year old in no apparent distress. Gen:There were no vitals taken for this visit. nl development, non obese, no deformities ENT: Normocephalic, normal hearing, moist mucosa CV: Pulses:Radial= 2+ and symmetric, capillary refill < 2 secs, no peripheral edema/varicosities Skin: no rash, bruising or lesions. Good turgor. Psych: cooperative and appropriate, alert and oriented x 3, good mood and affect. Musculoskeletal: Generalized appearance of osteoarthritis in the hands. She does have some ulnar drift of the fingers. Surgical sites are doing well. Imaging: IMPRESSION: Postsurgical and degenerative changes left hand without acute osseous findings. Degenerative changes right hand without acute osseous findings. Crop Puller: PSCB ? Transcribe Date/Time: Nov ?5:30P Dictated by : GUSTAVO WEST MD This examination was interpreted and the report reviewed and electronically signed by: GUSTAVO WEST MD on Nov ?5:34PM ?EST Results-Findings * * *Final Report* * * DATE OF EXAM: Nov ?2:39PM ? WRX ? [id number] ?- ?XR HAND 3V PA/LAT/OBL EMILIE ? / PROCEDURE REASON: multiple diagnoses ?? ? * * * * Physician Interpretation * * * * ?EXAMINATION: ?XR HAND 3V PA/LAT/OBL EMILIE CLINICAL HISTORY: ? pt states arthritis getting worse, fingers are deviating more on right hand and sore no inj Pain in right hand Pain in left hand Technique: ? XR HAND 3V PA/LAT/OBL EMILIE -- BILATERAL hands with 3 views on 3 images Comparison: 03/11/2016 RESULT: Left hand: The first MCP arthrodesis is unchanged in position and alignment. Hardware appears intact without evidence of loosening. There is good bony fusion. Degenerative changes at the second MCP joint with marginal osteophytes and joint space narrowing. No fracture or dislocation. Right hand: Degenerative changes first MCP joint with small marginal osteophytes and subchondral sclerosis. Degenerative changes first MCP joint. Degenerative changes second MCP with anterior subluxation. No fracture or dislocation. Supporting Subjective Information Below: Past Surgical History: PAST SURGICAL HISTORY Procedure Laterality Date - ARTHRODESIS CMC JNT THUMB W/WO FIX 1996 bilateral - CERVICAL BIOPSY 05/25/12 Dr. Jordan - COLONOSCOP W/ OR W/O RUSTH SPEC 05/16/2015 Colonoscopy - EGD W/O OR W/BRUSH/WASH 05/16/2015 EGD - ENDOMETRIAL BIOPSY 05/07/12 Dr. Jordan - HYSTEROSCOPY 05/25/12 Dr. Jordan - KNEE SCOPE,MENISECTOMY,MED OR LAT 10/07/2013 Left knee arthroscopic medial and lateral meniscectomies - partial - PAST SURGICAL HISTORY OF 1981 septoplasy - PAST SURGICAL HISTORY OF 04/16 bilateral lumbar epidural - PAST SURGICAL HISTORY OF 06/11/2015 lumbar epidural - left - REDUCTION OF LARGE BREAST 1999 bilateral - REMOVAL OF TONSILS,<13 Y/O 1978 Tonsillectomy - ROTATOR CUFF REPAIR 1983 right acromioplasty Medications: Current Outpatient Prescriptions: hydroCHLOROthiazide (HYDRODIURIL, ESIDRIX) 25 mg tablet TAKE 1 TABLET BY MOUTH ONCE DAILY aspirin, enteric coated (ASPIRIN, ENTERIC COATED) 81 mg EC tablet Take 81 mg by mouth once daily. traMADol (ULTRAM) 50 mg tablet Take 2 tablets by mouth as needed for up to 30 days. FREESTYLE LANCETS 28 gauge misc USE TO TEST BLOOD SUGAR THREE TIMES A DAY FREESTYLE LITE STRIPS test strip USE TO CHECK GLUCOSE THREE TIMES DAILY furosemide (LASIX) 40 mg tablet Take 0.5 tablets by mouth once daily. Appointment needed for future refills [facility] Nasal Ointment Use 1 application in each nostril twice daily as needed. [facility] nasal ointment meloxicam (MOBIC) 15 mg tablet Take 1 tablet by mouth once daily. Blood-Glucose Meter (FREESTYLE LITE METER) monitoring kit Freestyle LITE Meter Kit -Dx 250.00, no insulin potassium chloride ER (KLOR-CON M20) 20 mEq tablet Take 9 tablets by mouth once daily. Total of 180mEq daily. olopatadine (PATANOL) 0.1 % ophthalmic solution Use 1 Drop in both eyes twice daily. As needed. tretinoin (RETIN-A) 0.1 % cream Apply 1 Tube to affected area daily at bedtime. estradiol (ESTRACE) 0.01 % (0.1 mg/gram) vaginal cream Use 1 g vaginally twice a week. Ascorbic Acid (VITAMIN C) 250 mg chew Take 4 tablets by mouth once daily. MULTIVIT ANDMINERALS/FERROUS FUM (MULTI VITAMIN ORAL) Take by mouth once daily. cyclobenzaprine (FLEXERIL) 10 mg tablet Take 1 tablet by mouth twice daily as needed. (Patient not taking: Reported on 11/12/2017 ) omeprazole (PRILOSEC) 20 mg capsule Take 1 capsule by mouth twice daily. (Patient not taking: Reported on 11/12/2017 ) mupirocin (BACTROBAN) 2 % ointment Apply 1 application to affected area twice daily. Apply twice a day. (Patient not taking: Reported on 09/03/2017 ) No current facility-administered medications for this visit. Allergies: Cephalosporins; Thimerosal; Vancomycin; Levaquin [Levofloxacin]; Spironolactone (Bulk); Sulfa (Sulfonamide Antibiotics); Tape [Adhesive Tape (Rosins)]; Zocor [Simvastatin] ROS: General (negative for fatigue, malaise, weight loss/gain) HEENT (negative for headache, earache, recent vision changes, sinus pain, sore throat) Respiratory (no recent shortness of breath, hemoptysis) CV (negative for chest tightness, palpitations) Musculoskeletal (see HPI) Psych (no depression, anxiety) This note was partially generated using mySBX voice recognition system, and there may be some incorrect words, spellings, and punctuation that were not noted in checking the note before saving. Pillo Granger MD PROGRESS Observed: 11/12/2017 Status: COMPLETED Source: [place] 9:38 AM [facility] REPOSITORY HNO ID: [id number] Author: Petra Oro RN Service: (none) Author Type: (none) Type: Progress Notes Filed: 12/02/2017 5:16 PM Note Text: AMB ROOMING INTAKE FLOWSHEET DATA Risk Screening Do you have concerns about personal safety or safety in the home?: No Pain Pain Score: (right hand 2 and left hand 2) Pain Location: (bilateral hands) Description: Aching Duration Amount of Time: 1 Duration Units: Years Frequency: Intermittent Intervention: Medication Patient presents with: Established Patient: bilateral hand pain, last seen 04-08-16 removal of hardware left thumb, xray Pt. is concerned with ulnar deviation in both hands. She takes meloxicam and tramadol which does not improve aching. She did not go to rheumatology appt. as directed. She would like to see if surgery is an option. CNOV Observed: 11/12/2017 Status: COMPLETED Source: [place] 9:25 AM [facility] REPOSITORY Office Visit (ORTHWS) LEILA THORNTON ([id number]) 1950 F Date Time Provider Department 11/12/17 9:25 AM PILLO GRANGER During your visit today, we recorded the following information about you: Petra Oro RN 12/02/2017 5:16 PM Signed AMB ROOMING INTAKE FLOWSHEET DATA Risk Screening Do you have concerns about personal safety or safety in the home?: No Pain Pain Score: (right hand 2 and left hand 2) Pain Location: (bilateral hands) Description: Aching Duration Amount of Time: 1 Duration Units: Years Frequency: Intermittent Intervention: Medication Patient presents with: Established Patient: bilateral hand pain, last seen 04-08-16 removal of hardware left thumb, xray Pt. is concerned with ulnar deviation in both hands. She takes meloxicam and tramadol which does not improve aching. She did not go to rheumatology appt. as directed. She would like to see if surgery is an option. Pillo Granger MD 12/02/2017 5:16 PM Signed Pillo Granger MD Department of Orthopaedics Orthopaedics [address] [facility] [address] Dept: [phone] Dept November 12, 2017 CHIEF COMPLAINT: Established Patient (bilateral hand pain, last seen 04-08-16 removal of hardware left thumb, xray) Ms. Leila Thornton is a 67 year old female presents with some ongoing intermittent discomfort in the hands. She just wanted to make sure things were coming along its the have been giving her more troubles and achiness over the past year or so. 2 out of 10 pain in both hands and thumbs. ASSESSMENT: M79.641 Right hand pain (primary encounter diagnosis) PLAN: The majority of her symptoms are simply related to some osteoarthritis in the hands. She was worried about some of the ulnar deviation of the digits which I advised at this time there is no further need to pursue. The surgical sites appear to be doing rather well still. OBJECTIVE: Ms. Leila Thornton is a pleasant 67 year old in no apparent distress. Gen:There were no vitals taken for this visit. nl development, non obese, no deformities ENT: Normocephalic, normal hearing, moist mucosa CV: Pulses:Radial= 2+ and symmetric, capillary refill < 2 secs, no peripheral edema/varicosities Skin: no rash, bruising or lesions. Good turgor. Psych: cooperative and appropriate, alert and oriented x 3, good mood and affect. Musculoskeletal: Generalized appearance of osteoarthritis in the hands. She does have some ulnar drift of the fingers. Surgical sites are doing well. Imaging: IMPRESSION: Postsurgical and degenerative changes left hand without acute osseous findings. Degenerative changes right hand without acute osseous findings. Crop Puller: FERNANDA ? Transcribe Date/Time: Nov ?5:30P Dictated by : GUSTAVO WEST MD This examination was interpreted and the report reviewed and electronically signed by: GUSTAVO WEST MD on Nov ?5:34PM ?EST Results-Findings * * *Final Report* * * DATE OF EXAM: Nov ?2:39PM ? WRX ? 5556 ?- ?XR HAND 3V PA/LAT/OBL EMILIE ? / PROCEDURE REASON: multiple diagnoses ?? ? * * * * Physician Interpretation * * * * ?EXAMINATION: ?XR HAND 3V PA/LAT/OBL EMILIE CLINICAL HISTORY: ? pt states arthritis getting worse, fingers are deviating more on right hand and sore no inj Pain in right hand Pain in left hand Technique: ? XR HAND 3V PA/LAT/OBL EMILIE -- BILATERAL hands with 3 views on 3 images Comparison: 03/11/2016 RESULT: Left hand: The first MCP arthrodesis is unchanged in position and alignment. Hardware appears intact without evidence of loosening. There is good bony fusion. Degenerative changes at the second MCP joint with marginal osteophytes and joint space narrowing. No fracture or dislocation. Right hand: Degenerative changes first MCP joint with small marginal osteophytes and subchondral sclerosis. Degenerative changes first MCP joint. Degenerative changes second MCP with anterior subluxation. No fracture or dislocation. Supporting Subjective Information Below: Past Surgical History: PAST SURGICAL HISTORY Procedure Laterality Date - ARTHRODESIS [facility] JNT THUMB W/WO FIX 1996 bilateral - CERVICAL BIOPSY 05/25/12 Dr. Jordan - COLONOSCOP W/ OR W/O BRSH SPEC 05/16/2015 Colonoscopy - EGD W/O OR W/BRUSH/WASH 05/16/2015 EGD - ENDOMETRIAL BIOPSY 05/07/12 Dr. Jordan - HYSTEROSCOPY 05/25/12 Dr. Jordan - KNEE SCOPE,MENISECTOMY,MED OR LAT 10/07/2013 Left knee arthroscopic medial and lateral meniscectomies - partial - PAST SURGICAL HISTORY OF 1981 septoplasy - PAST SURGICAL HISTORY OF 04/16 bilateral lumbar epidural - PAST SURGICAL HISTORY OF 06/11/2015 lumbar epidural - left - REDUCTION OF LARGE BREAST 1999 bilateral - REMOVAL OF TONSILS,<12 Y/O 1978 Tonsillectomy - ROTATOR CUFF REPAIR 1984 right acromioplasty Medications: Current Outpatient Prescriptions: hydroCHLOROthiazide (HYDRODIURIL, ESIDRIX) 25 mg tablet TAKE 1 TABLET BY MOUTH ONCE DAILY aspirin, enteric coated (ASPIRIN, ENTERIC COATED) 81 mg EC tablet Take 81 mg by mouth once daily. traMADol (ULTRAM) 50 mg tablet Take 2 tablets by mouth as needed for up to 30 days. FREESTYLE LANCETS 28 gauge misc USE TO TEST BLOOD SUGAR THREE TIMES A DAY FREESTYLE LITE STRIPS test strip USE TO CHECK GLUCOSE THREE TIMES DAILY furosemide (LASIX) 40 mg tablet Take 0.5 tablets by mouth once daily. Appointment needed for future refills [facility] Nasal Ointment Use 1 application in each nostril twice daily as needed. [facility] nasal ointment meloxicam (MOBIC) 15 mg tablet Take 1 tablet by mouth once daily. Blood-Glucose Meter (FREESTYLE LITE METER) monitoring kit Freestyle LITE Meter Kit -Dx 250.00, no insulin potassium chloride ER (KLOR-CON M20) 20 mEq tablet Take 9 tablets by mouth once daily. Total of 180mEq daily. olopatadine (PATANOL) 0.1 % ophthalmic solution Use 1 Drop in both eyes twice daily. As needed. tretinoin (RETIN-A) 0.1 % cream Apply 1 Tube to affected area daily at bedtime. estradiol (ESTRACE) 0.01 % (0.1 mg/gram) vaginal cream Use 1 g vaginally twice a week. Ascorbic Acid (VITAMIN C) 250 mg chew Take 4 tablets by mouth once daily. MULTIVIT ANDMINERALS/FERROUS FUM (MULTI VITAMIN ORAL) Take by mouth once daily. cyclobenzaprine (FLEXERIL) 10 mg tablet Take 1 tablet by mouth twice daily as needed. (Patient not taking: Reported on 11/12/2017 ) omeprazole (PRILOSEC) 20 mg capsule Take 1 capsule by mouth twice daily. (Patient not taking: Reported on 11/12/2017 ) mupirocin (BACTROBAN) 2 % ointment Apply 1 application to affected area twice daily. Apply twice a day. (Patient not taking: Reported on 09/03/2017 ) No current facility-administered medications for this visit. Allergies: Cephalosporins; Thimerosal; Vancomycin; Levaquin [Levofloxacin]; Spironolactone (Bulk); Sulfa (Sulfonamide Antibiotics); Tape [Adhesive Tape (Rosins)]; Zocor [Simvastatin] ROS: General (negative for fatigue, malaise, weight loss/gain) HEENT (negative for headache, earache, recent vision changes, sinus pain, sore throat) Respiratory (no recent shortness of breath, hemoptysis) CV (negative for chest tightness, palpitations) Musculoskeletal (see HPI) Psych (no depression, anxiety) This note was partially generated using mySBX voice recognition system, and there may be some incorrect words, spellings, and punctuation that were not noted in checking the note before saving. Pillo Granger MD Referring Provider: SELF [200] Allergies As of Date: 11/12/2017 Noted Allergy Reaction CEPHALOSPORINS 03/09/2012 10 - Anaphylaxis THIMEROSAL 03/09/2012 7 - Swelling Comments: Difficulty breathing VANCOMYCIN 03/09/2012 10 - Anaphylaxis Comments: flushed LEVAQUIN (LEVOFLOXACIN) 03/14/2013 2 - Rash 14 - Other: See Comments Comments: Muscle/joint pain SPIRONOLACTONE (BULK) 02/20/2015 2 - Rash Comments: Pt states happened years ago when trying this always forgets. SULFA (SULFONAMIDE ANTIBIOTICS) 04/09/2012 4 - Hives 9 - Itching TAPE (ADHESIVE TAPE (ROSINS)) 06/08/2012 2 - Rash 9 - Itching Comments: degloving ZOCOR (SIMVASTATIN) 05/15/2014 14 - Other: See Comments Comments: Muscle/limb pain Date Reviewed: 11/12/2017 Reviewed by: Pillo Granger - Fully Assessed Reason for Visit: Established Patient [175] Cmt: bilateral hand pain, last seen 04-08-16 removal of hardware left thumb, xray Primary Visit Diagnosis:Right hand pain [M79.641] Prescriptions as of 11/12/2017 Sig: X HYDROCHLOROTHIAZIDE 25 MG TAB* TAKE 1 TABLET BY MOUTH ONCE D* ASPIRIN 81 MG TABLET,DELAYED * Take 81 mg by mouth once dangelo* TRAMADOL 50 MG TABLET Take 2 tablets by mouth as ne* X FREESTYLE LANCETS 28 GAUGE USE TO TEST BLOOD SUGAR THREE* X FREESTYLE LITE STRIPS USE TO CHECK GLUCOSE THREE TI* X FUROSEMIDE 40 MG TABLET Take 0.5 tablets by mouth onc* COMPOUNDED PRESCRIPTION Use 1 application in each nos* MELOXICAM 15 MG TABLET Take 1 tablet by mouth once d* BLOOD-GLUCOSE METER KIT Freestyle LITE Meter Kit -Dx * X POTASSIUM CHLORIDE ER 20 MEQ * Take 9 tablets by mouth once * OLOPATADINE 0.1 % EYE DROPS Use 1 Drop in both eyes twice* TRETINOIN 0.1 % TOPICAL CREAM Apply 1 Tube to affected area* ESTRADIOL 0.01% (0.1 MG/GRAM)* Use 1 g vaginally twice a wee* ASCORBIC ACID (VITAMIN C) 250* Take 4 tablets by mouth once * MULTI VITAMIN ORAL Take by mouth once daily. CYCLOBENZAPRINE 10 MG TABLET Take 1 tablet by mouth twice * Patient not taking: Reported on 11/12/2017 OMEPRAZOLE 20 MG CAPSULE,ZACHARY* Take 1 capsule by mouth twice* Patient not taking: Reported on 11/12/2017 MUPIROCIN 2 % TOPICAL OINTMENT Apply 1 application to affect* Patient not taking: Reported on 09/03/2017 Problem List As Of Date 11/12/2017 Noted Resolved Essential hypertension [I10] INVALID FOR* More... Acne [L70.9] INVALID FOR* Pain disorder [R52] INVALID FOR* Menopausal vaginal dryness [N95.1] INVALID FOR* Itchy eyes [H57.8] INVALID FOR* Anemia [D64.9] INVALID FOR*10/14/2012 Hemochromatosis [E83.119] INVALID FOR* Body odor [L74.8] INVALID FOR* Chronic dermatitis of hands [L30.9] INVALID FOR* Frequent UTI [N39.0] INVALID FOR* Abdominal pain [R10.9] INVALID FOR* Hereditary hemochromatosis [E83.110] INVALID FOR* More... Liver dysfunction [K76.89] INVALID FOR* Lumbar stenosis [M48.061] INVALID FOR* Lumbar radiculopathy [M54.16] INVALID FOR* Chronic pain [G89.29] INVALID FOR* Negron's cyst [M71.20] INVALID FOR* Tear, knee, lateral meniscus [S83.289A] INVALID FOR* Complex tear of medial meniscus of left knee as*INVALID FOR* Pain in joint, lower leg [M25.569] INVALID FOR* Tear of medial cartilage or meniscus of knee, c*INVALID FOR* Diabetes mellitus type 2, controlled, without c*INVALID FOR* More... Hyperlipidemia [E78.5] INVALID FOR* Thoracic back pain [M54.6] INVALID FOR* DDD (degenerative disc disease), cervical [M50.*INVALID FOR* Cervical spondylosis [M47.812] INVALID FOR* Acute combined systolic and diastolic congestiv*INVALID FOR*03/04/2015 Chronic instability of metacarpophalangeal join*INVALID FOR* Bilateral low back pain without sciatica [M54.5]INVALID FOR* Thumb pain [M79.646] INVALID FOR* DDD (degenerative disc disease), lumbar [M51.36]INVALID FOR* Trochanteric bursitis of left hip [M70.62] INVALID FOR* Piriformis syndrome of left side [G57.02] INVALID FOR* Trochanteric tendinitis of left hip [M70.62] INVALID FOR* Vitiligo [L80] INVALID FOR* More... 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 Chronic rhinitis [J31.0] INVALID FOR* Osteoarthritis of cervical spine with myelopath*INVALID FOR* Encounter Status:Closed by PILLO GRANGER MD on 12/02/17 JIMTOUTRAJAY Observed: 11/10/2017 Status: COMPLETED Source: [place] 12:00 AM [facility] REPOSITORY Patient Outreach (FAMPST) NORBERTOLEILA ([id number]) 1950 F Date Time Provider Department 11/10/17 MANICHECOSHANNAN During your visit today, we recorded the following information about you: Allergies As of Date: 11/10/2017 Noted Allergy Reaction CEPHALOSPORINS 03/09/2012 10 - Anaphylaxis THIMEROSAL 03/09/2012 7 - Swelling Comments: Difficulty breathing VANCOMYCIN 03/09/2012 10 - Anaphylaxis Comments: flushed LEVAQUIN (LEVOFLOXACIN) 03/14/2013 2 - Rash 14 - Other: See Comments Comments: Muscle/joint pain SPIRONOLACTONE (BULK) 02/20/2015 2 - Rash Comments: Pt states happened years ago when trying this always forgets. SULFA (SULFONAMIDE ANTIBIOTICS) 04/09/2012 4 - Hives 9 - Itching TAPE (ADHESIVE TAPE (ROSINS)) 06/08/2012 2 - Rash 9 - Itching Comments: degloving ZOCOR (SIMVASTATIN) 05/15/2014 14 - Other: See Comments Comments: Muscle/limb pain Date Reviewed: 10/28/2017 Reviewed by: Cadence Reyes Ma - Fully Assessed Visit Diagnosis:Medication management [Z79.899] Order(s):ALBUMIN/CREAT RATIO RND UR [SQUACR] Order #: [id number] FUTURE Prescriptions as of 11/10/2017 Sig: X HYDROCHLOROTHIAZIDE 25 MG TAB* TAKE 1 TABLET BY MOUTH ONCE D* CYCLOBENZAPRINE 10 MG TABLET Take 1 tablet by mouth twice * OMEPRAZOLE 20 MG CAPSULE,ZACHARY* Take 1 capsule by mouth twice* Patient not taking: Reported on 01/18/2018 ASPIRIN 81 MG TABLET,DELAYED * Take 81 mg by mouth once dangelo* X TRAMADOL 50 MG TABLET Take 2 tablets by mouth as ne* X FREESTYLE LANCETS 28 GAUGE USE TO TEST BLOOD SUGAR THREE* X FREESTYLE LITE STRIPS USE TO CHECK GLUCOSE THREE TI* X FUROSEMIDE 40 MG TABLET Take 0.5 tablets by mouth onc* MUPIROCIN 2 % TOPICAL OINTMENT Apply 1 application to affect* COMPOUNDED PRESCRIPTION Use 1 application in each nos* MELOXICAM 15 MG TABLET Take 1 tablet by mouth once d* BLOOD-GLUCOSE METER KIT Freestyle LITE Meter Kit -Dx * X POTASSIUM CHLORIDE ER 20 MEQ * Take 9 tablets by mouth once * OLOPATADINE 0.1 % EYE DROPS Use 1 Drop in both eyes twice* TRETINOIN 0.1 % TOPICAL CREAM Apply 1 Tube to affected area* ESTRADIOL 0.01% (0.1 MG/GRAM)* Use 1 g vaginally twice a wee* ASCORBIC ACID (VITAMIN C) 250* Take 4 tablets by mouth once * MULTI VITAMIN ORAL Take by mouth once daily. Problem List As Of Date 11/10/2017 Noted Resolved Essential hypertension [I10] INVALID FOR* More... Acne [L70.9] INVALID FOR* Pain disorder [R52] INVALID FOR* Menopausal vaginal dryness [N95.1] INVALID FOR* Itchy eyes [R68.89] INVALID FOR* Anemia [D64.9] INVALID FOR*10/14/2012 Hemochromatosis [E83.119] INVALID FOR* Body odor [L74.8] INVALID FOR* Chronic dermatitis of hands [L30.9] INVALID FOR* Frequent UTI [N39.0] INVALID FOR* Abdominal pain [R10.9] INVALID FOR* Hereditary hemochromatosis [E83.110] INVALID FOR* More... Liver dysfunction [K76.89] INVALID FOR* Lumbar stenosis [M48.061] INVALID FOR* Lumbar radiculopathy [M54.16] INVALID FOR* Chronic pain [G89.29] INVALID FOR* Negron's cyst [M71.20] INVALID FOR* Tear, knee, lateral meniscus [S83.289A] INVALID FOR* Complex tear of medial meniscus of left knee as*INVALID FOR* Pain in joint, lower leg [M25.569] INVALID FOR* Tear of medial cartilage or meniscus of knee, c*INVALID FOR* Diabetes mellitus type 2, controlled, without c*INVALID FOR* More... Hyperlipidemia [E78.5] INVALID FOR* Thoracic back pain [M54.6] INVALID FOR* DDD (degenerative disc disease), cervical [M50.*INVALID FOR* Cervical spondylosis [M47.812] INVALID FOR* Acute combined systolic and diastolic congestiv*INVALID FOR*03/04/2015 Chronic instability of metacarpophalangeal join*INVALID FOR* Bilateral low back pain without sciatica [M54.5]INVALID FOR* Thumb pain [M79.646] INVALID FOR* DDD (degenerative disc disease), lumbar [M51.36]INVALID FOR* Trochanteric bursitis of left hip [M70.62] INVALID FOR* Piriformis syndrome of left side [G57.02] INVALID FOR* Trochanteric tendinitis of left hip [M70.62] INVALID FOR* Vitiligo [L80] INVALID FOR* More... 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 Chronic rhinitis [J31.0] INVALID FOR* Osteoarthritis of cervical spine with myelopath*INVALID FOR* Encounter Status:Closed by EPIC, PRODUSER on 02/12/18 XR HAND 3V PA/LAT/OBL Observed: 11/09/2017 Status: F Source: [place] EMIL[place] 2:39 PM [facility] REPOSITORY * * *Final Report* * * DATE OF EXAM: Nov 09 2017 2:39PM WRX 5556 - XR HAND 3V PA/LAT/OBL EMILIE / PROCEDURE REASON: multiple diagnoses * * * * Physician Interpretation * * * * EXAMINATION: XR HAND 3V PA/LAT/OBL EMILIE CLINICAL HISTORY: pt states arthritis getting worse, fingers are deviating more on right hand and sore no inj Pain in right hand Pain in left hand Technique: XR HAND 3V PA/LAT/OBL EMILIE -- BILATERAL hands with 3 views on 3 images Comparison: 03/11/2016 RESULT: Left hand: The first MCP arthrodesis is unchanged in position and alignment. Hardware appears intact without evidence of loosening. There is good bony fusion. Degenerative changes at the second MCP joint with marginal osteophytes and joint space narrowing. No fracture or dislocation. Right hand: Degenerative changes first MCP joint with small marginal osteophytes and subchondral sclerosis. Degenerative changes first MCP joint. Degenerative changes second MCP with anterior subluxation. No fracture or dislocation. IMPRESSION: Postsurgical and degenerative changes left hand without acute osseous findings. Degenerative changes right hand without acute osseous findings. Crop Puller: FERNANDA Transcribe Date/Time: Nov 09 2017 5:30P Dictated by : GUSTAVO WEST MD This examination was interpreted and the report reviewed and electronically signed by: GUSTAVO WEST MD on Nov 09 2017 5:34PM EST [id number] Observed: 11/09/2017 Status: COMPLETED Source: [place] 2:28 PM [facility] REPOSITORY HNO ID: [id number] Author: Kanika AroraRtSeble Stratton Service: (none) Author Type: Track [employer]way Repair Supervisor Type: Progress Notes Filed: 11/09/2017 2:39 PM Note Text: Radiology Service Progress Note PATIENT NAME: Leila Thornton DATE OF SERVICE: November 09, 2017 TIME: 2:28 PM PATIENT IDENTITY VERIFICATION COMPLETED USING TWO (2) METHODS: Patient confirmed name verbally and Date of . PATIENT GENDER DATA: Female. status: : No status: NO. PATIENT RELEVANT IMPLANT DATA REVIEWED: Not Applicable RADIOLOGY DEPARTMENT: General X-ray: Exam(s) Completed: Upper Extremity X-Ray(s): Hand, bilateral : PERIPHERAL IV DATA: Not applicable SIGNED BY: RT Margie November 09, 2017 2:28 PM PROGRESS Observed: 11/03/2017 Status: COMPLETED Source: [place] 2:32 PM [facility] REPOSITORY HNO ID: [id number] Author: Palomo Tan RN Service: (none) Author Type: Registered Nurse Type: Progress Notes Filed: 11/03/2017 2:33 PM Note Text: Name: Leila Thornton [facility]#: [id number] Date: 11/03/2017 ESOPHAGEAL MANOMETRY TEST Indication: Dysphagia Pain Assessment: No pain is present. The patient has been NPO since last evening. A local anesthetic 1 cc 2% Viscous Lidoccaine was instilled into the right nares. The patient was intubated the right nares using a 36 sensor high resolution circumferential solid state manometry catheter The esophageal manometry test was completed. The patient tolerated the test without difficulty. .Palomo Tan RN [facility] Observed: 11/03/2017 Status: COMPLETED Source: [place] 2:00 PM [facility] REPOSITORY Nurse Visit (GASTMN) LEILA THORNTON ([id number]) 1950 F Date Time Provider Department 11/03/17 2:00 PM NURSE GI LAB 2 [facility] During your visit today, we recorded the following information about you: Palomo Tan RN, RN 11/03/2017 2:33 PM Signed Name: Leila Thornton [facility]#: [id number] Date: 11/03/2017 ESOPHAGEAL MANOMETRY TEST Indication: Dysphagia Pain Assessment: No pain is present. The patient has been NPO since last evening. A local anesthetic 1 cc 2% Viscous Lidoccaine was instilled into the right nares. The patient was intubated the right nares using a 36 sensor high resolution circumferential solid state manometry catheter The esophageal manometry test was completed. The patient tolerated the test without difficulty. .Palomo Tan RN Referring Provider: NAFISA RAPP ([employer]) [[id number]] Allergies As of Date: 11/03/2017 Noted Allergy Reaction CEPHALOSPORINS 03/09/2012 10 - Anaphylaxis THIMEROSAL 03/09/2012 7 - Swelling Comments: Difficulty breathing VANCOMYCIN 03/09/2012 10 - Anaphylaxis Comments: flushed LEVAQUIN (LEVOFLOXACIN) 03/14/2013 2 - Rash 14 - Other: See Comments Comments: Muscle/joint pain SPIRONOLACTONE (BULK) 02/20/2015 2 - Rash Comments: Pt states happened years ago when trying this always forgets. SULFA (SULFONAMIDE ANTIBIOTICS) 04/09/2012 4 - Hives 9 - Itching TAPE (ADHESIVE TAPE (ROSINS)) 06/08/2012 2 - Rash 9 - Itching Comments: degloving ZOCOR (SIMVASTATIN) 05/15/2014 14 - Other: See Comments Comments: Muscle/limb pain Date Reviewed: 10/28/2017 Reviewed by: Cadence Reyes Ma - Fully Assessed Reason for Visit: Procedure [88] Cmt: Manometry Esophageal Visit Diagnoses:Epigastric pain [R10.13] Other chest pain [R07.89] Dysphagia, unspecified type [R13.10] Order(s):MANOMETRY ESOPHAGEAL [[id number]] Order #: [id number] Prescriptions as of 11/03/2017 Sig: HYDROCHLOROTHIAZIDE 25 MG TAB* TAKE 1 TABLET BY MOUTH ONCE D* CYCLOBENZAPRINE 10 MG TABLET Take 1 tablet by mouth twice * OMEPRAZOLE 20 MG CAPSULE,ZACHARY* Take 1 capsule by mouth twice* ASPIRIN 81 MG TABLET,DELAYED * Take 81 mg by mouth once dangelo* TRAMADOL 50 MG TABLET Take 2 tablets by mouth as ne* FREESTYLE LANCETS 28 GAUGE USE TO TEST BLOOD SUGAR THREE* FREESTYLE LITE STRIPS USE TO CHECK GLUCOSE THREE TI* FUROSEMIDE 40 MG TABLET Take 0.5 tablets by mouth onc* MUPIROCIN 2 % TOPICAL OINTMENT Apply 1 application to affect* Patient not taking: Reported on 09/03/2017 COMPOUNDED PRESCRIPTION Use 1 application in each nos* MELOXICAM 15 MG TABLET Take 1 tablet by mouth once d* BLOOD-GLUCOSE METER KIT Freestyle LITE Meter Kit -Dx * POTASSIUM CHLORIDE ER 20 MEQ * Take 9 tablets by mouth once * OLOPATADINE 0.1 % EYE DROPS Use 1 Drop in both eyes twice* TRETINOIN 0.1 % TOPICAL CREAM Apply 1 Tube to affected area* ESTRADIOL 0.01% (0.1 MG/GRAM)* Use 1 g vaginally twice a wee* ASCORBIC ACID (VITAMIN C) 250* Take 4 tablets by mouth once * MULTI VITAMIN ORAL Take by mouth once daily. Problem List As Of Date 11/03/2017 Noted Resolved Essential hypertension [I10] INVALID FOR* Acne [L70.9] INVALID FOR* Pain disorder [R52] INVALID FOR* Menopausal vaginal dryness [N95.1] INVALID FOR* Itchy eyes [H57.8] INVALID FOR* Anemia [D64.9] INVALID FOR*10/14/2012 Hemochromatosis [E83.119] INVALID FOR* Body odor [L74.8] INVALID FOR* Chronic dermatitis of hands [L30.9] INVALID FOR* Frequent UTI [N39.0] INVALID FOR* Abdominal pain [R10.9] INVALID FOR* Hereditary hemochromatosis [E83.110] INVALID FOR* Liver dysfunction [K76.89] INVALID FOR* Lumbar stenosis [M48.061] INVALID FOR* Lumbar radiculopathy [M54.16] INVALID FOR* Chronic pain [G89.29] INVALID FOR* Negron's cyst [M71.20] INVALID FOR* Tear, knee, lateral meniscus [S83.289A] INVALID FOR* Complex tear of medial meniscus of left knee as*INVALID FOR* Pain in joint, lower leg [M25.569] INVALID FOR* Tear of medial cartilage or meniscus of knee, c*INVALID FOR* Diabetes mellitus type 2, controlled, without c*INVALID FOR* Hyperlipidemia [E78.5] INVALID FOR* Thoracic back pain [M54.6] INVALID FOR* DDD (degenerative disc disease), cervical [M50.*INVALID FOR* Cervical spondylosis [M47.812] INVALID FOR* Acute combined systolic and diastolic congestiv*INVALID FOR*03/04/2015 Chronic instability of metacarpophalangeal join*INVALID FOR* Bilateral low back pain without sciatica [M54.5]INVALID FOR* Thumb pain [M79.646] INVALID FOR* DDD (degenerative disc disease), lumbar [M51.36]INVALID FOR* Trochanteric bursitis of left hip [M70.62] INVALID FOR* Piriformis syndrome of left side [G57.02] INVALID FOR* Trochanteric tendinitis of left hip [M70.62] INVALID FOR* Vitiligo [L80] INVALID FOR* More... 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 Chronic rhinitis [J31.0] INVALID FOR* Osteoarthritis of cervical spine with myelopath*INVALID FOR* Encounter Status:Closed by PALOMO TAN on 11/03/17 [place] Observed: 10/30/2017 Status: COMPLETED Source: [place] 12:00 AM [facility] REPOSITORY Telephone (PNMDNA) LEILA THORNTON ([id number]) 1950 F Date Time Provider Department 10/30/17 ASHLEY SIMPSON ([employer]) TONE During your visit today, we recorded the following information about you: Ashley Simpson APRN.CNP 10/30/2017 12:[address] Piper reviewed the cervical MRI and recommends trying a C6-7 ALEKS. Order placed and patient may be scheduled. Leticia Mitesh 10/30/2017 3:30 PM Signed Called patient and LVM to contact office for resutls and to schedule injection Leticia Pylesandra 11/02/2017 3:10 PM Signed Spoke with patient, she is feeling better and will contact office when ready to schedule injection. Allergies As of Date: 10/30/2017 Noted Allergy Reaction CEPHALOSPORINS 03/09/2012 10 - Anaphylaxis THIMEROSAL 03/09/2012 7 - Swelling Comments: Difficulty breathing VANCOMYCIN 03/09/2012 10 - Anaphylaxis Comments: flushed LEVAQUIN (LEVOFLOXACIN) 03/14/2013 2 - Rash 14 - Other: See Comments Comments: Muscle/joint pain SPIRONOLACTONE (BULK) 02/20/2015 2 - Rash Comments: Pt states happened years ago when trying this always forgets. SULFA (SULFONAMIDE ANTIBIOTICS) 04/09/2012 4 - Hives 9 - Itching TAPE (ADHESIVE TAPE (ROSINS)) 06/08/2012 2 - Rash 9 - Itching Comments: degloving ZOCOR (SIMVASTATIN) 05/15/2014 14 - Other: See Comments Comments: Muscle/limb pain Date Reviewed: 10/28/2017 Reviewed by: Cadence Reyes Ma - Fully Assessed Reason for Visit: Injections [199] Primary Visit Diagnosis:Osteoarthritis of spine with radiculopathy, cervical region [M47.22] Other Visit Diagnosis:DDD (degenerative disc disease), cervical [M50.30] Order(s):EPI CERV OR THORC W/IMAGING [[id number]] Order #: [id number] Prescriptions as of 10/30/2017 Sig: CYCLOBENZAPRINE 10 MG TABLET Take 1 tablet by mouth twice * OMEPRAZOLE 20 MG CAPSULE,ZACHARY* Take 1 capsule by mouth twice* ASPIRIN 81 MG TABLET,DELAYED * Take 81 mg by mouth once dangelo* TRAMADOL 50 MG TABLET Take 2 tablets by mouth as ne* FREESTYLE LANCETS 28 GAUGE USE TO TEST BLOOD SUGAR THREE* FREESTYLE LITE STRIPS USE TO CHECK GLUCOSE THREE TI* HYDROCHLOROTHIAZIDE 25 MG TAB* Take 1 tablet by mouth once d* FUROSEMIDE 40 MG TABLET Take 0.5 tablets by mouth onc* MUPIROCIN 2 % TOPICAL OINTMENT Apply 1 application to affect* Patient not taking: Reported on 09/03/2017 COMPOUNDED PRESCRIPTION Use 1 application in each nos* MELOXICAM 15 MG TABLET Take 1 tablet by mouth once d* BLOOD-GLUCOSE METER KIT Freestyle LITE Meter Kit -Dx * POTASSIUM CHLORIDE ER 20 MEQ * Take 9 tablets by mouth once * OLOPATADINE 0.1 % EYE DROPS Use 1 Drop in both eyes twice* TRETINOIN 0.1 % TOPICAL CREAM Apply 1 Tube to affected area* ESTRADIOL 0.01% (0.1 MG/GRAM)* Use 1 g vaginally twice a wee* ASCORBIC ACID (VITAMIN C) 250* Take 4 tablets by mouth once * MULTI VITAMIN ORAL Take by mouth once daily. Problem List As Of Date 10/30/2017 Noted Resolved Essential hypertension [I10] INVALID FOR* Acne [L70.9] INVALID FOR* Pain disorder [R52] INVALID FOR* Menopausal vaginal dryness [N95.1] INVALID FOR* Itchy eyes [H57.8] INVALID FOR* Anemia [D64.9] INVALID FOR*10/14/2012 Hemochromatosis [E83.119] INVALID FOR* Body odor [L74.8] INVALID FOR* Chronic dermatitis of hands [L30.9] INVALID FOR* Frequent UTI [N39.0] INVALID FOR* Abdominal pain [R10.9] INVALID FOR* Hereditary hemochromatosis [E83.110] INVALID FOR* Liver dysfunction [K76.89] INVALID FOR* Lumbar stenosis [M48.061] INVALID FOR* Lumbar radiculopathy [M54.16] INVALID FOR* Chronic pain [G89.29] INVALID FOR* Negron's cyst [M71.20] INVALID FOR* Tear, knee, lateral meniscus [S83.289A] INVALID FOR* Complex tear of medial meniscus of left knee as*INVALID FOR* Pain in joint, lower leg [M25.569] INVALID FOR* Tear of medial cartilage or meniscus of knee, c*INVALID FOR* Diabetes mellitus type 2, controlled, without c*INVALID FOR* Hyperlipidemia [E78.5] INVALID FOR* Thoracic back pain [M54.6] INVALID FOR* DDD (degenerative disc disease), cervical [M50.*INVALID FOR* Cervical spondylosis [M47.812] INVALID FOR* Acute combined systolic and diastolic congestiv*INVALID FOR*03/04/2015 Chronic instability of metacarpophalangeal join*INVALID FOR* Bilateral low back pain without sciatica [M54.5]INVALID FOR* Thumb pain [M79.646] INVALID FOR* DDD (degenerative disc disease), lumbar [M51.36]INVALID FOR* Trochanteric bursitis of left hip [M70.62] INVALID FOR* Piriformis syndrome of left side [G57.02] INVALID FOR* Trochanteric tendinitis of left hip [M70.62] INVALID FOR* Vitiligo [L80] INVALID FOR* More... 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 Chronic rhinitis [J31.0] INVALID FOR* Osteoarthritis of cervical spine with myelopath*INVALID FOR* Encounter Status:Closed by LETICIA CAO on 10/30/17 PROGRESS Observed: 10/28/2017 Status: COMPLETED Source: [place] 1:33 PM [facility] REPOSITORY HNO ID: [id number] Author: Ashley Peres (Global Chief Creative Officer) Manuel Service: (none) Author Type: Nurse Practitioner Type: Progress Notes Filed: 10/28/2017 2:56 PM Note Text: SUBJECTIVE: Leila Thornton presents to [facility] for a followup appointment for new onset of pain from head to knee. Since the last visit, Leila Thornton states the pain has been worsening. Current pain intensity is 7 on a scale of 0-10. Pain located from head to knee area and radiates the whole left side. Pain described as penetrating and sharp The patient Reports numbness, tingling and leg pain. Symptoms interfere with physical activity, walking and sleeping. Pain is exacerbated by sitting, standing, forward flexion, lifting, getting up from sitting, lying down and walking. Pain is mitigated by medications. REVIEW OF SYSTEMS: Constitutional: (-) Fever (-) Night Sweats (+) Weight Gain (-) Weight Loss (-) Fatigue Cardiovascular: (-) Chest Pain (-) Palpitations (-) Lightheadedness (-) Swelling of Ankles (-) Hx Heart Surgery Respiratory: (-) Shortness of Breath (-) Cough (-) Wheezing (-) Snoring Gastrointestinal: (-) Incontinence (+) Abdominal Pain (-) Diarrhea (-) Constipation (+) Nausea/Vomiting (+) Heart Burn Endocrine: (-) Thyroid Disorder (+) Diabetes Hematologic: (-) Prolonged Bleeding (-) Easy Bruising Genitourinary: (-) Incontinence (-) Frequency (-) Urinary Urgency Skin: (-) Rashes (-) Itching (-) Other Lesions Neurologic: (+) Headache (-) Double Vision (-) Confusion (-) Paralysis Psychiatric: (+) Depression (+) Anxiety (-) Delusions (-) Hallucinations (+) Personal History of Alcohol or Substance Abuse (-) Family History of Alcohol or Substance Abuse OBJECTIVE: Pulse 78 Ht 5' 4 (1.63m) Wt 185 lb (83.9kg) SpO2 96% BMI 31.74 kg/(m2). PHYSICAL EXAMINATION: General appearance: Well appearing, in no acute distress, alert Skin: Skin color, texture, turgor normal, no rashes or lesions Neck: Tenderness to palpation over the left cervical paraspinous muscles. Tenderness with neck flexion, extension, or lateral flexion Cardiovascular: Regular rate Lungs: Normal respiratory rate and rhythm Abdomen: Abdomen soft and non-tender. Back: Intact range of motion without pain reproduction. Spine: Reports Tenderness on palpation: Lumbar/Pelvic, left Extremities: No deformities, edema, or skin discoloration. Good capillary refill. Musculoskeletal: Bilateral upper and lower extremity strength is normal and symmetric. No atrophy or tone abnormalities are noted. Neuro: No loss of sensation is noted. Station and Gait: antalgic gait Motor: Exhibits full strength in all four extremities. Trigger points: none. ASSESSMENT: Assessment : Pt reports increase neck and back pain with myofascial tenderness She reports the pain was exacerbated several days ago with increased cramping. She is having radicular sxs down the left arm and left LE tenderness She has been doing stretches and exercises and this has increased her ROM. She has an endless pool and plans to swim She reports taking left over percocet from years ago because the tramadol was not helping She is also taking flexeril for the muscle cramps. She is not suppose to take NSAIDs due to gi ulcer in the past. She had a EGD yesterday Encounter Diagnosis ICD-10-CM 1. 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 DDD (degenerative disc disease), cervical M50.30 3. DDD (degenerative disc disease), lumbar M51.36 4. Spinal stenosis of lumbar region without neurogenic claudication M48.061 5. Lumbar radiculopathy M54.16 OARRS website checked and validated. All prescriptions have been APPROPRIATELY filled. No suspicious activity was identified.- 10/28/2017 by Cadence Reyes Ma Narcotic Agreement reviewed and signed?: N/A on October 28, 2017 The pain panel was N/A PLAN: 1) Continue tramadol 50 mg 2) Continue flexeril 10 mg 3) Encouraged daily exercises ands stretches. She has an endless pool and can use that also 4) Discussed formal PT. Pt defers and will do her exercises 5) RTC 3 months The above plan and management options were discussed at length with patient. Patient is in agreement with the above and verbalized understanding. Ashley Simpson APRN, CNP October 28, 2017 CNOV Observed: 10/28/2017 Status: COMPLETED Source: [place] 1:00 PM [facility] REPOSITORY Office Visit (PNMDNA) LEILA THORNTON ([id number]) 1950 F Date Time Provider Department 10/28/17 1:00 PM ASHLEY SIMPSON ([employer]) PNMNNA During your visit today, we recorded the following information about you: Pulse Weight Height 78/minute 83.9 kg 1.626 m Ashley Simpson APRN.JIM 10/28/2017 2:56 PM Signed SUBJECTIVE: Leila Thornton presents to [facility] Department for a followup appointment for new onset of pain from head to knee. Since the last visit, Leila Thornton states the pain has been worsening. Current pain intensity is 7 on a scale of 0-10. Pain located from head to knee area and radiates the whole left side. Pain described as penetrating and sharp The patient Reports numbness, tingling and leg pain. Symptoms interfere with physical activity, walking and sleeping. Pain is exacerbated by sitting, standing, forward flexion, lifting, getting up from sitting, lying down and walking. Pain is mitigated by medications. REVIEW OF SYSTEMS: Constitutional: (-) Fever (-) Night Sweats (+) Weight Gain (-) Weight Loss (-) Fatigue Cardiovascular: (-) Chest Pain (-) Palpitations (-) Lightheadedness (-) Swelling of Ankles (-) Hx Heart Surgery Respiratory: (-) Shortness of Breath (-) Cough (-) Wheezing (-) Snoring Gastrointestinal: (-) Incontinence (+) Abdominal Pain (-) Diarrhea (-) Constipation (+) Nausea/Vomiting (+) Heart Burn Endocrine: (-) Thyroid Disorder (+) Diabetes Hematologic: (-) Prolonged Bleeding (-) Easy Bruising Genitourinary: (-) Incontinence (-) Frequency (-) Urinary Urgency Skin: (-) Rashes (-) Itching (-) Other Lesions Neurologic: (+) Headache (-) Double Vision (-) Confusion (-) Paralysis Psychiatric: (+) Depression (+) Anxiety (-) Delusions (-) Hallucinations (+) Personal History of Alcohol or Substance Abuse (-) Family History of Alcohol or Substance Abuse OBJECTIVE: Pulse 78 Ht 5' 4 (1.63m) Wt 185 lb (83.9kg) SpO2 96% BMI 31.74 kg/(m2). PHYSICAL EXAMINATION: General appearance: Well appearing, in no acute distress, alert Skin: Skin color, texture, turgor normal, no rashes or lesions Neck: Tenderness to palpation over the left cervical paraspinous muscles. Tenderness with neck flexion, extension, or lateral flexion Cardiovascular: Regular rate Lungs: Normal respiratory rate and rhythm Abdomen: Abdomen soft and non-tender. Back: Intact range of motion without pain reproduction. Spine: Reports Tenderness on palpation: Lumbar/Pelvic, left Extremities: No deformities, edema, or skin discoloration. Good capillary refill. Musculoskeletal: Bilateral upper and lower extremity strength is normal and symmetric. No atrophy or tone abnormalities are noted. Neuro: No loss of sensation is noted. Station and Gait: antalgic gait Motor: Exhibits full strength in all four extremities. Trigger points: none. ASSESSMENT: Assessment : Pt reports increase neck and back pain with myofascial tenderness She reports the pain was exacerbated several days ago with increased cramping. She is having radicular sxs down the left arm and left LE tenderness She has been doing stretches and exercises and this has increased her ROM. She has an endless pool and plans to swim She reports taking left over percocet from years ago because the tramadol was not helping She is also taking flexeril for the muscle cramps. She is not suppose to take NSAIDs due to gi ulcer in the past. She had a EGD yesterday Encounter Diagnosis ICD-10-CM 1. 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 DDD (degenerative disc disease), cervical M50.30 3. DDD (degenerative disc disease), lumbar M51.36 4. Spinal stenosis of lumbar region without neurogenic claudication M48.061 5. Lumbar radiculopathy M54.16 OARRS website checked and validated. All prescriptions have been APPROPRIATELY filled. No suspicious activity was identified.- 10/28/2017 by Cadence Reyes Ma Narcotic Agreement reviewed and signed?: N/A on October 28, 2017 The pain panel was N/A PLAN: 1) Continue tramadol 50 mg 2) Continue flexeril 10 mg 3) Encouraged daily exercises ands stretches. She has an endless pool and can use that also 4) Discussed formal PT. Pt defers and will do her exercises 5) RTC 3 months The above plan and management options were discussed at length with patient. Patient is in agreement with the above and verbalized understanding. Ashley Simpson, BAMBI, LAND CHECKER October 28, 2017 Referring Provider: SELF [200] Allergies As of Date: 10/28/2017 Noted Allergy Reaction CEPHALOSPORINS 03/09/2012 10 - Anaphylaxis THIMEROSAL 03/09/2012 7 - Swelling Comments: Difficulty breathing VANCOMYCIN 03/09/2012 10 - Anaphylaxis Comments: flushed LEVAQUIN (LEVOFLOXACIN) 03/14/2013 2 - Rash 14 - Other: See Comments Comments: Muscle/joint pain SPIRONOLACTONE (BULK) 02/20/2015 2 - Rash Comments: Pt states happened years ago when trying this always forgets. SULFA (SULFONAMIDE ANTIBIOTICS) 04/09/2012 4 - Hives 9 - Itching TAPE (ADHESIVE TAPE (ROSINS)) 06/08/2012 2 - Rash 9 - Itching Comments: degloving ZOCOR (SIMVASTATIN) 05/15/2014 14 - Other: See Comments Comments: Muscle/limb pain Date Reviewed: 10/28/2017 Reviewed by: Cadence Reyes Ma - Fully Assessed Reason for Visit: Pain [78] Cmt: from head down left side down to knee Primary Visit Diagnosis:Osteoarthritis of cervical spine with myelopathy [M47.12] Other Visit Diagnoses:DDD (degenerative disc disease), cervical [M50.30] DDD (degenerative disc disease), lumbar [M51.36] Spinal stenosis of lumbar region without neurogenic claudication [M48.061] Lumbar radiculopathy [M54.16] Prescriptions as of 10/28/2017 Sig: CYCLOBENZAPRINE 10 MG TABLET Take 1 tablet by mouth twice * OMEPRAZOLE 20 MG CAPSULE,ZACHARY* Take 1 capsule by mouth twice* ASPIRIN 81 MG TABLET,DELAYED * Take 81 mg by mouth once dangelo* TRAMADOL 50 MG TABLET Take 2 tablets by mouth as ne* FREESTYLE LANCETS 28 GAUGE USE TO TEST BLOOD SUGAR THREE* FREESTYLE LITE STRIPS USE TO CHECK GLUCOSE THREE TI* HYDROCHLOROTHIAZIDE 25 MG TAB* Take 1 tablet by mouth once d* FUROSEMIDE 40 MG TABLET Take 0.5 tablets by mouth onc* COMPOUNDED PRESCRIPTION Use 1 application in each nos* BLOOD-GLUCOSE METER KIT Freestyle LITE Meter Kit -Dx * POTASSIUM CHLORIDE ER 20 MEQ * Take 9 tablets by mouth once * OLOPATADINE 0.1 % EYE DROPS Use 1 Drop in both eyes twice* TRETINOIN 0.1 % TOPICAL CREAM Apply 1 Tube to affected area* ESTRADIOL 0.01% (0.1 MG/GRAM)* Use 1 g vaginally twice a wee* ASCORBIC ACID (VITAMIN C) 250* Take 4 tablets by mouth once * MULTI VITAMIN ORAL Take by mouth once daily. MUPIROCIN 2 % TOPICAL OINTMENT Apply 1 application to affect* Patient not taking: Reported on 09/03/2017 MELOXICAM 15 MG TABLET Take 1 tablet by mouth once d* Problem List As Of Date 10/28/2017 Noted Resolved Essential hypertension [I10] INVALID FOR* Acne [L70.9] INVALID FOR* Pain disorder [R52] INVALID FOR* Menopausal vaginal dryness [N95.1] INVALID FOR* Itchy eyes [H57.8] INVALID FOR* Anemia [D64.9] INVALID FOR*10/14/2012 Hemochromatosis [E83.119] INVALID FOR* Body odor [L74.8] INVALID FOR* Chronic dermatitis of hands [L30.9] INVALID FOR* Frequent UTI [N39.0] INVALID FOR* Abdominal pain [R10.9] INVALID FOR* Hereditary hemochromatosis [E83.110] INVALID FOR* Liver dysfunction [K76.89] INVALID FOR* Lumbar stenosis [M48.061] INVALID FOR* Lumbar radiculopathy [M54.16] INVALID FOR* Chronic pain [G89.29] INVALID FOR* Negron's cyst [M71.20] INVALID FOR* Tear, knee, lateral meniscus [S83.289A] INVALID FOR* Complex tear of medial meniscus of left knee as*INVALID FOR* Pain in joint, lower leg [M25.569] INVALID FOR* Tear of medial cartilage or meniscus of knee, c*INVALID FOR* Diabetes mellitus type 2, controlled, without c*INVALID FOR* Hyperlipidemia [E78.5] INVALID FOR* Thoracic back pain [M54.6] INVALID FOR* DDD (degenerative disc disease), cervical [M50.*INVALID FOR* Cervical spondylosis [M47.812] INVALID FOR* Acute combined systolic and diastolic congestiv*INVALID FOR*03/04/2015 Chronic instability of metacarpophalangeal join*INVALID FOR* Bilateral low back pain without sciatica [M54.5]INVALID FOR* Thumb pain [M79.646] INVALID FOR* DDD (degenerative disc disease), lumbar [M51.36]INVALID FOR* Trochanteric bursitis of left hip [M70.62] INVALID FOR* Piriformis syndrome of left side [G57.02] INVALID FOR* Trochanteric tendinitis of left hip [M70.62] INVALID FOR* Vitiligo [L80] INVALID FOR* More... 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 Chronic rhinitis [J31.0] INVALID FOR* Osteoarthritis of cervical spine with myelopath*INVALID FOR* Encounter Status:Closed by ASHLEY SIMPSON on 10/28/17 SURGICAL PATHOLOGY Observed: 10/27/2017 Status: F Source: [place] 3:19 PM [facility] REPOSITORY Specimen originated from [facility] Specimen #: [id number] Submitting Physician: DOMINGUEZ SORIANO MD FINAL DIAGNOSIS 1. Duodenum, biopsy (A) - Duodenal mucosa with no diagnostic alteration. - No evidence of celiac sprue. 2. Stomach, biopsy (B) - Patchy chronic inactive gastritis with focal intestinal metaplasia. - Negative for dysplasia. - See comment. TP/glw 10/28/2017 COMMENT H. pylori immunostain performed on the stomach biopsy (part B) to evaluate the chronic gastritis is negative. Laboratory Developed Test (LDT) Disclaimer: Positive and negative controls stain appropriately. Performance characteristics of immunohistochemical, immunofluorescent and chromogenic in-situ hybridization tests have been determined by [facility]'s [facility] [place] ([facility]) in a manner consistent with CLIA requirements. One or more of these tests have not been cleared or approved by the FDA. [facility] is regulated under CLIA as qualified to perform high-complexity testing. These tests are used for clinical purposes. They should not be regarded as investigational or for research. Alexandru Wei M.D. (Electronic Signature) SPECIMEN SUBMITTED A: DUODENUM, BIOPSY B: GASTRIC, BIOPSY CLINICAL DATA EPIGASTRIC PAIN A) R/O CELIAC SPRUE B) R/O H. PYLORI GROSS DESCRIPTION A. Received in formalin are six pieces of balbuena, soft tissue aggregating to 1.4 x 0.2 x 0.2 cm. Totally submitted in one cassette. B. Received in formalin are four pieces of balbuena, soft tissue aggregating to 1.5 x 0.2 x 0.2 cm. Totally submitted in one cassette. Gross examination performed at [facility], [address] [place] [address] 10/27/2017 9:42:40 PM Date of Report: 10/28/2017 Date of Procedure: 10/27/2017 Date of Receipt: 10/27/2017 Submitted by: DOMINGUEZ SORIANO MD Location: [facility] A3 Diagnostic interpretation performed at [facility], [address] [place] [address], [place] [address]. PROGRESS Observed: 10/23/2017 Status: COMPLETED Source: [place] 11:47 AM [facility] REPOSITORY HNO ID: [id number] Author: Zhanna Hawkins (Sw) Service: (none) Author Type: Liner Installer Type: Progress Notes Filed: 10/23/2017 11:50 AM Note Text: SOCIAL WORK FOLLOW UP NOTE: [facility] Date of service: October 23, 2017 Leila Thornton is being seen for a follow up social work visit. Today's visit includes: patient TOPICS ADDRESSED: coping/support and community resources; GRETA called patient to follow-up from meeting last week. Patient reports she has moderated the drinking but is still consuming alcohol throughout the week. Patient reports she notices no increased pain following alcohol consumption and that she hasn't had very many flare ups since her office visit here last week. Patient reports she did call [employer] and they still have not reinstated the art therapy group. Patient is not interested in looking for a new counselor at this time. Patient reports she will have to go up to [facility] for some testing for the ulcer, so she will be busy with this. Patient is agreeable to calling if any needs arise. PLAN: Continue follow up as needed F/U APPOINTMENT: JOE Ennis Observed: 10/23/2017 Status: COMPLETED Source: [place] 12:00 AM [facility] REPOSITORY Social Work ([place]) LEILA THORNTON ([id number]) 1950 F Date Time Provider Department 10/23/17 ROSSZHANNA Ragland (SW) During your visit today, we recorded the following information about you: JOE Taylor 10/23/2017 11:50 AM Signed SOCIAL WORK FOLLOW UP NOTE: CANCER CENTER Date of service: October 23, 2017 Leila Thornton is being seen for a follow up social work visit. Today's visit includes: patient TOPICS ADDRESSED: coping/support and community resources; GRETA called patient to follow-up from meeting last week. Patient reports she has moderated the drinking but is still consuming alcohol throughout the week. Patient reports she notices no increased pain following alcohol consumption and that she hasn't had very many flare ups since her office visit here last week. Patient reports she did call [facility] [employer] and they still have not reinstated the art therapy group. Patient is not interested in looking for a new counselor at this time. Patient reports she will have to go up to main campus for some testing for the ulcer, so she will be busy with this. Patient is agreeable to calling if any needs arise. PLAN: Continue follow up as needed F/U APPOINTMENT: PRN JOE Taylor Allergies As of Date: 10/23/2017 Noted Allergy Reaction CEPHALOSPORINS 03/09/2012 10 - Anaphylaxis THIMEROSAL 03/09/2012 7 - Swelling Comments: Difficulty breathing VANCOMYCIN 03/09/2012 10 - Anaphylaxis Comments: flushed LEVAQUIN (LEVOFLOXACIN) 03/14/2013 2 - Rash 14 - Other: See Comments Comments: Muscle/joint pain SPIRONOLACTONE (BULK) 02/20/2015 2 - Rash Comments: Pt states happened years ago when trying this always forgets. SULFA (SULFONAMIDE ANTIBIOTICS) 04/09/2012 4 - Hives 9 - Itching TAPE (ADHESIVE TAPE (ROSINS)) 06/08/2012 2 - Rash 9 - Itching Comments: degloving ZOCOR (SIMVASTATIN) 05/15/2014 14 - Other: See Comments Comments: Muscle/limb pain Date Reviewed: 10/19/2017 Reviewed by: Emmanuelle Ocasio Research And Development Researcher - Fully Assessed Reason for Visit: Social Work Services [507] Prescriptions as of 10/23/2017 Sig: OMEPRAZOLE 20 MG CAPSULE,ZACHARY* Take 1 capsule by mouth twice* ASPIRIN 81 MG TABLET,DELAYED * Take 81 mg by mouth once dangelo* TRAMADOL 50 MG TABLET Take 2 tablets by mouth as ne* FREESTYLE LANCETS 28 GAUGE USE TO TEST BLOOD SUGAR THREE* FREESTYLE LITE STRIPS USE TO CHECK GLUCOSE THREE TI* HYDROCHLOROTHIAZIDE 25 MG TAB* Take 1 tablet by mouth once d* FUROSEMIDE 40 MG TABLET Take 0.5 tablets by mouth onc* MUPIROCIN 2 % TOPICAL OINTMENT Apply 1 application to affect* Patient not taking: Reported on 09/03/2017 COMPOUNDED PRESCRIPTION Use 1 application in each nos* MELOXICAM 15 MG TABLET Take 1 tablet by mouth once d* BLOOD-GLUCOSE METER KIT Freestyle LITE Meter Kit -Dx * POTASSIUM CHLORIDE ER 20 MEQ * Take 9 tablets by mouth once * OLOPATADINE 0.1 % EYE DROPS Use 1 Drop in both eyes twice* TRETINOIN 0.1 % TOPICAL CREAM Apply 1 Tube to affected area* ESTRADIOL 0.01% (0.1 MG/GRAM)* Use 1 g vaginally twice a wee* ASCORBIC ACID (VITAMIN C) 250* Take 4 tablets by mouth once * MULTI VITAMIN ORAL Take by mouth once daily. Problem List As Of Date 10/23/2017 Noted Resolved Essential hypertension [I10] INVALID FOR* Acne [L70.9] INVALID FOR* Pain disorder [R52] INVALID FOR* Menopausal vaginal dryness [N95.1] INVALID FOR* Itchy eyes [H57.8] INVALID FOR* Anemia [D64.9] INVALID FOR*10/14/2012 Hemochromatosis [E83.119] INVALID FOR* Body odor [L74.8] INVALID FOR* Chronic dermatitis of hands [L30.9] INVALID FOR* Frequent UTI [N39.0] INVALID FOR* Abdominal pain [R10.9] INVALID FOR* Hereditary hemochromatosis [E83.110] INVALID FOR* Liver dysfunction [K76.89] INVALID FOR* Lumbar stenosis [M48.061] INVALID FOR* Lumbar radiculopathy [M54.16] INVALID FOR* Chronic pain [G89.29] INVALID FOR* Negron's cyst [M71.20] INVALID FOR* Tear, knee, lateral meniscus [S83.289A] INVALID FOR* Complex tear of medial meniscus of left knee as*INVALID FOR* Pain in joint, lower leg [M25.569] INVALID FOR* Tear of medial cartilage or meniscus of knee, c*INVALID FOR* Diabetes mellitus type 2, controlled, without c*INVALID FOR* Hyperlipidemia [E78.5] INVALID FOR* Thoracic back pain [M54.6] INVALID FOR* DDD (degenerative disc disease), cervical [M50.*INVALID FOR* Cervical spondylosis [M47.812] INVALID FOR* Acute combined systolic and diastolic congestiv*INVALID FOR*03/04/2015 Chronic instability of metacarpophalangeal join*INVALID FOR* Bilateral low back pain without sciatica [M54.5]INVALID FOR* Thumb pain [M79.646] INVALID FOR* DDD (degenerative disc disease), lumbar [M51.36]INVALID FOR* Trochanteric bursitis of left hip [M70.62] INVALID FOR* Piriformis syndrome of left side [G57.02] INVALID FOR* Trochanteric tendinitis of left hip [M70.62] INVALID FOR* Vitiligo [L80] INVALID FOR* More... 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 Chronic rhinitis [J31.0] INVALID FOR* Osteoarthritis of cervical spine with myelopath*INVALID FOR* Encounter Status:Closed by ZHANNA HAWKINS on 10/23/17 PROGRESS Observed: 10/19/2017 Status: COMPLETED Source: [place] 2:18 PM [facility] [place] REPOSITORY [facility] ID: [id number] Author: Nafisa Peres (Global Chief Creative Officer) [place] Service: (none) Author Type: Nurse Practitioner Type: Progress Notes Filed: 10/19/2017 4:23 PM Note Text: DEPARTMENT OF GASTROENTEROLOGY - NEW PATIENT/CONSULT REASON FOR VISIT Leila Thornton is a 67 year old female who is here for f/u of EVERARDO. HISTORY OF PRESENT ILLNESS Leila Thornton is a 67 year old female who presents today for an evaluation of EVERARDO follow up. 67 y/o female here for f/u EVERARDO. LS 04/[address] Herrera. H/o hemochromatosis- past phlebotomies. EVERARDO. Prior ETOH abuse. EGD 05/2015- PUD, neg HP and sprue. EGD 07/2015 neg. Normal colon 05/2015. Due 2025. Labs 10/08/17: hgb 11.5, ferritin 7 (14 in Dec). LFTs WNL. Hgb was 10.6 02/2016. Takes Mobic* H/o T2DM, chronic back pain. Saw hematology- plan is to continue phlebotomy Q 2-3 months as long as hct is >36. Needs AFP annually. Was just started on 40mg PPI. Repeat EGD. Check for sprue as well. Address [place]. Sx: I think my ulcer is back She isn't taking any PPI currently. Has been off for the last 1 1/2 years. Sx don't relate to eating Heartburn- has been returning recently. CP- feels like an esophageal spasm. 3 times last month. In the past, nitro has been very helpful. No dysphagia at all. No solid dysphagia. No dizziness, SOB, or presyncope with this. Neg cardiac testing in the past for this. Some pill dysphagia during attacks. K pills have gotten stuck in the past. Abd pain- more epigastric. Feels like past ulcer. For the last few months. Nausea- for the last month. Worse in the AM. Some vomiting at times. No hematemesis or melena. Has to sleep in a semi-fowlers position d/t back pain. Hgb has been lower than usual. 11. Typically goes up to 12.5 prior to phlebotomies. No phlebotomy for the last 3 months. Was going Q 3-4 months prior. Wt up Mobjudah- present for many years No other NSAIDs 81mg asa 4 servings ETOH daily Has had MAC for the last few procedures- doesn't tolerate twilight BMs are normal, no BRBPR PAST MEDICAL HISTORY Diagnosis Date - Arthritis - Blood dyscrasia - Dermatitis - Frequent UTI - Hemochromatosis - Hypertension - Lumbar pain - Shingles 1999 - Type II or unspecified type diabetes mellitus without mention of complication, not stated as uncontrolled 04/10/2014 PAST SURGICAL HISTORY Procedure Laterality Date - ARTHRODESIS [facility] JNT THUMB W/WO FIX 1996 bilateral - CERVICAL BIOPSY 05/25/12 Dr. Jordan - COLONOSCOP W/ OR W/O BRSH SPEC 05/16/2015 Colonoscopy - EGD W/O OR W/BRUSH/WASH 05/16/2015 EGD - ENDOMETRIAL BIOPSY 05/07/12 Dr. Jordan - HYSTEROSCOPY 05/25/12 Dr. Jordan - KNEE SCOPE,MENISECTOMY,MED OR LAT 10/07/2013 Left knee arthroscopic medial and lateral meniscectomies - partial - PAST SURGICAL HISTORY OF 1981 septoplasy - PAST SURGICAL HISTORY OF 04/16 bilateral lumbar epidural - PAST SURGICAL HISTORY OF 06/11/2015 lumbar epidural - left - REDUCTION OF LARGE BREAST 2000 bilateral - REMOVAL OF TONSILS,<12 Y/O 1978 Tonsillectomy - ROTATOR CUFF REPAIR 1983 right acromioplasty Current Outpatient Prescriptions: aspirin, enteric coated (ASPIRIN, ENTERIC COATED) 81 mg EC tablet Take 81 mg by mouth once daily. Disp: Rfl: traMADol (ULTRAM) 50 mg tablet Take 2 tablets by mouth as needed for up to 30 days. Disp: 60 tablet Rfl: 2 FREESTYLE LANCETS 28 gauge misc USE TO TEST BLOOD SUGAR THREE TIMES A DAY Disp: 50 Each Rfl: 0 FREESTYLE LITE STRIPS test strip USE TO CHECK GLUCOSE THREE TIMES DAILY Disp: 100 Strip Rfl: 0 hydroCHLOROthiazide (HYDRODIURIL, ESIDRIX) 25 mg tablet Take 1 tablet by mouth once daily. Disp: 60 tablet Rfl: 0 furosemide (LASIX) 40 mg tablet Take 0.5 tablets by mouth once daily. Appointment needed for future refills Disp: 45 tablet Rfl: 0 [facility] Nasal Ointment Use 1 application in each nostril twice daily as needed. [facility] nasal ointment Disp: 1 Tube Rfl: prn meloxicam (MOBIC) 15 mg tablet Take 1 tablet by mouth once daily. Disp: 90 tablet Rfl: 2 Blood-Glucose Meter (FREESTYLE LITE METER) monitoring kit Freestyle LITE Meter Kit -Dx 250.00, no insulin Disp: 1 Each Rfl: 0 potassium chloride ER (KLOR-CON M20) 20 mEq tablet Take 9 tablets by mouth once daily. Total of 180mEq daily. Disp: 810 tablet Rfl: 11 olopatadine (PATANOL) 0.1 % ophthalmic solution Use 1 Drop in both eyes twice daily. As needed. Disp: 1 Bottle Rfl: 1 tretinoin (RETIN-A) 0.1 % cream Apply 1 Tube to affected area daily at bedtime. Disp: 45 g Rfl: 2 estradiol (ESTRACE) 0.01 % (0.1 mg/gram) vaginal cream Use 1 g vaginally twice a week. Disp: 1 Tube Rfl: 0 Ascorbic Acid (VITAMIN C) 250 mg chew Take 4 tablets by mouth once daily. Disp: 100 tablet Rfl: 0 MULTIVIT ANDMINERALS/FERROUS FUM (MULTI VITAMIN ORAL) Take by mouth once daily. Disp: Rfl: omeprazole (PRILOSEC) 20 mg capsule Take 1 capsule by mouth twice daily. Disp: 60 capsule Rfl: 0 mupirocin (BACTROBAN) 2 % ointment Apply 1 application to affected area twice daily. Apply twice a day. (Patient not taking: Reported on 09/03/2017 ) Disp: 22 g Rfl: 0 No current facility-administered medications for this visit. ALLERGIES Allergen Reactions - Cephalosporins Anaphylaxis - Thimerosal Swelling Difficulty breathing - Vancomycin Anaphylaxis flushed - Levaquin [Levofloxa* Rash, Other: See Comments Muscle/joint pain - Spironolactone (Bul* Rash Pt states happened years ago when trying this always forgets. 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 FAMILY HISTORY (grandparents, parents, brothers, sisters, aunts, or uncles) Liver Problems: No Ulcerative Colitis: No Crohn's Disease: No Colon Cancer: No Colon Polyps: No IBS: No Celiac disease: No Bleeding Disorders: Yes GI SPECIFIC REVIEW OF SYMPTOMS Difficulty swallowing / foods sticking in throat: no Heartburn: yes Hoarseness: no Chronic cough: no Regurgitation: no Chest pain: yes Filling up quickly at meals:no Loss of appetite: no Nausea: yes Vomiting: yes Abdominal pain: yes Recent change in bowel movements: no Bloody or black, bowel movements: no Constipation: no Diarrhea: no Loss of control of bowel movements: no Night sweats: no Fever: no Chills: no Thought or memory problems: no Fluid in abdomen (ascites): no Prominent leg swelling: yes Vomiting blood: no Recent change in weight: Yes, gained 20 lbs Review of Systems: Constitutional: Negative for fever, chills, and weight loss Eyes: Negative for vision changes and double vision ENT: Negative for ear pain, nasal discharge, and sore throat Heart: Negative for chest pain Lungs: Negative for shortness of breath and cough GI: See above Musculoskeletal: Chronic back pain Neuro: Negative for numbness and tingling Skin: Negative for rashes, lesions, and jaundice Hematologic/Lymphatic: Negative for unusual bruising, bleeding, and swelling Psych: Negative for anxiety and depression PAST MEDICAL HISTORY Colon polyps: Not sure Colon cancer: no Other cancer: yes Radiation / Chemotherapy: no Crohn's disease / Ulcerative colitis: no High cholesterol or triglycerides: yes Ulcers: yes Gallstones: no Hepatitis / Jaundice: no Heart Disease: no Lung Disease: yes Liver problems: yes Thyroid disease: no Kidney stones: no Pancreatitis: no Diabetes: yes Arthritis: yes Rheumatic fever: no Gastrointestinal bleeding: no Depression or other mental illness: yes Other personal illness: PHYSICAL EXAMINATION: 10/19/17 1412 BP: 140/65 BP Site: Left Arm BP Position: Sitting BP Cuff Size: Regular Adult Pulse: 83 Temp: 36.8 ?C (98.2 ?F) TempSrc: Oral SpO2: 97% Weight: 83.9 kg (185 lb) Height: 162.6 cm (5' 4) Body mass index is 31.76 kg/m?. General appearance: Appears well, alert, in no acute distress, well nourished. Skin: Skin color and temperature normal. No obvious rashes or lesions noted on exposed skin. Head: Normocephalic, atraumatic. No masses or lesions noted. Eyes: Anicteric sclera. Pupils are equally round and reactive. Ears: External ears normal Nose/Sinuses: Nares normal, no drainage Oropharynx: Lips normal, oropharynx moist. Adequate dentition. Neck: Supple, no adenopathy; thyroid symmetric, normal size Lungs: CTAB. Normal effort Heart: RRR, Mild murmur present over aortic listening point. Abdomen: Soft, non-distended. Bowel sounds present. No masses, no organomegaly. Non tender. Extremities: No deformities, discoloration, or pitting pedal edema noted. Psych: Pleasant affect, cooperative, A+O x3. Assessment IMPRESSION Ms. Thornton is a 67 year old year old female with a h/o hemochromatosis, T2DM, and past PUD who presents with returning epigastric pain, nausea, heartburn, and atypical CP attacks for the last few months. She has been off of her PPI for the last year and a half and has been taking mobic for the last several years for back pain. Furthermore, chronic EVERARDO has been more present recently with no need for regular phlebotomies for the hemochromatosis. She is UTD on screening colonoscopy (2015.) Suspect NSAID PUD/gastritis. Will arrange an EGD (pt requests twilight sedation.) Will also order esophageal manometry to evaluate the worsening severe CP attacks that improve with nitro. She will start back on her 20mg PPI for now. PLAN -EGD, duodenal bx for sprue -Esophageal manometry to follow for atypical CP -Start 20mg Prilosec OTC for now Nafisa Rapp APRN.CNP October 19, 2017 2:18 PM CNOV Observed: 10/19/2017 Status: COMPLETED Source: [place] 2:10 PM [facility] REPOSITORY Office Visit (GASTMN) CECI THORNTONEDILMA Peres ([id number]) 1950 F Date Time Provider Department 10/19/17 2:10 PM NAFISA RAPP (LAND CHECKER) GASTMN During your visit today, we recorded the following information about you: Temperature Pulse Blood pressure Weight 98.2 degrees 83/minute 140/65 83.9 kg Height 1.626 m Nafisa Rapp APRN.CNP 10/19/2017 4:23 PM Addendum DEPARTMENT OF GASTROENTEROLOGY - NEW PATIENT/CONSULT REASON FOR VISIT Leila Thornton is a 67 year old female who is here for f/u of EVERARDO. HISTORY OF PRESENT ILLNESS Leila Thornton is a 67 year old female who presents today for an evaluation of EVERARDO follow up. 67 y/o female here for f/u EVERARDO. LS 04/[address] Herrera. H/o hemochromatosis- past phlebotomies. EVERARDO. Prior ETOH abuse. EGD 05/2015- PUD, neg HP and sprue. EGD 07/2015 neg. Normal colon 05/2015. Due 2025. Labs 10/08/17: hgb 11.5, ferritin 7 (14 in Dec). LFTs WNL. Hgb was 10.6 02/2016. Takes Mobic* H/o T2DM, chronic back pain. Saw hematology- plan is to continue phlebotomy Q 2-3 months as long as hct is >36. Needs AFP annually. Was just started on 40mg PPI. Repeat EGD. Check for sprue as well. Address [place]. Sx: I think my ulcer is back She isn't taking any PPI currently. Has been off for the last 1 1/2 years. Sx don't relate to eating Heartburn- has been returning recently. CP- feels like an esophageal spasm. 3 times last month. In the past, nitro has been very helpful. No dysphagia at all. No solid dysphagia. No dizziness, SOB, or presyncope with this. Neg cardiac testing in the past for this. Some pill dysphagia during attacks. K pills have gotten stuck in the past. Abd pain- more epigastric. Feels like past ulcer. For the last few months. Nausea- for the last month. Worse in the AM. Some vomiting at times. No hematemesis or melena. Has to sleep in a semi-fowlers position d/t back pain. Hgb has been lower than usual. 11. Typically goes up to 12.5 prior to phlebotomies. No phlebotomy for the last 3 months. Was going Q 3-4 months prior. Wt up Mobic- present for many years No other NSAIDs 81mg asa 4 servings ETOH daily Has had MAC for the last few procedures- doesn't tolerate twilight BMs are normal, no BRBPR PAST MEDICAL HISTORY Diagnosis Date - Arthritis - Blood dyscrasia - Dermatitis - Frequent UTI - Hemochromatosis - Hypertension - Lumbar pain - Shingles 1999 - Type II or unspecified type diabetes mellitus without mention of complication, not stated as uncontrolled 04/10/2014 PAST SURGICAL HISTORY Procedure Laterality Date - ARTHRODESIS [facility]MC JNT THUMB W/WO FIX 1996 bilateral - CERVICAL BIOPSY 05/25/12 Dr. Jordan - COLONOSCOP W/ OR W/O BRSH SPEC 05/16/2015 Colonoscopy - EGD W/O OR W/BRUSH/WASH 05/16/2015 EGD - ENDOMETRIAL BIOPSY 05/07/12 Dr. Jordan - HYSTEROSCOPY 05/25/12 Dr. Jordan - KNEE SCOPE,MENISECTOMY,MED OR LAT 10/07/2013 Left knee arthroscopic medial and lateral meniscectomies - partial - PAST SURGICAL HISTORY OF 1981 septoplasy - PAST SURGICAL HISTORY OF 04/16 bilateral lumbar epidural - PAST SURGICAL HISTORY OF 06/11/2015 lumbar epidural - left - REDUCTION OF LARGE BREAST 2000 bilateral - REMOVAL OF TONSILS,<12 Y/O 1978 Tonsillectomy - ROTATOR CUFF REPAIR 1983 right acromioplasty Current Outpatient Prescriptions: aspirin, enteric coated (ASPIRIN, ENTERIC COATED) 81 mg EC tablet Take 81 mg by mouth once daily. Disp: Rfl: traMADol (ULTRAM) 50 mg tablet Take 2 tablets by mouth as needed for up to 30 days. Disp: 60 tablet Rfl: 2 FREESTYLE LANCETS 28 gauge misc USE TO TEST BLOOD SUGAR THREE TIMES A DAY Disp: 50 Each Rfl: 0 FREESTYLE LITE STRIPS test strip USE TO CHECK GLUCOSE THREE TIMES DAILY Disp: 100 Strip Rfl: 0 hydroCHLOROthiazide (HYDRODIURIL, ESIDRIX) 25 mg tablet Take 1 tablet by mouth once daily. Disp: 60 tablet Rfl: 0 furosemide (LASIX) 40 mg tablet Take 0.5 tablets by mouth once daily. Appointment needed for future refills Disp: 45 tablet Rfl: 0 [facility] Nasal Ointment Use 1 application in each nostril twice daily as needed. [facility] nasal ointment Disp: 1 Tube Rfl: prn meloxicam (MOBIC) 15 mg tablet Take 1 tablet by mouth once daily. Disp: 90 tablet Rfl: 2 Blood-Glucose Meter (FREESTYLE LITE METER) monitoring kit Freestyle LITE Meter Kit -Dx 250.00, no insulin Disp: 1 Each Rfl: 0 potassium chloride ER (KLOR-CON M20) 20 mEq tablet Take 9 tablets by mouth once daily. Total of 180mEq daily. Disp: 810 tablet Rfl: 11 olopatadine (PATANOL) 0.1 % ophthalmic solution Use 1 Drop in both eyes twice daily. As needed. Disp: 1 Bottle Rfl: 1 tretinoin (RETIN-A) 0.1 % cream Apply 1 Tube to affected area daily at bedtime. Disp: 45 g Rfl: 2 estradiol (ESTRACE) 0.01 % (0.1 mg/gram) vaginal cream Use 1 g vaginally twice a week. Disp: 1 Tube Rfl: 0 Ascorbic Acid (VITAMIN C) 250 mg chew Take 4 tablets by mouth once daily. Disp: 100 tablet Rfl: 0 MULTIVIT ANDMINERALS/FERROUS FUM (MULTI VITAMIN ORAL) Take by mouth once daily. Disp: Rfl: omeprazole (PRILOSEC) 20 mg capsule Take 1 capsule by mouth twice daily. Disp: 60 capsule Rfl: 0 mupirocin (BACTROBAN) 2 % ointment Apply 1 application to affected area twice daily. Apply twice a day. (Patient not taking: Reported on 09/03/2017 ) Disp: 22 g Rfl: 0 No current facility-administered medications for this visit. ALLERGIES Allergen Reactions - Cephalosporins Anaphylaxis - Thimerosal Swelling Difficulty breathing - Vancomycin Anaphylaxis flushed - Levaquin [Levofloxa* Rash, Other: See Comments Muscle/joint pain - Spironolactone (Bul* Rash Pt states happened years ago when trying this always forgets. 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 FAMILY HISTORY (grandparents, parents, brothers, sisters, aunts, or uncles) Liver Problems: No Ulcerative Colitis: No Crohn's Disease: No Colon Cancer: No Colon Polyps: No IBS: No Celiac disease: No Bleeding Disorders: Yes GI SPECIFIC REVIEW OF SYMPTOMS Difficulty swallowing / foods sticking in throat: no Heartburn: yes Hoarseness: no Chronic cough: no Regurgitation: no Chest pain: yes Filling up quickly at meals:no Loss of appetite: no Nausea: yes Vomiting: yes Abdominal pain: yes Recent change in bowel movements: no Bloody or black, bowel movements: no Constipation: no Diarrhea: no Loss of control of bowel movements: no Night sweats: no Fever: no Chills: no Thought or memory problems: no Fluid in abdomen (ascites): no Prominent leg swelling: yes Vomiting blood: no Recent change in weight: Yes, gained 20 lbs Review of Systems: Constitutional: Negative for fever, chills, and weight loss Eyes: Negative for vision changes and double vision ENT: Negative for ear pain, nasal discharge, and sore throat Heart: Negative for chest pain Lungs: Negative for shortness of breath and cough GI: See above Musculoskeletal: Chronic back pain Neuro: Negative for numbness and tingling Skin: Negative for rashes, lesions, and jaundice Hematologic/Lymphatic: Negative for unusual bruising, bleeding, and swelling Psych: Negative for anxiety and depression PAST MEDICAL HISTORY Colon polyps: Not sure Colon cancer: no Other cancer: yes Radiation / Chemotherapy: no Crohn's disease / Ulcerative colitis: no High cholesterol or triglycerides: yes Ulcers: yes Gallstones: no Hepatitis / Jaundice: no Heart Disease: no Lung Disease: yes Liver problems: yes Thyroid disease: no Kidney stones: no Pancreatitis: no Diabetes: yes Arthritis: yes Rheumatic fever: no Gastrointestinal bleeding: no Depression or other mental illness: yes Other personal illness: PHYSICAL EXAMINATION: 10/19/17 1412 BP: 140/65 BP Site: Left Arm BP Position: Sitting BP Cuff Size: Regular Adult Pulse: 83 Temp: 36.8 ?C (98.2 ?F) TempSrc: Oral SpO2: 97% Weight: 83.9 kg (185 lb) Height: 162.6 cm (5' 4) Body mass index is 31.76 kg/m?. General appearance: Appears well, alert, in no acute distress, well nourished. Skin: Skin color and temperature normal. No obvious rashes or lesions noted on exposed skin. Head: Normocephalic, atraumatic. No masses or lesions noted. Eyes: Anicteric sclera. Pupils are equally round and reactive. Ears: External ears normal Nose/Sinuses: Nares normal, no drainage Oropharynx: Lips normal, oropharynx moist. Adequate dentition. Neck: Supple, no adenopathy; thyroid symmetric, normal size Lungs: CTAB. Normal effort Heart: RRR, Mild murmur present over aortic listening point. Abdomen: Soft, non-distended. Bowel sounds present. No masses, no organomegaly. Non tender. Extremities: No deformities, discoloration, or pitting pedal edema noted. Psych: Pleasant affect, cooperative, A+O x3. Assessment IMPRESSION Ms. Thornton is a 67 year old year old female with a h/o hemochromatosis, T2DM, and past PUD who presents with returning epigastric pain, nausea, heartburn, and atypical CP attacks for the last few months. She has been off of her PPI for the last year and a half and has been taking mobic for the last several years for back pain. Furthermore, chronic EVERARDO has been more present recently with no need for regular phlebotomies for the hemochromatosis. She is UTD on screening colonoscopy (2015.) Suspect NSAID PUD/gastritis. Will arrange an EGD (pt requests twilight sedation.) Will also order esophageal manometry to evaluate the worsening severe CP attacks that improve with nitro. She will start back on her 20mg PPI for now. PLAN -EGD, duodenal bx for sprue -Esophageal manometry to follow for atypical CP -Start 20mg Prilosec OTC for now Nafisa Rapp APRN.CNP October 19, 2017 2:18 PM Nafisa Rapp APRN.CNP 10/19/2017 4:23 PM Signed Addended by: NAFISA RAPP CNP on: 10/19/2017 04:23 PM Modules accepted: Orders Referring Provider: BOWEN ANDRE [[id number]] Allergies As of Date: 10/19/2017 Noted Allergy Reaction CEPHALOSPORINS 03/09/2012 10 - Anaphylaxis THIMEROSAL 03/09/2012 7 - Swelling Comments: Difficulty breathing VANCOMYCIN 03/09/2012 10 - Anaphylaxis Comments: flushed LEVAQUIN (LEVOFLOXACIN) 03/14/2013 2 - Rash 14 - Other: See Comments Comments: Muscle/joint pain SPIRONOLACTONE (BULK) 02/20/2015 2 - Rash Comments: Pt states happened years ago when trying this always forgets. SULFA (SULFONAMIDE ANTIBIOTICS) 04/09/2012 4 - Hives 9 - Itching TAPE (ADHESIVE TAPE (ROSINS)) 06/08/2012 2 - Rash 9 - Itching Comments: degloving ZOCOR (SIMVASTATIN) 05/15/2014 14 - Other: See Comments Comments: Muscle/limb pain Date Reviewed: 10/19/2017 Reviewed by: Emmanuelle Ocasio Cma - Fully Assessed Reason for Visit: Consult [502] Cmt: esophageal spasms, epigastric pain Reason For Visit History Recorded Primary Visit Diagnosis:Heartburn [R12] Other Visit Diagnoses:History of gastric ulcer [Z87.19] Epigastric pain [R10.13] Nausea [R11.0] Other chest pain [R07.89] Dysphagia, unspecified type [R13.10] Iron deficiency [E61.1] Order(s):EGD GEN ANES [[id number]] Order #: [id number] FUTURE MANOMETRY ESOPHAGEAL [[id number]] Order #: [id number] FUTURE EGD [[id number]] Order #: [id number] FUTURE Prescriptions as of 10/19/2017 Sig: ASPIRIN 81 MG TABLET,DELAYED * Take 81 mg by mouth once dangelo* TRAMADOL 50 MG TABLET Take 2 tablets by mouth as ne* FREESTYLE LANCETS 28 GAUGE USE TO TEST BLOOD SUGAR THREE* FREESTYLE LITE STRIPS USE TO CHECK GLUCOSE THREE TI* HYDROCHLOROTHIAZIDE 25 MG TAB* Take 1 tablet by mouth once d* FUROSEMIDE 40 MG TABLET Take 0.5 tablets by mouth onc* COMPOUNDED PRESCRIPTION Use 1 application in each nos* MELOXICAM 15 MG TABLET Take 1 tablet by mouth once d* BLOOD-GLUCOSE METER KIT Freestyle LITE Meter Kit -Dx * POTASSIUM CHLORIDE ER 20 MEQ * Take 9 tablets by mouth once * OLOPATADINE 0.1 % EYE DROPS Use 1 Drop in both eyes twice* TRETINOIN 0.1 % TOPICAL CREAM Apply 1 Tube to affected area* ESTRADIOL 0.01% (0.1 MG/GRAM)* Use 1 g vaginally twice a wee* ASCORBIC ACID (VITAMIN C) 250* Take 4 tablets by mouth once * MULTI VITAMIN ORAL Take by mouth once daily. OMEPRAZOLE 20 MG CAPSULE,ZACHARY* Take 1 capsule by mouth twice* MUPIROCIN 2 % TOPICAL OINTMENT Apply 1 application to affect* Patient not taking: Reported on 09/03/2017 Medication notes this encounter OMEPRAZOLE 20 MG CAPSULE,DELAYED RELEASE >> Emmanuelle Ocasio Cma 10/19/2017 2:16 PM >> EMMANUELLE OCASIO CMA Oct 19, 2017 2:16 PM Has not started yet Problem List As Of Date 10/19/2017 Noted Resolved Essential hypertension [I10] INVALID FOR* Acne [L70.9] INVALID FOR* Pain disorder [R52] INVALID FOR* Menopausal vaginal dryness [N95.1] INVALID FOR* Itchy eyes [H57.8] INVALID FOR* Anemia [D64.9] INVALID FOR*10/14/2012 Hemochromatosis [E83.119] INVALID FOR* Body odor [L74.8] INVALID FOR* Chronic dermatitis of hands [L30.9] INVALID FOR* Frequent UTI [N39.0] INVALID FOR* Abdominal pain [R10.9] INVALID FOR* Hereditary hemochromatosis [E83.110] INVALID FOR* Liver dysfunction [K76.89] INVALID FOR* Lumbar stenosis [M48.061] INVALID FOR* Lumbar radiculopathy [M54.16] INVALID FOR* Chronic pain [G89.29] INVALID FOR* Negron's cyst [M71.20] INVALID FOR* Tear, knee, lateral meniscus [S83.289A] INVALID FOR* Complex tear of medial meniscus of left knee as*INVALID FOR* Pain in joint, lower leg [M25.569] INVALID FOR* Tear of medial cartilage or meniscus of knee, c*INVALID FOR* Diabetes mellitus type 2, controlled, without c*INVALID FOR* Hyperlipidemia [E78.5] INVALID FOR* Thoracic back pain [M54.6] INVALID FOR* DDD (degenerative disc disease), cervical [M50.*INVALID FOR* Cervical spondylosis [M47.812] INVALID FOR* Acute combined systolic and diastolic congestiv*INVALID FOR*03/04/2015 Chronic instability of metacarpophalangeal join*INVALID FOR* Bilateral low back pain without sciatica [M54.5]INVALID FOR* Thumb pain [M79.646] INVALID FOR* DDD (degenerative disc disease), lumbar [M51.36]INVALID FOR* Trochanteric bursitis of left hip [M70.62] INVALID FOR* Piriformis syndrome of left side [G57.02] INVALID FOR* Trochanteric tendinitis of left hip [M70.62] INVALID FOR* Vitiligo [L80] INVALID FOR* More... 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 Chronic rhinitis [J31.0] INVALID FOR* Osteoarthritis of cervical spine with myelopath*INVALID FOR* Encounter Status:Closed by NAFISA RAPP CNP on 10/19/17 PROGRESS Observed: 10/15/2017 Status: COMPLETED Source: [place] 8:32 AM [facility] [place] REPOSITORY O ID: [id number] Author: Zhanna Hawkins (Sw) Service: (none) Author Type: Liner Installer Type: Progress Notes Filed: 10/15/2017 8:37 AM Note Text: SOCIAL WORK DISTRESS ASSESSMENT Referral made due to:Moderate distress Contact was made: Qjxs-gi-Kxgh Problems Addressed: Practical: N/A Family: N/A Emotional: Depression, Fears, Nervousness, Worry and Loss of Interest Spiritual Concerns: N/A Physical Problems: Eating, Fatigue, Indigestion, Mobility, Memory/concentration, Nose dry/congested, Pain, Sleep and Substance abuse Exercising: No Stress Management: Yes Is the patient's distress related to a change in quality of life? No Patient with current Suicidal Ideation: No MENTAL HEALTH HISTORY: Yes Diagnosis: Alcohol abuse, depression Treatment: medication, counseling and support group Substance Use and Treatment History: reported History of Abuse: denied History of combat/trauma: Na INTERVENTION/PLAN: Monitor patient response to treatment Communicate pertinent medical/psychosocial information to Cancer Center team Provide emotional support to patient/family Referral to community resource Education Provided education on distress and screening process Continue follow up as needed Resources and Referrals: ? Internal: NA ? External: Other [facility] Follow up appointment with GRETA in: 1 week SW met with patient in response to KP tablet. Patient reports she has a history of alcohol abuse and has recently started drinking again about 4-5 nights per week. Patient is still linked with [facility], but states that she has not been for services in a while since her previous therapist left and they discontinued the art therapy group. SW encouraged patient to stop in to see who the current therapists are so she can begin counseling again. Patient is agreeable to this. Patient reports she also has an ulcer and discussed with SW the implications of drinking alcohol with this. Patient reports her hematological issues are well taken care of and she denies issues with this. Patient reports the only family she has nearby is her sister and SW encouraged patient to plan more activities/make more phone calls with her sister to have some social support. SW discussed other ways to get involved with the community and to meet more people. Patient is agreeable to having SW follow-up with her next week. ZhannaJOE Rowley CNOVSP Observed: 10/14/2017 Status: COMPLETED Source: [place] 4:40 PM [facility] REPOSITORY Visit (SP) Office ([place]) LEILA THORNTON ([id number]) 1950 F Date Time Provider Department 10/14/17 4:40 PM BOWEN ANDRE During your visit today, we recorded the following information about you: Temperature Pulse Blood pressure Weight 98 degrees 73/minute 121/67 85.5 kg Bowen Andre MD 10/15/2017 8:42 AM Signed PATIENT NAME: Leila Thornton. CLINIC NO: [id number]. ATTENDING PHYSICIAN: Bowen Andre MD. ? 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 HPI: This is a 67-year-old lady who was diagnosed with hereditary hemachromatosis in 2007. Patient presented with abnormal liver function and she has a history of alcohol abuse. She has had lead exposure but was tested for hepatitis. She also had hepatitis B vaccine over 10 years ago. ? Patient denied fever, chills or weight loss. Her last evaluation by her hematologists in July 11, 2010 showed an iron saturation of 12% and a ferritin level of 7ng/dl. She has a sister who also was diagnosed with hereditary hemochromatosis. Patient has no history of diabetes mellitus. She denies jaundice, abdominal swelling or bloating. Patient complained of generalized arthritis of her hands, wrists and knees as well as lower back pain. ? Interim history: Patient is doing well today. She has been getting phlebotomy through the local [place]. Recently, she complaints of epigastric pain and esophageal spasm. She has a history of peptic ulcer disease and celiac disease as well. ? Patient denies fatigue, lightheadedness or shortness of breath. She has no bloating or jaundice. No polyuria, polydipsia or arthritic pain. ? All medications AND allergies updated and KP SCORE reviewed by me. ? REVIEW OF SYSTEMS: CONSTITUTIONAL: No fevers, chills, nightsweats, unintended weight loss HEENT: Denies frequent or severe heaches, nasal congestion/sinus symptoms, problematic allergy problems. EYES: No diplopia or blurry vision. CARDIOVASCULAR: No chest pain, dyspnea, palpitations, orthopnea, PND, ankle edema. PULM: No dyspnea, unexplained cough. GI: No dysphagia/odynophagia, problematic reflux, constipation, diarrhea, changes in stool habits, hematochezia, melena. : No new urinary complaints, including dysuria, gross hematuria or pyuria. NEURO: No new balance problems, peripheral weakness/paresthesias or numbness of concern. MUSC-SKEL: complained of joint pain and swelling, chronic lower back pain with sciatica PSY: No concerns regarding depression, anxiety or panic. INTEGUMENTARY: No new skin changes (rash, new or changing mole, new growth) ? PHYSICAL EXAMINATION: 67 year-old female in no acute distress Performance status 100% BP 121/67 Pulse 73 Temp (Src) 98 (Temporal Artery) Wt 188 lb 8 oz (85.5kg) HEENT: Head is normocephalic, atraumatic. Sclerae white, conjunctivae pink. PEERL. EOMs are intact. Oropharynx is benign. LYMPHATICS: There is no palpable adenopathy in the neck, supraclavicular region, axillae, or groin. LUNGS: Lungs are clear to percussion and auscultation. HEART: Heart is normal without murmurs, gallops, or rubs. ABDOMEN: Soft and nondistended, + epigastric tenderness, without organomegaly. No masses can be palpated. Liver span is approximately 3 cm smooth and nontender. EXTREMITIES: Are without edema. NEUROLOGIC: Exam is physiologic ? LABORATORY DATA: Component Latest Ref Rng AND Units 10/08/2017 WBC, [place] 3.70 - 11.00 k/uL 4.80 RBC, [place] 3.90 - 5.20 m/uL 4.33 Hemoglobin, [place] 11.5 - 15.5 g/dL 11.5 Hematocrit, Drew 36.0 - 46.0 % 36.1 MCV, Drew 80.0 - 100.0 fL 83.4 MCH, [place] 26.0 - 34.0 pg 26.6 MCHC, Drew 30.5 - 36.0 g/dL 31.9 RDW, [place] 11.5 - 15.0 % 20.6 (H) Platelet Cnt, Drew 150 - 400 k/uL 292 MPV, Drew 9.0 - 12.7 fL 10.0 Absol Gran Count 1.45 - 7.50 k/uL 2.49 Component Latest Ref Rng AND Units 10/08/2017 Iron 41 - 186 ug/dL 44 TIBC 232 - 386 ug/dL 404 (H) Transferrin Saturation 15 - 57 % 11 (L) Hemoglobin A1C 4.3 - 5.6 % 6.0 (H) Estimated Average Glucose mg/dL 126 Ferritin 14.7 - 205.1 ng/mL 17.0 Component Latest Ref Rng AND Units 10/08/2017 Albumin 3.9 - 4.9 g/dL 4.3 Bilirubin, Total 0.2 - 1.3 mg/dL 0.2 Bilirubin, Conjug <0.2 mg/dL <0.2 Alkaline Phosphatase 32 - 117 U/L 77 AST 13 - 35 U/L 27 ALT 7 - 38 U/L 13 Protein, Total 6.3 - 8.0 g/dL 6.9 AFP <11 ng/mL 4.1 ASSESSMENT: Hereditary hemochromatosis. She is doing well with phlebotomy. Ferritin AND iron saturation were low. epigastric pain and esophageal spasm. ? PLAN: 1. Continue phlebotomy every 2-3 months if her hematocrit is greater than 36%. Repeat CBC, liver function, ferritin AND AFP OV in 1 year. Continue therapeutic phlebotomy at the local [place]. 2. start Nexium 40mg once daily AND refer to surgery for evaluation of epigastric pain and possible repeat EGD. - Patient should go on a gluten-free diet. 3. Anxiety symptoms secondary to above - Refer to Zhanna for distress management. I spent 25 minutes in the visit, with more than 50% of the total [id number] time of the visit in counseling / coordination of care. Bowen Andre MD Cc: Dr. Etta Weller ? Referring Provider: BOWEN ANDRE [[id number]] Allergies As of Date: 10/14/2017 Noted Allergy Reaction CEPHALOSPORINS 03/09/2012 10 - Anaphylaxis THIMEROSAL 03/09/2012 7 - Swelling Comments: Difficulty breathing VANCOMYCIN 03/09/2012 10 - Anaphylaxis Comments: flushed LEVAQUIN (LEVOFLOXACIN) 03/14/2013 2 - Rash 14 - Other: See Comments Comments: Muscle/joint pain SPIRONOLACTONE (BULK) 02/20/2015 2 - Rash Comments: Pt states happened years ago when trying this always forgets. SULFA (SULFONAMIDE ANTIBIOTICS) 04/09/2012 4 - Hives 9 - Itching TAPE (ADHESIVE TAPE (ROSINS)) 06/08/2012 2 - Rash 9 - Itching Comments: degloving ZOCOR (SIMVASTATIN) 05/15/2014 14 - Other: See Comments Comments: Muscle/limb pain Date Reviewed: 10/14/2017 Reviewed by: Lupe Hogan - Fully Assessed Reason for Visit: Established Patient [175] Primary Visit Diagnosis:Hereditary hemochromatosis (HCC) [E83.110] Other Visit Diagnoses:Celiac disease [K90.0] PUD (peptic ulcer disease) [K27.9] Epigastric pain [R10.13] Order(s):CONSULT TO GENERAL SURGERY [9011] Order #: [id number]: 1 Level of Service: EST PATIENT VISIT LEVEL 4 [[id number]] Disposition: Return in about 1 year (around 10/14/2018). LOS history recorded Follow-up and Disposition History Recorded Prescriptions as of 10/14/2017 Sig: ASPIRIN 81 MG TABLET,DELAYED * Take 81 mg by mouth once dangelo* TRAMADOL 50 MG TABLET Take 2 tablets by mouth as ne* FREESTYLE LANCETS 28 GAUGE USE TO TEST BLOOD SUGAR THREE* FREESTYLE LITE STRIPS USE TO CHECK GLUCOSE THREE TI* HYDROCHLOROTHIAZIDE 25 MG TAB* Take 1 tablet by mouth once d* FUROSEMIDE 40 MG TABLET Take 0.5 tablets by mouth onc* COMPOUNDED PRESCRIPTION Use 1 application in each nos* MELOXICAM 15 MG TABLET Take 1 tablet by mouth once d* BLOOD-GLUCOSE METER KIT Freestyle LITE Meter Kit -Dx * POTASSIUM CHLORIDE ER 20 MEQ * Take 9 tablets by mouth once * OLOPATADINE 0.1 % EYE DROPS Use 1 Drop in both eyes twice* TRETINOIN 0.1 % TOPICAL CREAM Apply 1 Tube to affected area* ESTRADIOL 0.01% (0.1 MG/GRAM)* Use 1 g vaginally twice a wee* ASCORBIC ACID (VITAMIN C) 250* Take 4 tablets by mouth once * MULTI VITAMIN ORAL Take by mouth once daily. X ESOMEPRAZOLE MAGNESIUM 40 MG * Take 1 capsule by mouth once * MUPIROCIN 2 % TOPICAL OINTMENT Apply 1 application to affect* Patient not taking: Reported on 09/03/2017 Problem List As Of Date 10/14/2017 Noted Resolved Essential hypertension [I10] INVALID FOR* Acne [L70.9] INVALID FOR* Pain disorder [R52] INVALID FOR* Menopausal vaginal dryness [N95.1] INVALID FOR* Itchy eyes [H57.8] INVALID FOR* Anemia [D64.9] INVALID FOR*10/14/2012 Hemochromatosis [E83.119] INVALID FOR* Body odor [L74.8] INVALID FOR* Chronic dermatitis of hands [L30.9] INVALID FOR* Frequent UTI [N39.0] INVALID FOR* Abdominal pain [R10.9] INVALID FOR* Hereditary hemochromatosis [E83.110] INVALID FOR* Liver dysfunction [K76.89] INVALID FOR* Lumbar stenosis [M48.061] INVALID FOR* Lumbar radiculopathy [M54.16] INVALID FOR* Chronic pain [G89.29] INVALID FOR* Negron's cyst [M71.20] INVALID FOR* Tear, knee, lateral meniscus [S83.289A] INVALID FOR* Complex tear of medial meniscus of left knee as*INVALID FOR* Pain in joint, lower leg [M25.569] INVALID FOR* Tear of medial cartilage or meniscus of knee, c*INVALID FOR* Diabetes mellitus type 2, controlled, without c*INVALID FOR* Hyperlipidemia [E78.5] INVALID FOR* Thoracic back pain [M54.6] INVALID FOR* DDD (degenerative disc disease), cervical [M50.*INVALID FOR* Cervical spondylosis [M47.812] INVALID FOR* Acute combined systolic and diastolic congestiv*INVALID FOR*03/04/2015 Chronic instability of metacarpophalangeal join*INVALID FOR* Bilateral low back pain without sciatica [M54.5]INVALID FOR* Thumb pain [M79.646] INVALID FOR* DDD (degenerative disc disease), lumbar [M51.36]INVALID FOR* Trochanteric bursitis of left hip [M70.62] INVALID FOR* Piriformis syndrome of left side [G57.02] INVALID FOR* Trochanteric tendinitis of left hip [M70.62] INVALID FOR* Vitiligo [L80] INVALID FOR* More... 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 Chronic rhinitis [J31.0] INVALID FOR* Osteoarthritis of cervical spine with myelopath*INVALID FOR* Encounter Status:Closed by BOWEN ANDRE MD on 10/15/17 PROGRESS Observed: 10/14/2017 Status: COMPLETED Source: [place] 4:19 PM [facility] REPOSITORY HNO ID: [id number] Author: Bowen Andre Service: (none) Author Type: Physician Type: Progress Notes Filed: 10/15/2017 8:42 AM Note Text: PATIENT NAME: Leila Thornton. [facility] NO: [id number]. ATTENDING PHYSICIAN: Bowen Andre MD. ? 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 HPI: This is a 67-year-old lady who was diagnosed with hereditary hemachromatosis in 2007. Patient presented with abnormal liver function and she has a history of alcohol abuse. She has had lead exposure but was tested for hepatitis. She also had hepatitis B vaccine over 10 years ago. ? Patient denied fever, chills or weight loss. Her last evaluation by her hematologists in July 11, 2010 showed an iron saturation of 12% and a ferritin level of 7ng/dl. She has a sister who also was diagnosed with hereditary hemochromatosis. Patient has no history of diabetes mellitus. She denies jaundice, abdominal swelling or bloating. Patient complained of generalized arthritis of her hands, wrists and knees as well as lower back pain. ? Interim history: Patient is doing well today. She has been getting phlebotomy through the local [place]. Recently, she complaints of epigastric pain and esophageal spasm. She has a history of peptic ulcer disease and celiac disease as well. ? Patient denies fatigue, lightheadedness or shortness of breath. She has no bloating or jaundice. No polyuria, polydipsia or arthritic pain. ? All medications AND allergies updated and KP SCORE reviewed by me. ? REVIEW OF SYSTEMS: CONSTITUTIONAL: No fevers, chills, nightsweats, unintended weight loss HEENT: Denies frequent or severe heaches, nasal congestion/sinus symptoms, problematic allergy problems. EYES: No diplopia or blurry vision. CARDIOVASCULAR: No chest pain, dyspnea, palpitations, orthopnea, PND, ankle edema. PULM: No dyspnea, unexplained cough. GI: No dysphagia/odynophagia, problematic reflux, constipation, diarrhea, changes in stool habits, hematochezia, melena. : No new urinary complaints, including dysuria, gross hematuria or pyuria. NEURO: No new balance problems, peripheral weakness/paresthesias or numbness of concern. MUSC-SKEL: complained of joint pain and swelling, chronic lower back pain with sciatica PSY: No concerns regarding depression, anxiety or panic. INTEGUMENTARY: No new skin changes (rash, new or changing mole, new growth) ? PHYSICAL EXAMINATION: 67 year-old female in no acute distress Performance status 100% BP 121/67 Pulse 73 Temp (Src) 98 (Temporal Artery) Wt 188 lb 8 oz (85.5kg) HEENT: Head is normocephalic, atraumatic. Sclerae white, conjunctivae pink. PEERL. EOMs are intact. Oropharynx is benign. LYMPHATICS: There is no palpable adenopathy in the neck, supraclavicular region, axillae, or groin. LUNGS: Lungs are clear to percussion and auscultation. HEART: Heart is normal without murmurs, gallops, or rubs. ABDOMEN: Soft and nondistended, + epigastric tenderness, without organomegaly. No masses can be palpated. Liver span is approximately 3 cm smooth and nontender. EXTREMITIES: Are without edema. NEUROLOGIC: Exam is physiologic ? LABORATORY DATA: Component Latest Ref Rng AND Units 10/08/2017 WBC, [place] 3.70 - 11.00 k/uL 4.80 RBC, [place] 3.90 - 5.20 m/uL 4.33 Hemoglobin, [place] 11.5 - 15.5 g/dL 11.5 Hematocrit, [place] 36.0 - 46.0 % 36.1 MCV, [place] 80.0 - 100.0 fL 83.4 MCH, [place] 26.0 - 34.0 pg 26.6 MCHC, [place] 30.5 - 36.0 g/dL 31.9 RDW, [place] 11.5 - 15.0 % 20.6 (H) Platelet Cnt, [place] 150 - 400 k/uL 292 MPV, [place] 9.0 - 12.7 fL 10.0 Absol Gran Count 1.45 - 7.50 k/uL 2.49 Component Latest Ref Rng AND Units 10/08/2017 Iron 41 - 186 ug/dL 44 TIBC 232 - 386 ug/dL 404 (H) Transferrin Saturation 15 - 57 % 11 (L) Hemoglobin A1C 4.3 - 5.6 % 6.0 (H) Estimated Average Glucose mg/dL 126 Ferritin 14.7 - 205.1 ng/mL 17.0 Component Latest Ref Rng AND Units 10/08/2017 Albumin 3.9 - 4.9 g/dL 4.3 Bilirubin, Total 0.2 - 1.3 mg/dL 0.2 Bilirubin, Conjug <0.2 mg/dL <0.2 Alkaline Phosphatase 32 - 117 U/L 77 AST 13 - 35 U/L 27 ALT 7 - 38 U/L 13 Protein, Total 6.3 - 8.0 g/dL 6.9 AFP <11 ng/mL 4.1 ASSESSMENT: Hereditary hemochromatosis. She is doing well with phlebotomy. Ferritin AND iron saturation were low. epigastric pain and esophageal spasm. ? PLAN: 1. Continue phlebotomy every 2-3 months if her hematocrit is greater than 36%. Repeat CBC, liver function, ferritin AND AFP OV in 1 year. Continue therapeutic phlebotomy at the local [place]. 2. start Nexium 40mg once daily AND refer to surgery for evaluation of epigastric pain and possible repeat EGD. - Patient should go on a gluten-free diet. 3. Anxiety symptoms secondary to above - Refer to Zhanna for distress management. I spent 25 minutes in the visit, with more than 50% of the total fxjg-ii-zzjr time of the visit in counseling / coordination of care. Bowen Andre MD Cc: Dr. Etta Weller ? CNSW Observed: 10/14/2017 Status: COMPLETED Source: [place] 12:00 AM [facility] REPOSITORY Social Work ([place]) LEILA THORNTON ([id number]) 1950 F Date Time Provider Department 10/14/17 ZHANNA HAWKINS (SW) During your visit today, we recorded the following information about you: JOE Taylor 10/15/2017 8:37 AM Signed SOCIAL WORK DISTRESS ASSESSMENT Referral made due to:Moderate distress Contact was made: Dfyx-gh-Gcvb Problems Addressed: Practical: N/A Family: N/A Emotional: Depression, Fears, Nervousness, Worry and Loss of Interest Spiritual Concerns: N/A Physical Problems: Eating, Fatigue, Indigestion, Mobility, Memory/concentration, Nose dry/congested, Pain, Sleep and Substance abuse Exercising: No Stress Management: Yes Is the patient's distress related to a change in quality of life? No Patient with current Suicidal Ideation: No MENTAL HEALTH HISTORY: Yes Diagnosis: Alcohol abuse, depression Treatment: medication, counseling and support group Substance Use and Treatment History: reported History of Abuse: denied History of combat/trauma: Na INTERVENTION/PLAN: Monitor patient response to treatment Communicate pertinent medical/psychosocial information to Cancer Center team Provide emotional support to patient/family Referral to community resource Education Provided education on distress and screening process Continue follow up as needed Resources and Referrals: ? Internal: NA ? External: Other [facility] Follow up appointment with GRETA in: 1 week SW met with patient in response to KP tablet. Patient reports she has a history of alcohol abuse and has recently started drinking again about 4-5 nights per week. Patient is still linked with [facility], but states that she has not been for services in a while since her previous therapist left and they discontinued the art therapy group. SW encouraged patient to stop in to see who the current therapists are so she can begin counseling again. Patient is agreeable to this. Patient reports she also has an ulcer and discussed with SW the implications of drinking alcohol with this. Patient reports her hematological issues are well taken care of and she denies issues with this. Patient reports the only family she has nearby is her sister and SW encouraged patient to plan more activities/make more phone calls with her sister to have some social support. SW discussed other ways to get involved with the community and to meet more people. Patient is agreeable to having GRETA follow-up with her next week. JOE Taylor Allergies As of Date: 10/14/2017 Noted Allergy Reaction CEPHALOSPORINS 03/09/2012 10 - Anaphylaxis THIMEROSAL 03/09/2012 7 - Swelling Comments: Difficulty breathing VANCOMYCIN 03/09/2012 10 - Anaphylaxis Comments: flushed LEVAQUIN (LEVOFLOXACIN) 03/14/2013 2 - Rash 14 - Other: See Comments Comments: Muscle/joint pain SPIRONOLACTONE (BULK) 02/20/2015 2 - Rash Comments: Pt states happened years ago when trying this always forgets. SULFA (SULFONAMIDE ANTIBIOTICS) 04/09/2012 4 - Hives 9 - Itching TAPE (ADHESIVE TAPE (ROSINS)) 06/08/2012 2 - Rash 9 - Itching Comments: degloving ZOCOR (SIMVASTATIN) 05/15/2014 14 - Other: See Comments Comments: Muscle/limb pain Date Reviewed: 10/14/2017 Reviewed by: Lupe Hogan - Fully Assessed Reason for Visit: Social Work Services [507] Cmt: distress assessment Prescriptions as of 10/14/2017 Sig: OMEPRAZOLE 20 MG CAPSULE,ZACHARY* Take 1 capsule by mouth twice* ASPIRIN 81 MG TABLET,DELAYED * Take 81 mg by mouth once dangelo* X ESOMEPRAZOLE MAGNESIUM 40 MG * Take 1 capsule by mouth once * TRAMADOL 50 MG TABLET Take 2 tablets by mouth as ne* FREESTYLE LANCETS 28 GAUGE USE TO TEST BLOOD SUGAR THREE* FREESTYLE LITE STRIPS USE TO CHECK GLUCOSE THREE TI* HYDROCHLOROTHIAZIDE 25 MG TAB* Take 1 tablet by mouth once d* FUROSEMIDE 40 MG TABLET Take 0.5 tablets by mouth onc* MUPIROCIN 2 % TOPICAL OINTMENT Apply 1 application to affect* Patient not taking: Reported on 09/03/2017 COMPOUNDED PRESCRIPTION Use 1 application in each nos* MELOXICAM 15 MG TABLET Take 1 tablet by mouth once d* BLOOD-GLUCOSE METER KIT Freestyle LITE Meter Kit -Dx * POTASSIUM CHLORIDE ER 20 MEQ * Take 9 tablets by mouth once * OLOPATADINE 0.1 % EYE DROPS Use 1 Drop in both eyes twice* TRETINOIN 0.1 % TOPICAL CREAM Apply 1 Tube to affected area* ESTRADIOL 0.01% (0.1 MG/GRAM)* Use 1 g vaginally twice a wee* ASCORBIC ACID (VITAMIN C) 250* Take 4 tablets by mouth once * MULTI VITAMIN ORAL Take by mouth once daily. Problem List As Of Date 10/14/2017 Noted Resolved Essential hypertension [I10] INVALID FOR* Acne [L70.9] INVALID FOR* Pain disorder [R52] INVALID FOR* Menopausal vaginal dryness [N95.1] INVALID FOR* Itchy eyes [H57.8] INVALID FOR* Anemia [D64.9] INVALID FOR*10/14/2012 Hemochromatosis [E83.119] INVALID FOR* Body odor [L74.8] INVALID FOR* Chronic dermatitis of hands [L30.9] INVALID FOR* Frequent UTI [N39.0] INVALID FOR* Abdominal pain [R10.9] INVALID FOR* Hereditary hemochromatosis [E83.110] INVALID FOR* Liver dysfunction [K76.89] INVALID FOR* Lumbar stenosis [M48.061] INVALID FOR* Lumbar radiculopathy [M54.16] INVALID FOR* Chronic pain [G89.29] INVALID FOR* Negron's cyst [M71.20] INVALID FOR* Tear, knee, lateral meniscus [S83.289A] INVALID FOR* Complex tear of medial meniscus of left knee as*INVALID FOR* Pain in joint, lower leg [M25.569] INVALID FOR* Tear of medial cartilage or meniscus of knee, c*INVALID FOR* Diabetes mellitus type 2, controlled, without c*INVALID FOR* Hyperlipidemia [E78.5] INVALID FOR* Thoracic back pain [M54.6] INVALID FOR* DDD (degenerative disc disease), cervical [M50.*INVALID FOR* Cervical spondylosis [M47.812] INVALID FOR* Acute combined systolic and diastolic congestiv*INVALID FOR*03/04/2015 Chronic instability of metacarpophalangeal join*INVALID FOR* Bilateral low back pain without sciatica [M54.5]INVALID FOR* Thumb pain [M79.646] INVALID FOR* DDD (degenerative disc disease), lumbar [M51.36]INVALID FOR* Trochanteric bursitis of left hip [M70.62] INVALID FOR* Piriformis syndrome of left side [G57.02] INVALID FOR* Trochanteric tendinitis of left hip [M70.62] INVALID FOR* Vitiligo [L80] INVALID FOR* More... 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 Chronic rhinitis [J31.0] INVALID FOR* Osteoarthritis of cervical spine with myelopath*INVALID FOR* Encounter Status:Closed by ZHANNA HAWKINS on 10/15/17 HEMOGLOBIN A1C Collected: 10/08/2017 Status: F Source: [place] 12:52 PM [facility] REPOSITORY TYPE CODE TESTS RESULT OUT OF REFERENCE UNITS RANGE LAB HGBA1C 4.3-5.6 % High Hemoglobin A1c 6.0 LAB HBA0 mg/dL Est. Average Glucose 126 Result Comment: eAG: (Estimated average glucose) is a calculated value from HgbA1c and is merchandising representative of the average blood glucose level in the last 2-3 month period. Performed By: #### HBA1C, CMP #### [facility] [address] [address] COMP METABOLIC PANEL Collected: 10/08/2017 Status: F Source: [place] 12:52 PM [facility] REPOSITORY TYPE CODE TESTS RESULT OUT OF REFERENCE UNITS RANGE LAB TP 6.3-8.0 g/dL Protein, Total 7.0 LAB ALB 3.9-4.9 g/dL Albumin 4.2 LAB CA 8.5-10.2 mg/dL Calcium, Total 9.2 LAB TBIL 0.2-1.3 mg/dL Bilirubin, Total 0.2 LAB ALKP 32-117 U/L Alkaline Phosphatase 77 LAB AST 13-35 U/L AST 24 LAB GLU 74-99 mg/dL Glucose High 100 Result Comment: The [place] Diabetes [employer] (ADA) provides guidance for cutoff values for fasting glucose and random glucose. The ADA defines fasting as no caloric intake for at least 8 hours. Fas ting plasma glucose results between 100 to 125 mg/dL indicate increased risk for diabetes (prediabetes). Fasting plasma glucose results greater than or equal to 126 mg/dL meet the criteria for diagnosis of diabetes. In the absence of unequivocal hyperglycemia, results should be confirmed by repeat testing. In a patient with classic symptoms of hyperglycemia or hyperglycemic crisis, random plasma glucose results greater than or equal to 200 mg/dL meet the criteria for diagnosis of diabetes. Reference: Standards of Medical Care in Diabetes 2016, [place] [employer] Association. Diabetes Care. 2016.39(Suppl 1). LAB BUN 7-21 mg/dL BUN 20 LAB CRET 0.58-0.96 mg/dL Creatinine 0.69 LAB NA 136-144 mmol/L Sodium 140 LAB K 3.7-5.1 mmol/L Potassium 3.8 LAB CL 97-105 mmol/L Chloride 101 LAB CO2 22-30 mmol/L CO2 29 LAB AGAP 9-18 mmol/L Anion Gap 10 LAB ALT 7-38 U/L ALT 15 LAB GFRAA eGFR- Amer. >60 LAB GFRNAA . eGFR-All Other Races >60 Result Comment: eGFR (Estimated GFR) Units of measure: mL/min/1.73 meters squared eGFR is derived from the reexpressed MDRD Study equation using the following parameters: serum creatinine, age, gender and race. The creatinine assay has been calibrated to be traceable to IDMS. An eGFR <60 mL/min/1.73m2 for >3 months is consistent with chronic kidney disease. Refer to KDOQI guidelines for clinical interpretation. In patients with unstable renal function, e.g. those with acute kidney injury, the eGFR may not accurately reflect actual GFR. Performed By: #### HBA1C, CMP #### [facility] [address] [place] [address] IRON AND TIBC Collected: 10/08/2017 Status: F Source: [place] 12:52 PM [facility] REPOSITORY TYPE CODE TESTS RESULT OUT OF REFERENCE UNITS RANGE LAB IRN 41-186 ug/dL Iron 44 LAB TIBC 232-386 ug/dL TIBC High 404 LAB SAT 15-57 % Low Transferrin Saturatn 11 Performed By: #### IRON #### [facility] [address] [place] [id number] DREW ABS GR + CBC Collected: 10/08/2017 Status: F Source: [place] 12:51 PM [facility] REPOSITORY TYPE CODE TESTS RESULT OUT OF REFERENCE UNITS RANGE LAB WWBC 3.70-11.00 k/uL [place] WBC 4.80 LAB WRBC 3.90-5.20 m/uL [place] RBC 4.33 LAB WHGB 11.5-15.5 g/dL [place] Hemoglobin 11.5 LAB WHCT 36.0-46.0 % Drew Hematocrit 36.1 LAB WMCV 80.0-100.0 fL [place] MCV 83.4 LAB WMCH 26.0-34.0 pg [place] MCH 26.6 LAB WMCHC 30.5-36.0 g/dL [place] MCHC 31.9 LAB WRDW 11.5-15.0 % Drew High RDW 20.6 LAB WPLT 150-400 k/uL [place] Platelet Cnt 292 LAB WMPV 9.0-12.7 fL Drew MPV 10.0 Result Comment: Test performed at: [facility], [address] [place] [address]. LAB ABGRAN 1.45-7.50 k/uL Absol Gran 2.49 Count AFP Collected: 10/08/2017 Status: F Source: [place] 12:51 PM [facility] REPOSITORY TYPE CODE TESTS RESULT OUT OF RANGE REFERENCE UNITS LAB AFP <11 ng/mL AFP 4.1 Performed By: #### AFP, HFP, FERR #### [facility] [address] [id number] HEPATIC FUNCTN PANEL Collected: 10/08/2017 Status: F Source: [place] 12:51 PM [facility] REPOSITORY TYPE CODE TESTS RESULT OUT OF REFERENCE UNITS RANGE LAB ALB 3.9-4.9 g/dL Albumin 4.3 LAB TBIL 0.2-1.3 mg/dL Bilirubin, Total 0.2 LAB CBIL <0.2 mg/dL Bilirubin,Conjuga <0.2 [place] LAB ALKP 32-117 U/L Alkaline Phosphatase 77 LAB AST 13-35 U/L AST 27 LAB ALT 7-38 U/L ALT 13 LAB TP 6.3-8.0 g/dL Protein, Total 6.9 Performed By: #### AFP, HFP, FERR #### [facility] [address] [place], [place] [address] FERRITIN Collected: 10/08/2017 Status: F Source: [place] 12:51 PM [facility] REPOSITORY TYPE CODE TESTS RESULT OUT OF REFERENCE UNITS RANGE LAB FERR 14.7-205.1 ng/mL Ferritin 17.0 Performed By: #### AFP, HFP, FERR #### [facility] [address] [place], [place] [address] PROGRESS Observed: 10/05/2017 Status: COMPLETED Source: [place] 3:48 PM [facility] REPOSITORY HNO ID: [id number] Author: Radha (Pt) Curt Service: (none) Author Type: Physical Therapist Type: Progress Notes Filed: 10/05/2017 3:48 PM Note Text: [facility] PHYSICAL THERAPY DISCONTINUANCE OF CARE Plan of Care Period: Start of Care Date: 08/10/17 Last Visit Date:08/18/2017 Therapy Program: Patient did not return for follow up care as planned. Please refer to last visit note for interventions provided for this episode of care. Assessment: Unable to formally assess goal achievement due to non-compliance with therapy plan of care. Reason for Discontinuation of Care: Patient has not returned to therapy or scheduled additional follow-up appointments. Radha Elias, PT PROGRESS Observed: 09/03/2017 Status: COMPLETED Source: [place] 12:43 PM [facility] REPOSITORY HNO ID: [id number] Author: Ashley Simpson (Global Chief Creative Officer) Service: (none) Author Type: Nurse Practitioner Type: Progress Notes Filed: 09/04/2017 8:46 AM Note Text: SUBJECTIVE: Leila Thornton presents to [facility] for a followup appointment for follow up. Since the last visit, Leila Thornton states the pain has been getting worse. Current pain intensity is 6 on a scale of 0-10. Pain located in Back area and radiates down the posterior leg, down the posterolateral leg and down the anterior leg. Pain described as aching, moderate, radiating, severe, sharp, shooting, cramping and spasms The patient Reports weakness, morning stiffness, leg pain and leg weakness. Symptoms interfere with physical activity, walking and lifting. Pain is exacerbated by lifting, lying down and walking. Pain is mitigated by sitting, medications and ice . The patient is overall improved with the injections by 90%. REVIEW OF SYSTEMS: Constitutional: (-) Fever (-) Night Sweats (+) Weight Gain (-) Weight Loss (-) Fatigue Cardiovascular: (-) Chest Pain (-) Palpitations (-) Lightheadedness (-) Swelling of Ankles (-) Hx Heart Surgery Respiratory: (-) Shortness of Breath (-) Cough (-) Wheezing (-) Snoring Gastrointestinal: (-) Incontinence (-) Abdominal Pain (-) Diarrhea (-) Constipation (-) Nausea/Vomiting (-) Heart Burn Endocrine: (-) Thyroid Disorder (+) Diabetes Hematologic: (-) Prolonged Bleeding (-) Easy Bruising Genitourinary: (+) Incontinence (-) Frequency (-) Urinary Urgency Skin: (-) Rashes (-) Itching (-) Other Lesions Neurologic: (-) Headache (-) Double Vision (-) Confusion (-) Paralysis Psychiatric: (+) Depression (+) Anxiety (-) Delusions (-) Hallucinations (+) Personal History of Alcohol or Substance Abuse (-) Family History of Alcohol or Substance Abuse OBJECTIVE: Pulse 82 Ht 5' 4 (1.63m) Wt 179 lb 14.4 oz (81.6kg) SpO2 95% BMI 30.86 kg/(m2). PHYSICAL EXAMINATION: General appearance: Well appearing, in no acute distress, alert Skin: Skin color, texture, turgor normal, no rashes or lesions Neck: No pain to palpation over the cervical paraspinous muscles. No pain with neck flexion, extension, or lateral flexion Cardiovascular: Regular rate Lungs: Normal respiratory rate and rhythm Abdomen: Abdomen soft and non-tender. Back: Intact range of motion with pain reproduction. Spine: Reports Tenderness on palpation: Lumbar/Pelvic junction Extremities: No deformities, edema, or skin discoloration. Good capillary refill. Musculoskeletal: Bilateral upper and lower extremity strength is normal and symmetric. No atrophy or tone abnormalities are noted. Neuro: No loss of sensation is noted. Station and Gait: mild antalgic gait Motor: Exhibits full strength in all four extremities. Trigger points: gluteal muscles. ASSESSMENT: Assessment : Pt reports bilateral lower back pain with tenderness in the buttocks. She had a left L5-S1 TFSI on 07-21-17 and reports 90% improvement. She has intermittent anterior and posterior pain in the bilateral LE, left is worse than the right She saw Dr. Nam's PA-C and reports not a surgical candidate and recommended PT. Pt went to x2 PT session and stopped as she was feeling good after the injection. She will continue with HEP She takes Tramadol and mobic to help manage her chronic pain levels Encounter Diagnosis ICD-10-CM 1. 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 DDD (degenerative disc disease), cervical M50.30 3. DDD (degenerative disc disease), lumbar M51.36 4. Spinal stenosis of lumbar region without neurogenic claudication M48.061 5. Lumbar radiculopathy M54.16 OARRS website checked and validated. All prescriptions have been APPROPRIATELY filled. No suspicious activity was identified.- 09/03/2017 by Salma Brian Ma Narcotic Agreement reviewed and signed?: N/A on September 03, 2017 The pain panel was N/A PLAN: 1) Continue Tramadol 50 mg BID (Pt still has one refill left and will call when she is ready to refill) 2) Continue mobic 15 mg. No refills needed 3) May repeat left L5-S1 TFSI (try to wait till after November) 4) Pt completed x2 sessions of PT. She is doing HEP 5) RTC 4 months The above plan and management options were discussed at length with patient. Patient is in agreement with the above and verbalized understanding. Ashley Simpson APRN, CNP September 03, 2017 CNOV Observed: 09/03/2017 Status: COMPLETED Source: [place] 12:40 PM [facility] REPOSITORY Office Visit (PNMDNA) LEILA THORNTON ([id number]) 1950 F Date Time Provider Department 09/03/17 12:40 PM ASHLEY SIMPSON (JIM) PNMDNA During your visit today, we recorded the following information about you: Pulse Weight Height 82/minute 81.6 kg 1.626 m Ashley Simpson (Jim) 09/04/2017 8:46 AM Signed SUBJECTIVE: Leila Thornton presents to [facility] [place] [facility] for a followup appointment for follow up. Since the last visit, Leila Thornton states the pain has been getting worse. Current pain intensity is 6 on a scale of 0-10. Pain located in Back area and radiates down the posterior leg, down the posterolateral leg and down the anterior leg. Pain described as aching, moderate, radiating, severe, sharp, shooting, cramping and spasms The patient Reports weakness, morning stiffness, leg pain and leg weakness. Symptoms interfere with physical activity, walking and lifting. Pain is exacerbated by lifting, lying down and walking. Pain is mitigated by sitting, medications and ice . The patient is overall improved with the injections by 90%. REVIEW OF SYSTEMS: Constitutional: (-) Fever (-) Night Sweats (+) Weight Gain (-) Weight Loss (-) Fatigue Cardiovascular: (-) Chest Pain (-) Palpitations (-) Lightheadedness (-) Swelling of Ankles (-) Hx Heart Surgery Respiratory: (-) Shortness of Breath (-) Cough (-) Wheezing (-) Snoring Gastrointestinal: (-) Incontinence (-) Abdominal Pain (-) Diarrhea (-) Constipation (-) Nausea/Vomiting (-) Heart Burn Endocrine: (-) Thyroid Disorder (+) Diabetes Hematologic: (-) Prolonged Bleeding (-) Easy Bruising Genitourinary: (+) Incontinence (-) Frequency (-) Urinary Urgency Skin: (-) Rashes (-) Itching (-) Other Lesions Neurologic: (-) Headache (-) Double Vision (-) Confusion (-) Paralysis Psychiatric: (+) Depression (+) Anxiety (-) Delusions (-) Hallucinations (+) Personal History of Alcohol or Substance Abuse (-) Family History of Alcohol or Substance Abuse OBJECTIVE: Pulse 82 Ht 5' 4 (1.63m) Wt 179 lb 14.4 oz (81.6kg) SpO2 95% BMI 30.86 kg/(m2). PHYSICAL EXAMINATION: General appearance: Well appearing, in no acute distress, alert Skin: Skin color, texture, turgor normal, no rashes or lesions Neck: No pain to palpation over the cervical paraspinous muscles. No pain with neck flexion, extension, or lateral flexion Cardiovascular: Regular rate Lungs: Normal respiratory rate and rhythm Abdomen: Abdomen soft and non-tender. Back: Intact range of motion with pain reproduction. Spine: Reports Tenderness on palpation: Lumbar/Pelvic junction Extremities: No deformities, edema, or skin discoloration. Good capillary refill. Musculoskeletal: Bilateral upper and lower extremity strength is normal and symmetric. No atrophy or tone abnormalities are noted. Neuro: No loss of sensation is noted. Station and Gait: mild antalgic gait Motor: Exhibits full strength in all four extremities. Trigger points: gluteal muscles. ASSESSMENT: Assessment : Pt reports bilateral lower back pain with tenderness in the buttocks. She had a left L5-S1 TFSI on 07-21-17 and reports 90% improvement. She has intermittent anterior and posterior pain in the bilateral LE, left is worse than the right She saw Dr. Nam's PA-C and reports not a surgical candidate and recommended PT. Pt went to x2 PT session and stopped as she was feeling good after the injection. She will continue with HEP She takes Tramadol and mobic to help manage her chronic pain levels Encounter Diagnosis ICD-10-CM 1. 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 DDD (degenerative disc disease), cervical M50.30 3. DDD (degenerative disc disease), lumbar M51.36 4. Spinal stenosis of lumbar region without neurogenic claudication M48.061 5. Lumbar radiculopathy M54.16 OARRS website checked and validated. All prescriptions have been APPROPRIATELY filled. No suspicious activity was identified.- 09/03/2017 by Salma Brian Ma Narcotic Agreement reviewed and signed?: N/A on September 03, 2017 The pain panel was N/A PLAN: 1) Continue Tramadol 50 mg BID (Pt still has one refill left and will call when she is ready to refill) 2) Continue mobic 15 mg. No refills needed 3) May repeat left L5-S1 TFSI (try to wait till after November) 4) Pt completed x2 sessions of PT. She is doing HEP 5) RTC 4 months The above plan and management options were discussed at length with patient. Patient is in agreement with the above and verbalized understanding. Ashley Simpson APRN, LAND CHECKER September 03, 2017 Referring Provider: SELF [[id number]] Allergies As of Date: 09/03/2017 Noted Allergy Reaction CEPHALOSPORINS 03/09/2012 10 - Anaphylaxis THIMEROSAL 03/09/2012 7 - Swelling Comments: Difficulty breathing VANCOMYCIN 03/09/2012 10 - Anaphylaxis Comments: flushed LEVAQUIN (LEVOFLOXACIN) 03/14/2013 2 - Rash 14 - Other: See Comments Comments: Muscle/joint pain SPIRONOLACTONE (BULK) 02/20/2015 2 - Rash Comments: Pt states happened years ago when trying this always forgets. SULFA (SULFONAMIDE ANTIBIOTICS) 04/09/2012 4 - Hives 9 - Itching TAPE (ADHESIVE TAPE (ROSINS)) 06/08/2012 2 - Rash 9 - Itching Comments: degloving ZOCOR (SIMVASTATIN) 05/15/2014 14 - Other: See Comments Comments: Muscle/limb pain Date Reviewed: 09/03/2017 Reviewed by: Salma Brian Ma - Fully Assessed Reason for Visit: Established Patient [[id number]] Cmt: Follow up MRI results Primary Visit Diagnosis:Osteoarthritis of cervical spine with myelopathy [M47.12] Other Visit Diagnoses:DDD (degenerative disc disease), cervical [M50.30] DDD (degenerative disc disease), lumbar [M51.36] Spinal stenosis of lumbar region without neurogenic claudication [M48.061] Lumbar radiculopathy [M54.16] Prescriptions as of 09/03/2017 Sig: COMPOUNDED PRESCRIPTION Use 1 application in each nos* BLOOD SUGAR DIAGNOSTIC STRIPS Test blood sugar(s) 3 times d* LANCETS Test blood sugar(s) 3 times d* MELOXICAM 15 MG TABLET Take 1 tablet by mouth once d* TRAMADOL 50 MG TABLET Take 2 tablets by mouth as ne* BLOOD-GLUCOSE METER KIT Freestyle LITE Meter Kit -Dx * FREESTYLE LITE STRIPS TEST BLOOD SUGAR THREE TIMES * FUROSEMIDE 40 MG TABLET Take 0.5 tablets by mouth onc* POTASSIUM CHLORIDE ER 20 MEQ * Take 9 tablets by mouth once * OLOPATADINE 0.1 % EYE DROPS Use 1 Drop in both eyes twice* TRETINOIN 0.1 % TOPICAL CREAM Apply 1 Tube to affected area* HYDROCHLOROTHIAZIDE 25 MG TAB* Take 1 tablet by mouth once d* ESTRADIOL 0.01% (0.1 MG/GRAM)* Use 1 g vaginally twice a wee* ASCORBIC ACID (VITAMIN C) 250* Take 4 tablets by mouth once * MULTI VITAMIN ORAL Take by mouth once daily. MUPIROCIN 2 % TOPICAL OINTMENT Apply 1 application to affect* Patient not taking: Reported on 09/03/2017 Problem List As Of Date 09/03/2017 Noted Resolved Essential hypertension [I10] INVALID FOR* Acne [L70.9] INVALID FOR* Pain disorder [R52] INVALID FOR* Menopausal vaginal dryness [N95.1] INVALID FOR* Itchy eyes [H57.8] INVALID FOR* Anemia [D64.9] INVALID FOR*10/14/2012 Hemochromatosis [E83.119] INVALID FOR* Body odor [L74.8] INVALID FOR* Chronic dermatitis of hands [L30.9] INVALID FOR* Frequent UTI [N39.0] INVALID FOR* Abdominal pain [R10.9] INVALID FOR* Hereditary hemochromatosis [E83.110] INVALID FOR* Liver dysfunction [K76.89] INVALID FOR* Lumbar stenosis [M48.061] INVALID FOR* Lumbar radiculopathy [M54.16] INVALID FOR* Chronic pain [G89.29] INVALID FOR* Negron's cyst [M71.20] INVALID FOR* Tear, knee, lateral meniscus [S83.289A] INVALID FOR* Complex tear of medial meniscus of left knee as*INVALID FOR* Pain in joint, lower leg [M25.569] INVALID FOR* Tear of medial cartilage or meniscus of knee, c*INVALID FOR* Diabetes mellitus type 2, controlled, without c*INVALID FOR* Hyperlipidemia [E78.5] INVALID FOR* Thoracic back pain [M54.6] INVALID FOR* DDD (degenerative disc disease), cervical [M50.*INVALID FOR* Cervical spondylosis [M47.812] INVALID FOR* Acute combined systolic and diastolic congestiv*INVALID FOR*03/04/2015 Chronic instability of metacarpophalangeal join*INVALID FOR* Bilateral low back pain without sciatica [M54.5]INVALID FOR* Thumb pain [M79.646] INVALID FOR* DDD (degenerative disc disease), lumbar [M51.36]INVALID FOR* Trochanteric bursitis of left hip [M70.62] INVALID FOR* Piriformis syndrome of left side [G57.02] INVALID FOR* Trochanteric tendinitis of left hip [M70.62] INVALID FOR* Vitiligo [L80] INVALID FOR* More... 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 Chronic rhinitis [J31.0] INVALID FOR* Osteoarthritis of cervical spine with myelopath*INVALID FOR* Encounter Status:Closed by ASHLEY SIMPSON on 09/04/17 PROGRESS Observed: 08/31/2017 Status: COMPLETED Source: [place] 2:59 PM [facility] RE[facility]IT[facility] HNO ID: [id number] Author: Francesco Smith Service: (none) Author Type: Physician Type: Progress Notes Filed: 08/31/2017 3:05 PM Note Text: History: Leila Thornton, a 67 year old female, presents for f/up chronic congestion, mostly at night. S/p septorhino. s/p RF of turbinates about 10 y ago. Mild vestibulitis noted 08/11/17. Rx'd bactroban. Congestion much improved. Denies runny-nose, post-nasal drip, facial pressure, headaches, nosebleeds, cough, sorethroat. No history of allergies. No history of sinus/nasal surgery. ROS: Consitutional: Fever: No Chills: No Weight loss: No Gastroentestinal: Dysphagia: No Odynophagia: No Respiratory: Cough: No Hemoptysis: No Shortness of breath: No Endocrine: Thyroid disease: No Allergies: No Skin disease: No Eyes: Double vision: No ENT: Voice change: No Hearing loss: No Tinnitus: No Dizziness: No Neurologic disease: No Psychiatric disease: No Otherwise as noted in History PE: Alert; oriented; well-developed; no apparent distress. Normal voice; normal communication. Eyes: EOMI, pupils symmetric and reactive bilaterally. Nose: patent, narrow nose, min congestion, no rhinorrhea, no purulence, no crusting, septum midline, no turbinate hypertropy. Oral cavity, oropharynx: No ulcerative or mass lesions, tongue midline, palate elevates symmetrically, tongue base and floor of mouth soft. Neck: nontender, no lymphadenopathy or masses. Thyroid: no masses. Face: symmetric, sinuses nontender, skin without lesions. Salivary glands: normal size, nontender, no masses. Ears: EACs free of lesions. TMs clear and mobile. Neurologic: founder ceo & president II-XII grossly intact. Impression: Chronic congestion, mostly at night. S/p septorhino. s/p RF of turbinates about 10 y ago. Mild vestibulitis noted last visit. Congestion and vestibulitis resolved with bactroban. Rec change to [facility] ointment. F/up prn. CNOV Observed: 08/31/2017 Status: COMPLETED Source: [place] 2:35 PM [facility] REPOSITORY Office Visit (OTOLST) LEILA THORNTON ([id number]) 1950 F Date Time Provider Department 08/31/17 2:35 PM FRANCESCO SMITH During your visit today, we recorded the following information about you: Francesco Smith MD 08/31/2017 3:05 PM Signed History: Leila Thornton, a 67 year old female, presents for f/up chronic congestion, mostly at night. S/p septorhino. s/p RF of turbinates about 10 y ago. Mild vestibulitis noted 08/11/17. Rx'd bactroban. Congestion much improved. Denies runny-nose, post-nasal drip, facial pressure, headaches, nosebleeds, cough, sorethroat. No history of allergies. No history of sinus/nasal surgery. ROS: Consitutional: Fever: No Chills: No Weight loss: No Gastroentestinal: Dysphagia: No Odynophagia: No Respiratory: Cough: No Hemoptysis: No Shortness of breath: No Endocrine: Thyroid disease: No Allergies: No Skin disease: No Eyes: Double vision: No ENT: Voice change: No Hearing loss: No Tinnitus: No Dizziness: No Neurologic disease: No Psychiatric disease: No Otherwise as noted in History PE: Alert; oriented; well-developed; no apparent distress. Normal voice; normal communication. Eyes: EOMI, pupils symmetric and reactive bilaterally. Nose: patent, narrow nose, min congestion, no rhinorrhea, no purulence, no crusting, septum midline, no turbinate hypertropy. Oral cavity, oropharynx: No ulcerative or mass lesions, tongue midline, palate elevates symmetrically, tongue base and floor of mouth soft. Neck: nontender, no lymphadenopathy or masses. Thyroid: no masses. Face: symmetric, sinuses nontender, skin without lesions. Salivary glands: normal size, nontender, no masses. Ears: EACs free of lesions. TMs clear and mobile. Neurologic: founder ceo & president II-XII grossly intact. Impression: Chronic congestion, mostly at night. S/p septorhino. s/p RF of turbinates about 10 y ago. Mild vestibulitis noted last visit. Congestion and vestibulitis resolved with bactroban. Rec change to [facility] ointment. F/up prn. Referring Provider: SELF [200] Allergies As of Date: 08/31/2017 Noted Allergy Reaction CEPHALOSPORINS 03/09/2012 10 - Anaphylaxis THIMEROSAL 03/09/2012 7 - Swelling Comments: Difficulty breathing VANCOMYCIN 03/09/2012 10 - Anaphylaxis Comments: flushed LEVAQUIN (LEVOFLOXACIN) 03/14/2013 2 - Rash 14 - Other: See Comments Comments: Muscle/joint pain SPIRONOLACTONE (BULK) 02/20/2015 2 - Rash Comments: Pt states happened years ago when trying this always forgets. SULFA (SULFONAMIDE ANTIBIOTICS) 04/09/2012 4 - Hives 9 - Itching TAPE (ADHESIVE TAPE (ROSINS)) 06/08/2012 2 - Rash 9 - Itching Comments: degloving ZOCOR (SIMVASTATIN) 05/15/2014 14 - Other: See Comments Comments: Muscle/limb pain Date Reviewed: 08/31/2017 Reviewed by: Rufina Garcia RN - Fully Assessed Reason for Visit: Follow Up [171] Primary Visit Diagnosis:Chronic rhinitis [J31.0] Order(s):mupirocin (BACTROBAN) 2 % ointmentApply 1 application to affected area twice daily. Apply twice a day.Disp: 22 gRfl: 0 [facility] Nasal OintmentUse 1 application in each nostril twice daily as needed. [facility] nasal ointmentDisp: 1 TubeRfl: prn Prescriptions as of 08/31/2017 Sig: MUPIROCIN 2 % TOPICAL OINTMENT Apply 1 application to affect* BLOOD SUGAR DIAGNOSTIC STRIPS Test blood sugar(s) 3 times d* LANCETS Test blood sugar(s) 3 times d* MELOXICAM 15 MG TABLET Take 1 tablet by mouth once d* BLOOD-GLUCOSE METER KIT Freestyle LITE Meter Kit -Dx * FREESTYLE LITE STRIPS TEST BLOOD SUGAR THREE TIMES * FUROSEMIDE 40 MG TABLET Take 0.5 tablets by mouth onc* POTASSIUM CHLORIDE ER 20 MEQ * Take 9 tablets by mouth once * OLOPATADINE 0.1 % EYE DROPS Use 1 Drop in both eyes twice* TRETINOIN 0.1 % TOPICAL CREAM Apply 1 Tube to affected area* HYDROCHLOROTHIAZIDE 25 MG TAB* Take 1 tablet by mouth once d* ESTRADIOL 0.01% (0.1 MG/GRAM)* Use 1 g vaginally twice a wee* ASCORBIC ACID (VITAMIN C) 250* Take 4 tablets by mouth once * MULTI VITAMIN ORAL Take by mouth once daily. COMPOUNDED PRESCRIPTION Use 1 application in each nos* TRAMADOL 50 MG TABLET Take 2 tablets by mouth as ne* Medication notes this encounter TRAMADOL 50 MG TABLET >> Rufina Garcia RN 08/31/2017 2:39 PM >> RUFINA GARCIA RN ThuAug 31, 2017 2:39 PM Uses as needed. Problem List As Of Date 08/31/2017 Noted Resolved Essential hypertension [I10] INVALID FOR* Acne [L70.9] INVALID FOR* Pain disorder [R52] INVALID FOR* Menopausal vaginal dryness [N95.1] INVALID FOR* Itchy eyes [H57.8] INVALID FOR* Anemia [D64.9] INVALID FOR*10/14/2012 Hemochromatosis [E83.119] INVALID FOR* Body odor [L74.8] INVALID FOR* Chronic dermatitis of hands [L30.9] INVALID FOR* Frequent UTI [N39.0] INVALID FOR* Abdominal pain [R10.9] INVALID FOR* Hereditary hemochromatosis [E83.110] INVALID FOR* Liver dysfunction [K76.89] INVALID FOR* Lumbar stenosis [M48.061] INVALID FOR* Lumbar radiculopathy [M54.16] INVALID FOR* Chronic pain [G89.29] INVALID FOR* Negron's cyst [M71.20] INVALID FOR* Tear, knee, lateral meniscus [S83.289A] INVALID FOR* Complex tear of medial meniscus of left knee as*INVALID FOR* Pain in joint, lower leg [M25.569] INVALID FOR* Tear of medial cartilage or meniscus of knee, c*INVALID FOR* Diabetes mellitus type 2, controlled, without c*INVALID FOR* Hyperlipidemia [E78.5] INVALID FOR* Thoracic back pain [M54.6] INVALID FOR* DDD (degenerative disc disease), cervical [M50.*INVALID FOR* Cervical spondylosis [M47.812] INVALID FOR* Acute combined systolic and diastolic congestiv*INVALID FOR*03/04/2015 Chronic instability of metacarpophalangeal join*INVALID FOR* Bilateral low back pain without sciatica [M54.5]INVALID FOR* Thumb pain [M79.646] INVALID FOR* DDD (degenerative disc disease), lumbar [M51.36]INVALID FOR* Trochanteric bursitis of left hip [M70.62] INVALID FOR* Piriformis syndrome of left side [G57.02] INVALID FOR* Trochanteric tendinitis of left hip [M70.62] INVALID FOR* Vitiligo [L80] INVALID FOR* More... 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 Chronic rhinitis [J31.0] INVALID FOR* Prescriptions ordered this encounter Disp Refills Start End MUPIROCIN 2 % TOPICAL OINTMENT 22 g 0 08/31/2017 Route: TOPICAL Sig: Apply 1 application to affected area twice daily. Apply twice a day. COMPOUNDED PRESCRIPTION 1 Tu* prn 08/31/2017 Route: EACH NOSTRIL Sig: Use 1 application in each nostril twice daily as needed. [facility] nasal ointment Medications Discontinued During This Encounter mupirocin (BACTROBAN) 2 % ointment 22 g 0 08/11/2017 08/31/2017 Route: TOPICAL Sig: Apply 1 application to affected area twice daily. Apply twice a day. Disc: Reason for discontinue is not on file. Encounter Status:Closed by FRANCESCO SMITH MD on 08/31/17 PROGRESS Observed: 08/18/2017 Status: COMPLETED Source: [place] 4:11 PM [facility] [place] REPOSITORY O ID: [id number] Author: Radha Elias Service: (none) Author Type: Physical Therapist Type: Progress Notes Filed: 08/18/2017 4:13 PM Note Text: Episode Visit Count: 2 Therapist That Will Oversee The Plan Of Care: Radha Elias Start of Care Date: 08/10/17 Plan of Care Certification Date: 08/10/17 REHABILITATION AND SPORTS THERAPY PHYSICAL THERAPY TREATMENT NOTE ASSESSMENT: Leila Thornton demonstrated increased pain last night. States that it could have been from lifting / carrying and walking longer distance over the weekend. Pt was able to perform isometric abdominals and no leg sx in hooklying with these exs. She asked to defer remainder of session d/t fatigue and not feeling well. The patient will continue to benefit from continued skilled physical therapy for progression of exs PLAN FOR NEXT VISIT: TUG and progress core exs, neutral spine SUBJECTIVE: Pt reports that she is not feeling well today and does not feel that she is up to doing exs. States that she was in pain last night and could not get comfortable . Did not sleep alot. Pt does report that she walked about 2 hours straight and carried some things that she bought at a sale a fairly good distance. States that items were big and bulky Pain Score: 5/10 ( during the night pain was 7-8/10. ) Pain Location: Buttocks - Left Description: Aching Frequency: Intermittent Post Treatment Pain Score: 0/10 ( during ex, return of pain with walking) Pain Location: Buttocks - Left;Thigh - Left;Calf - Left Post Treatment Pain Description: Aching OBJECTIVE MEASURES WITH LEVEL OF FUNCTION: Pt transfers with ease and good control of isometric abdominals TREATMENT: Therapeutic Exercise: 1: isometric abdominals 1x10 2: isometric abdominals wtih marches 2x10 Skilled Intervention: Patient was educated in proper exercise technique and purpose for exercises. Skilled judgment was provided in selection of appropriate interventions. Correct performance of therapeutic exercises was facilitated with verbal and visual cuing. Billing: [facility]: Therapeutic Exercise (26262): 1:1 time: 10 minutes (1 unit: 8-22 mins) Total time: 10 minutes Radha Elias PT CNTHERAPY Observed: 08/18/2017 Status: COMPLETED Source: [place] 3:30 PM [facility] REPOSITORY OT/PT/Speech Visit (PTWS) LEILA THORNTON ([id number]) 1950 F Date Time Provider Department 08/18/17 3:30 PM RADHA ELIAS (PT) PTWS Date Time Provider Department Center 08/18/2017 3:30 PM [id number] ELIASPT) PTWS [facility] Reason for Visit: Physical Therapy [503] PT Discharge [752] Reason For Visit History Recorded Primary Visit Diagnosis:Lumbar radiculopathy [M54.16] Allergies As of Date: 08/18/2017 Noted Allergy Reaction CEPHALOSPORINS 03/09/2012 10 - Anaphylaxis THIMEROSAL 03/09/2012 7 - Swelling Comments: Difficulty breathing VANCOMYCIN 03/09/2012 10 - Anaphylaxis Comments: flushed LEVAQUIN (LEVOFLOXACIN) 03/14/2013 2 - Rash 14 - Other: See Comments Comments: Muscle/joint pain SPIRONOLACTONE (BULK) 02/20/2015 2 - Rash Comments: Pt states happened years ago when trying this always forgets. SULFA (SULFONAMIDE ANTIBIOTICS) 04/09/2012 4 - Hives 9 - Itching TAPE (ADHESIVE TAPE (ROSINS)) 06/08/2012 2 - Rash 9 - Itching Comments: degloving ZOCOR (SIMVASTATIN) 05/15/2014 14 - Other: See Comments Comments: Muscle/limb pain Date Reviewed: 08/11/2017 Reviewed by: Madison Rhodes Ma - Fully Assessed Prescriptions as of 08/18/2017 Sig: X MUPIROCIN 2 % TOPICAL OINTMENT Apply 1 application to affect* X BLOOD SUGAR DIAGNOSTIC STRIPS Test blood sugar(s) 3 times d* X LANCETS Test blood sugar(s) 3 times d* MELOXICAM 15 MG TABLET Take 1 tablet by mouth once d* X TRAMADOL 50 MG TABLET Take 2 tablets by mouth as ne* BLOOD-GLUCOSE METER KIT Freestyle LITE Meter Kit -Dx * X FREESTYLE LITE STRIPS TEST BLOOD SUGAR THREE TIMES * POTASSIUM CHLORIDE ER 20 MEQ * Take 9 tablets by mouth once * X FUROSEMIDE 40 MG TABLET Take 0.5 tablets by mouth onc* OLOPATADINE 0.1 % EYE DROPS Use 1 Drop in both eyes twice* TRETINOIN 0.1 % TOPICAL CREAM Apply 1 Tube to affected area* X HYDROCHLOROTHIAZIDE 25 MG TAB* Take 1 tablet by mouth once d* ESTRADIOL 0.01% (0.1 MG/GRAM)* Use 1 g vaginally twice a wee* ASCORBIC ACID (VITAMIN C) 250* Take 4 tablets by mouth once * MULTI VITAMIN ORAL Take by mouth once daily. Progress Notes: Radha Elias, PT 08/18/2017 4:13 PM Signed Episode Visit Count: 2 Therapist That Will Oversee The Plan Of Care: Radha Elias Start of Care Date: 08/10/17 Plan of Care Certification Date: 08/10/17 REHABILITATION AND SPORTS THERAPY PHYSICAL THERAPY TREATMENT NOTE ASSESSMENT: Leila Thornton demonstrated increased pain last night. States that it could have been from lifting / carrying and walking longer distance over the weekend. Pt was able to perform isometric abdominals and no leg sx in hooklying with these exs. She asked to defer remainder of session d/t fatigue and not feeling well. The patient will continue to benefit from continued skilled physical therapy for progression of exs PLAN FOR NEXT VISIT: TUG and progress core exs, neutral spine SUBJECTIVE: Pt reports that she is not feeling well today and does not feel that she is up to doing exs. States that she was in pain last night and could not get comfortable . Did not sleep alot. Pt does report that she walked about 2 hours straight and carried some things that she bought at a sale a fairly good distance. States that items were big and bulky Pain Score: 5/10 ( during the night pain was 7-8/10. ) Pain Location: Buttocks - Left Description: Aching Frequency: Intermittent Post Treatment Pain Score: 0/10 ( during ex, return of pain with walking) Pain Location: Buttocks - Left;Thigh - Left;Calf - Left Post Treatment Pain Description: Aching OBJECTIVE MEASURES WITH LEVEL OF FUNCTION: Pt transfers with ease and good control of isometric abdominals TREATMENT: Therapeutic Exercise: 1: isometric abdominals 1x10 2: isometric abdominals wtih marches 2x10 Skilled Intervention: Patient was educated in proper exercise technique and purpose for exercises. Skilled judgment was provided in selection of appropriate interventions. Correct performance of therapeutic exercises was facilitated with verbal and visual cuing. Billing: [facility]: Therapeutic Exercise ([id number]): 1:1 time: 10 minutes (1 unit: 8-22 mins) Total time: 10 minutes Radha Elias PT Radha Elias PT 10/05/2017 3:48 PM Signed [facility] REHABILITATION AND SPORTS THERAPY PHYSICAL THERAPY DISCONTINUANCE OF CARE Plan of Care Period: Start of Care Date: 08/10/17 Last Visit Date:08/18/2017 Therapy Program: Patient did not return for follow up care as planned. Please refer to last visit note for interventions provided for this episode of care. Assessment: Unable to formally assess goal achievement due to non-compliance with therapy plan of care. Reason for Discontinuation of Care: Patient has not returned to therapy or scheduled additional follow-up appointments. Radha Elias PT PROGRESS Observed: 08/11/2017 Status: COMPLETED Source: [place] 2:06 PM [facility] [place] REPOSITORY HNO ID: [id number] Author: Francesco Smith Service: (none) Author Type: Physician Type: Progress Notes Filed: 08/11/2017 2:14 PM Note Text: History: Leila Thornton, a 67 year old female, presents for evaluation of diff breathing through nose, mostly at night, grad worsening over last y. S/p septorhino. s/p RF of turbinates about 10 y ago. Denies runny-nose, post-nasal drip, facial pressure, headaches, nosebleeds, cough, sorethroat. No history of allergies. No history of sinus/nasal surgery. ROS: Consitutional: Fever: No Chills: No Weight loss: No Gastroentestinal: Dysphagia: No Odynophagia: No Respiratory: Cough: No Hemoptysis: No Shortness of breath: No Endocrine: Thyroid disease: No Allergies: No Skin disease: No Eyes: Double vision: No ENT: Voice change: No Hearing loss: No Tinnitus: No Dizziness: No Neurologic disease: No Psychiatric disease: No Otherwise as noted in History PAST MEDICAL HISTORY Diagnosis Date - Arthritis - Blood dyscrasia - Dermatitis - Frequent UTI - Hemochromatosis - Hypertension - Lumbar pain - Shingles 1999 - Type II or unspecified type diabetes mellitus without mention of complication, not stated as uncontrolled 04/10/2014 PAST SURGICAL HISTORY Procedure Laterality Date - ARTHRODESIS [facility] JNT THUMB W/WO FIX 1996 bilateral - CERVICAL BIOPSY 05/25/12 Dr. Jordan - COLONOSCOP W/ OR W/O BRSH SPEC 05/16/2015 Colonoscopy - EGD W/O OR W/BRUSH/WASH 05/16/2015 EGD - ENDOMETRIAL BIOPSY 05/07/12 Dr. Jordan - HYSTEROSCOPY 05/25/12 Dr. Jordan - KNEE SCOPE,MENISECTOMY,MED OR LAT 10/07/2013 Left knee arthroscopic medial and lateral meniscectomies - partial - PAST SURGICAL HISTORY OF 1981 septoplasy - PAST SURGICAL HISTORY OF 04/16 bilateral lumbar epidural - PAST SURGICAL HISTORY OF 06/11/2015 lumbar epidural - left - REDUCTION OF LARGE BREAST 2000 bilateral - REMOVAL OF TONSILS,<12 Y/O 1979 Tonsillectomy - ROTATOR CUFF REPAIR 1984 right acromioplasty Social History Marital status: Single Spouse name: Years of education: Number of children: 0 Occupational History Occupation Employer Comment retired Social History Main Topics Smoking status: Never Smoker Smokeless status: Never Used Alcohol use: Yes 0.0 oz/week Comment: stopped drinking on 04/04/14 Drug use: No Sexual activity: Not Currently 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 PE: Alert; oriented; well-developed; no apparent distress. Normal voice; normal communication. Eyes: EOMI, pupils symmetric and reactive bilaterally. Nose: patent, narrow nose, mild crusting B vestibule, mild congestion, no rhinorrhea, no purulence, no crusting, septum midline, no turbinate hypertropy. Oral cavity, oropharynx: No ulcerative or mass lesions, tongue midline, palate elevates symmetrically, tongue base and floor of mouth soft. Neck: nontender, no lymphadenopathy or masses. Thyroid: no masses. Face: symmetric, sinuses nontender, skin without lesions. Salivary glands: normal size, nontender, no masses. Ears: EACs free of lesions. TMs clear and mobile. Neurologic: founder ceo & president II-XII grossly intact. Procedure: Sinonasal endoscopy. Indication: Sinus symptoms. Description of procedure: Neosynephrine/xylocaine was sprayed into the patient's nose. A flexible laryngoscope was used to visualize the nasal cavity. The mucosa was as above. Left: Polyps were not noted in the middle meatus. Purulence was not noted in the middle meatus. Polyps were not noted in the spenoethmoid recess. Purulence was not noted in the sphenoethmoid recess. Right: Polyps were not noted in the middle meatus. Purulence was not noted in the middle meatus. Polyps were not noted in the spenoethmoid recess. Purulence was not noted in the sphenoethmoid recess. The nasopharynx was free of ulcerative or mass lesions. Impression: Chronic congestion, mostly at night. S/p septorhino. s/p RF of turbinates about 10 y ago. Mild vestibulitis noted. Rec bactroban. F/up 3 wks. If vestibulitis cleared but congestion persists, consider nasal steroid. CNOV Observed: 08/11/2017 Status: COMPLETED Source: [place] 1:50 PM [facility] REPOSITORY Office Visit (OTOLST) LEILA THORNTON ([id number]) 1950 F Date Time Provider Department 08/11/17 1:50 PM FRANCESCO SMITH OTIGOR During your visit today, we recorded the following information about you: Francesco Smith MD 08/11/2017 2:14 PM Signed History: Leila Thornton, a 67 year old female, presents for evaluation of diff breathing through nose, mostly at night, grad worsening over last y. S/p septorhino. s/p RF of turbinates about 10 y ago. Denies runny- nose, post-nasal drip, facial pressure, headaches, nosebleeds, cough, sorethroat. No history of allergies. No history of sinus/nasal surgery. ROS: Consitutional: Fever: No Chills: No Weight loss: No Gastroentestinal: Dysphagia: No Odynophagia: No Respiratory: Cough: No Hemoptysis: No Shortness of breath: No Endocrine: Thyroid disease: No Allergies: No Skin disease: No Eyes: Double vision: No ENT: Voice change: No Hearing loss: No Tinnitus: No Dizziness: No Neurologic disease: No Psychiatric disease: No Otherwise as noted in History PAST MEDICAL HISTORY Diagnosis Date - Arthritis - Blood dyscrasia - Dermatitis - Frequent UTI - Hemochromatosis - Hypertension - Lumbar pain - Shingles 1999 - Type II or unspecified type diabetes mellitus without mention of complication, not stated as uncontrolled 04/10/2014 PAST SURGICAL HISTORY Procedure Laterality Date - ARTHRODESIS CMC JNT THUMB W/WO FIX 1996 bilateral - CERVICAL BIOPSY 05/25/12 Dr. Jordan - COLONOSCOP W/ OR W/O BRSH SPEC 05/16/2015 Colonoscopy - EGD W/O OR W/BRUSH/WASH 05/16/2015 EGD - ENDOMETRIAL BIOPSY 05/07/12 Dr. Jordan - HYSTEROSCOPY 05/25/12 Dr. Jordan - KNEE SCOPE,MENISECTOMY,MED OR LAT 10/07/2013 Left knee arthroscopic medial and lateral meniscectomies - partial - PAST SURGICAL HISTORY OF 1981 septoplasy - PAST SURGICAL HISTORY OF 04/16 bilateral lumbar epidural - PAST SURGICAL HISTORY OF 06/11/2015 lumbar epidural - left - REDUCTION OF LARGE BREAST 1999 bilateral - REMOVAL OF TONSILS,ANDlt;12 Y/O 1978 Tonsillectomy - ROTATOR CUFF REPAIR 1984 right acromioplasty Social History Marital status: Single Spouse name: Years of education: Number of children: 0 Occupational History Occupation Employer Comment retired Social History Main Topics Smoking status: Never Smoker Smokeless status: Never Used Alcohol use: Yes 0.0 oz/week Comment: stopped drinking on 04/04/14 Drug use: No Sexual activity: Not Currently 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 PE: Alert; oriented; well-developed; no apparent distress. Normal voice; normal communication. Eyes: EOMI, pupils symmetric and reactive bilaterally. Nose: patent, narrow nose, mild crusting B vestibule, mild congestion, no rhinorrhea, no purulence, no crusting, septum midline, no turbinate hypertropy. Oral cavity, oropharynx: No ulcerative or mass lesions, tongue midline, palate elevates symmetrically, tongue base and floor of mouth soft. Neck: nontender, no lymphadenopathy or masses. Thyroid: no masses. Face: symmetric, sinuses nontender, skin without lesions. Salivary glands: normal size, nontender, no masses. Ears: EACs free of lesions. TMs clear and mobile. Neurologic: founder ceo & president II-XII grossly intact. Procedure: Sinonasal endoscopy. Indication: Sinus symptoms. Description of procedure: Neosynephrine/xylocaine was sprayed into the patient's nose. A flexible laryngoscope was used to visualize the nasal cavity. The mucosa was as above. Left: Polyps were not noted in the middle meatus. Purulence was not noted in the middle meatus. Polyps were not noted in the spenoethmoid recess. Purulence was not noted in the sphenoethmoid recess. Right: Polyps were not noted in the middle meatus. Purulence was not noted in the middle meatus. Polyps were not noted in the spenoethmoid recess. Purulence was not noted in the sphenoethmoid recess. The nasopharynx was free of ulcerative or mass lesions. Impression: Chronic congestion, mostly at night. S/p septorhino. s/p RF of turbinates about 10 y ago. Mild vestibulitis noted. Rec bactroban. F/up 3 wks. If vestibulitis cleared but congestion persists, consider nasal steroid. Referring Provider: SELF [200] Allergies As of Date: 08/11/2017 Noted Allergy Reaction CEPHALOSPORINS 03/09/2012 10 - Anaphylaxis THIMEROSAL 03/09/2012 7 - Swelling Comments: Difficulty breathing VANCOMYCIN 03/09/2012 10 - Anaphylaxis Comments: flushed LEVAQUIN (LEVOFLOXACIN) 03/14/2013 2 - Rash 14 - Other: See Comments Comments: Muscle/joint pain SPIRONOLACTONE (BULK) 02/20/2015 2 - Rash Comments: Pt states happened years ago when trying this always forgets. SULFA (SULFONAMIDE ANTIBIOTICS) 04/09/2012 4 - Hives 9 - Itching TAPE (ADHESIVE TAPE (ROSINS)) 06/08/2012 2 - Rash 9 - Itching Comments: degloving ZOCOR (SIMVASTATIN) 05/15/2014 14 - Other: See Comments Comments: Muscle/limb pain Date Reviewed: 08/11/2017 Reviewed by: Madison Rhodes Ma - Fully Assessed Reason for Visit: Consult [502] Primary Visit Diagnosis:Chronic rhinitis [J31.0] Order(s):mupirocin (BACTROBAN) 2 % ointmentApply 1 application to affected area twice daily. Apply twice a day.Disp: 22 gRfl: 0 Prescriptions as of 08/11/2017 Sig: BLOOD SUGAR DIAGNOSTIC STRIPS Test blood sugar(s) 3 times d* BLOOD-GLUCOSE METER KIT Freestyle LITE Meter Kit -Dx * FREESTYLE LITE STRIPS TEST BLOOD SUGAR THREE TIMES * ESTRADIOL 0.01% (0.1 MG/GRAM)* Use 1 g vaginally twice a wee* MUPIROCIN 2 % TOPICAL OINTMENT Apply 1 application to affect* LANCETS Test blood sugar(s) 3 times d* MELOXICAM 15 MG TABLET Take 1 tablet by mouth once d* TRAMADOL 50 MG TABLET Take 2 tablets by mouth as ne* FUROSEMIDE 40 MG TABLET Take 0.5 tablets by mouth onc* POTASSIUM CHLORIDE ER 20 MEQ * Take 9 tablets by mouth once * OLOPATADINE 0.1 % EYE DROPS Use 1 Drop in both eyes twice* TRETINOIN 0.1 % TOPICAL CREAM Apply 1 Tube to affected area* HYDROCHLOROTHIAZIDE 25 MG TAB* Take 1 tablet by mouth once d* ASCORBIC ACID (VITAMIN C) 250* Take 4 tablets by mouth once * MULTI VITAMIN ORAL Take by mouth once daily. Problem List As Of Date 08/11/2017 Noted Resolved Essential hypertension [I10] INVALID FOR* Acne [L70.9] INVALID FOR* Pain disorder [R52] INVALID FOR* Menopausal vaginal dryness [N95.1] INVALID FOR* Itchy eyes [H57.8] INVALID FOR* Anemia [D64.9] INVALID FOR*10/14/2012 Hemochromatosis [E83.119] INVALID FOR* Body odor [L74.8] INVALID FOR* Chronic dermatitis of hands [L30.9] INVALID FOR* Frequent UTI [N39.0] INVALID FOR* Abdominal pain [R10.9] INVALID FOR* Hereditary hemochromatosis [E83.110] INVALID FOR* Liver dysfunction [K76.89] INVALID FOR* Lumbar stenosis [M48.061] INVALID FOR* Lumbar radiculopathy [M54.16] INVALID FOR* Chronic pain [G89.29] INVALID FOR* Negron's cyst [M71.20] INVALID FOR* Tear, knee, lateral meniscus [S83.289A] INVALID FOR* Complex tear of medial meniscus of left knee as*INVALID FOR* Pain in joint, lower leg [M25.569] INVALID FOR* Tear of medial cartilage or meniscus of knee, c*INVALID FOR* Diabetes mellitus type 2, controlled, without c*INVALID FOR* Hyperlipidemia [E78.5] INVALID FOR* Thoracic back pain [M54.6] INVALID FOR* DDD (degenerative disc disease), cervical [M50.*INVALID FOR* Cervical spondylosis [M47.812] INVALID FOR* Acute combined systolic and diastolic congestiv*INVALID FOR*03/04/2015 Chronic instability of metacarpophalangeal join*INVALID FOR* Bilateral low back pain without sciatica [M54.5]INVALID FOR* Thumb pain [M79.646] INVALID FOR* DDD (degenerative disc disease), lumbar [M51.36]INVALID FOR* Trochanteric bursitis of left hip [M70.62] INVALID FOR* Piriformis syndrome of left side [G57.02] INVALID FOR* Trochanteric tendinitis of left hip [M70.62] INVALID FOR* Vitiligo [L80] INVALID FOR* More... 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 Chronic rhinitis [J31.0] INVALID FOR* Prescriptions ordered this encounter Disp Refills Start End MUPIROCIN 2 % TOPICAL OINTMENT 22 g 0 08/11/2017 Route: TOPICAL Sig: Apply 1 application to affected area twice daily. Apply twice a day. Encounter Status:Closed by FRANCESCO SMITH MD on 08/11/17 PROGRESS Observed: 08/10/2017 Status: COMPLETED Source: [place] 5:55 PM [facility] REPOSITORY HNO ID: [id number] Author: Radha (Bryanna Elias Service: (none) Author Type: Physical Therapist Type: Progress Notes Filed: 08/10/2017 6:05 PM Note Text: Episode Visit Count: 1 Therapist That Will Oversee The Plan Of Care: Radha Elias Start of Care Date: 08/10/17 Plan of Care Certification Date: 08/10/17 Patient Identified by Name and Date of : Yes REHABILITATION AND SPORTS THERAPY PHYSICAL THERAPY EVALUATION PLAN OF CARE: Assessment: Leila Thornton presents with the chief complaint of weakness in left leg. Pt with long history of low back pain with radiculopathy . Had L5- S1 TFESI with good results . Reduced pain to 5/10 and pt feels that she wants to do some weight training . Pt states that she does not want to do any exs with resistance bands as she does not like these. She does have indoor pool endless pool at home which is is not using frequently but would be great medium perform exs. She presents with impairments of decreased core strength with long standing lumbar issues. She may benefit from skilled therapy services to improve core and LE strength and endurance to improve functional status. Low Back Pain Subgroup Classification Low Back Pain Subgroup Classification: Core stabilization subgroup: recommended visits 10. Core Stabilization Subgroup Classification based on: ( findings of evaluation) Prognosis: Good Good due to: current objective clinical presentation Goals for Episode of Care: created on 08/10/17 through 09/09/17 Independent in home exercises. Patient will be able to tolerate functional activities and exs for longer periods without increased symptoms. Patient will increase strength of core and Cristal allow for perform ADLs. G CODE REPORTING Based on clinical assessment and the score on the AM-PAC Scale Score Assessment Tool, the G code and corresponding severity modifiers are documented below. Evaluation: 08/10/2017 Current Status: Mobility: Walking and Moving Around: G8978 CJ 20-39% impaired Goal Status: Mobility: Walking and Moving Around: G8979 20-39% impaired Planned Interventions, Frequency, and Duration: Current Frequency: 1x/week Duration: 4 weeks Total Number of Visits Planned: 4 Patient to be see for Planned Treatment Interventions: Therapeutic exercise PLAN FOR NEXT VISIT: Will assess timed up and go and falls screening Patient demonstrates good understanding of plan of care and treatment. The above goals and plan of care were discussed and agreed upon by patient/family. SUBJECTIVE: Leila Thornton is a 67 year old female seen today for weakness of core and leg left , ongoing back and leg pain Prior Level of Function: Independent without limitations Patient Goals: improve left leg weakness Previous Treatment: ( none) Falls Interview: Two or more falls in the last year Relevant History Employment: Retired Recreation / Current Exercise: lives [place] farm with geese and dog Home Environment Patient Lives With: Self/Alone Entry To Home: Stairs;Without Rail Number Of Stairs Into Home: 2 Number Of Stairs To Bed/Bath: 10-12 flight Stairs to Bed/Bath with: Unilateral Rail Spine History Symptoms Location at Onset: Buttock;Thigh;Calf;Back Pain is Better Sometimes: Sitting Sleep Affected by Pain: Not affected by pain Pain Score: 5/10 ( no pain with sitting) Pain Location: Buttocks - Left (left leg anterior to piper) Description: Aching Frequency: Intermittent Post Treatment Pain Score: No Change Pain Location: Buttocks - Left;Leg - Left Post Treatment Pain Description: Aching OBJECTIVE MEASURES WITH LEVEL OF FUNCTION: Gait Assessment Gait Observation: no deviations Spine Palpation L Lumbar Spine Palpation Tenderness: ( none) Lumbar Spine AROM Lumbar Flexion: Normal Lumbar R Side-Bend: Normal Lumbar L Side-Bend: Normal Repeated Test Movements - Lumbar RFIS - Symptoms During: no effect Static Testing - Lumbar Sit Slouched: no effect Sit Erect: no effect LE Strength R Hip Flexion: 5/5 R Knee Extension: 5/5 R Knee Flexion: 5/5 R Ankle Dorsiflexion: 5/5 L Hip Flexion: 5/5 L Knee Extension: 5/5 L Knee Flexion: 5/5 L Ankle Dorsiflexion: 5/5 Functional Strength Functional Strength: sit to stand without use of arms Education: Education Learning Preferences: Demonstration;Explanation;Performance;Printed Materials Barriers: None Learning/educational needs: Home exercise program;Plan of Care TREATMENT: Evaluation Therapeutic Exercise: 1: isometric abdominals 1x10 2: isometric abdominals wtih marches 1x10 3: seated DF 1x15 4: sit to stand without arms 1x5 5: standing hip abduction 1x10 B 6: standing HS curls 1x10 B 7: scifit stepper seat 12 for 3 min. Skilled Intervention: Patient was educated in proper exercise technique and purpose for exercises. Skilled judgment was provided in selection of appropriate interventions. Provided written instruction for home exercise program to facilitate proper performance and compliance. Correct performance of therapeutic exercises was facilitated with verbal and visual cuing. Billing: [facility]: Evaluation - Low Complexity (06151) Therapeutic Exercise (61385): 1:1 time: 25 minutes (2 units: 23-37 mins) Total time: 25 minutes Radha Elias PT CNTHERAPY Observed: 08/10/2017 Status: COMPLETED Source: [place] 2:00 PM [facility] REPOSITORY OT/PT/Speech Visit (PTWS) NORBERTO,LEILA M ([id number]) 1950 F Date Time Provider Department 08/10/17 2:00 PM RADHA ELIAS (PT) PTWS Date Time Provider Department Center 08/10/2017 2:00 PM [id number], LISA (PT) PTWS [facility] Reason for Visit: PT Eval [747] Patient Education [91] Primary Visit Diagnosis:Lumbar radiculopathy [M54.16] Allergies As of Date: 08/10/2017 Noted Allergy Reaction CEPHALOSPORINS 03/09/2012 10 - Anaphylaxis THIMEROSAL 03/09/2012 7 - Swelling Comments: Difficulty breathing VANCOMYCIN 03/09/2012 10 - Anaphylaxis Comments: flushed LEVAQUIN (LEVOFLOXACIN) 03/14/2013 2 - Rash 14 - Other: See Comments Comments: Muscle/joint pain SPIRONOLACTONE (BULK) 02/20/2015 2 - Rash Comments: Pt states happened years ago when trying this always forgets. SULFA (SULFONAMIDE ANTIBIOTICS) 04/09/2012 4 - Hives 9 - Itching TAPE (ADHESIVE TAPE (ROSINS)) 06/08/2012 2 - Rash 9 - Itching Comments: degloving ZOCOR (SIMVASTATIN) 05/15/2014 14 - Other: See Comments Comments: Muscle/limb pain Date Reviewed: 07/29/2017 Reviewed by: Phuong Beltrán Ma - Fully Assessed Prescriptions as of 08/10/2017 Sig: BLOOD SUGAR DIAGNOSTIC STRIPS Test blood sugar(s) 3 times d* LANCETS Test blood sugar(s) 3 times d* MELOXICAM 15 MG TABLET Take 1 tablet by mouth once d* TRAMADOL 50 MG TABLET Take 2 tablets by mouth as ne* BLOOD-GLUCOSE METER KIT Freestyle LITE Meter Kit -Dx * FREESTYLE LITE STRIPS TEST BLOOD SUGAR THREE TIMES * FUROSEMIDE 40 MG TABLET Take 0.5 tablets by mouth onc* POTASSIUM CHLORIDE ER 20 MEQ * Take 9 tablets by mouth once * OLOPATADINE 0.1 % EYE DROPS Use 1 Drop in both eyes twice* TRETINOIN 0.1 % TOPICAL CREAM Apply 1 Tube to affected area* HYDROCHLOROTHIAZIDE 25 MG TAB* Take 1 tablet by mouth once d* ESTRADIOL 0.01% (0.1 MG/GRAM)* Use 1 g vaginally twice a wee* ASCORBIC ACID (VITAMIN C) 250* Take 4 tablets by mouth once * MULTI VITAMIN ORAL Take by mouth once daily. Progress Notes: Radha Elias, PT 08/10/2017 6:05 PM Signed Episode Visit Count: 1 Therapist That Will Oversee The Plan Of Care: Radha Elias Start of Care Date: 08/10/17 Plan of Care Certification Date: 08/10/17 Patient Identified by Name and Date of : Yes REHABILITATION AND SPORTS THERAPY PHYSICAL THERAPY EVALUATION PLAN OF CARE: Assessment: Leila Thornton presents with the chief complaint of weakness in left leg. Pt with long history of low back pain with radiculopathy . Had L5- S1 TFESI with good results . Reduced pain to 5/10 and pt feels that she wants to do some weight training . Pt states that she does not want to do any exs with resistance bands as she does not like these. She does have indoor pool endless pool at home which is is not using frequently but would be great medium perform exs. She presents with impairments of decreased core strength with long standing lumbar issues. She may benefit from skilled therapy services to improve core and LE strength and endurance to improve functional status. Low Back Pain Subgroup Classification Low Back Pain Subgroup Classification: Core stabilization subgroup: recommended visits 10. Core Stabilization Subgroup Classification based on: ( findings of evaluation) Prognosis: Good Good due to: current objective clinical presentation Goals for Episode of Care: created on 08/10/17 through 09/09/17 Independent in home exercises. Patient will be able to tolerate functional activities and exs for longer periods without increased symptoms. Patient will increase strength of core and Cristal allow for perform ADLs. G CODE REPORTING Based on clinical assessment and the score on the AM-PAC Scale Score Assessment Tool, the G code and corresponding severity modifiers are documented below. Evaluation: 08/10/2017 Current Status: Mobility: Walking and Moving Around: G8978 20-39% impaired Goal Status: Mobility: Walking and Moving Around: G8979 20-39% impaired Planned Interventions, Frequency, and Duration: Current Frequency: 1x/week Duration: 4 weeks Total Number of Visits Planned: 4 Patient to be see for Planned Treatment Interventions: Therapeutic exercise PLAN FOR NEXT VISIT: Will assess timed up and go and falls screening Patient demonstrates good understanding of plan of care and treatment. The above goals and plan of care were discussed and agreed upon by patient/family. SUBJECTIVE: Leila Thornton is a 67 year old female seen today for weakness of core and leg left , ongoing back and leg pain Prior Level of Function: Independent without limitations Patient Goals: improve left leg weakness Previous Treatment: ( none) Falls Interview: Two or more falls in the last year Relevant History Employment: Retired Recreation / Current Exercise: lives on farm with geese and dog Home Environment Patient Lives With: Self/Alone Entry To Home: Stairs;Without Rail Number Of Stairs Into Home: 2 Number Of Stairs To Bed/Bath: 10-12 flight Stairs to Bed/Bath with: Unilateral Rail Spine History Symptoms Location at Onset: Buttock;Thigh;Calf;Back Pain is Better Sometimes: Sitting Sleep Affected by Pain: Not affected by pain Pain Score: 5/10 ( no pain with sitting) Pain Location: Buttocks - Left (left leg anterior to piper) Description: Aching Frequency: Intermittent Post Treatment Pain Score: No Change Pain Location: Buttocks - Left;Leg - Left Post Treatment Pain Description: Aching OBJECTIVE MEASURES WITH LEVEL OF FUNCTION: Gait Assessment Gait Observation: no deviations Spine Palpation L Lumbar Spine Palpation Tenderness: ( none) Lumbar Spine AROM Lumbar Flexion: Normal Lumbar R Side-Bend: Normal Lumbar L Side-Bend: Normal Repeated Test Movements - Lumbar RFIS - Symptoms During: no effect Static Testing - Lumbar Sit Slouched: no effect Sit Erect: no effect LE Strength R Hip Flexion: 5/5 R Knee Extension: 5/5 R Knee Flexion: 5/5 R Ankle Dorsiflexion: 5/5 L Hip Flexion: 5/5 L Knee Extension: 5/5 L Knee Flexion: 5/5 L Ankle Dorsiflexion: 5/5 Functional Strength Functional Strength: sit to stand without use of arms Education: Education Learning Preferences: Demonstration;Explanation;Performance;Printed Materials Barriers: None Learning/educational needs: Home exercise program;Plan of Care TREATMENT: Evaluation Therapeutic Exercise: 1: isometric abdominals 1x10 2: isometric abdominals wtih marches 1x10 3: seated DF 1x15 4: sit to stand without arms 1x5 5: standing hip abduction 1x10 B 6: standing HS curls 1x10 B 7: scifit stepper seat 12 for 3 min. Skilled Intervention: Patient was educated in proper exercise technique and purpose for exercises. Skilled judgment was provided in selection of appropriate interventions. Provided written instruction for home exercise program to facilitate proper performance and compliance. Correct performance of therapeutic exercises was facilitated with verbal and visual cuing. Billing: [facility]: Evaluation - Low Complexity (58847) Therapeutic Exercise (90252): 1:1 time: 25 minutes (2 units: 23-37 mins) Total time: 25 minutes Radha Elias PT PROGRESS Observed: 07/29/2017 Status: COMPLETED Source: [place] 1:37 PM [facility] [place] REPOSITORY HNO ID: [id number] Author: Dee Vega Service: (none) Author Type: Physician Dye Maker Type: Progress Notes Filed: 07/31/2017 2:03 PM Note Text: SPINE SURGERY ESTABLISHED DATE OF SERVICE: 07/29/2017 DATE OF LAST VISIT: 07/13/2017 SUBJECTIVE: HPI:Leila Thornton is a 67 year old female presenting alone. Patient is following up after Left L5-S1 lumbar transforaminal epidural steroid injection under fluoroscopy. Patient states the injection relieved her pain, this is the first time in couple years that she has hd good relief. She stills feels some weakness. PAIN EVALUATION 07/29/2017 Pain Score: 5 Pain Location: Leg-Left Description: Aching;Burning Duration Amount of Time: 12 Duration Units: Years Frequency: Continuous Intervention: Medication;Relaxation;Other: See comment Patient has had injections PREVIOUS CONSERVATIVE TREATMENTS: Epidural Blocks: Date(s) Left L5/S1 TFESI AMBULATORY STATUS: Independent Community Distances REVIEW OF SYSTEMS: GENERAL: No weight loss or malaise MUSCULOSKELETAL: Negative for joint pain, swelling or muscle pain NEURO: No history of headaches, syncope, paralysis, seizures or tremors MEDICATIONS: blood sugar diagnostic (FREESTYLE LITE STRIPS) test strip Test blood sugar(s) 3 times daily. Dx: E11.9 Insulin: No (overdue for doctor appt.) Lancets lancets Test blood sugar(s) 3 times daily. Dx: E11.9 Insulin: No (appointment needed for refills) meloxicam (MOBIC) 15 mg tablet Take 1 tablet by mouth once daily. traMADol (ULTRAM) 50 mg tablet Take 2 tablets by mouth as needed for up to 30 days. Blood-Glucose Meter (FREESTYLE LITE METER) monitoring kit Freestyle LITE Meter Kit -Dx 250.00, no insulin FREESTYLE LITE STRIPS test strip TEST BLOOD SUGAR THREE TIMES DAILY furosemide (LASIX) 40 mg tablet Take 0.5 tablets by mouth once daily. potassium chloride ER (KLOR-CON M20) 20 mEq tablet Take 9 tablets by mouth once daily. Total of 180mEq daily. olopatadine (PATANOL) 0.1 % ophthalmic solution Use 1 Drop in both eyes twice daily. As needed. tretinoin (RETIN-A) 0.1 % cream Apply 1 Tube to affected area daily at bedtime. hydroCHLOROthiazide (HYDRODIURIL, ESIDRIX) 25 mg tablet Take 1 tablet by mouth once daily. estradiol (ESTRACE) 0.01 % (0.1 mg/gram) vaginal cream Use 1 g vaginally twice a week. Ascorbic Acid (VITAMIN C) 250 mg chew Take 4 tablets by mouth once daily. MULTIVIT ANDMINERALS/FERROUS FUM (MULTI VITAMIN ORAL) Take by mouth once daily. OBJECTIVE: PHYSICAL EXAM: BP 114/57 Pulse 64 Resp 18 Ht 5' 4 (1.63m) Wt 175 lb (79.4kg) BMI 30.02 kg/(m2). GENERAL APPEARANCE: Well nourished, well developed, and no apparent distress. NEURO PSYCH: Patient oriented to person, place, and time. Mood pleasant. Benign affect. MUSCULOSKELETAL VISUAL INSPECTION CERVICAL: WNL THORACIC: WNL LUMBAR: WNL MOTOR: 5/5 in all muscle groups. SENSORY: Normal sensory exam GAIT: Normal. DATA REVIEW:Diagnostic tests reviewed for today's visit, films/specimens were personally reviewed by me: [facility] records reviewed ASSESSMENT/PLAN No diagnosis found. Leila Thornton will continue with medical management of his/her condition. Patient is a pleasant 67 yo female with good relief with left L5/S1 TFESI, would recommend that we start PT at this time. Patient will call if symptoms return. We can consider repeating injection vs discussing decompression. Patient verbalized understanding. Gave reassurance. 1. Consults: Physical Therapy 2. Follow up: PRN SIGNATURE: Dee Vega PA-C PATIENT NAME: Leila Thornton DATE: July 29, 2017 TIME: 1:37 PM PAGER: ARUN Observed: 07/29/2017 Status: COMPLETED Source: [place] 1:10 PM [facility] REPOSITORY Office Visit (SPNSMN) LEILA THORNTON ([id number]) 1950 F Date Time Provider Department 07/29/17 1:10 PM DEE VEGA) SPNSMN During your visit today, we recorded the following information about you: Pulse Respiration Blood pressure Weight 64/minute 18/minute 114/57 79.4 kg Height 1.626 m Dee Vega PA-C 07/31/2017 2:03 PM Signed SPINE SURGERY ESTABLISHED DATE OF SERVICE: 07/29/2017 DATE OF LAST VISIT: 07/13/2017 SUBJECTIVE: HPI:Leila Thornton is a 67 year old female presenting alone. Patient is following up after Left L5-S1 lumbar transforaminal epidural steroid injection under fluoroscopy. Patient states the injection relieved her pain, this is the first time in couple years that she has hd good relief. She stills feels some weakness. PAIN EVALUATION 07/29/2017 Pain Score: 5 Pain Location: Leg-Left Description: Aching;Burning Duration Amount of Time: 12 Duration Units: Years Frequency: Continuous Intervention: Medication;Relaxation;Other: See comment Patient has had injections PREVIOUS CONSERVATIVE TREATMENTS: Epidural Blocks: Date(s) Left L5/S1 TFESI AMBULATORY STATUS: Independent Community Distances REVIEW OF SYSTEMS: GENERAL: No weight loss or malaise MUSCULOSKELETAL: Negative for joint pain, swelling or muscle pain NEURO: No history of headaches, syncope, paralysis, seizures or tremors MEDICATIONS: blood sugar diagnostic (FREESTYLE LITE STRIPS) test strip Test blood sugar(s) 3 times daily. Dx: E11.9 Insulin: No (overdue for doctor appt.) Lancets lancets Test blood sugar(s) 3 times daily. Dx: E11.9 Insulin: No (appointment needed for refills) meloxicam (MOBIC) 15 mg tablet Take 1 tablet by mouth once daily. traMADol (ULTRAM) 50 mg tablet Take 2 tablets by mouth as needed for up to 30 days. Blood-Glucose Meter (FREESTYLE LITE METER) monitoring kit Freestyle LITE Meter Kit -Dx 250.00, no insulin FREESTYLE LITE STRIPS test strip TEST BLOOD SUGAR THREE TIMES DAILY furosemide (LASIX) 40 mg tablet Take 0.5 tablets by mouth once daily. potassium chloride ER (KLOR-CON M20) 20 mEq tablet Take 9 tablets by mouth once daily. Total of 180mEq daily. olopatadine (PATANOL) 0.1 % ophthalmic solution Use 1 Drop in both eyes twice daily. As needed. tretinoin (RETIN-A) 0.1 % cream Apply 1 Tube to affected area daily at bedtime. hydroCHLOROthiazide (HYDRODIURIL, ESIDRIX) 25 mg tablet Take 1 tablet by mouth once daily. estradiol (ESTRACE) 0.01 % (0.1 mg/gram) vaginal cream Use 1 g vaginally twice a week. Ascorbic Acid (VITAMIN C) 250 mg chew Take 4 tablets by mouth once daily. MULTIVIT ANDamp;MINERALS/FERROUS FUM (MULTI VITAMIN ORAL) Take by mouth once daily. OBJECTIVE: PHYSICAL EXAM: BP 114/57 Pulse 64 Resp 18 Ht 5' 4ANDquot; (1.63m) Wt 175 lb (79.4kg) BMI 30.02 kg/(m2). GENERAL APPEARANCE: Well nourished, well developed, and no apparent distress. NEURO PSYCH: Patient oriented to person, place, and time. Mood pleasant. Benign affect. MUSCULOSKELETAL VISUAL INSPECTION CERVICAL: WNL THORACIC: WNL LUMBAR: WNL MOTOR: 5/5 in all muscle groups. SENSORY: Normal sensory exam GAIT: Normal. DATA REVIEW:Diagnostic tests reviewed for today's visit, films/specimens were personally reviewed by me: [facility] records reviewed ASSESSMENT/PLAN No diagnosis found. Leila Thornton will continue with medical management of his/her condition. Patient is a pleasant 67 yo female with good relief with left L5/S1 TFESI, would recommend that we start PT at this time. Patient will call if symptoms return. We can consider repeating injection vs discussing decompression. Patient verbalized understanding. Gave reassurance. 1. Consults: Physical Therapy 2. Follow up: PRN SIGNATURE: Dee Vega PA-C PATIENT NAME: Leila Thornton DATE: July 29, 2017 TIME: 1:37 PM PAGER: Referring Provider: SELF [200] Allergies As of Date: 07/29/2017 Noted Allergy Reaction CEPHALOSPORINS 03/09/2012 10 - Anaphylaxis THIMEROSAL 03/09/2012 7 - Swelling Comments: Difficulty breathing VANCOMYCIN 03/09/2012 10 - Anaphylaxis Comments: flushed LEVAQUIN (LEVOFLOXACIN) 03/14/2013 2 - Rash 14 - Other: See Comments Comments: Muscle/joint pain SPIRONOLACTONE (BULK) 02/20/2015 2 - Rash Comments: Pt states happened years ago when trying this always forgets. SULFA (SULFONAMIDE ANTIBIOTICS) 04/09/2012 4 - Hives 9 - Itching TAPE (ADHESIVE TAPE (ROSINS)) 06/08/2012 2 - Rash 9 - Itching Comments: degloving ZOCOR (SIMVASTATIN) 05/15/2014 14 - Other: See Comments Comments: Muscle/limb pain Date Reviewed: 07/29/2017 Reviewed by: Phuong Beltrán Ma - Fully Assessed Reason for Visit: Established Patient [175] Primary Visit Diagnosis:Lumbar radiculopathy [M54.16] Order(s):CONSULT TO PHYSICAL THERAPY [9032] Order #: [id number]: 1 Prescriptions as of 07/29/2017 Sig: BLOOD SUGAR DIAGNOSTIC STRIPS Test blood sugar(s) 3 times d* LANCETS Test blood sugar(s) 3 times d* MELOXICAM 15 MG TABLET Take 1 tablet by mouth once d* TRAMADOL 50 MG TABLET Take 2 tablets by mouth as ne* BLOOD-GLUCOSE METER KIT Freestyle LITE Meter Kit -Dx * FREESTYLE LITE STRIPS TEST BLOOD SUGAR THREE TIMES * FUROSEMIDE 40 MG TABLET Take 0.5 tablets by mouth onc* POTASSIUM CHLORIDE ER 20 MEQ * Take 9 tablets by mouth once * OLOPATADINE 0.1 % EYE DROPS Use 1 Drop in both eyes twice* TRETINOIN 0.1 % TOPICAL CREAM Apply 1 Tube to affected area* HYDROCHLOROTHIAZIDE 25 MG TAB* Take 1 tablet by mouth once d* ESTRADIOL 0.01% (0.1 MG/GRAM)* Use 1 g vaginally twice a wee* ASCORBIC ACID (VITAMIN C) 250* Take 4 tablets by mouth once * MULTI VITAMIN ORAL Take by mouth once daily. Problem List As Of Date 07/29/2017 Noted Resolved Essential hypertension [I10] INVALID FOR* Acne [L70.9] INVALID FOR* Pain disorder [R52] INVALID FOR* Menopausal vaginal dryness [N95.1] INVALID FOR* Itchy eyes [H57.8] INVALID FOR* Anemia [D64.9] INVALID FOR*10/14/2012 Hemochromatosis [E83.119] INVALID FOR* Body odor [L74.8] INVALID FOR* Chronic dermatitis of hands [L30.9] INVALID FOR* Frequent UTI [N39.0] INVALID FOR* Abdominal pain [R10.9] INVALID FOR* Hereditary hemochromatosis [E83.110] INVALID FOR* Liver dysfunction [K76.89] INVALID FOR* Lumbar stenosis [M48.061] INVALID FOR* Lumbar radiculopathy [M54.16] INVALID FOR* Chronic pain [G89.29] INVALID FOR* Negron's cyst [M71.20] INVALID FOR* Tear, knee, lateral meniscus [S83.289A] INVALID FOR* Complex tear of medial meniscus of left knee as*INVALID FOR* Pain in joint, lower leg [M25.569] INVALID FOR* Tear of medial cartilage or meniscus of knee, c*INVALID FOR* Diabetes mellitus type 2, controlled, without c*INVALID FOR* Hyperlipidemia [E78.5] INVALID FOR* Thoracic back pain [M54.6] INVALID FOR* DDD (degenerative disc disease), cervical [M50.*INVALID FOR* Cervical spondylosis [M47.812] INVALID FOR* Acute combined systolic and diastolic congestiv*INVALID FOR*03/04/2015 Chronic instability of metacarpophalangeal join*INVALID FOR* Bilateral low back pain without sciatica [M54.5]INVALID FOR* Thumb pain [M79.646] INVALID FOR* DDD (degenerative disc disease), lumbar [M51.36]INVALID FOR* Trochanteric bursitis of left hip [M70.62] INVALID FOR* Piriformis syndrome of left side [G57.02] INVALID FOR* Trochanteric tendinitis of left hip [M70.62] INVALID FOR* Vitiligo [L80] INVALID FOR* More... 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 Encounter Status:Closed by DEE VEGA PA-C on 07/31/17 PT ED Observed: 07/21/2017 Status: COMPLETED Source: [place] 12:10 PM [facility] REPOSITORY HNO ID: [id number] Author: Grazyna (Rn) PHILIPPE Camilo Service: Nursing Author Type: Registered Nurse Type: Patient Education Filed: 07/21/2017 12:13 PM Note Text: POST OP LEARNING RESPONSE INSTRUCTION PROVIDED TO: Patient METHOD OF INSTRUCTION: Written instruction - handouts Verbal instruction PATIENT / FAMILY RESPONSE: Verbalizes understanding of: INFECTION MANAGEMENT-Signs and symptoms of an infection and importance of contacting the physician PAIN MANAGEMENT-Effective strategies to manage pain in addition to pain medication POST-PROCEDURE INSTRUCTIONS-Correct actions to take to reduce post procedure complications PATIENT SAFETY PRINCIPLES FOLLOW-UP PLAN: Patient instructed to call with any further issues Contact information given. SUPPLEMENTAL MATERIAL: None REFERRAL (RECOMMENDATION): None Electronically Signed By: Grazyna Camilo RN In Department: [facility] SURGERY XR FLUOROSCOPY Observed: 07/21/2017 Status: F Source: [place] 11:39 AM [facility] REPOSITORY * * *Final Report* * * DATE OF EXAM: Jul 21 2017 11:39AM [facility] [id number] - XR FLUOROSCOPY / PROCEDURE REASON: PAIN - LEFT L5-S1 TRANSFORAMINAL * * * * Physician Interpretation * * * * INDICATION: Pain management TECHNIQUE: 2 fluoroscopic spot images of the lower lumbar spine were submitted. FLUOROSCOPY TIME: 0:22 FINDINGS/ IMPRESSION: 2 fluoroscopic spot images demonstrate a needle with associated contrast overlying the left lumbosacral junction. Refer to the procedure note for details regarding this procedure. Crop Puller: PSCB Transcribe Date/Time: Jul 21 2017 2:23P Dictated by : SHOLA CINTRON MD This examination was interpreted and the report reviewed and electronically signed by: SHOLA CINTRON MD on Jul 21 2017 2:24PM EST [id number] OPERATIVE NO Observed: 07/21/2017 Status: COMPLETED Source: [place] 11:33 AM [facility] REPOSITORY HNO ID: [id number] Author: Thiago Piper Service: Pain Management Author Type: Physician Type: Operative Report Filed: 07/21/2017 11:34 AM Note Text: PATIENT NAME: Leila Thornton SERVICE DATE: 07/21/2017 PREOPERATIVE DIAGNOSIS(ES) Lumbar radiculopathy Lumbar disc displacement Lumbar DDD POSTOPERATIVE DIAGNOSIS(ES): Same OPERATION: Left L5-S1 lumbar transforaminal epidural steroid injection under fluoroscopy. ?? ANESTHESIA: versed 3mg, fentanyl 50mcg IV ?? INDICATIONS: The patient presents for lumbar transforaminal epidural steroid injection. Since the last visit, the patient denies any new pain complaints and denies any focal neurological deficits. As discussed and outlined in the office and confirmed today, the plan is to proceed with lumbar transforaminal epidural steroid injection. The risks and benefits of the procedure were discussed. Specifically, the risks of bleeding, infection, inadvertent dural puncture, spinal heaches, vasovagal reaction, epidural hematoma, partial or permanent nerve injury were covered. The potential side effects of medications used in procedures including increase in lumbar pain, headaches, facial redness or warmth (flushing), anxiety or mood swings, sleeplessness, fever, high blood sugar, brief reduction in immunity were discussed. The patient expressed understanding of potential risks and wishes to proceed with the procedure. ?? OPERATIVE PROCEDURE: The patient was brought to the operating room. The patient was placed in the prone position with routine monitors placed. The lower back was prepped in sterile fashion. Upon AP projection under fluoroscopy, L5-S1 level was identified. The fluoroscopy was rotated in oblique projection to identify the neuroforamen. Entry point was marked and anesthetized with 0.25% Marcaine. This was followed by insertion of a 5 inch spinal needle, which was inserted and advanced towards the 12 o' clock of the [id number]. Once the Needle tip contacted the inferior lateral aspect of the pedicle, aspiration was performed which was negative for blood or CSF. This was followed by injection of Omnipaque 300, which revealed a spread through the neuroforamen into the anterior epidural space. There was no evidence of intravascular or intrathecal flow. This was then followed by a total injection of 3 mL of 0.25% Marcaine with 40 mg of Depomedrol. The patient tolerated the procedure well. The needle was removed intact. Dry dressing was placed over the injection site. The patient was taken to the recovery room in stable condition. EBL: nil Start time: 11:24 AM End time: 11:32 AM I was present the entire time and personally performed the procedure. SIGNATURE: Thiago Piper MD DATE: July 21, 2017 TIME: 11:33 AM HISTORY PHYSICAL Observed: 07/21/2017 Status: COMPLETED Source: [place] 11:15 AM [facility] REPOSITORY O ID: [id number] Author: Thiago Piper Service: Pain Management Author Type: Physician Type: HANDP Filed: 07/21/2017 11:16 AM Note Text: HISTORY AND PHYSICAL EXAMINATION PATIENT NAME: Leila Thornton DATE of SERVICE: 07/21/2017 Leila Thornton is here for the pain mangement procedure. The patient presents with persistent pain complaints. Leila Thornton denies any interval changes or new pain complaints or focal neurologic deficits. PAST MEDICAL HISTORY Diagnosis Date - Arthritis - Blood dyscrasia - Dermatitis - Frequent UTI - Hemochromatosis - Hypertension - Lumbar pain - Shingles 1999 - Type II or unspecified type diabetes mellitus without mention of complication, not stated as uncontrolled 04/10/2014 PAST SURGICAL HISTORY Procedure Laterality Date - ARTHRODESIS [facility] JNT THUMB W/WO FIX 1996 bilateral - CERVICAL BIOPSY 05/25/12 Dr. Jordan - COLONOSCOP W/ OR W/O BRSH SPEC 05/16/2015 Colonoscopy - EGD W/O OR W/BRUSH/WASH 05/16/2015 EGD - ENDOMETRIAL BIOPSY 05/07/12 Dr. Jordan - HYSTEROSCOPY 05/25/12 Dr. Jordan - KNEE SCOPE,MENISECTOMY,MED OR LAT 10/07/2013 Left knee arthroscopic medial and lateral meniscectomies - partial - PAST SURGICAL HISTORY OF 1981 septoplasy - PAST SURGICAL HISTORY OF 04/16 bilateral lumbar epidural - PAST SURGICAL HISTORY OF 06/11/2015 lumbar epidural - left - REDUCTION OF LARGE BREAST 1999 bilateral - REMOVAL OF TONSILS,<12 Y/O 1979 Tonsillectomy - ROTATOR CUFF REPAIR 1984 right acromioplasty Social History Marital status: Single Spouse name: Years of education: Number of children: 0 Occupational History Occupation Employer Comment retired Social History Main Topics Smoking status: Never Smoker Smokeless status: Never Used Alcohol use: Yes 0.0 oz/week Comment: stopped drinking on 04/04/14 Drug use: No Sexual activity: Not Currently 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 FAMILY HISTORY Problem Relation Age of Onset - Cancer Mother 64 ovarian - Cancer Father 76 Mantle Cell Lymphoma - Cancer Maternal Grandmother uterine dx 60s - COPD Maternal Grandfather - Heart Maternal Grandfather CHF - Heart Paternal Grandmother CVA - Blood Disease Sister hemochromotosis - Cancer Paternal Aunt lung - Cancer Paternal Uncle brain tumor, myasthenia gravis ALLERGIES Allergen Reactions - Cephalosporins Anaphylaxis - Thimerosal Swelling Difficulty breathing - Vancomycin Anaphylaxis flushed - Levaquin [Levofloxa* Rash, Other: See Comments Muscle/joint pain - Spironolactone (Bul* Rash Pt states happened years ago when trying this always forgets. - Sulfa (Sulfonamide * Hives, Itching - Tape [Adhesive Tape* Rash, Itching degloving - Zocor [Simvastatin] Other: See Comments Muscle/limb pain Current Facility-Administered Medications: NaCl 0.9% iv infusion 30 mL/hr INTRAVENOUS CONTINUOUS Physical Exam: Performed in conjunction with observation. The patient is alert and oriented x3. The patient is in no acute distress. Neck: Supple. The range of motion is intact. Lungs: clear CVR: RRR. Extremities: no reported edema or erythema. Examination indicates no changes Impression: Lumbar disc herniation Lumbar radiculopathy Plan: The informed consent has been obtained. The plan is to proceed with the procedure as planned. SIGNATURE: Thiago Piper MD DATE: July 21, 2017 TIME: 11:15 AM PT ED Observed: 07/21/2017 Status: COMPLETED Source: [place] 10:22 AM [facility] REPOSITORY HNO ID: [id number] Author: Brynn (Rn) PHILIPPE Abdullahi Service: (none) Author Type: Registered Nurse Type: Patient Education Filed: 07/21/2017 10:22 AM Note Text: PRE OP LEARNING ASSESSMENT PROCEDURE/SURGERY: PAIN MANAGEMENT: left Lumbar Steroid Injection READINESS TO LEARN COGNITIVE ABILITY: Alert and oriented MOTIVATION TO LEARN: Interested FAMILY SUPPORT: High - Very involved in pt care PATIENT LEARNS BEST BY: Verbal Instruction FACTORS AFFECTING LEARNING: None PHYSICAL LIMITATIONS AFFECTING LEARNING: Pain Electronically Signed By: Brynn Abdullahi RN In Department: [facility] SURGERY HOSP Observed: 07/15/2017 Status: COMPLETED Source: [place] 12:00 AM [facility] REPOSITORY Patient:Leila Thornton MRN: <[id number]> Height:5' 4(1.626 m) Weight:170 lb (77.111 kg) Outpatient Medications as of 07/21/17: blood sugar diagnostic (FREESTYLE LITE STRIPS) test strip Lancets lancets meloxicam (MOBIC) 15 mg tablet traMADol (ULTRAM) 50 mg tablet Blood-Glucose Meter (FREESTYLE LITE METER) monitoring kit FREESTYLE LITE STRIPS test strip furosemide (LASIX) 40 mg tablet potassium chloride ER (KLOR-CON M20) 20 mEq tablet olopatadine (PATANOL) 0.1 % ophthalmic solution tretinoin (RETIN-A) 0.1 % cream hydroCHLOROthiazide (HYDRODIURIL, ESIDRIX) 25 mg tablet estradiol (ESTRACE) 0.01 % (0.1 mg/gram) vaginal cream Ascorbic Acid (VITAMIN C) 250 mg chew MULTIVIT ANDMINERALS/FERROUS FUM (MULTI VITAMIN ORAL) Admission/Clinic Administered Medications as of 07/21/17: NaCl 0.9% iv infusion Problem List: Essential hypertension [I10] Acne [L70.9] Pain disorder [R52] Menopausal vaginal dryness [N95.1] Itchy eyes [H57.8] Hemochromatosis [E83.119] Body odor [L74.8] Chronic dermatitis of hands [L30.9] Frequent UTI [N39.0] Abdominal pain [R10.9] Hereditary hemochromatosis (HCC) [E83.110] Liver dysfunction [K76.89] Lumbar stenosis [M48.061] Lumbar radiculopathy [M54.16] Chronic pain [G89.29] Negron's cyst [M71.20] Tear, knee, lateral meniscus [S83.289A] Complex tear of medial meniscus of left knee as current injury [S83.232A] Pain in joint, lower leg [M25.569] Tear of medial cartilage or meniscus of knee, current [KEU2503] Diabetes mellitus type 2, controlled, without complications (HCC) [E11.9] Hyperlipidemia [E78.5] Thoracic back pain [M54.6] DDD (degenerative disc disease), cervical [M50.30] Cervical spondylosis [M47.812] Chronic instability of metacarpophalangeal joint of thumb [M25.349] Bilateral low back pain without sciatica [M54.5] Thumb pain [M79.646] DDD (degenerative disc disease), lumbar [M51.36] Trochanteric bursitis of left hip [M70.62] Piriformis syndrome of left side [G57.02] Trochanteric tendinitis of left hip [M70.62] Vitiligo [L80] Alcohol abuse, in remission [F10.11] Spinal stenosis of lumbar region without neurogenic claudication [M48.061] Allergies: Cephalosporins Thimerosal Vancomycin Levaquin [Levofloxacin] Spironolactone (Bulk) Sulfa (Sulfonamide Antibiotics) Tape [Adhesive Tape (Rosins)] Zocor [Simvastatin] Date Verified: 07/21/17 Lab Values No results within the last 30 days for the following basenames: K,HCT Progress Notes ([facility]): RT Margie, Tech 07/14/2017 3:24 PM Signed Radiology Service Progress Note PATIENT NAME: Leila Thornton DATE OF SERVICE: July 14, 2017 TIME: 3:13 PM PATIENT IDENTITY VERIFICATION COMPLETED USING TWO (2) METHODS: Patient confirmed name verbally and Date of . PATIENT GENDER DATA: Female. status: : No status: NO. PATIENT RELEVANT IMPLANT DATA REVIEWED: Not Applicable RADIOLOGY DEPARTMENT: General X-ray: Exam(s) Completed: Spine X-Ray(s): Lumbar AP / LAT / L5-S1 / FLEX-EXT PERIPHERAL IV DATA: Not applicable SIGNED BY: RT Margie July 14, 2017 3:13 PM Progress Notes ([facility]): Mary Sue 07/14/2017 8:47 AM Signed Patient calls was seen by Dr Barone 07/13/17, per patient is suggesting another epidural injection at L5-S1 on left. Patient is asking if this can be scheduled as soon as possible, and asking if OV will be need prior to scheduling. Please advise, Ashley Simpson APRN.LAND CHECKER, LAND CHECKER 07/14/2017 9:04 AM Signed Will discuss with Dr. Piper and then call the patient. Dr. Nam's PA recommends left L5-S1 TFSI Ashley M Simpson, ENGRAVING OPERATOR.LAND CHECKER, LAND CHECKER 07/15/2017 8:[address] Piper placed the order for left L5-S1 TFSI. Please call the patient and marcia Brian Gail 07/15/2017 11:31 AM Signed Called patient scheduled injection and sent patient instructions via [employer] and the patient is aware. XR LUMBAR 4V AP/LAT/ Observed: 07/14/2017 Status: F Source: [place] FLEX/EXT 3:25 PM [facility] REPOSITORY * * *Final Report* * * DATE OF EXAM: Jul 14 2017 3:25PM [id number] [id number] - XR LUMBAR 4V AP/LAT/ FLEX/EXT / PROCEDURE REASON: Spinal stenosis, lumbar region without neurogenic claudication * * * * Physician Interpretation * * * * EXAM TITLE: XR LUMBAR 4V AP/LAT/ FLEX/EXT EXAM DATE/TIME: 07/14/2017 3:25 PM COMPARISON: None. CLINICAL INDICATION/HISTORY: Low back pain TECHNIQUE: AP, lateral, lateral extension and lateral flexion lateral views of the lumbar spine are presented. FINDINGS: There are five [id number] lumbar vertebra. No acute fractures demonstrated in the lumbar spine. There is grade 1 L4 on L5 anterolisthesis. No change in alignment of the lumbar spine on lateral extension and lateral flexion views. L4-5 disc space narrowing is present. There is moderate osteophyte formation. Facet arthrosis is present in the lower lumbar spine. IMPRESSION: Lumbar spine degenerative changes with L4-5 disc space narrowing. L4 on L5 anterolisthesis. Crop Puller: PSCB Transcribe Date/Time: Jul 14 2017 5:28P Dictated by : RICKEY ARANDA MD This examination was interpreted and the report reviewed and electronically signed by: RICKEY ARANDA MD on Jul 14 2017 5:31PM EST [id number] PROGRESS Observed: 07/14/2017 Status: COMPLETED Source: [place] 3:13 PM [facility] REPOSITORY HNO ID: [id number] Author: Kanika Garcia (Rt) Seble Delarosa Service: (none) Author Type: Track Subway Repair Supervisor Type: Progress Notes Filed: 07/14/2017 3:24 PM Note Text: Radiology Service Progress Note PATIENT NAME: Leila Thornton DATE OF SERVICE: July 14, 2017 TIME: 3:13 PM PATIENT IDENTITY VERIFICATION COMPLETED USING TWO (2) METHODS: Patient confirmed name verbally and Date of . PATIENT GENDER DATA: Female. status: : No status: NO. PATIENT RELEVANT IMPLANT DATA REVIEWED: Not Applicable RADIOLOGY DEPARTMENT: General X-ray: Exam(s) Completed: Spine X-Ray(s): Lumbar AP / LAT / L5-S1 / FLEX-EXT PERIPHERAL IV DATA: Not applicable SIGNED BY: RT Margie July 14, 2017 3:13 PM PROGRESS Observed: 07/13/2017 Status: COMPLETED Source: [place] 10:40 AM [facility] [place] REPOSITORY O ID: [id number] Author: Denise Nam Service: (none) Author Type: Physician Type: Progress Notes Filed: 07/22/2017 3:46 PM Note Text: SPINE SURGERY NEW PATIENT PCP: SHANNAN VERONICA MD REFERRING PROVIDER: SELF SUBJECTIVE HISTORY OF PRESENT ILLNESS: Leila Thornton is a 67 year old female presenting alone. CHIEF COMPLAINT: Left Buttock pain DURATION OF SYMPTOMS: Greater Than 1 Year Patient presents for evaluation of left leg pain. She states she is here for evaluation of lumbar spine, not here for cervical spine. She reports left buttock pain and aching in left knee and anterior piper. Symptoms are increased with prolonged walking, standing, lying. Relieved with reclining. She did receive Left L4/5 TFESI with 10-20% relief for 3 days. Patient is positive for LOB, numbness in hands, infrequently dropping objects. Left Buttock>Left knee/piper PAIN EVALUATION 07/13/2017 Pain Score: 8 Pain Location: Neck Both hands, left leg Description: Numbness;Tingling;Aching;Burning;Stabbing;Throbbing Duration Amount of Time: 10 Duration Units: Years Frequency: Continuous Intervention: Medication;Heat;Cold;Massage lumbar epidural, DERMATOMAL DISTRIBUTION: Not applicable AMBULATORY STATUS: Impaired Community Distances PREVIOUS CONSERVATIVE TREATMENTS: RX NSAIDS for 3 Months or Greater (meloxicam (Mobic)) Opioids Physical Therapy: Date(s) One year ago per patient Epidural Blocks: Date(s) See below- last injection gave patient 10-20% relief of leg pain for 3 days Membrane Stabilizers Injections: Left L4-5 lumbar transforaminal epidural steroid injection under fluoroscopy. Left L4-5 lumbar transforaminal epidural steroid injection under fluoroscopy. Left L4-5 lumbar transforaminal epidural steroid injection under fluoroscopy. Left L4-5 lumbar transforaminal epidural steroid injection under fluoroscopy. Left L4-5 lumbar transforaminal epidural steroid injection under fluoroscopy. Left L4-5 lumbar transforaminal epidural steroid injection under fluoroscopy. Left L5-S1 lumbar transforaminal epidural steroid injection under fluoroscopy. PREVIOUS SPINAL SURGERY: None ACTIVE PROBLEM LIST Essential Hypertension Acne Pain Disorder Menopausal Vaginal Dryness Itchy Eyes Hemochromatosis Body Odor Chronic Dermatitis of Hands Frequent Uti Abdominal Pain Hereditary Hemochromatosis (Hcc) Liver Dysfunction Lumbar Stenosis Lumbar Radiculopathy Chronic Pain Negron's Cyst Tear, Knee, Lateral Meniscus Complex Tear of Medial Meniscus of Left Knee As Current Injury Pain in Joint, Lower Leg Tear of Medial Cartilage Or Meniscus of Knee, Current Diabetes Mellitus Type 2, Controlled, Without Complications (Hcc) Hyperlipidemia Thoracic Back Pain Ddd (Degenerative Disc Disease), Cervical Cervical Spondylosis Chronic Instability of Metacarpophalangeal Joint of Thumb Bilateral Low Back Pain Without Sciatica Thumb Pain Ddd (Degenerative Disc Disease), Lumbar Trochanteric Bursitis of Left Hip Piriformis Syndrome of Left Side Trochanteric Tendinitis of Left Hip Vitiligo Alcohol Abuse, in Remission Spinal Stenosis of Lumbar Region Without Neurogenic Claudication PAST MEDICAL HISTORY Diagnosis Date - Arthritis - Blood dyscrasia - Dermatitis - Frequent UTI - Hemochromatosis - Hypertension - Lumbar pain - Shingles 1999 - Type II or unspecified type diabetes mellitus without mention of complication, not stated as uncontrolled 04/10/2014 PAST SURGICAL HISTORY Procedure Laterality Date - ARTHRODESIS [facility] JNT THUMB W/WO FIX 1996 bilateral - CERVICAL BIOPSY 05/25/12 Dr. Jordan - COLONOSCOP W/ OR W/O BRSH SPEC 05/16/2015 Colonoscopy - EGD W/O OR W/BRUSH/WASH 05/16/2015 EGD - ENDOMETRIAL BIOPSY 05/07/12 Dr. Jordan - HYSTEROSCOPY 05/25/12 Dr. Jordan - KNEE SCOPE,MENISECTOMY,MED OR LAT 10/07/2013 Left knee arthroscopic medial and lateral meniscectomies - partial - PAST SURGICAL HISTORY OF 1981 septoplasy - PAST SURGICAL HISTORY OF 04/16 bilateral lumbar epidural - PAST SURGICAL HISTORY OF 06/11/2015 lumbar epidural - left - REDUCTION OF LARGE BREAST 1999 bilateral - REMOVAL OF TONSILS,<12 Y/O 1979 Tonsillectomy - ROTATOR CUFF REPAIR 1984 right acromioplasty FAMILY HISTORY Problem Relation Age of Onset - Cancer Mother 64 ovarian - Cancer Father 76 Mantle Cell Lymphoma - Cancer Maternal Grandmother uterine dx 60s - COPD Maternal Grandfather - Heart Maternal Grandfather CHF - Heart Paternal Grandmother CVA - Blood Disease Sister hemochromotosis - Cancer Paternal Aunt lung - Cancer Paternal Uncle brain tumor, myasthenia gravis Social History Marital status: Single Spouse name: Years of education: Number of children: 0 Occupational History Occupation Employer Comment retired Social History Main Topics Smoking status: Never Smoker Smokeless status: Never Used Alcohol use: Yes 0.0 oz/week Comment: stopped drinking on 04/04/14 Drug use: No Sexual activity: Not Currently 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 ALLERGIES Allergen Reactions - Cephalosporins Anaphylaxis - Thimerosal Swelling Difficulty breathing - Vancomycin Anaphylaxis flushed - Levaquin [Levofloxa* Rash, Other: See Comments Muscle/joint pain - Spironolactone (Bul* Rash Pt states happened years ago when trying this always forgets. - Sulfa (Sulfonamide * Hives, Itching - Tape [Adhesive Tape* Rash, Itching degloving - Zocor [Simvastatin] Other: See Comments Muscle/limb pain MEDICATIONS: blood sugar diagnostic (FREESTYLE LITE STRIPS) test strip Test blood sugar(s) 3 times daily. Dx: E11.9 Insulin: No (overdue for doctor appt.) Lancets lancets Test blood sugar(s) 3 times daily. Dx: E11.9 Insulin: No (appointment needed for refills) meloxicam (MOBIC) 15 mg tablet Take 1 tablet by mouth once daily. traMADol (ULTRAM) 50 mg tablet Take 2 tablets by mouth as needed for up to 30 days. Blood-Glucose Meter (FREESTYLE LITE METER) monitoring kit Freestyle LITE Meter Kit -Dx 250.00, no insulin FREESTYLE LITE STRIPS test strip TEST BLOOD SUGAR THREE TIMES DAILY furosemide (LASIX) 40 mg tablet Take 0.5 tablets by mouth once daily. potassium chloride ER (KLOR-CON M20) 20 mEq tablet Take 9 tablets by mouth once daily. Total of 180mEq daily. olopatadine (PATANOL) 0.1 % ophthalmic solution Use 1 Drop in both eyes twice daily. As needed. tretinoin (RETIN-A) 0.1 % cream Apply 1 Tube to affected area daily at bedtime. hydroCHLOROthiazide (HYDRODIURIL, ESIDRIX) 25 mg tablet Take 1 tablet by mouth once daily. estradiol (ESTRACE) 0.01 % (0.1 mg/gram) vaginal cream Use 1 g vaginally twice a week. ketoconazole (NIZORAL) 2 % shampoo Massage onto affected areas and leave on for 5 - 10 minutes then rinse off. Repeat daily for a month and then once weekly for maintenance. Ascorbic Acid (VITAMIN C) 250 mg chew Take 4 tablets by mouth once daily. MULTIVIT ANDMINERALS/FERROUS FUM (MULTI VITAMIN ORAL) Take by mouth once daily. REVIEW OF SYSTEMS: PAIN ASSESSMENT: See HPI. GENERAL: Denies fever, chills malaise and weight loss. HEENT: No recent change in vision or hearing. CARDIOVASCULAR: Denies chest pain, history of A-fib, valvular disease, or pacemaker/ICD. RESPIRATORY: Denies SOB, sputum production, and hemoptysis. GI: Denies GI ulcers, inflammatory disease, or liver disease. : Denies change in frequency or urgency, kidney disease, and burning with urination. MUSCULOSKELETAL: Negative for joint pain or swelling, back pain or muscle pain. SKIN: Denies rash or itching. PSYCHOLOGICAL: Denies uncontrolled depression or anxiety. NEURO: Denies CVA, seizures, headaches. ENDOCRINE: Denies diabetes, thyroid disease. HEMATOLOGY/LYMPHOLOGY: Denies cancer, bleeding or clotting disorders, anemia,and DVT's. ALLERGIC/IMMUNOLOGICAL: Denies risks for infection, or recent MRSA infections. OBJECTIVE: PHYSICAL EXAM BP 125/61 Pulse 76 Resp 16 Ht 162.6 cm (5' 4) Wt 81.6 kg (180 lb) BMI 30.9 kg/m2 GENERAL APPEARANCE: Well nourished, well developed, and no apparent distress. NEURO PSYCH: Patient oriented to person, place, and time. Mood pleasant. Benign affect. MUSCULOSKELETAL VISUAL INSPECTION CERVICAL: WNL THORACIC: WNL LUMBAR: WNL PALPATION: SPINOUS PROCESS: No pain. PARASPINALS: No pain. MUSCLE BULK: Normal and symmetrical in the upper AND lower extremities. MUSCLE TONE: Normal. MOTOR: 5/5 in all muscle groups. SENSORY: Normal sensory exam GAIT: Normal. REFLEXES: +2 to bilateral U/L extremities. LONG TRACT SIGNS: No clonus. No Hoffmans. STRAIGHT LEG TEST: Ipsilateral: Negative. Contralateral: Negative. NEURO TESTS: RIGHT HIP EXAM: No pain to internal or external rotation LEFT HIP EXAM: No pain to internal or external rotation DATA REVIEW [facility] records reviewed Images reviewed with the patient ASSESSMENT/PLAN IMPRESSION: (M48.061) Spinal stenosis of lumbar region without neurogenic claudication (primary encounter diagnosis) Patient is a 67 year old female with left buttock>left knee pain. If surgery is considered would need to consider fusion for instability. CR ordered. No significant relief with L4/5 TFESI, would recommend trying Left L5/S1 TFESI. Dee Vega PA-C 1. Consults: Medical Spine Intervention 2. Follow up: PRN I reviewed the information obtained and documented by the physician photographer assistant. I examined the patient and evaluated all available films and pertinent documents. We discussed the case and I agree with the plans as outlined in this note. staff note, no relief with L4/5 injection will try L5/S1 not sure if surgery would be effective if we cannot find an effective injection Denise Nam MD SIGNATURE: Denise Nam MD PATIENT NAME: Leila Thornton DATE: July 13, 2017 TIME: 10:40 AM PAGER: ARUN Observed: 07/13/2017 Status: COMPLETED Source: [place] 10:20 AM [facility] REPOSITORY Office Visit (SPNSMN) LEILA THORNTON ([id number]) 1950 F Date Time Provider Department 07/13/17 10:20 AM DENISE NAM SPDEMARMN During your visit today, we recorded the following information about you: Pulse Respiration Blood pressure Weight 76/minute 16/minute 125/61 81.6 kg Height 1.626 m Denise Nam MD 07/22/2017 3:46 PM Signed SPINE SURGERY NEW PATIENT PCP: SHANNAN VERONICA MD REFERRING PROVIDER: SELF SUBJECTIVE HISTORY OF PRESENT ILLNESS: Leila Thornton is a 67 year old female presenting alone. CHIEF COMPLAINT: Left Buttock pain DURATION OF SYMPTOMS: Greater Than 1 Year Patient presents for evaluation of left leg pain. She states she is here for evaluation of lumbar spine, not here for cervical spine. She reports left buttock pain and aching in left knee and anterior piper. Symptoms are increased with prolonged walking, standing, lying. Relieved with reclining. She did receive Left L4/5 TFESI with 10-20% relief for 3 days. Patient is positive for LOB, numbness in hands, infrequently dropping objects. Left ButtockANDgt;Left knee/piper PAIN EVALUATION 07/13/2017 Pain Score: 8 Pain Location: Neck Both hands, left leg Description: Numbness;Tingling;Aching;Burning;Stabbing;Throbbing Duration Amount of Time: 10 Duration Units: Years Frequency: Continuous Intervention: Medication;Heat;Cold;Massage lumbar epidural, DERMATOMAL DISTRIBUTION: Not applicable AMBULATORY STATUS: Impaired Community Distances PREVIOUS CONSERVATIVE TREATMENTS: RX NSAIDS for 3 Months or Greater (meloxicam (Mobic)) Opioids Physical Therapy: Date(s) One year ago per patient Epidural Blocks: Date(s) See below- last injection gave patient 10-20% relief of leg pain for 3 days Membrane Stabilizers Injections: Left L4-5 lumbar transforaminal epidural steroid injection under fluoroscopy. Left L4-5 lumbar transforaminal epidural steroid injection under fluoroscopy. Left L4-5 lumbar transforaminal epidural steroid injection under fluoroscopy. Left L4-5 lumbar transforaminal epidural steroid injection under fluoroscopy. Left L4-5 lumbar transforaminal epidural steroid injection under fluoroscopy. Left L4-5 lumbar transforaminal epidural steroid injection under fluoroscopy. Left L5-S1 lumbar transforaminal epidural steroid injection under fluoroscopy. PREVIOUS SPINAL SURGERY: None ACTIVE PROBLEM LIST Essential Hypertension Acne Pain Disorder Menopausal Vaginal Dryness Itchy Eyes Hemochromatosis Body Odor Chronic Dermatitis of Hands Frequent Uti Abdominal Pain Hereditary Hemochromatosis (Hcc) Liver Dysfunction Lumbar Stenosis Lumbar Radiculopathy Chronic Pain Negron's Cyst Tear, Knee, Lateral Meniscus Complex Tear of Medial Meniscus of Left Knee As Current Injury Pain in Joint, Lower Leg Tear of Medial Cartilage Or Meniscus of Knee, Current Diabetes Mellitus Type 2, Controlled, Without Complications (Hcc) Hyperlipidemia Thoracic Back Pain Ddd (Degenerative Disc Disease), Cervical Cervical Spondylosis Chronic Instability of Metacarpophalangeal Joint of Thumb Bilateral Low Back Pain Without Sciatica Thumb Pain Ddd (Degenerative Disc Disease), Lumbar Trochanteric Bursitis of Left Hip Piriformis Syndrome of Left Side Trochanteric Tendinitis of Left Hip Vitiligo Alcohol Abuse, in Remission Spinal Stenosis of Lumbar Region Without Neurogenic Claudication PAST MEDICAL HISTORY Diagnosis Date - Arthritis - Blood dyscrasia - Dermatitis - Frequent UTI - Hemochromatosis - Hypertension - Lumbar pain - Shingles 1999 - Type II or unspecified type diabetes mellitus without mention of complication, not stated as uncontrolled 04/10/2014 PAST SURGICAL HISTORY Procedure Laterality Date - ARTHRODESIS [facility] JNT THUMB W/WO FIX 1996 bilateral - CERVICAL BIOPSY 05/25/12 Dr. Jordan - COLONOSCOP W/ OR W/O BRSH SPEC 05/16/2015 Colonoscopy - EGD W/O OR W/BRUSH/WASH 05/16/2015 EGD - ENDOMETRIAL BIOPSY 05/07/12 Dr. Jordan - HYSTEROSCOPY 05/25/12 Dr.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 unspecified type diabetes mellitus without mention of complication, not stated as uncontrolled 04/10/2014 PAST SURGICAL HISTORY Procedure Laterality Date - ARTHRODESIS CMC JNT THUMB W/WO FIX 1996 bilateral - CERVICAL BIOPSY 05/25/12 Dr. Jordan - COLONOSCOP W/ OR W/O BRSH SPEC 05/16/2015 Colonoscopy - EGD W/O OR W/BRUSH/WASH 05/16/2015 EGD - ENDOMETRIAL BIOPSY 05/07/12 Dr. Jordan - HYSTEROSCOPY 05/25/12 Dr. Jordan - KNEE SCOPE,MENISECTOMY,MED OR LAT 10/07/2013 Left knee arthroscopic medial and lateral meniscectomies - partial - PAST SURGICAL HISTORY OF 1981 septoplasy - PAST SURGICAL HISTORY OF 04/16 bilateral lumbar epidural - PAST SURGICAL HISTORY OF 06/11/2015 lumbar epidural - left - REDUCTION OF LARGE BREAST 2000 bilateral - REMOVAL OF TONSILS,<12 Y/O 1979 Tonsillectomy - ROTATOR CUFF REPAIR 1984 right acromioplasty FAMILY HISTORY Problem Relation Age of Onset - Cancer Mother 64 ovarian - Cancer Father 76 Mantle Cell Lymphoma - Cancer Maternal Grandmother uterine dx 60s - COPD Maternal Grandfather - Heart Maternal Grandfather CHF - Heart Paternal Grandmother CVA - Blood Disease Sister hemochromotosis - Cancer Paternal Aunt lung - Cancer Paternal Uncle brain tumor, myasthenia gravis SOCIAL HISTORY Social History Substance Use Topics - Smoking status: Never Smoker - Smokeless tobacco: Never Used - Alcohol use No Comment: stopped drinking on 04/04/14 REVIEW OF SYSTEMS Abdomen: No abdominal pain, nausea, vomiting, diarrhea, or constipation. No bloating, early satiety, indigestion, or increased flatulence. Bladder: No dysuria, gross hematuria, urinary frequency, urinary urgency, or incontinence Breast: No breast lumps, nipple d/c, overlying skin changes, redness or skin retraction Allergies and current medication updated:Yes EXAM: There were no vitals taken for this visit. GENERAL: pleasant, female in no apparent distress HEENT: Normocephalic, atraumatic, mucus membranes moist and no lesions NECK: Supple, full range of motion, no adenopathy and thyroid normal DERMATOLOGY: Normal, without lesions, non-icteric and non-hirsute BREAST: soft, symmetric, no dominant mass, normal nipple- areolar complex, no lymphadenopathy, no nipple discharge. Pt has surgical implants. Tenderness noted with exam. CHEST: Normal inspiratory effort ABDOMEN: soft, non-tender and no masses PELVIC: external genitalia normal, normal Bartholin's glands, urethra, [place] Edge's glands, no vulvar lesions, no cervical lesions, good vaginal support, physiologic discharge present, normal appearing perineal body and perianal region BIMANUAL: uterus normal size, shape and consistency, no adnexal masses, non-tender and no cervical motion tenderness RECTOVAGINAL: deferred. NEURO: alert and oriented x3,exam grossly non-focal EXTREMITIES: normal ASSESSMENT/PLAN: 1) Health maintenance: Pap/HPV screening no longer needed Mammogram up to date Nutrition, exercise and routine health maintenance exams reviewed. Calcium/Vitamin D supplementation information provided. 2) Follow up one year or sooner as needed KENIA LAKE CNP CNOV Observed: 06/01/2017 Status: COMPLETED Source: [place] 12:45 PM [facility] REPOSITORY Office Visit (WOOB) NORBERTOLEILA ([id number]) 1950 F Date Time Provider Department 06/01/17 12:45 PM KENIA LAKE (JIM) WOOB During your visit today, we recorded the following information about you: Blood pressure Weight Height 120/82 84.1 kg 1.619 m KENIA LAKE CNP 06/01/2017 1:37 PM Signed Leila Peres Norberto is a 67 year old who presents for her annual gynecologic exam without complaints. her rescue geese laid eggs in Apr 2017 (10) Postmenopausal: Yes HRT use: Yes, Vaginal E. Last Pap: 2013 normal HPV: 2013 negative History of abnormal pap: Yes Last mammogram: 2017 normal History of abnormal mammogram: No Sexually active: No Hot flashes: No Night sweats: No Vaginal dryness: Yes Obstetric History T0 L0 SAB0 TAB2 Ectopic0 Multiple0 Live Births0 PAST MEDICAL HISTORY Diagnosis Date - Arthritis - Blood dyscrasia - Dermatitis - Frequent UTI - Hemochromatosis - Hypertension - Lumbar pain - Shingles 1999 - Type II or unspecified type diabetes mellitus without mention of complication, not stated as uncontrolled 04/10/2014 PAST SURGICAL HISTORY Procedure Laterality Date - ARTHRODESIS CMC JNT THUMB W/WO FIX 1996 bilateral - CERVICAL BIOPSY 05/25/12 Dr. Jordan - COLONOSCOP W/ OR W/O BRSH SPEC 05/16/2015 Colonoscopy - EGD W/O OR W/BRUSH/WASH 05/16/2015 EGD - ENDOMETRIAL BIOPSY 05/07/12 Dr. Jordan - HYSTEROSCOPY 05/25/12 Dr. Jordan - KNEE SCOPE,MENISECTOMY,MED OR LAT 10/07/2013 Left knee arthroscopic medial and lateral meniscectomies - partial - PAST SURGICAL HISTORY OF 1981 septoplasy - PAST SURGICAL HISTORY OF 04/16 bilateral lumbar epidural - PAST SURGICAL HISTORY OF 06/11/2015 lumbar epidural - left - REDUCTION OF LARGE BREAST 1999 bilateral - REMOVAL OF TONSILS,ANDlt;12 Y/O 1978 Tonsillectomy - ROTATOR CUFF REPAIR 1983 right acromioplasty FAMILY HISTORY Problem Relation Age of Onset - Cancer Mother 64 ovarian - Cancer Father 76 Mantle Cell Lymphoma - Cancer Maternal Grandmother uterine dx 60s - COPD Maternal Grandfather - Heart Maternal Grandfather CHF - Heart Paternal Grandmother CVA - Blood Disease Sister hemochromotosis - Cancer Paternal Aunt lung - Cancer Paternal Uncle brain tumor, myasthenia gravis SOCIAL HISTORY Social History Substance Use Topics - Smoking status: Never Smoker - Smokeless tobacco: Never Used - Alcohol use No Comment: stopped drinking on 04/04/14 REVIEW OF SYSTEMS Abdomen: No abdominal pain, nausea, vomiting, diarrhea, or constipation. No bloating, early satiety, indigestion, or increased flatulence. Bladder: No dysuria, gross hematuria, urinary frequency, urinary urgency, or incontinence Breast: No breast lumps, nipple d/c, overlying skin changes, redness or skin retraction Allergies and current medication updated:Yes EXAM: There were no vitals taken for this visit. GENERAL: pleasant, female in no apparent distress HEENT: Normocephalic, atraumatic, mucus membranes moist and no lesions NECK: Supple, full range of motion, no adenopathy and thyroid normal DERMATOLOGY: Normal, without lesions, non-icteric and non-hirsute BREAST: soft, symmetric, no dominant mass, normal nipple- areolar complex, no lymphadenopathy, no nipple discharge. Pt has surgical implants. Tenderness noted with exam. CHEST: Normal inspiratory effort ABDOMEN: soft, non-tender and no masses PELVIC: external genitalia normal, normal Bartholin's glands, urethra, [place]'s glands, no vulvar lesions, no cervical lesions, good vaginal support, physiologic discharge present, normal appearing perineal body and perianal region BIMANUAL: uterus normal size, shape and consistency, no adnexal masses, non-tender and no cervical motion tenderness RECTOVAGINAL: deferred. NEURO: alert and oriented x3,exam grossly non-focal EXTREMITIES: normal ASSESSMENT/PLAN: 1) Health maintenance: Pap/HPV screening no longer needed Mammogram up to date Nutrition, exercise and routine health maintenance exams reviewed. Calcium/Vitamin D supplementation information provided. 2) Follow up one year or sooner as needed JIM DAWN CNP 06/01/2017 4:36 PM Signed Addended by: KENIA LAKE on: 06/01/2017 04:36 PM Modules accepted: Orders Referring Provider: SELF [[id number]] Allergies As of Date: 06/01/2017 Noted Allergy Reaction CEPHALOSPORINS 03/09/2012 10 - Anaphylaxis THIMEROSAL 03/09/2012 7 - Swelling Comments: Difficulty breathing VANCOMYCIN 03/09/2012 10 - Anaphylaxis Comments: flushed LEVAQUIN (LEVOFLOXACIN) 03/14/2013 2 - Rash 14 - Other: See Comments Comments: Muscle/joint pain SPIRONOLACTONE (BULK) 02/20/2015 2 - Rash Comments: Pt states happened years ago when trying this always forgets. SULFA (SULFONAMIDE ANTIBIOTICS) 04/09/2012 4 - Hives 9 - Itching TAPE (ADHESIVE TAPE (ROSINS)) 06/08/2012 2 - Rash 9 - Itching Comments: degloving ZOCOR (SIMVASTATIN) 05/15/2014 14 - Other: See Comments Comments: Muscle/limb pain Date Reviewed: 06/01/2017 Reviewed by: Kenia Montes De Oca) Mack - Fully Assessed Reason for Visit: Well Woman [[id number]] Primary Visit Diagnosis:Encounter for gynecological examination (general) (routine) without abnormal findings [Z01.419] Other Visit Diagnosis:Controlled type 2 diabetes mellitus without complication, without long-term current use of insulin (HCC) [E11.9] Order(s):ciprofloxacin HCl (CIPRO) 250 mg tabletTake 1 tablet by mouth twice daily for 3 days. FOR 7 DAYS.Disp: 6 tabletRfl: 3 Blood-Glucose Meter (FREESTYLE LITE METER) monitoring kitFreestyle LITE Meter Kit -Dx 250.00, no insulinDisp: 1 EachRfl: 0 Prescriptions as of 06/01/2017 Sig: BLOOD-GLUCOSE METER KIT Freestyle LITE Meter Kit -Dx * FREESTYLE LITE STRIPS TEST BLOOD SUGAR THREE TIMES * TRAMADOL 50 MG TABLET Take 2 tablets by mouth as ne* MELOXICAM 15 MG TABLET Take 1 tablet by mouth once d* FUROSEMIDE 40 MG TABLET Take 0.5 tablets by mouth onc* POTASSIUM CHLORIDE ER 20 MEQ * Take 9 tablets by mouth once * OLOPATADINE 0.1 % EYE DROPS Use 1 Drop in both eyes twice* BLOOD SUGAR DIAGNOSTIC STRIPS Test blood sugar(s) 3 times d* LANCETS Test blood sugar(s) 3 times d* TRETINOIN 0.1 % TOPICAL CREAM Apply 1 Tube to affected area* HYDROCHLOROTHIAZIDE 25 MG TAB* Take 1 tablet by mouth once d* ESTRADIOL 0.01% (0.1 MG/GRAM)* Use 1 g vaginally twice a wee* KETOCONAZOLE 2 % SHAMPOO Massage onto affected areas a* ASCORBIC ACID (VITAMIN C) 250* Take 4 tablets by mouth once * MULTI VITAMIN ORAL Take by mouth once daily. CIPROFLOXACIN 250 MG TABLET Take 1 tablet by mouth twice * Problem List As Of Date 06/01/2017 Noted Resolved Essential hypertension [I10] INVALID FOR* Acne [L70.9] INVALID FOR* Pain disorder [R52] INVALID FOR* Menopausal vaginal dryness [N95.1] INVALID FOR* Itchy eyes [H57.8] INVALID FOR* Anemia [D64.9] INVALID FOR*10/14/2012 Hemochromatosis [E83.119] INVALID FOR* Body odor [L74.8] INVALID FOR* Chronic dermatitis of hands [L30.9] INVALID FOR* Frequent UTI [N39.0] INVALID FOR* Abdominal pain [R10.9] INVALID FOR* Hereditary hemochromatosis [E83.110] INVALID FOR* Liver dysfunction [K76.89] INVALID FOR* Lumbar stenosis [M48.061] INVALID FOR* Lumbar radiculopathy [M54.16] INVALID FOR* Chronic pain [G89.29] INVALID FOR* Negron's cyst [M71.20] INVALID FOR* Tear, knee, lateral meniscus [S83.289A] INVALID FOR* Complex tear of medial meniscus of left knee as*INVALID FOR* Pain in joint, lower leg [M25.569] INVALID FOR* Tear of medial cartilage or meniscus of knee, c*INVALID FOR* Diabetes mellitus type 2, controlled, without c*INVALID FOR* Hyperlipidemia [E78.5] INVALID FOR* Thoracic back pain [M54.6] INVALID FOR* DDD (degenerative disc disease), cervical [M50.*INVALID FOR* Cervical spondylosis [M47.812] INVALID FOR* Acute combined systolic and diastolic congestiv*INVALID FOR*03/04/2015 Chronic instability of metacarpophalangeal join*INVALID FOR* Bilateral low back pain without sciatica [M54.5]INVALID FOR* Thumb pain [M79.646] INVALID FOR* DDD (degenerative disc disease), lumbar [M51.36]INVALID FOR* Trochanteric bursitis of left hip [M70.62] INVALID FOR* Piriformis syndrome of left side [G57.02] INVALID FOR* Trochanteric tendinitis of left hip [M70.62] INVALID FOR* Vitiligo [L80] INVALID FOR* More... 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 Prescriptions ordered this encounter Disp Refills Start End BLOOD-GLUCOSE METER KIT 1 Ea* 0 06/01/2017 06/01/2017 Sig: Freestyle LITE Meter Kit -Dx 250.00, no insulin CIPROFLOXACIN 250 MG TABLET 6 ta* 3 06/01/2017 06/04/2017 Route: ORAL Sig: Take 1 tablet by mouth twice daily for 3 days. FOR 7 DAYS. BLOOD-GLUCOSE METER KIT 1 Ea* 0 06/01/2017 Sig: Freestyle LITE Meter Kit -Dx 250.00, no insulin Medications Discontinued During This Encounter COMPOUNDED PRESCRIPTION 2 Ea* 1 05/23/2015 06/01/2017 Sig: KNEE HIGH COMPRESSION STOCKINGS 30-40 MM. DX:Varicose veins of leg with pain (454.8). Venous stasis of both lower extremities (459.81) Disc: Reason for discontinue is not on file. gabapentin (NEURONTIN) 100 mg capsule 30 c* 2 04/01/2017 06/01/2017 Route: ORAL Sig: Take 1 capsule by mouth daily at bedtime. Disc: Reason for discontinue is not on file. nitroglycerin (NITROLINGUAL) 400 mcg* 1 Tashi* 2 05/23/2016 06/01/2017 Route: SUBLINGUAL Sig: Dissolve 1 Kimberly under the tongue every 5 minutes as needed. Disc: Reason for discontinue is not on file. Blood-Glucose Meter (FREESTYLE LITE * 1 Ea* 0 10/19/2014 06/01/2017 Sig: Freestyle LITE Meter Kit -Dx 250.00, no insulin Disc: Reason for discontinue is not on file. Blood-Glucose Meter (FREESTYLE LITE * 1 Ea* 0 06/01/2017 06/01/2017 Sig: Freestyle LITE Meter Kit -Dx 250.00, no insulin Disc: Reason for discontinue is not on file. Disposition: Return in 1 year (on 06/01/2018) for Annual Exam. Follow-up and Disposition History Recorded Encounter Status:Closed by KENIA LAKE on 06/01/17 BASIC METABOLIC PANL Collected: 05/28/2017 Status: F Source: [place] 11:31 AM [facility] REPOSITORY TYPE CODE TESTS RESULT OUT OF REFERENCE UNITS RANGE LAB GLU 74-99 mg/dL High Glucose 113 Result Comment: The [place] Diabetes Association (ADA) provides guidance for cutoff values for fasting glucose and random glucose. The ADA defines fasting as no caloric intake for at least 8 hours. Fas ting plasma glucose results between 100 to 125 mg/dL indicate increased risk for diabetes (prediabetes). Fasting plasma glucose results greater than or equal to 126 mg/dL meet the criteria for diagnosis of diabetes. In the absence of unequivocal hyperglycemia, results should be confirmed by repeat testing. In a patient with classic symptoms of hyperglycemia or hyperglycemic crisis, random plasma glucose results greater than or equal to 200 mg/dL meet the criteria for diagnosis of diabetes. Reference: Standards of Medical Care in Diabetes 2016, [place] [employer] Association. Diabetes Care. 2016.39(Suppl 1). LAB BUN 7-21 mg/dL BUN 20 LAB CRET 0.58-0.96 mg/dL Creatinine 0.59 LAB NA 136-144 mmol/L Sodium 141 LAB K 3.7-5.1 mmol/L Potassium 4.1 LAB CL 97-105 mmol/L Chloride 102 LAB CO2 22-30 mmol/L CO2 24 LAB AGAP 9-18 mmol/L Anion Gap 15 LAB CA 8.5-10.2 mg/dL Calcium, Total 8.5 LAB GFRAA eGFR- Amer. >60 LAB GFRNAA . eGFR-All Other Races >60 Result Comment: eGFR (Estimated GFR) Units of measure: mL/min/1.73 meters squared eGFR is derived from the reexpressed MDRD Study equation using the following parameters: serum creatinine, age, gender and race. The creatinine assay has been calibrated to be traceable to IDMS. An eGFR <60 mL/min/1.73m2 for >3 months is consistent with chronic kidney disease. Refer to KDOQI guidelines for clinical interpretation. In patients with unstable renal function, e.g. those with acute kidney injury, the eGFR may not accurately reflect actual GFR. Performed By: #### BMP, MG1 #### [facility] Reminder [address] [place], [place] [address] MAGNESIUM Collected: 05/28/2017 Status: F Source: [place] 11:31 AM [facility] REPOSITORY TYPE CODE TESTS RESULT OUT OF REFERENCE UNITS RANGE LAB MG 1.7-2.3 mg/dL Magnesium 2.1 Performed By: #### BMP, MG1 #### [facility] Reminder [address] [place], [place] [address] MRI LUMBAR SPINE WO Observed: 05/28/2017 Status: F [facility] REPOSITORY * * *Final Report* * * DATE OF EXAM: May 28 2017 11:07AM [facility] [id number] - MRI LUMBAR SPINE WO IVCON / PROCEDURE REASON: multiple diagnoses * * * * Physician Interpretation * * * * MRI LUMBAR SPINE WO IVCON HISTORY: Other intervertebral disc degeneration lumbar region spinal stenosis COMPARISON: None. TECHNIQUE: Routine lumbosacral spine MR protocol without gadolinium. RESULT: MR LUMBAR: Counting reference: Lumbosacral junction. For the purposes of this report, L4-5 is considered the level of the iliac crest. Alignment: Grade 1 anterolisthesis of L4 on L5 secondary to degenerative changes. Minimal anterolisthesis of L5 on S1 also secondary to degenerative changes. Bone marrow signal/fracture: No evidence of destructive osseous lesion. There is facet edema L4-5 and L5-S1 from degenerative facet arthropathy No evidence of prior fracture. Conus: The conus is within normal limits of signal intensity and morphology. Paraspinal soft tissues: Paraspinal soft tissues are within normal limits. Lower thoracic spine: Visualized lower thoracic canal and foramina are patent. T12-L1: Moderate degenerative disc changes and sagittal imaging. Canal narrowing. Foramina are patent at L1-L2: Moderate facet degenerative change. Canal and foramina are patent. L2-L3: Mild disc height loss and moderate to severe facet degenerative change. Canal is patent. There is minimal bilateral foraminal narrowing. L3-L4: Moderate degenerative disc changes and severe facet hypertrophy. Mildly narrow the canal and cause moderate bilateral foraminal narrowing. L4-L5: Anterolisthesis of L4 on L5 and severe facet degenerative changes combine to cause moderate canal stenosis and moderate right and mild left foraminal narrowing. L5-S1: Anterolisthesis of L5 on S1 and severe facet hypertrophy combine to cause severe bilateral foraminal narrowing and moderate canal stenosis Sacrum and iliac wings: The visualized sacrum and iliac wings are within normal limits. IMPRESSION: Severe lumbar spondylosis most significantly at L4-5 and L5- S1 where there is anterolisthesis, facet changes, and narrowing of the neural foramina as described in the body of the report. Crop Puller: PSCB Transcribe Date/Time: May 28 2017 11:44A Dictated by : GLENN GRANDA MD This examination was interpreted and the report reviewed and electronically signed by: GLENN GRANDA MD on May 28 2017 11:46AM EST [id number] MRI CERVICAL SPINE WO Observed: 05/28/2017 Status: F [facility] REPOSITORY * * *Final Report* * * DATE OF EXAM: May 28 2017 11:07AM [facility] 0297 - MRI CERVICAL SPINE WO IVCON / PROCEDURE REASON: multiple diagnoses * * * * Physician Interpretation * * * * EXAMINATION: MRI CERVICAL SPINE WO IVCON CLINICAL HISTORY: TECHNIQUE: Routine cervical spine MR protocol without gadolinium. COMPARISON: None. RESULT: Counting reference: Craniocervical junction. Alignment: Straightening of the normal cervical lordosis and mild degenerative type anterolisthesis C7 on T1.. Craniocervical junction: Craniocervical junction is normal. Cord: The visualized cord is within normal limits of signal intensity and morphology. Bone marrow signal/fracture: No evidence of pathologic marrow infiltration. No evidence of prior fracture. Cervical soft tissues: The paraspinal soft tissues are within normal limits. C2-C3: Moderate degenerative disc and facet and uncinate changes mildly narrow the foramina bilaterally and mildly narrow the canal. C3-C4: Severe degenerative disc and facet changes with moderate to severe canal stenosis and severe bilateral foraminal narrowing. C4-C5: Severe degenerative disc and facet changes with severe bilateral foraminal narrowing severe canal stenosis C5-C6: Severe degenerative disc and facet changes causing severe canal stenosis and severely narrows the foramina bilaterally. C6-C7: Moderate degenerative disc and severe facet degenerative changes with severe bilateral foraminal narrowing and moderate canal stenosis. C7-T1: Minimal canal narrowing from trace anterolisthesis of C7 on T1 foramina remain IMPRESSION: Severe cervical spondylosis detailed level by level in the body of the report. No cord signal abnormality or CORD compression. Crop Puller: PSCTamika Transcribe Date/Time: May 28 2017 11:46A Dictated by : GLENN GRANDA MD This examination was interpreted and the report reviewed and electronically signed by: GLENN GRANDA MD on May 28 2017 11:47AM EST [id number] Observed: 05/28/2017 Status: COMPLETED Source: [place] 11:06 AM [facility] REPOSITORY [facility] ID: [id number] Author: Nava Calderon Service: (none) Author Type: (none) Type: Progress Notes Filed: 05/28/2017 11:06 AM Note Text: Radiology Service Progress Note PATIENT NAME: Leila Thornton DATE OF SERVICE: May 28, 2017 TIME: 11:06 AM PATIENT IDENTITY VERIFICATION COMPLETED USING TWO (2) METHODS: Patient confirmed name verbally and Date of . PATIENT GENDER DATA: Female. status: : No status: NO. PATIENT RELEVANT IMPLANT DATA REVIEWED: Yes RADIOLOGY DEPARTMENT: MR; Exam(s) Completed: Spine: Cervical spine and Lumbar spine PERIPHERAL IV DATA: Not applicable SIGNED BY: Nava Calderon May 28, 2017 11:06 AM ALLERGIES ALLERGIES DATE TYPE / CODE NAME / CODE REACTION SEVERITY SOURCE Drug Cephalosporins/F00 Rash Unknown [place] 8 Allergy/678164279 8256835(RXNORM) Formerly [facility] (SNOMED CT) Hospital Repository Drug Sulfa (Sulfonamide Rash Unknown [place] 8 Allergy/994899893 Antibiotics)/F0010 Formerly [facility] (SNOMED CT) 72526(RXNORM) Hospital Repository Drug Musatto-Kol-Dic Other Unknown [place] 8 Allergy/208793896 Reductase Formerly [facility] (SNOMED CT) Inhibitor/L2110022 Hospital 95(RXNORM) Repository Drug thimerosal/H277782 Anaphylaxis Unknown [place] 8 Allergy/572783939 125(RXNORM) Formerly [facility] (SNOMED CT) Hospital Repository Drug adhesive/[id number] Rash Unknown [place] 8 Allergy/984750883 5(RXNORM) Formerly [facility] (SNOMED CT) Hospital Repository Drug vancomycin/E674795 Rash Unknown [place] 8 Allergy/201003722 866(RXNORM) Formerly [facility] (SNOMED CT) Hospital Repository Drug levofloxacin/F0060 Hives Unknown [place] 8 Allergy/783853731 95997(RXNORM) Formerly [facility] (SNOMED CT) Hospital Repository Miscellaneous THERMOSOL Anaphylaxis Unknown [place] 8 Allergy/521090468 Formerly [facility] (SNOMED CT) Hospital Repository DRUG/099557729(SN SPIRONOLACTONE RASH [place] [address]) (BULK) Clinic Other [place] Repository DRUG SIMVASTATIN OTHER: SEE C [place] INGREDI/886257492 Clinic Other (SNOMED CT) [place] Repository DRUG LEVOFLOXACIN R[place] INGREDI/463276148 Clinic Other (SNOMED CT) [place] Repository Chemical/80721870 ADHESIVE TAPE RASH [place] 6(SNOMED CT) (ROSINS) Clinic Other [place] Repository Drug SULFA (SULFONAMIDE HIVES [place] Class/573820448(S ANTIBIOTICS) Clinic Other NOMED CT) [place] Repository Drug CEPHALOSPORINS ANAPHYLAXIS [place] Class/409141240(S Clinic Other NOMED CT) [place] Repository DRUG THIMEROSAL SWELLING [place] INGREDI/671899095 Clinic Other (SNOMED CT) [place] Repository DRUG VANCOMYCIN ANAPHYLAXIS [place] INGREDI/674199645 Clinic Other (SNOMED CT) [place] Repository ENCOUNTERS ENCOUNTERS ADMIT/DISCHARGE ACCOUNT ADMITTING ENCOUNTER LOCATION SOURCE NUMBER CLASS 05/13/2018/05/14/19 [id number] Ambulatory [place] [facility] Main [place] Repository 04/15/2018/04/15/20 [id number] Emergency [address] ing:ED Repository 04/15/2018/04/19/20 [id number] Ambulatory [place] [facility] [place] Repository 03/29/2018/03/29/20 [id number] Ambulatory [place] [facility] [place] Rep[facility] 02/23/2018/02/25/20 [id number] Ambulatory [place] [facility] [place] Rep[place] 02/18/2018/02/19/20 [id number] THIAGO PIPER Ambulatory [place] [facility] Other [place] Repository 01/18/2018/01/19/20 [id number] Ambulatory [place] [facility] [place] Rep[facility] 11/27/2017/11/28/19 [id number] Ambulatory [place] [facility] [place] Rep[facility] 11/23/2017/12/09/19 [id number] Ambulatory [place] [facility] [place] Rep[facility] 11/12/2017/12/04/19 [id number] Ambulatory [place] [facility] [place] Rep[facility] 11/09/2017/11/10/19 [id number] Ambulatory [place] [facility] [place] Rep[facility] 11/03/2017/11/10/19 [id number] Ambulatory [place] [facility] [place] Rep[facility] 10/28/2017/10/29/19 [id number] Ambulatory [place] [facility] [place] Rep[facility] 10/27/2017/10/28/19 [id number] Ambulatory [place] [facility] Main [place] Rep[place] 10/19/2017/10/20/19 [id number] Ambulatory [place] [facility] Main [place] Repository 10/14/2017/10/16/19 [id number] Ambulatory [place] [facility] Main [place] Rep[facility] 10/08/2017/10/09/19 [id number] Ambulatory [place] [facility] Main [place] Rep[facility] 10/05/2017/10/06/19 [id number] Ambulatory [place] [facility] Main [place] Repository 09/03/2017/09/04/19 [id number] Ambulatory [place] [facility] Main [place] Repository 08/31/2017/09/01/19 [id number] Ambulatory [address] Main [place] Repository 08/18/2017/08/22/19 [id number] Ambulatory [address] Main [place] Repository 08/11/2017/08/12/19 [id number] Ambulatory [address] Main [place] Repository 08/10/2017/08/12/19 [id number] Ambulatory [address] Main [place] Repository 07/29/2017/08/01/19 [id number] Ambulatory [address] Main [place] Rep[place] 07/21/2017/07/22/19 [id number] THIAGO PIPER Ambulatory [address] Other [place] Repository 07/14/2017/07/15/19 [id number] Ambulatory [address] Main [place] Repository 07/13/2017/07/14/19 [id number] Ambulatory [address] Main [place] Repository 06/08/2017/06/08/19 [id number] Ambulatory [address] Main [place] Repository 06/01/2017/06/02/19 [id number] Ambulatory [address] Main [place] Repository 05/28/2017/05/28/19 [id number] Ambulatory [address] Main [place] Repository 05/28/2017/05/28/19 [id number] Ambulatory [address] Main [place] Repository PAYERS PAYERS ENCOUNTER GUARANTOR PAYER SUBSCRIBER SOURCE 04/15/2018 Karina DÍAZ Primary J BRE [place] [id number] OIL Insurance:MEDICARE NELSONDOB[id number] [address]Wwk: Number: Repository [id number] (HP) Date:2018-04-15 04/15/2018 Secondary J BRE [place] Insurance:UNITED NELSONDOB: [facility] [id number] Hospital COPolicy Number: Repository [id number] Date: EARL LOR[place] 79948NG: 04/15/2018 Tertiary NOT GIVENUNK [place] Insurance:SELF PAY [facility] Number: Effective Repository Date:2018-04-15
== END 2018-04-15 16:56 | disposition home or self-care (01) ==
PROVIDERS: Emergency Provider Emergency Medicine; Family Provider Family Medicine; PCP Family Medicine
DX: R07.89 Other chest pain (principal); K22.4 Dyskinesia of esophagus; K21.9 Gastro-esophageal reflux disease without esophagitis; Z79.899 Other long term (current) drug therapy
CPT/HCPCS: 71045; 80048; 83880; 84484; 85025; 93005; 99285; A4216

== ENCOUNTER 2020-07-10 07:11 | Outpatient (RCR) | payer MEDICARE, OTHER, SELFPAY ==
[2020-07-10] MEDS: COVID-19 VACC, MRNA(PFIZER)/PF 30 MCG/0.3 ML SYRINGE IM (14:46)
[2020-07-31] MEDS: COVID-19 VACC, MRNA(PFIZER)/PF 30 MCG/0.3 ML SYRINGE IM (14:35)
== END 2020-10-09 23:59 ==
LOC: IMMUN 07:11
PROVIDERS: PCP Family Medicine; Referring Provider Family Medicine; Visit Provider Family Medicine
DX: Z23 Encounter for immunization (principal)
CPT/HCPCS: 0001A; 0002A; 91300

== ENCOUNTER 2021-02-27 12:33 | Emergency (ER) | payer MEDICARE, OTHER, SELFPAY ==
[2021-02-27 12:34] VITALS: BP 126/79; PULSE 91; RESP 16; TEMP 36.1; O2SAT 99; BMI 22.3
--- NOTE | 2021-02-27 12:53 | CT_ITS ---
STUDY: CT BRAIN WITHOUT CONTRAST REASON FOR EXAM: Female, 71 years old. Injury/Pain RADIATION DOSAGE (If Supplied By Facility): CTDIvol = ( 38.43 ) mGy, DLP = ( 712.69 ) mGycm TECHNIQUE: Transaxial CT imaging of the brain was performed without administration of intravenous contrast material. Individualized dose optimization techniques were used for this CT. COMPARISON: Comparison is made with prior study dated 09/21/2014. FINDINGS: Normal soft tissue structures. Normal calvarium. Normal size ventricles and extra-axial spaces for the patient''s age. Normal white matter tracts of the cerebral hemispheres. Normal basal ganglia and thalami. Normal brainstem. Normal cerebellum. There is no intracranial hemorrhage. There are no findings of an acute ischemic infarction. Normal visualized paranasal sinuses. CT/Brain/Head without Contrast IMPRESSION: Normal unenhanced CT scan of the brain. Electronically Signed: Garret Chow MD at 13:38 EDT , Service support ,
--- NOTE | 2021-02-27 12:54 | EDS_ITS ---
HPI History of Present Illness Chief Complaint: Head Injury Informant: patient Onset/Context/Timing Onset: Today Mechanism/Context: Fall (Mechanical fall down 10 steps) Location of pain/injuries: Right elbow Quality of Pain: Sharp and Throbbing Location: Head, right elbow Worsened by: Movement Relieved by: Rest Associated Symptoms Associated Symptoms: Negative for Parasthesias, Weakness, Inability to ambulate, Loss of consciousness and Amnesia Narrative Narrative: Patient presents after a fall that occurred today. Patient fell down approximately 10 steps. Patient states her dog knocked her down and she fell down the steps. Patient hit her head on concrete. Patient denies any loss of consciousness. Patient also admits to some pain in her right elbow. Patient describes her elbow pain is sharp. Patient describes her head pain as throbbing. Patient denies any paresthesias or weakness. Patient denies any other injuries. Patient states her elbow pain is worse with any movement and better with rest. [facility] Medical History (Updated 02/27/21 @ 13:[address] Cristhian Ramon, ) Diet-controlled diabetes mellitus Hemochromatosis Hypertension Home Medications Olopatadine Hcl [Patanol] 1 drp EACH EYE PRN 11/01/13 [History Last Taken Unknown] estradiol [Divigel] 0.25 mg TRANSDERMAL PRN 11/01/13 [History Last Taken Unknown] furosemide 20 mg PO DAILY 11/01/13 [History Last Taken Unknown] hydrochlorothiazide 25 mg PO DAILY 11/01/13 [History Last Taken Unknown] potassium 180 mg PO DAILY 11/01/13 [History Last Taken Unknown] tretinoin [Retin-A] 20 g TP DAILY 11/01/13 [History Last Taken Unknown] cyclobenzaprine 10 mg PO TID PRN #20 tablet 09/21/14 [Rx Last Taken Unknown] hydrocodone-acetaminophen 1 tab PO Q6H PRN PRN 09/21/14 [History Last Taken Unknown] naproxen 500 mg PO DAILY PRN PRN 09/21/14 [History Last Taken Unknown] tramadol [Ultram ER] 100 mg PO 09/21/14 [History Last Taken Unknown] nitroglycerin 0.4 mg SL PRN PRN #30 tab.subl 04/15/18 [Rx Last Taken Unknown] Allergy/AdvReac Type Severity Reaction Status Date / Time adhesive Allergy Rash Verified 02/27/21 12:36 atorvastatin [From Lipitor] Allergy Other Verified 02/27/21 12:38 Cephalosporins Allergy Rash Verified 02/27/21 12:36 levofloxacin [From Levaquin] Allergy Hives Verified 02/27/21 12:36 Sulfa (Sulfonamide Allergy Rash Verified 02/27/21 12:36 Antibiotics) thimerosal Allergy Anaphylaxis Verified 02/27/21 12:36 vancomycin Allergy Rash Verified 02/27/21 12:36 Ywleoty-Mcp-Xwb Reductase AdvReac Other Verified 02/27/21 12:36 Inhibitor THERMOSOL Allergy Anaphylaxis Uncoded 02/27/21 12:36 Surgical History (Updated 02/27/21 @ 12:[address] Cristhian Ramon DO) History of conization of cervix Hx of bilateral breast reduction surgery Hx of nasal septoplasty S/P arthroplasty of acromioclavicular joint Social History Smoking Status: Never smoker ROS ROS ED Constitutional Constitutional ED: Denies chills or fever(s) Eyes Eyes: Denies blurry vision or change in vision ENT ENT ED: Denies rhinorrhea or sore throat Cardiovascular Cardiovascular: Denies chest pain or palpitations Respiratory/Chest Respiratory/Chest: Denies cough or dyspnea Gastrointestinal Gastrointestinal: Denies nausea or vomiting Genitourinary Genitourinary ED: Denies dysuria or hematuria Musculoskeletal Musculoskeletal: Denies back pain or neck pain Integumentary Denies abscess or rash Neurologic Neurologic: Reports headache(s); Denies weakness Allergic/Immunologic Allergic/Immunologic ED: Denies mouth swelling or urticaria EXAM Physical Exam Const Vital Signs: 02/27/21 12:34 02/27/21 12:56 Temperature 96.9 F L Temperature Source Temporal Pulse Rate 91 Respiratory Rate 16 Respiratory Effort Normal Non-Labored Respiratory Depth Normal Respiratory Pattern Normal Blood Pressure 126/79 H Blood Pressure Mean 94 Pulse Ox 99 Oxygen Delivery Method Room Air Room Air Positive well nourished and well developed General Appearance ED: well developed HEENT Reports moist mucous membranes HEENT Narrative: There is a right frontal hematoma and mild tenderness. There is no bony crepitance or step-off. There is also some mild right periorbital tenderness. There is no edema or ecchymosis in this area. Eyes PERRL and EOMs intact bilaterally Neck full ROM, supple and no JVD General: Negative for tenderness Resp normal respiratory effort and clear to auscultation bilaterally Cardio regular rate, regular rhythm and no murmurs GI normal to inspection, nondistended, normoactive bowel sounds and non-tender Palpation: soft Extremity normal to inspection Extremity Narrative: There is some mild tenderness, edema, and ecchymosis over the right elbow. There is full range of motion. There is some mild pain with complete flexion of the right elbow. There is no pain with pronation or supination. Radial pulses are equal bilaterally. General Extremety ED: Negative for edema or tenderness General Extremity: Negative for edema Neuro oriented x3, CN's II-XII intact bilaterally and no sensory deficits noted Sensorium / Orientation: alert Motor Exam: strength 5/5 throughout Psych mental status grossly normal Skin no rashes or lesions noted MDM MDM MDM Narrative Medical decision making narrative: CT scan of the brain was obtained. There is no acute intracranial abnormality noted. This was interpreted by the radiologist and reviewed by myself. X-rays of the right elbow were obtained. There are 3 views. On my interpretation, there is an old avulsion fracture off the lateral epicondyle. There is no acute fracture. There is no effusion. There are some degenerative changes noted. Radiologist also interpreted the x- rays and agrees. Patient was instructed to use ice to the elbow and forehead. Patient was instructed to take Tylenol as needed for pain. Patient was instructed to follow-up with her primary care physician in 5 to 7 days. Patient understood and was agreeable with the plan. All questions were answered. Discharge Plan Triage Chief Complaint: Head Injury ED Provider: Cristhian Ramon Dx/Rx/DC Orders Clinical Impression: Head injury, closed, Contusion of right elbow, initial encounter Instructions: ED Contusion, Elbow, ED Head Injury (Adult) Prescriptions: No Action tretinoin [Retin-A] 20 GM Cream..G. 20 g TP DAILY RF: 0 potassium 99 MG tablet 180 mg PO DAILY RF: 0 hydrochlorothiazide 25 MG tablet 25 mg PO DAILY RF: 0 furosemide 20 MG tablet 20 mg PO DAILY RF: 0 estradiol [Divigel] 0.25 MG Gel.Packet 0.25 mg transdermal PRN RF: 0 Olopatadine Hcl [Patanol] 1 DROP Drops 1 drp Each Eye PRN RF: 0 hydrocodone-acetaminophen 1 TABLET tablet 1 tab PO Q6H PRN PRN (Reason: Pain) RF: 0 naproxen 500 MG tablet 500 mg PO DAILY PRN PRN (Reason: Pain) RF: 0 tramadol [Ultram ER] 100 MG Tab.Er.24h 100 mg PO RF: 0 cyclobenzaprine 10 MG tablet 10 mg PO TID PRN (Reason: Muscle Spasm) Qty: 20 RF: 0 nitroglycerin 0.4 MG tablet, sublingual 0.4 mg SL PRN PRN (Reason: Cardiac/Chest Pain) Qty: 30 RF: 0 Primary Care Provider: Andrew El Referrals: Andrew lE MD [Primary Care Provider] - 5-7 Days Disposition Disposition: Home, Self Care
--- NOTE | 2021-02-27 13:08 | RAD_ITS ---
STUDY: X-RAY - RIGHT ELBOW REASON FOR EXAM: Female, 71 years old. Injury/Pain TECHNIQUE: 3 view(s) of the elbow. COMPARISON: None. FINDINGS: Normal visualized humerus, radius and ulna. There is degenerative arthrosis of the radiocapitellar and ulnotrochlear articulations. The soft tissue structures are unremarkable. RAD/Elbow min 3 Views IMPRESSION: Arthrosis of the elbow, as described above. Electronically Signed: Garret Chow MD at 13:40 EDT , Service support ,
== END 2021-02-27 14:07 | disposition home or self-care (01) ==
PROVIDERS: Emergency Provider Emergency Medicine; PCP Family Medicine
DX: S00.03XA Contusion of scalp, initial encounter (principal); S50.01XA Contusion of right elbow, initial encounter; W10.9XXA Fall (on) (from) unspecified stairs and steps, initial encounter; W54.1XXA Struck by dog, initial encounter; Y93.9 Activity, unspecified; Y92.9 Unspecified place or not applicable; Y99.9 Unspecified external cause status; I10 Essential (primary) hypertension; Z79.899 Other long term (current) drug therapy
CPT/HCPCS: 70450; 73080; 99283

== ENCOUNTER 2024-01-03 08:24 | Emergency (ER) | payer MEDICARE, OTHER, SELFPAY ==
[2024-01-03 08:25] VITALS: BP 113/84; PULSE 93; RESP 18; TEMP 36.2; O2SAT 99; BMI 23.1
--- NOTE | 2024-01-03 08:45 | EDS_ITS ---
HPI History of Present Illness Chief Complaint: [facility] Medical History Diet-controlled diabetes mellitus Hypertension Hemochromatosis Home Medications ?Medication ?Instructions ?Recorded ?Last Taken ?Type Olopatadine Hcl [Patanol] 1 drp PRN 11/01/13 Unknown History estradiol 0.25 mg/0.25 gram (0.1 0.25 mg transdermal PRN 11/01/13 Unknown History %) transdermal gel packet (Divigel) furosemide 20 mg tablet 20 mg PO DAILY 11/01/13 Unknown History hydrochlorothiazide 25 mg tablet 25 mg PO DAILY 11/01/13 Unknown History potassium 99 mg tablet 180 mg PO DAILY 11/01/13 Unknown History tretinoin 0.025 % topical cream 20 g TP DAILY 11/01/13 Unknown History (Retin-A) cyclobenzaprine 10 mg tablet 10 mg PO TID PRN Muscle Spasm ##20 09/21/14 Unknown Rx hydrocodone-acetaminophen 5-325mg 1 tab PO Q6H PRN PRN Pain 09/21/14 Unknown History 5mg-325mg naproxen 500 mg tablet 500 mg PO DAILY PRN PRN Pain 09/21/14 Unknown History tramadol 100 mg tablet,extended 100 mg PO 09/21/14 Unknown History release 24 hr (Ultram ER) nitroglycerin 0.4 mg sublingual 0.4 mg SL PRN PRN Cardiac/Chest 04/15/18 Unknown Rx tablet Pain ##30 Allergy/AdvReac Type Severity Reaction Status Date / Time adhesive Allergy Rash Verified 01/03/24 08:25 atorvastatin (From Lipitor) Allergy Other Verified 01/03/24 08:25 Cephalosporins Allergy Rash Verified 01/03/24 08:25 levofloxacin (From Levaquin) Allergy Hives Verified 01/03/24 08:25 Sulfa (Sulfonamide Allergy Rash Verified 01/03/24 08:25 Antibiotics) thimerosal Allergy Anaphylaxis Verified 01/03/24 08:25 vancomycin Allergy Rash Verified 01/03/24 08:25 Zprssuq-BDV-MzU Reductase AdvReac Other Verified 01/03/24 08:25 Inhibitor (Hlkcgee-Lkv-Gdz Reductase Inhibitor) Surgical History Hx of bilateral breast reduction surgery S/P arthroplasty of acromioclavicular joint History of conization of cervix Hx of nasal septoplasty Social History Smoking Status: Never smoker EXAM Physical Exam Const Vital Signs: 01/03/24 08:24 01/03/24 08:25 Temperature 97.1 F L Temperature Source Temporal Pulse Rate 93 Respiratory Rate 18 Respiratory Effort Normal Respiratory Depth Normal Respiratory Pattern Normal Blood Pressure 113/84 H Blood Pressure Mean 93 Pulse Ox 99 Oxygen Delivery Method Room Air Room Air Discharge Plan Triage Chief Complaint: Fall ED Provider: Cristhian Ramon Dx/Rx/DC Orders Prescriptions: No Action tretinoin [Retin-A] 20 GM cream 20 g TP DAILY potassium 99 MG tablet 180 mg PO DAILY hydrochlorothiazide 25 MG tablet 25 mg PO DAILY furosemide 20 MG tablet 20 mg PO DAILY estradiol [Divigel] 0.25 MG gel in packet 0.25 mg transdermal PRN Olopatadine Hcl [Patanol] 1 DROP Drops 1 drp Each Eye PRN hydrocodone-acetaminophen 1 TABLET tablet 1 tab PO Q6H PRN PRN (Reason: Pain) naproxen 500 MG tablet 500 mg PO DAILY PRN PRN (Reason: Pain) tramadol [Ultram ER] 100 MG tablet extended release 24 hr 100 mg PO cyclobenzaprine 10 MG tablet 10 mg PO TID PRN (Reason: Muscle Spasm) Qty: 20 0RF nitroglycerin 0.4 MG tablet, sublingual 0.4 mg SL PRN PRN (Reason: Cardiac/Chest Pain) Qty: 30 0RF Primary Care Provider: Andrew El Referrals: Andrew El MD [Primary Care Provider] - Print Language: French
--- NOTE | 2024-01-03 09:14 | ED.RN ---
PT IS CONCERNED ABOUT DOGS IN THE CAR. STATES CANNOT WAIT ANY LONGER
== END 2024-01-03 09:21 | disposition left against medical advice (07) ==
LOC: ED 09:20
PROVIDERS: PCP Family Medicine
DX: Z53.21 Procedure and treatment not carried out due to patient leaving prior to being seen by health care provider (principal)
CPT/HCPCS: 99282